=== PATIENT | female | born 1945 | race Caucasian/White ===

== ENCOUNTER 2017-05-21 08:07 | Inpatient (IN) | payer MEDICARE, SELFPAY ==
[2017-05-21] VITALS (14 sets, daily range): BP systolic 100–133; BP diastolic 48–85; PULSE 61–92; RESP 16–20; TEMP 36.4–36.8; O2SAT 92–98; BMI 36.1; BMI 32.5; BMI 36.2
--- NOTE | 2017-05-21 08:16 | EKG12_ITS ---
Test Reason : SOB,BACK PAIN Blood Pressure : / mmHG Vent. Rate : 098 BPM Atrial Rate : 098 BPM P-R Int : 164 ms QRS Dur : 166 ms QT Int : 432 ms P-R-T Axes : 103 073 -48 degrees QTc Int : 551 ms Electronic ventricular pacemaker Abnormal ECG Confirmed by KRISTY HENNING, DARNELL ([id number]), writer editor FIORELLA ABREU ([id number] on 05/22/2017 9:47:39 AM Referred By: JAMES Confirmed By:DARNELL WAGNER MD
--- NOTE | 2017-05-21 08:16 | RAD_ITS ---
STUDY: X-RAY CHEST REASON FOR EXAM: Female, 71 years old. Chest pain and shortness of breath. Back pain. TECHNIQUE: AP and lateral views of the chest. COMPARISON: Comparison is made with prior study dated June 06, 2016. FINDINGS: EKG electrodes are seen. There is evidence of vascular congestion and mild degree of CHF. Mild increased markings at the lung bases suggestive of bibasilar atelectasis. There is no demonstrated pleural abnormality. Sternal cerclage wires and vascular clips are present from a prior sternotomy and coronary artery bypass graft procedure (CABG). Calcification of the mitral valve annulus. A left-sided dual-chamber pacemaker is seen. Normal mediastinum and jessica. Normal visualized pulmonary arteries. Normal visualized aortic arch and descending thoracic aorta. There is demineralization of the osseous structures. Dextroscoliosis. Healed right rib fractures. There is no demonstrated abnormality of the visualized soft tissue structures of the upper abdomen. RAD/Chest PA and Lateral IMPRESSION: Mild degree of CHF. Electronically Signed: Yannick Magana MD at 9:05 EST Tel [phone], Service support ,
--- NOTE | 2017-05-21 08:21 | ED.VISSUMM ---
- ER Visit Summary Date of Service: 05/21/17 Chief Complaint: Per EMS shortness of breath, back pain and increased leg swelling History of Present Illness: The patient is a 71 F is a poor informant with multiple medical problems who has little insight while he she is taking the meds she is and why she has a pacemaker. She no longer has back pain. Apparently it started sometime last evening. She also complained of shortness of breath. She is not certain when that started. She stated she slept in a chair last night because she could not lie down. She is uncertain whether she is gained weight. She states she is compliant with her medication. She states her pacemaker is due for assessment. She complains of feeling cold. She denies fever or chills. She denies rhinorrhea, earache or sore throat. She denied any chest discomfort. She denies any abdominal pain or low back pain. She has no history of PE or DVT. She is on Xarelto for chronic atrial fibrillation. She denies black or maroon colored stool. She denies blood in her urine. She denies cough or pleuritic chest pain. Physical Examination: Obese woman who is tachypnic and breathing 23 times a minute on my count with a pulse ox of 90% on room air. Head is atraumatic normocephalic. Pupils are equal round reactive. Extraocular muscles are intact. TMs are pearly white with landmarks noted. Nares patent with no drainage. Posterior pharynx without erythema or exudate. Uvula is midline. There is no dysphonia or dysphasia. Trachea is midline. There is no stridor with auscultation of the neck. Heart is irregular. Monitor reveals paced rhythm at times atrial ventricular paced and at times only ventricular. Breath sounds are diminished on the right and minimal rales noted at the bases. Abdomen is soft nontender. Lower extremity exam is remarkable for discoloration can consistent with venous stasis and significant pitting edema. She is alert oriented with a nonfocal neurologic exam. Test Results: EG that was transmitted by paramedics reveals AV dual paced rhythm. Rate was 130. EKG performed in the emergency department reveals an atrial sensed ventricular paced rhythm rate of 98 and is irregular. White count is normal with an H&H of 16.7 and 52.5 and an MCV of 100. BMP is remarkable for CO2 of 34 with a creatinine of 1.07 and GFR 54. Troponin is less than 0.02. B EXHAUST EMISSIONS INSPECTOR pending. Chest x-ray reveals borderline cardiomegaly and CHF. Emergency Department Course and Treatment: EKG reveals a atrial sensed ventricular paced rhythm. Rate is 98. To evaluate patient's symptoms will obtain EKG, chest x-ray because of diminished breath sounds and rales with reported orthopnea and pedal edema. Blood work will consist of a CBC, BMP, troponin and BNP. Back pain may represent ischemia of the circumflex vessel versus possible aortic disease. And reason for chest x-ray. Concern patient is volume overloaded and may have had an ischemic event as well. Patient was treated with 40 mg of Lasix for diuresis. 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 Exacerbation of CHF 2. Chronic A. fib with intermittent RVR 3. History of hypertension 4. History hypercholesterolemia 5. History of COPD 6. Polycythemia vera 7. High risk medication, Xarelto This note was generated with [employer] dictation software. It may contain incorrect words, spelling, and punctuation that were not noted in review of the chart prior to signing ED Disposition - Plan for ED Patient: Chief Complaint: Chest Pain Referrals: Zelda Graham MD [STAFF PHYSICIAN] -
[2017-05-21 08:27] LABS: Absolute Lymphocyte Count 1.52 X10^3/ul (0.83-4.51); Basophil# 0.03 X10^3/uL; Basophil% 0.4 % (0-1); Eosinophil# 0.11 X10^3/uL; Eosinophils% 1.3 % (0-5); Hematocrit 52.5 % (37-47); Hemoglobin 16.7 g/dl (12.0-15.0); Lymphocyte # 1.52 X10^3/ul (4.0); Mean Corp Hgb Conc 31.8 g/gl (32-36); Mean Corpuscular Hgb 31.8 pg (27.0-32.0); Monocyte# 0.82 X10^3/uL; Monocyte% 9.7 % (0-10); Neutrophil # 5.97 X10^3/uL (2.7-7.7); Neutrophil % 70.5 % (47-70); Platelet Count 119 K/mm3 (150-450); RBC Distribution Width CV 14.6 % (11.6-14.6); RBC Distribution Width SD 53.5 fl (35.1-43.9); Red Blood Count 5.25 M/mm3 (4.2-5.4); White Blood Count 8.5 K/mm3 (4.4-11.0)
--- NOTE | 2017-05-21 08:27 | ED.DCSUM_ITS ---
- ER Visit Summary Date of Service: 05/21/17 Chief Complaint: Per EMS shortness of breath, back pain and increased leg swelling History of Present Illness: The patient is a 71 F is a poor informant with multiple medical problems who has little insight while he she is taking the meds she is and why she has a pacemaker. She no longer has back pain. Apparently it started sometime last evening. She also complained of shortness of breath. She is not certain when that started. She stated she slept in a chair last night because she could not lie down. She is uncertain whether she is gained weight. She states she is compliant with her medication. She states her pacemaker is due for assessment. She complains of feeling cold. She denies fever or chills. She denies rhinorrhea, earache or sore throat. She denied any chest discomfort. She denies any abdominal pain or low back pain. She has no history of PE or DVT. She is on Xarelto for chronic atrial fibrillation. She denies black or maroon colored stool. She denies blood in her urine. She denies cough or pleuritic chest pain. Physical Examination: Obese woman who is tachypnic and breathing 23 times a minute on my count with a pulse ox of 90% on room air. Head is atraumatic normocephalic. Pupils are equal round reactive. Extraocular muscles are intact. TMs are pearly white with landmarks noted. Nares patent with no drainage. Posterior pharynx without erythema or exudate. Uvula is midline. There is no dysphonia or dysphasia. Trachea is midline. There is no stridor with auscultation of the neck. Heart is irregular. Monitor reveals paced rhythm at times atrial ventricular paced and at times only ventricular. Breath sounds are diminished on the right and minimal rales noted at the bases. Abdomen is soft nontender. Lower extremity exam is remarkable for discoloration can consistent with venous stasis and significant pitting edema. She is alert oriented with a nonfocal neurologic exam. Test Results: EG that was transmitted by paramedics reveals AV dual paced rhythm. Rate was 130. EKG performed in the emergency department reveals an atrial sensed ventricular paced rhythm rate of 98 and is irregular. White count is normal with an H&H of 16.7 and 52.5 and an MCV of 100. BMP is remarkable for CO2 of 34 with a creatinine of 1.07 and GFR 54. Troponin is less than 0.02. B RIG BUILDER HELPER pending. Chest x-ray reveals borderline cardiomegaly and CHF. Emergency Department Course and Treatment: EKG reveals a atrial sensed ventricular paced rhythm. Rate is 98. To evaluate patient's symptoms will obtain EKG, chest x-ray because of diminished breath sounds and rales with reported orthopnea and pedal edema. Blood work will consist of a CBC, BMP, troponin and BNP. Back pain may represent ischemia of the circumflex vessel versus possible aortic disease. And reason for chest x-ray. Concern patient is volume overloaded and may have had an ischemic event as well. Patient was treated with 40 mg of Lasix for diuresis. 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 Exacerbation of CHF 2. Chronic A. fib with intermittent RVR 3. History of hypertension 4. History hypercholesterolemia 5. History of COPD 6. Polycythemia vera 7. High risk medication, Xarelto This note was generated with [employer] dictation software. It may contain incorrect words, spelling, and punctuation that were not noted in review of the chart prior to signing ED Disposition - Plan for ED Patient: Chief Complaint: Chest Pain Referrals: Zelda Graham MD [STAFF PHYSICIAN] -
[2017-05-21 08:29] LABS: POSITIVE COUNT NO; POSITIVE DIFFERENTIAL NO; POSITIVE MORPHOLOGY NO
[2017-05-21 08:38] LABS: Anion Gap 4 (5-15); BUN 16 mg/dL (7-18); BUN/Creat Ratio 15.1 RATIO (10-20); Calcium,Total 8.6 mg/dL (8.5-10.1); Chloride 101 mmol/L (98-107); Creatinine, Serum 1.06 mg/dL (0.55-1.02); EST Glomerular Filtration Rate 54 mL/min (>60); Est Glom Filt Rate - Afr Amer 66 mL/min (>60); Estimated Creatinine Clearance 48.02 ml/min; Glucose 93 mg/dL (74-106); Potassium 4.1 mmol/L (3.5-5.1); Sodium Level 139 mmol/L (136-145)
[2017-05-21] MEDS: Furosemide 40 MG/4 ML Vial IV ×3 (10:18→22:21)
[2017-05-21 10:19] LABS: BNP,B-Type NATRIURETIC PEPTIDE 154.9 pg/mL (0-100)
--- NOTE | 2017-05-21 11:25 | ECHOD_ITS ---
Reason For Study: CHF Procedure This was a 2D Doppler, Color Flow transthoracic echocardiogram. Technically difficult due to pt lack of cooperation at time of exam. Exam performed portable in patient room. Left Ventricle Normal LV size. Moderate concentric left ventricular hypertrophy. Left ventricular systolic function is normal. The estimated ejection fraction is 70 %. No regional wall motion abnormalities noted. Right Ventricle Normal RV size. ICD or pacer leads identified within the right ventricle. Normal systolic function. Atria The left atrium is mildly enlarged. The right atrium is mildly enlarged. ICD or pacer leads identified within the right atrium. No doppler evidence for ASD. Mitral Valve There is moderate to severe mitral annular calcification. Extension of the mitral annular calcification onto the posterior mitral valve leaflet. Mild-Moderate (1-2+) mitral valve insufficiency. Tricuspid Valve Normal tricuspid valve. Mild to moderate (1-2+) tricuspid valve insufficiency. Right ventricular systolic pressure estimated to be 31 mmHg. Aortic Valve Stable appearing bioprosthetic aortic valve apparatus. Pulmonic Valve The pulmonic valve is not well visualized. Trivial pulmonic valve insufficiency. Great Vessels Normal sized aortic root. Pericardium/Pleural No pericardial effusion. MMode/2D Measurements & Calculations LVIDd: 3.4 cm IVSd: 1.9 cm LVOT diam: 2.0 cm LVIDs: 2.4 cm LVPWd: 1.4 cm LVOT area: 3.3 cm2 RVDd: 4.4 cm FS: 28.9 % Ao root diam: 3.1 cm LAV(MOD-bp): 98.6 ml LA A4 area: 28.6 cm2 LA dimension: 5.2 cm LAV(MOD-bp) Indexed: 47.0 ml/m2 LAV(MOD-sp2): 91.6 ml LAV(MOD-sp4): 97.3 ml RA A4 area: 21.2 cm2 Doppler Measurements & Calculations MV E max angel: 105.3 cm/sec MV V2 max: 134.4 cm/sec Ao V2 max: 275.7 cm/sec MV A max angel: 112.8 cm/sec MV max P.2 mmHg Ao max P.4 mmHg MV E/A: 0.93 MV V2 mean: 82.2 cm/sec Ao V2 mean: 186.6 cm/sec MV mean P.1 mmHg Ao mean P.2 mmHg MV V2 VTI: 44.7 cm Ao V2 VTI: 55.8 cm MVA(VTI): 2.4 cm2 RONALDO(I,D): 1.9 cm2 RONALDO(V,D): 1.8 cm2 LV V1 max: 149.4 cm/sec SV(LVOT): 106.5 ml PA V2 max: 113.2 cm/sec LV V1 max P.9 mmHg LV V1 mean P.1 mmHg LV V1 mean: 104.7 cm/sec LV V1 VTI: 32.3 cm TR max angel: 264.0 cm/sec TR max P.0 mmHg Interpretation Summary Left ventricular systolic function is normal. The estimated ejection fraction is 70 %. Moderate concentric left ventricular hypertrophy. The left atrium is mildly enlarged. The right atrium is mildly enlarged. There is moderate to severe mitral annular calcification. Extension of the mitral annular calcification onto the posterior mitral valve leaflet. Mild-Moderate (1-2+) mitral valve insufficiency. Mild to moderate (1-2+) tricuspid valve insufficiency. Stable appearing bioprosthetic aortic valve apparatus. Trivial pulmonic valve insufficiency. Right ventricular systolic pressure estimated to be 31 mmHg. Late peaking spectral doppler pattern in the mid LV cavity approaching 1.5 m/sec (PG of 9 mmHg). Ordering Physician: Blu Hernandez Performed By: Marjorie Vasquez, RDCARLOS ALBERTO, RVT
--- NOTE | 2017-05-21 11:37 | PCM.HP.STD ---
Problem List (1) Low back pain Status: Chronic (2) Anxiety Status: Chronic (3) Depression Status: Chronic (4) Diastolic CHF Status: Chronic Qualifiers: (5) COPD (chronic obstructive pulmonary disease) Status: Chronic Qualifiers: (6) Chronic pain syndrome Status: Chronic (7) HTN (hypertension) Status: Chronic Qualifiers: (8) HLD (hyperlipidemia) Status: Chronic Qualifiers: (9) Iron deficiency anemia Status: Chronic Qualifiers: (10) Status post aortic valve replacement with bioprosthetic valve Status: Chronic (11) Status post placement of cardiac pacemaker Status: Chronic (12) Chronic atrial fibrillation Status: Chronic History of Present Illness Date of Admission: 05/21/17 Chief Complaint: Shortness of breath, leg swelling. The patient is a 71 year old F with multiple medical comorbidities as mentioned above presented to the emergency room because of shortness of breath and leg swelling. Her symptoms started in the last 2 days with exertional shortness of breath, it comes on on mild to moderate exertion, slightly relieved by rest, aggravated by activity and associated with increasing bilateral leg edema. She denied associated chest pain, palpitation, dizziness or lightheadedness. She denies cough or sputum production. She mentioned that her investment banking associate increased her dose of Lasix to 40 mg 3 times daily more than a month ago and she has been using her Lasix as prescribed. In the emergency room, she was afebrile, blood pressure and heart rate are stable, pulse ox is 92% on 2 L of oxygen. Her routine blood work was remarkable for hemoglobin 16.7 which could be a lab error, otherwise her routine blood work was unremarkable. Troponin was negative. BNP was 154. Her EKG revealed paced rhythm. Chest x-ray showed mild bilateral pulmonary vascular congestion. She is being admitted for acute on chronic probably diastolic CHF. Past Medical History Past Medical History (Chronic Problems): Chronic Problems Low back pain (Chronic) Anxiety (Chronic) Depression (Chronic) Diastolic CHF (Chronic) COPD (chronic obstructive pulmonary disease) (Chronic) Chronic pain syndrome (Chronic) HTN (hypertension) (Chronic) HLD (hyperlipidemia) (Chronic) Obesity (BMI 30-39.9) (Chronic) Anxiety and depression (Chronic) Iron deficiency anemia (Chronic) Status post aortic valve replacement with bioprosthetic valve (Chronic) Status post placement of cardiac pacemaker (Chronic) Chronic atrial fibrillation (Chronic) Allergies No Known Allergies Allergy (Verified 05/21/17 08:14) Home Medications: Ambulatory Orders Medication Instructions Recorded Amitriptyline HCl 50 mg PO QHS 04/27/16 Amlodipine Besylate [Norvasc] 10 mg PO DAILY 04/27/16 Atorvastatin Calcium [Lipitor] 10 mg PO QHS 04/27/16 Carvedilol [Coreg (Beta Luis A)] 6.25 mg PO BID 04/27/16 Paroxetine HCl [Paxil] 40 mg PO DAILY 04/27/16 Rivaroxaban [Xarelto] 20 mg PO DAILY 04/27/16 Sotalol Hydrochloride [Betapace 80 mg PO BID 04/27/16 (Beta Luis A)] Albuterol Inhaler [Ventolin Hfa] 1 puff INHALATION Q4H PRN PRN #1 05/02/16 inhaler Albuterol Aerosols [Ventolin 2.5 mg INHALATION Q2H PRN PRN #30 06/01/16 Aerosols] vial.neb. Ferrous Sulfate 325 mg PO DAILY@0800 #30 tablet 06/01/16 Gabapentin [Neurontin] 300 mg PO BIDCM #60 capsule 06/01/16 Acetaminophen [Tylenol Tablet] 650 mg PO Q4H PRN PRN #0 tablet 06/09/16 Ipratropium/Albuterol Sulfate 3 ml INHALATION Q4H.RT ampul.neb 06/09/16 [Duoneb] Ipratropium/Albuterol Sulfate 3 ml INHALATION Q6HWA.RT #60 06/29/16 [Duoneb] ampul.neb Potassium Chloride [K-Dur] 20 meq PO BIDCM #60 tablet 06/29/16 Calcium Carbonate [Tums] 600 mg PO TIDCM 05/21/17 Ergocalciferol (Vitamin D2) 1.25 mg PO DAILY 05/21/17 [Ergocal] Multivitamin/Iron/Folic Acid 1 each PO DAILY 05/21/17 [Daily Vit Formula + Iron Tab] Surgical History: gastric bypass, pacemaker implantation, total hip arthroplasty - Left., - - Bioprosthetic aortic valve replacement. 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 Denies: Anorexia, Chills, Fever Eyes: Denies: Blurred vision, Double vision, Drainage, Redness HEENT: Denies: Difficulty Hearing, Ear Pain, Eye Pain, Nasal Congestion, Sore Throat Cardiovascular: Reports: Edema. Denies: Chest Pain, Chest Pressure, Light Headedness, Orthopnea, Paroxysmal Noc. Dyspnea, Syncope Respiratory: Reports: Shortness of Breath, Shortness of breath upon exertion. Denies: Cough, Hemoptysis, Pleuritic Pain, Sputum production, Wheezing Gastrointestinal: Denies: Abdominal Pain, Constipation, Diarrhea, Nausea, Vomiting Genitourinary: Denies: Dysuria, Frequency, Hematuria Musculoskeletal: Denies: Arm Pain, Back Pain, Foot Pain Skin: Denies: Dryness, Rash Neurological: Denies: Balance problems, Double vision, Change in Speech, Slurred speech, Confusion, Focal weakness, Incoordination, Numbness Psychiatric: Reports: Anxiety, Depression Endocrine: Denies: Change in Body Habitus, Polydipsia VTE Information - Inpt Only VTE Present on Admission: No VTE Mechan Device Prophylaxis: None VTE Pharm Prophylaxis ordered?: No - Physical Exam General: Alert, Oriented x3, Cooperative, - - Mildly short of breath. HEENT: Atraumatic, PERRLA, EOMI Oral: Moist Mucosa, No Gingival or Mucosal Lesions/ Ulcerations Neck: Supple, No JVD, Negative Carotid Bruits, Trachea Midline, Thyroid Normal Size and Texture Lungs: No rhonchi, No wheeze, No rales, Diminished, Short of Breath, - - Markedly decreased breath sounds mainly at the bases, otherwise clear. Cardiovascular: Normal S1, Normal S2, PMI Normal, Irregular Rate Abdomen: Bowel Sounds Present, Soft, Non Tender, Non-Distended, No Hepato-splenomegaly, Obese Extremities: No clubbing, No cyanosis, Edema - ++ Edema, stasis dermatitis. Skin: No rashes, No breakdown Lymphatic: No Cervical, Supraclavicular, or Inguinal Adenopathy Neurological: Cranial nerves II-XII grossly intact, Motor Exam 5/5 strength throughout Psych/Mental Status: Normal Affect, Appropriate, Alert and oriented to time, place, person, mood and affect Vital Signs Temp Pulse Resp BP Pulse Ox 98.1 F 76 16 101/63 92 05/21/17 11:07 05/21/17 11:07 05/21/17 11:07 05/21/17 11:07 05/21/17 11:07 Oxygen Flow Rate 2 Oxygen Delivery Method Nasal Cannula Weight: 213 lb 13.574 oz Body Mass Index (BMI) 32.5 Laboratory Tests 05/21/17 05/21/17 05/21/17 Range/Units 08:12 08:12 08:12 WBC 8.5 (4.4-11.0) K/mm3 RBC 5.25 (4.2-5.4) M/mm3 Hgb 16.7 H (12.0-15.0) g/dl Hct 52.5 H (37-47) % MCV 100.0 H (81-99) fL MCH 31.8 (27.0-32.0) pg MCHC 31.8 L (32-36) g/gl RDW 14.6 (11.6-14.6) % RDW Differential 53.5 H (35.1-43.9) fl Plt Count 119 L (150-450) K/mm3 MPV 10.0 (6.2-12.0) fl Immature Gran % (Auto) 0.100 (0.0-0.9) % Neut % (Auto) 70.5 H (47-70) % Lymph % (Auto) 18.0 L (19-41) % [place] % (Auto) 9.7 (0-10) % Eos % (Auto) 1.3 (0-5) % Baso % (Auto) 0.4 (0-1) % Absolute Neuts (auto) 6.0 (2.0-7.7) X10^3/uL Absolute Lymphs (auto) 1.52 (0.83-4.51) X10^3/ul Total Counted Not Reportable Sodium 139 (136-145) mmol/L Potassium 4.1 (3.5-5.1) mmol/L Chloride 101 (98-107) mmol/L Carbon Dioxide 34.0 H (21.0-32.0) mmol/L Anion Gap 4 L (5-15) BUN 16 (7-18) mg/dL Creatinine 1.06 H (0.55-1.02) mg/dL Estim Creat Clear Calc 48.02 ml/min Est GFR (MDRD) Af Amer 66 (>60) mL/min Est GFR (MDRD) Non-Af 54 L (>60) mL/min BUN/Creatinine Ratio 15.1 (10-20) RATIO Glucose 93 (74-106) mg/dL Calcium 8.6 (8.5-10.1) mg/dL Troponin I < 0.02 (<0.06) ng/mL B-Natriuretic Peptide 154.9 H (0-100) pg/mL Clinical Impression(s) from Imaging Studies Chest X-Ray 05/21/17 08:16 IMPRESSION: Mild degree of CHF. Electronically Signed: Yannick Magana MD at 9:05 EST Tel [phone], Service support , Assessment/Plan This is a 71 years old female patient presented to the emergency room because of 2 days history of shortness of breath and increasing bilateral leg edema and she was found to have acute on chronic probably diastolic CHF. #1 acute on chronic probably diastolic CHF: This is based on symptoms, finding of bilateral leg edema and chest x-ray findings as well as slightly elevated BNP. Her EKG revealed paced rhythm. First troponin is negative. She had echocardiogram on May, that showed ejection fraction of 60%, pulmonary artery pressure of 32 and moderate left ventricular hypertrophy. Plan: Admit to PCU, cardiac monitoring, serial cardiac enzymes, fluid restriction to less than 1500 cc daily, 2D echocardiogram, start IV Lasix for diuresis, cardiology consult, oxygen by nasal cannula to keep O2 saturation more than 92%, PT OT evaluation and treatment, repeat CBC and BMP tomorrow morning. #2 hypoxia: Secondary to above. Normal, patient is not on home oxygen. She is a smoker and history of COPD but never been oxygen at home. Plan: DuoNeb every 6 hours, albuterol as needed, incentive spirometer, IV Lasix for diuresis as above. #3 chronic atrial fibrillation status post pacemaker: Heart rate stable, blood pressure stable. Continue Coreg and sotalol for rate control, continue Xarelto for anticoagulation. 2D echocardiogram as above. #4 status post aortic valve replacement with bioprosthetic valve: Plan for 2D echocardiogram as above. #5 COPD: DuoNeb every 6 hours, albuterol as needed, oxygen by nasal cannula, incentive spirometer. Chest x-ray reviewed. #6 hypertension: Blood pressure stable. Continue Coreg and sotalol, hold Norvasc. #7 anxiety/depression: Continue Paxil. #8 chronic anemia/chronic iron deficiency anemia: Baseline hemoglobin is around 8-10 g/dL. Admission hemoglobin is 16.7 which could be a lab error. No evidence of active bleeding, plan to continue iron supplements, repeat CBC tomorrow morning. #9 chronic pain syndrome: Continue Neurontin and Elavil. #10 DVT prophylaxis: Continue Xarelto. This note was generated with [employer] dictation software. It may contain incorrect words, spelling, and punctuation that were not noted in checking the note before signing. Code Visit Inpatient E&M: 42500 Init Hosp L3
--- NOTE | 2017-05-21 11:43 | HP.PCM_ITS ---
Problem List (1) Low back pain Status: Chronic (2) Anxiety Status: Chronic (3) Depression Status: Chronic (4) Diastolic CHF Status: Chronic Qualifiers: (5) COPD (chronic obstructive pulmonary disease) Status: Chronic Qualifiers: (6) Chronic pain syndrome Status: Chronic (7) HTN (hypertension) Status: Chronic Qualifiers: (8) HLD (hyperlipidemia) Status: Chronic Qualifiers: (9) Iron deficiency anemia Status: Chronic Qualifiers: (10) Status post aortic valve replacement with bioprosthetic valve Status: Chronic (11) Status post placement of cardiac pacemaker Status: Chronic (12) Chronic atrial fibrillation Status: Chronic History of Present Illness Date of Admission: 05/21/17 Chief Complaint: Shortness of breath, leg swelling. The patient is a 71 year old F with multiple medical comorbidities as mentioned above presented to the emergency room because of shortness of breath and leg swelling. Her symptoms started in the last 2 days with exertional shortness of breath, it comes on on mild to moderate exertion, slightly relieved by rest, aggravated by activity and associated with increasing bilateral leg edema. She denied associated chest pain, palpitation, dizziness or lightheadedness. She denies cough or sputum production. She mentioned that her crm developer increased her dose of Lasix to 40 mg 3 times daily more than a month ago and she has been using her Lasix as prescribed. In the emergency room, she was afebrile, blood pressure and heart rate are stable, pulse ox is 92% on 2 L of oxygen. Her routine blood work was remarkable for hemoglobin 16.7 which could be a lab error, otherwise her routine blood work was unremarkable. Troponin was negative. BNP was 154. Her EKG revealed paced rhythm. Chest x-ray showed mild bilateral pulmonary vascular congestion. She is being admitted for acute on chronic probably diastolic CHF. Past Medical History Past Medical History (Chronic Problems): Chronic Problems Low back pain (Chronic) Anxiety (Chronic) Depression (Chronic) Diastolic CHF (Chronic) COPD (chronic obstructive pulmonary disease) (Chronic) Chronic pain syndrome (Chronic) HTN (hypertension) (Chronic) HLD (hyperlipidemia) (Chronic) Obesity (BMI 30-39.9) (Chronic) Anxiety and depression (Chronic) Iron deficiency anemia (Chronic) Status post aortic valve replacement with bioprosthetic valve (Chronic) Status post placement of cardiac pacemaker (Chronic) Chronic atrial fibrillation (Chronic) Allergies No Known Allergies Allergy (Verified 05/21/17 08:14) Home Medications: Ambulatory Orders Medication Instructions Recorded Amitriptyline HCl 50 mg PO QHS 04/27/16 Amlodipine Besylate [Norvasc] 10 mg PO DAILY 04/27/16 Atorvastatin Calcium [Lipitor] 10 mg PO QHS 04/27/16 Carvedilol [Coreg (Beta Luis A)] 6.25 mg PO BID 04/27/16 Paroxetine HCl [Paxil] 40 mg PO DAILY 04/27/16 Rivaroxaban [Xarelto] 20 mg PO DAILY 04/27/16 Sotalol Hydrochloride [Betapace 80 mg PO BID 04/27/16 (Beta Luis A)] Albuterol Inhaler [Ventolin Hfa] 1 puff INHALATION Q4H PRN PRN #1 05/02/16 inhaler Albuterol Aerosols [Ventolin 2.5 mg INHALATION Q2H PRN PRN #30 06/01/16 Aerosols] vial.neb. Ferrous Sulfate 325 mg PO DAILY@0800 #30 tablet 06/01/16 Gabapentin [Neurontin] 300 mg PO BIDCM #60 capsule 06/01/16 Acetaminophen [Tylenol Tablet] 650 mg PO Q4H PRN PRN #0 tablet 06/09/16 Ipratropium/Albuterol Sulfate 3 ml INHALATION Q4H.RT ampul.neb 06/09/16 [Duoneb] Ipratropium/Albuterol Sulfate 3 ml INHALATION Q6HWA.RT #60 06/29/16 [Duoneb] ampul.neb Potassium Chloride [K-Dur] 20 meq PO BIDCM #60 tablet 06/29/16 Calcium Carbonate [Tums] 600 mg PO TIDCM 05/21/17 Ergocalciferol (Vitamin D2) 1.25 mg PO DAILY 05/21/17 [Ergocal] Multivitamin/Iron/Folic Acid 1 each PO DAILY 05/21/17 [Daily Vit Formula + Iron Tab] Surgical History: gastric bypass, pacemaker implantation, total hip arthroplasty - Left., - - Bioprosthetic aortic valve replacement. 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 Denies: Anorexia, Chills, Fever Eyes: Denies: Blurred vision, Double vision, Drainage, Redness HEENT: Denies: Difficulty Hearing, Ear Pain, Eye Pain, Nasal Congestion, Sore Throat Cardiovascular: Reports: Edema. Denies: Chest Pain, Chest Pressure, Light Headedness, Orthopnea, Paroxysmal Noc. Dyspnea, Syncope Respiratory: Reports: Shortness of Breath, Shortness of breath upon exertion. Denies: Cough, Hemoptysis, Pleuritic Pain, Sputum production, Wheezing Gastrointestinal: Denies: Abdominal Pain, Constipation, Diarrhea, Nausea, Vomiting Genitourinary: Denies: Dysuria, Frequency, Hematuria Musculoskeletal: Denies: Arm Pain, Back Pain, Foot Pain Skin: Denies: Dryness, Rash Neurological: Denies: Balance problems, Double vision, Change in Speech, Slurred speech, Confusion, Focal weakness, Incoordination, Numbness Psychiatric: Reports: Anxiety, Depression Endocrine: Denies: Change in Body Habitus, Polydipsia VTE Information - Inpt Only VTE Present on Admission: No VTE Mechan Device Prophylaxis: None VTE Pharm Prophylaxis ordered?: No - Physical Exam General: Alert, Oriented x3, Cooperative, - - Mildly short of breath. HEENT: Atraumatic, PERRLA, EOMI Oral: Moist Mucosa, No Gingival or Mucosal Lesions/ Ulcerations Neck: Supple, No JVD, Negative Carotid Bruits, Trachea Midline, Thyroid Normal Size and Texture Lungs: No rhonchi, No wheeze, No rales, Diminished, Short of Breath, - - Markedly decreased breath sounds mainly at the bases, otherwise clear. Cardiovascular: Normal S1, Normal S2, PMI Normal, Irregular Rate Abdomen: Bowel Sounds Present, Soft, Non Tender, Non-Distended, No Hepato- splenomegaly, Obese Extremities: No clubbing, No cyanosis, Edema - ++ Edema, stasis dermatitis. Skin: No rashes, No breakdown Lymphatic: No Cervical, Supraclavicular, or Inguinal Adenopathy Neurological: Cranial nerves II-XII grossly intact, Motor Exam 5/5 strength throughout Psych/Mental Status: Normal Affect, Appropriate, Alert and oriented to time, place, person, mood and affect Vital Signs Temp Pulse Resp BP Pulse Ox 98.1 F 76 16 101/63 92 05/21/17 11:07 05/21/17 11:07 05/21/17 11:07 05/21/17 11:07 05/21/17 11:07 Oxygen Flow Rate 2 Oxygen Delivery Method Nasal Cannula Weight: 213 lb 13.574 oz Body Mass Index (BMI) 32.5 Laboratory Tests 3 05/21/17 05/21/17 05/21/17 Range/Units 08:12 08:12 08:12 WBC 8.5 (4.4-11.0) K/mm3 RBC 5.25 (4.2-5.4) M/mm3 Hgb 16.7 H (12.0-15.0) g/dl Hct 52.5 H (37-47) % MCV 100.0 H (81-99) fL MCH 31.8 (27.0-32.0) pg MCHC 31.8 L (32-36) g/gl RDW 14.6 (11.6-14.6) % RDW Differential 53.5 H (35.1-43.9) fl Plt Count 119 L (150-450) K/mm3 MPV 10.0 (6.2-12.0) fl Immature Gran % (Auto) 0.100 (0.0-0.9) % Neut % (Auto) 70.5 H (47-70) % Lymph % (Auto) 18.0 L (19-41) % [place] % (Auto) 9.7 (0-10) % Eos % (Auto) 1.3 (0-5) % Baso % (Auto) 0.4 (0-1) % Absolute Neuts (auto) 6.0 (2.0-7.7) X10^3/uL Absolute Lymphs (auto) 1.52 (0.83-4.51) X10^3/ul Total Counted Not Reportable Sodium 139 (136-145) mmol/L Potassium 4.1 (3.5-5.1) mmol/L Chloride 101 (98-107) mmol/L Carbon Dioxide 34.0 H (21.0-32.0) mmol/L Anion Gap 4 L (5-15) BUN 16 (7-18) mg/dL Creatinine 1.06 H (0.55-1.02) mg/dL Estim Creat Clear Calc 48.02 ml/min Est GFR (MDRD) Af Amer 66 (>60) mL/min Est GFR (MDRD) Non-Af 54 L (>60) mL/min BUN/Creatinine Ratio 15.1 (10-20) RATIO Glucose 93 (74-106) mg/dL Calcium 8.6 (8.5-10.1) mg/dL Troponin I < 0.02 (<0.06) ng/mL B-Natriuretic Peptide 154.9 H (0-100) pg/mL Clinical Impression(s) from Imaging Studies Chest X-Ray 05/21/17 08:16 IMPRESSION: Mild degree of CHF. Electronically Signed: Yannick Magana MD at 9:05 EST Tel [phone], Service support , Assessment/Plan This is a 71 years old female patient presented to the emergency room because of 2 days history of shortness of breath and increasing bilateral leg edema and she was found to have acute on chronic probably diastolic CHF. #1 acute on chronic probably diastolic CHF: This is based on symptoms, finding of bilateral leg edema and chest x-ray findings as well as slightly elevated BNP. Her EKG revealed paced rhythm. First troponin is negative. She had echocardiogram on May, that showed ejection fraction of 60%, pulmonary artery pressure of 32 and moderate left ventricular hypertrophy. Plan : Admit to PCU, cardiac monitoring, serial cardiac enzymes, fluid restriction to less than 1500 cc daily, 2D echocardiogram, start IV Lasix for diuresis, cardiology consult, oxygen by nasal cannula to keep O2 saturation more than 92% , PT OT evaluation and treatment, repeat CBC and BMP tomorrow morning. #2 hypoxia: Secondary to above. Normal, patient is not on home oxygen. She is a smoker and history of COPD but never been oxygen at home. Plan: DuoNeb every 6 hours, albuterol as needed, incentive spirometer, IV Lasix for diuresis as above. #3 chronic atrial fibrillation status post pacemaker: Heart rate stable, blood pressure stable. Continue Coreg and sotalol for rate control, continue Xarelto for anticoagulation. 2D echocardiogram as above. #4 status post aortic valve replacement with bioprosthetic valve: Plan for 2D echocardiogram as above. #5 COPD: DuoNeb every 6 hours, albuterol as needed, oxygen by nasal cannula, incentive spirometer. Chest x-ray reviewed. #6 hypertension: Blood pressure stable. Continue Coreg and sotalol, hold Norvasc. #7 anxiety/depression: Continue Paxil. #8 chronic anemia/chronic iron deficiency anemia: Baseline hemoglobin is around 8-10 g/dL. Admission hemoglobin is 16.7 which could be a lab error. No evidence of active bleeding, plan to continue iron supplements, repeat CBC tomorrow morning. #9 chronic pain syndrome: Continue Neurontin and Elavil. #10 DVT prophylaxis: Continue Xarelto. This note was generated with [employer] dictation software. It may contain incorrect words, spelling, and punctuation that were not noted in checking the note before signing. Code Visit Inpatient E&M: 84525 Init Hosp L3
[2017-05-21 11:53] LABS: International Normalized Ratio 1.5; Prothrombin Time (Protime)PT. 17.1 SECONDS (11.7-14.9)
[2017-05-21] MEDS: Ipratropium/Albuterol Sulfate 3 ML AMPUL.NEB INHALATION ×2 (14:42→19:11)
[2017-05-21] MEDS: Gabapentin 300 MG Capsule PO (16:39)
[2017-05-21] MEDS: Calcium Carbonate 500 MG Tablet PO (16:39)
[2017-05-21] MEDS: Rivaroxaban 20 MG Tablet PO (16:39)
--- NOTE | 2017-05-21 18:25 | PCM.CONS.C ---
Reason for Consult Date of Consultation: 05/21/17 Reason for Consultation: Shortness of breath. History of Present Illness: The patient is a 71 year old F with multiple medical comorbidities including diastolic heart failure, bioprosthetic aortic valve replacement as well as permanent pacemaker implantation.. She also has a history of atrial fibrillation which appears to be persistent. She presented to the emergency room because of shortness of breath and leg swelling. Her symptoms started in the last 2 days with exertional shortness of breath, it comes on on mild to moderate exertion, slightly relieved by rest, aggravated by activity and associated with increasing bilateral leg edema. She denied associated chest pain, palpitation, dizziness or lightheadedness. She denies cough or sputum production. She mentioned that she was visited by her primary physician at home who pays house calls to her and made some adjustments to her medications. She mentioned that her counselor marriage and family increased her dose of Lasix to 40 mg 3 times daily more than a month ago and she has been using her Lasix as prescribed. In the emergency room, she was afebrile, blood pressure and heart rate are stable, pulse ox is 92% on 2 L of oxygen. Her routine blood work was remarkable for hemoglobin 16.7 which could be a lab error, otherwise her routine blood work was unremarkable. Troponin was negative. BNP was 154. Her EKG revealed paced rhythm. Chest x-ray showed mild bilateral pulmonary vascular congestion. Cardiology was asked to see her on the basis of her shortness of breath. Past Medical History Allergies/Adverse Reactions: Allergies No Known Allergies Allergy (Verified 05/21/17 08:14) Home Medications: Ambulatory Orders Medication Instructions Recorded Amitriptyline HCl 50 mg PO QHS 04/27/16 Amlodipine Besylate [Norvasc] 10 mg PO DAILY 04/27/16 Atorvastatin Calcium [Lipitor] 10 mg PO QHS 04/27/16 Carvedilol [Coreg (Beta Luis A)] 6.25 mg PO BID 04/27/16 Paroxetine HCl [Paxil] 20 mg PO DAILY 04/27/16 Rivaroxaban [Xarelto] 20 mg PO DAILY 04/27/16 Sotalol Hydrochloride [Betapace 80 mg PO BID 04/27/16 (Beta Luis A)] Albuterol Inhaler [Ventolin Hfa] 1 puff INHALATION Q4H PRN PRN #1 01/17/17 inhaler Albuterol Aerosols [Ventolin 2.5 mg INHALATION Q2H PRN PRN #30 06/01/16 Aerosols] vial.neb. Ferrous Sulfate 325 mg PO DAILY@0800 #30 tablet 06/01/16 Gabapentin [Neurontin] 300 mg PO BIDCM #60 capsule 06/01/16 Acetaminophen [Tylenol Tablet] 650 mg PO Q4H PRN PRN #0 tablet 06/09/16 Ipratropium/Albuterol Sulfate 3 ml INHALATION Q4H.RT ampul.neb 06/09/16 [Duoneb] Ipratropium/Albuterol Sulfate 3 ml INHALATION Q6HWA.RT #60 06/29/16 [Duoneb] ampul.neb Potassium Chloride [K-Dur] 20 meq PO BIDCM #60 tablet 06/29/16 Calcium Carbonate [Tums] 600 mg PO TIDCM 05/21/17 Ergocalciferol (Vitamin D2) 1.25 mg PO DAILY 05/21/17 [Ergocal] Furosemide [Lasix] 60 mg PO BID 05/21/17 Multivitamin/Iron/Folic Acid 1 each PO DAILY 05/21/17 [Daily Vit Formula + Iron Tab] Past Medical History (Chronic Problems): Chronic Problems Low back pain (Chronic) Anxiety (Chronic) Depression (Chronic) Diastolic CHF (Chronic) COPD (chronic obstructive pulmonary disease) (Chronic) Chronic pain syndrome (Chronic) HTN (hypertension) (Chronic) HLD (hyperlipidemia) (Chronic) Obesity (BMI 30-39.9) (Chronic) Anxiety and depression (Chronic) Iron deficiency anemia (Chronic) Status post aortic valve replacement with bioprosthetic valve (Chronic) Status post placement of cardiac pacemaker (Chronic) Chronic atrial fibrillation (Chronic) Surgical History: gastric bypass, pacemaker implantation, total hip arthroplasty - Left., - - Bioprosthetic aortic valve replacement. 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 Denies: Chest Discomfort, Orthopnea, PND, Palpitations, Lightheadedness, Dizziness, Near Syncope, Syncope Respiratory: Denies: Cough, Sputum Production, Hemoptysis Gastrointestinal: Denies: Hematemesis, Hematochezia, Melena Genitourinary: Denies: Dysuria, Hematuria Skin: Denies: Rash Neurological: Denies: Dizziness Subjectve: Elderly lady in no apparent distress Objective: Vital Signs Temp Pulse Resp BP Pulse Ox 98.1 F 62 16 101/63 95 05/21/17 11:07 05/21/17 15:27 05/21/17 14:43 05/21/17 11:07 05/21/17 14:43 Oxygen Flow Rate 2.5 Oxygen Delivery Method Nasal Cannula Weight: 213 lb 13.574 oz Body Mass Index (BMI) 32.5 Intake and Output for Last 24 Hours 05/19/17 05/20/17 05/21/17 23:59 23:59 23:59 Intake Total 600 / 600 Balance 600 / 600 General: Awake, Alert, Oriented x 3 HEENT: PERRL, EOMI, Sclera Non Icteric Neck: Supple, Good ROM, No Lymph Node Enlargement Lungs: Diminished [place] Cardiovascular: Irregular Rhythm, Normal S1, Normal S2, No Rubs, No Gallops Murmur Murmur: Grade 2/6, Early Systolic, LLSB Vascular: No Carotid Bruits, Normal Femoral Pulses, Normal Radial Pulses, Normal Dorsalis Pedal Pulse, Normal Posterior Tibial Pulses Abdomen: Bowel Sounds Present, Soft, Non Tender, No HSM, No Organomegaly Extremities: No Cyanosis, No Clubbing, Bilateral Edema +1 Neurological: No Focal Motor or Sensory Deficit Psych/Mental Status: Appropriate 05/21/17 12:03: Troponin I 0.02 05/21/17 16:40: Troponin I < 0.02 Rhythm: EKG: Atrial fibrillation with ventricular pacing ECHO: Preserved ejection fraction from May 2016 Assessment/Plan 1. Diastolic heart failure-chronic Patient presents with chronic pedal edema as well as shortness of breath the etiology of which is likely multifactorial including the atrial fibrillation with a uncontrolled ventricular response rate, as well as her valvular heart disease. She is also on medication which could be causing some of her pedal edema. Her last natriuretic peptide level was not impressively elevated. I would recommend continuing her diuretic with Lasix 40 mg twice a day Discontinue amlodipine 2. Atrial fibrillation-ventricular response rate appears to be fair however at this time I do not see a reason why she needs to be on Coreg as well as sotalol as she is remaining in atrial fibrillation. It appears from her previous admission she was also in atrial fibrillation and therefore I would recommend discontinuing the sotalol and increasing her Coreg. She will continue to be anticoagulated with rivaroxaban. 3. Hypertension Her blood pressure appears to be under good control however with the changes be made to her current medications we may need to monitor her blood pressure closely and carefully. 4. Status post pacemaker implantation He does have a dual-chamber pacemaker implanted but with her persistent atrial fibrillation she appears to be ventricular pacing most of the time. We will obtain the records of her last pacemaker interrogation and then further recommendations made. 5. Valvular heart disease She does have a stable bioprosthetic aortic valve with adequate gradients. Her last echocardiogram. Antibiotic prophylaxis. [place]ian heart recommendations will be continued. It does not appear that valvular malfunction is contributing to her current problems. By clinical exam she appears to be stable. However a repeat echocardiogram may be performed to reassess the above. Thank you for allowing me to participate in the care of your patient. Please don't hesitate to call if any issues arise
[2017-05-21] MEDS: Carvedilol 12.5 MG Tablet PO (22:20)
[2017-05-21] MEDS: Amitriptyline 25 MG Tablet 50 MG PO (22:20)
[2017-05-21] MEDS: Atorvastatin Calcium 10 MG Tablet PO (22:20)
[2017-05-22] VITALS (20 sets, daily range): BP systolic 96–127; BP diastolic 42–69; PULSE 60–111; RESP 14–20; TEMP 36.1–37.1; O2SAT 86–95
[2017-05-22] MEDS: Ipratropium/Albuterol Sulfate 3 ML AMPUL.NEB INHALATION ×4 (01:04→19:30)
[2017-05-22 05:52] LABS: Absolute Lymphocyte Count 1.44 X10^3/ul (0.83-4.51); Absolute Neutrophil Count 4.7 X10^3/uL (2.0-7.7); Basophil# 0.03 X10^3/uL; Basophil% 0.4 % (0-1); Eosinophil# 0.08 X10^3/uL; Eosinophils% 1.2 % (0-5); Hematocrit 50.5 % (37-47); Hemoglobin 15.6 g/dl (12.0-15.0); Lymphocyte # 1.44 X10^3/ul (4.0); Lymphocyte % 20.9 % (19-41); Mean Corp Hgb Conc 30.9 g/gl (32-36); Mean Corpuscular Hgb 31.1 pg (27.0-32.0); Mean Corpuscular Volume 100.8 fL (81-99); Mean Platelet Vol. 10.1 fl (6.2-12.0); Monocyte# 0.61 X10^3/uL; Monocyte% 8.9 % (0-10); Neutrophil # 4.71 X10^3/uL (2.7-7.7); Neutrophil % 68.5 % (47-70); Platelet Count 116 K/mm3 (150-450); RBC Distribution Width CV 14.6 % (11.6-14.6); RBC Distribution Width SD 53.5 fl (35.1-43.9); Red Blood Count 5.01 M/mm3 (4.2-5.4); White Blood Count 6.9 K/mm3 (4.4-11.0)
[2017-05-22 05:54] LABS: POSITIVE COUNT NO; POSITIVE DIFFERENTIAL NO; POSITIVE MORPHOLOGY NO
--- NOTE | 2017-05-22 05:55 | EKG12_ITS ---
Test Reason : AM EKG Blood Pressure : / mmHG Vent. Rate : 106 BPM Atrial Rate : 120 BPM P-R Int : 000 ms QRS Dur : 170 ms QT Int : 378 ms P-R-T Axes : 000 086 -88 degrees QTc Int : 502 ms Ventricular-paced rhythm Abnormal ECG Confirmed by KRISTY HENNING, DARNELL ([id number]), film editor supervisor FIORELLA ABREU ([id number] on 05/23/2017 2:57:38 PM Referred By: DEJUAN Confirmed By:DARNELL WAGNER MD
[2017-05-22 06:01] LABS: Anion Gap 5 (5-15); BUN 13 mg/dL (7-18); Calcium,Total 8.4 mg/dL (8.5-10.1); Chloride 103 mmol/L (98-107); Creatinine, Serum 0.76 mg/dL (0.55-1.02); EST Glomerular Filtration Rate 80 mL/min (>60); Est Glom Filt Rate - Afr Amer 96 mL/min (>60); Estimated Creatinine Clearance 52.81 ml/min; Glucose 82 mg/dL (74-106); Potassium 3.4 mmol/L (3.5-5.1); Sodium Level 146 mmol/L (136-145)
[2017-05-22] MEDS: 0.9% NaCl Peripheral Flush Adult/Peds IV (06:29)
[2017-05-22] MEDS: Furosemide 40 MG/4 ML Vial IV (06:29)
--- NOTE | 2017-05-22 07:43 | PCM.PN.CARD ---
Subjectve: Seen and evaluated and appears to be doing quite well this morning had significant diuresis Objective: Vital Signs Temp Pulse Resp BP Pulse Ox 97.0 F L 66 16 99/42 L 93 05/22/17 06:15 05/22/17 06:15 05/22/17 06:15 05/22/17 06:15 05/22/17 06:15 Oxygen Flow Rate 2 Oxygen Delivery Method Nasal Cannula Weight: 206 lb 2.115 oz Body Mass Index (BMI) 32.5 Intake and Output for Last 24 Hours 05/20/17 05/21/17 05/22/17 23:59 23:59 23:59 Intake Total 840 / 840 120 / 120 Output Total 2300 / 2300 Balance 840 / 840 -2180 / -2180 General: Awake, Alert, Oriented x 3 HEENT: PERRL, EOMI, Sclera Non Icteric Neck: Supple, Good ROM, No Lymph Node Enlargement Lungs: Clear to auscultation Cardiovascular: Irregular Rhythm, Normal S1, Normal S2, No Murmurs, No Rubs, No Gallops Vascular: No Carotid Bruits, Normal Femoral Pulses, Normal Radial Pulses, Normal Dorsalis Pedal Pulse, Normal Posterior Tibial Pulses Abdomen: Bowel Sounds Present, Soft, Non Tender, No HSM, No Organomegaly Extremities: No Cyanosis, No Clubbing, Bilateral Edema +1 Neurological: No Focal Motor or Sensory Deficit 05/21/17 12:03: Troponin I 0.02 05/21/17 16:40: Troponin I < 0.02 05/21/17 21:56: Troponin I < 0.02 05/22/17 05:20: WBC 6.9, RBC 5.01, Hgb 15.6 H, Hct 50.5 H, MCV 100.8 H, MCH 31.1, MCHC 30.9 L, RDW 14.6, RDW Differential 53.5 H, Plt Count 116 L, MPV 10.1, Immature Gran % (Auto) 0.100, Neut % (Auto) 68.5, Lymph % (Auto) 20.9, [place] % (Auto) 8.9, Eos % (Auto) 1.2, Baso % (Auto) 0.4, Absolute Neuts (auto) 4.7, Total Counted Not Reportable 05/22/17 05:20: Sodium 146 H, Potassium 3.4 L, Chloride 103, Carbon Dioxide 38.0 H, Anion Gap 5, BUN 13, Creatinine 0.76, Est GFR (MDRD) Af Amer 96, Est GFR (MDRD) Non-Af 80, BUN/Creatinine Ratio 17.0, Glucose 82, Calcium 8.4 L Rhythm: EKG: Fibrillation with paced rhythm Assessment/Plan 1. Diastolic heart failure-chronic Patient presents with chronic pedal edema as well as shortness of breath the etiology of which is likely multifactorial including the atrial fibrillation with a uncontrolled ventricular response rate, as well as her valvular heart disease. She is also on medication which could be causing some of her pedal edema. Her last natriuretic peptide level was not impressively elevated. I would recommend continuing her diuretic with Lasix 40 mg twice a day Discontinue amlodipine Await echocardiographic evaluation today 2. Atrial fibrillation-ventricular response rate appears to be fair however at this time I do not see a reason why she needs to be on Coreg as well as sotalol as she is remaining in atrial fibrillation. It appears from her previous admission she was also in atrial fibrillation and therefore I would recommend discontinuing the sotalol and increasing her Coreg. Appears to have tolerated this overnight. She will continue to be anticoagulated with rivaroxaban. 3. Hypertension Her blood pressure appears to be under good control however with the changes be made to her current medications we may need to monitor her blood pressure closely and carefully. 4. Status post pacemaker implantation He does have a dual-chamber pacemaker implanted but with her persistent atrial fibrillation she appears to be ventricular pacing most of the time. We will obtain the records of her last pacemaker interrogation and then further recommendations made. Does have a [employer]otron[employer] pacemaker and this will be interrogated when she follows with us in our office. 5. Valvular heart disease She does have a stable bioprosthetic aortic valve with adequate gradients. Her last echocardiogram. Antibiotic prophylaxis. [place]ian heart recommendations will be continued. It does not appear that valvular malfunction is contributing to her current problems. By clinical exam she appears to be stable. However a repeat echocardiogram may be performed to reassess the above. 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 Office will arrange appointment. Thank you for allowing me to participate in the care of your patient. Please don't hesitate to call if any issues arise
--- NOTE | 2017-05-22 07:46 | PN.CARD_ITS ---
Subjectve: Seen and evaluated and appears to be doing quite well this morning had significant diuresis Objective: Vital Signs Temp Pulse Resp BP Pulse Ox 97.0 F L 66 16 99/42 L 93 05/22/17 06:15 05/22/17 06:15 05/22/17 06:15 05/22/17 06:15 05/22/17 06:15 Oxygen Flow Rate 2 Oxygen Delivery Method Nasal Cannula Weight: 206 lb 2.115 oz Body Mass Index (BMI) 32.5 Intake and Output for Last 24 Hours 05/20/17 05/21/17 05/22/17 23:59 23:59 23:59 Intake Total 840 / 840 120 / 120 Output Total 2300 / 2300 Balance 840 / 840 -2180 / -2180 General: Awake, Alert, Oriented x 3 HEENT: PERRL, EOMI, Sclera Non Icteric Neck: Supple, Good ROM, No Lymph Node Enlargement Lungs: Clear to auscultation Cardiovascular: Irregular Rhythm, Normal S1, Normal S2, No Murmurs, No Rubs, No Gallops Vascular: No Carotid Bruits, Normal Femoral Pulses, Normal Radial Pulses, Normal Dorsalis Pedal Pulse, Normal Posterior Tibial Pulses Abdomen: Bowel Sounds Present, Soft, Non Tender, No HSM, No Organomegaly Extremities: No Cyanosis, No Clubbing, Bilateral Edema +1 Neurological: No Focal Motor or Sensory Deficit 05/21/17 12:03: Troponin I 0.02 05/21/17 16:40: Troponin I < 0.02 05/21/17 21:56: Troponin I < 0.02 05/22/17 05:20: WBC 6.9, RBC 5.01, Hgb 15.6 H, Hct 50.5 H, MCV 100.8 H, MCH 31.1 , MCHC 30.9 L, RDW 14.6, RDW Differential 53.5 H, Plt Count 116 L, MPV 10.1, Immature Gran % (Auto) 0.100, Neut % (Auto) 68.5, Lymph % (Auto) 20.9, Norman % ( Auto) 8.9, Eos % (Auto) 1.2, Baso % (Auto) 0.4, Absolute Neuts (auto) 4.7, Total Counted Not Reportable 05/22/17 05:20: Sodium 146 H, Potassium 3.4 L, Chloride 103, Carbon Dioxide 38.0 H, Anion Gap 5, BUN 13, Creatinine 0.76, Est GFR (MDRD) Af Amer 96, Est GFR (MDRD) Non-Af 80, BUN/Creatinine Ratio 17.0, Glucose 82, Calcium 8.4 L Rhythm: EKG: Fibrillation with paced rhythm Assessment/Plan 1. Diastolic heart failure-chronic Patient presents with chronic pedal edema as well as shortness of breath the etiology of which is likely multifactorial including the atrial fibrillation with a uncontrolled ventricular response rate, as well as her valvular heart disease. She is also on medication which could be causing some of her pedal edema. Her last natriuretic peptide level was not impressively elevated. I would recommend continuing her diuretic with Lasix 40 mg twice a day Discontinue amlodipine Await echocardiographic evaluation today 2. Atrial fibrillation-ventricular response rate appears to be fair however at this time I do not see a reason why she needs to be on Coreg as well as sotalol as she is remaining in atrial fibrillation. It appears from her previous admission she was also in atrial fibrillation and therefore I would recommend discontinuing the sotalol and increasing her Coreg. Appears to have tolerated this overnight. She will continue to be anticoagulated with rivaroxaban. 3. Hypertension Her blood pressure appears to be under good control however with the changes be made to her current medications we may need to monitor her blood pressure closely and carefully. 4. Status post pacemaker implantation He does have a dual-chamber pacemaker implanted but with her persistent atrial fibrillation she appears to be ventricular pacing most of the time. We will obtain the records of her last pacemaker interrogation and then further recommendations made. Does have a Biotronik pacemaker and this will be interrogated when she follows with us in our office. 5. Valvular heart disease She does have a stable bioprosthetic aortic valve with adequate gradients. Her last echocardiogram. Antibiotic prophylaxis. [place] heart recommendations will be continued. It does not appear that valvular malfunction is contributing to her current problems. By clinical exam she appears to be stable. However a repeat echocardiogram may be performed to reassess the above. 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 Office will arrange appointment. Thank you for allowing me to participate in the care of your patient. Please don't hesitate to call if any issues arise
--- NOTE | 2017-05-22 08:05 | PN_ITS ---
Subjective: Chief complaint: Follow-up after admission for acute on chronic diastolic CHF with hypoxia. Patient seen and examined. No acute events overnight. She reported improvement of his shortness of breath but still requiring oxygen. Leg swelling also improved. She does have history of COPD as well but never been on oxygen at home. Her other vital signs are stable. - Physical Exam General: Alert, Oriented x3, Cooperative, No apparent distress HEENT: Atraumatic, PERRLA, EOMI Oral: Moist Mucosa Neck: Supple, No JVD, Negative Carotid Bruits, Thyroid Normal Size and Texture Lungs: Clear to auscultation, No rhonchi, No wheeze, No rales, Diminished Cardiovascular: Regular rate, Regular Rhythm, Normal S1, Normal S2, No murmurs Abdomen: Bowel Sounds Present, Soft, Non Tender, Non-Distended, No Hepato- splenomegaly, Obese Extremities: No clubbing, No cyanosis, Edema - Trace edema. Skin: No rashes, No breakdown Lymphatic: No Cervical, Supraclavicular, or Inguinal Adenopathy Neurological: Cranial nerves II-XII grossly intact, Neuro grossly intact Psych/Mental Status: Normal Affect, Appropriate Vital Signs Temp Pulse Resp BP Pulse Ox 97.0 F L 66 16 99/42 L 93 05/22/17 06:15 05/22/17 07:08 05/22/17 06:15 05/22/17 06:15 05/22/17 06:15 Oxygen Flow Rate 2 Oxygen Delivery Method Nasal Cannula Weight: 206 lb 2.115 oz Body Mass Index (BMI) 32.5 Intake and Output for Last 24 Hours 05/20/17 05/21/17 05/22/17 23:59 23:59 23:59 Intake Total 840 / 840 120 / 120 Output Total 2300 / 2300 Balance 840 / 840 -2180 / -2180 Laboratory Tests Past 24 Hrs 05/21/17 05/21/17 05/21/17 12:03 16:40 21:56 WBC RBC Hgb Hct MCV MCH MCHC RDW RDW Differential Plt Count MPV Immature Gran % (Auto) Neut % (Auto) Lymph % (Auto) Rolette % (Auto) Eos % (Auto) Baso % (Auto) Absolute Neuts (auto) Absolute Lymphs (auto) Total Counted Sodium Potassium Chloride Carbon Dioxide Anion Gap BUN Creatinine Estim Creat Clear Calc Est GFR (MDRD) Af Amer Est GFR (MDRD) Non-Af BUN/Creatinine Ratio Glucose Calcium Troponin I 0.02 < 0.02 < 0.02 05/22/17 05/22/17 05:20 05:20 WBC 6.9 RBC 5.01 Hgb 15.6 H Hct 50.5 H MCV 100.8 H MCH 31.1 MCHC 30.9 L RDW 14.6 RDW Differential 53.5 H Plt Count 116 L MPV 10.1 Immature Gran % (Auto) 0.100 Neut % (Auto) 68.5 Lymph % (Auto) 20.9 Rolette % (Auto) 8.9 Eos % (Auto) 1.2 Baso % (Auto) 0.4 Absolute Neuts (auto) 4.7 Absolute Lymphs (auto) 1.44 Total Counted Not Reportable Sodium 146 H Potassium 3.4 L Chloride 103 Carbon Dioxide 38.0 H Anion Gap 5 BUN 13 Creatinine 0.76 Estim Creat Clear Calc 52.81 Est GFR (MDRD) Af Amer 96 Est GFR (MDRD) Non-Af 80 BUN/Creatinine Ratio 17.0 Glucose 82 Calcium 8.4 L Troponin I Assessment/Plan This is a 71 years old female patient presented to the emergency room because of 2 days history of shortness of breath and increasing bilateral leg edema and she was found to have acute on chronic probably diastolic CHF. #1 acute on chronic probably diastolic CHF: She is on IV Lasix for diuresis, continued on Coreg. She reported improvement of her symptoms. Her vital signs are stable, still requiring oxygen at 2 L. Also showed a history of COPD but never been oxygen before. So the lower and Norvasc discontinued by cardiology. Awaiting 2D echocardiogram. Plan: DC IV Lasix, start oral Lasix 40 mg p.o. twice daily according to cardiology, wean off oxygen, ambulate. #2 hypoxia: Secondary to above in addition to history of COPD and obesity. She is a smoker and history of COPD but never been oxygen at home. Pulse ox this morning is 94% on 2 L of oxygen. Plan to wean down oxygen as tolerated. #3 chronic atrial fibrillation status post pacemaker: Heart rate stable, blood pressure stable. Continue Coreg for rate control, continue Xarelto for anticoagulation. 2D echocardiogram as above. #4 status post aortic valve replacement with bioprosthetic valve: Awaiting 2D echocardiogram as above. #5 COPD: Continue DuoNeb every 6 hours, albuterol as needed, oxygen by nasal cannula, incentive spirometer. Chest x-ray reviewed. #6 hypertension: Blood pressure stable. Continue Coreg. #7 anxiety/depression: Continue Paxil. #8 chronic anemia/chronic iron deficiency anemia: Baseline hemoglobin is around 8-10 g/dL. Admission hemoglobin is 16.7, today's hemoglobin is 15.6. #9 chronic pain syndrome: Continue Neurontin and Elavil. #10 DVT prophylaxis: Continue Xarelto. This note was generated with [employer] dictation software. It may contain incorrect words, spelling, and punctuation that were not noted in checking the note before signing.
[2017-05-22] MEDS: Ferrous Sulfate 325 MG Tablet PO (08:24)
[2017-05-22] MEDS: Gabapentin 300 MG Capsule PO ×2 (08:24→18:14)
--- NOTE | 2017-05-22 08:42 | CASEMGMT ---
RITA noted patient has Passport. RITA called [facility] and spoke with Cleo on the coverage line. Patient's outpatient case manager is Ann-Marie Mckenna and her extension is [phone]. Patient has a medical alert button, she gets 5 Meals on Wheels meals a week, she has aide services from [facility]. She has aides 6 days a week (-) 3 hours each time. RITA will let [facility] know when patient is ready for d/c. Barbara MORA MSW
--- NOTE | 2017-05-22 09:45 | CASEMGMT ---
This RN CM to room to complete CM assessment and pt is sleeping but answers to verbal stimuli and agrees to answer questions at this time. Pt never opens eyes and falls back to sleep after 1st question answered and will not stay awake to answer anymore questions at this time. Will attempt again later. SStaten RN CM
[2017-05-22] MEDS: Carvedilol 12.5 MG Tablet PO ×2 (10:46→22:43)
--- NOTE | 2017-05-22 11:04 | CASEMGMT ---
SW received a voice mail from Ann-Marie Mckenna at [facility] asking about d/c date and plan. After rounds SW called her back and left her a voice mail letting her know that possible d/c tomorrow and unsure if she will have home therapy or nursing at this point. Barbara MORA MSW
--- NOTE | 2017-05-22 14:45 | CASEMGMT ---
RN CM met with patient to complete RN CM assessment. Patient lethargic and drowsy, does not wake for assessment. Patient lives alone and has passport services. SW following for Passport. RN CM will need to continue to follow for transition needs. Disposition: Home with resumption of services vs SNF
[2017-05-22] MEDS: Furosemide 40 MG Tablet PO (18:14)
[2017-05-22] MEDS: Rivaroxaban 20 MG Tablet PO (18:15)
[2017-05-22] MEDS: Atorvastatin Calcium 10 MG Tablet PO (21:26)
[2017-05-22] MEDS: Amitriptyline 25 MG Tablet 50 MG PO (21:26)
[2017-05-22] MEDS: Nystatin Powder 15gm Bottle 1 APPLIC TOPICAL (21:27)
[2017-05-23] VITALS (12 sets, daily range): BP systolic 99–110; BP diastolic 58–98; PULSE 62–103; RESP 16–20; TEMP 36.8–37.2; O2SAT 87–95
[2017-05-23 05:56] LABS: Anion Gap 4 (5-15); BUN 17 mg/dL (7-18); BUN/Creat Ratio 20.9 RATIO (10-20); Calcium,Total 8.5 mg/dL (8.5-10.1); Chloride 102 mmol/L (98-107); Creatinine, Serum 0.81 mg/dL (0.55-1.02); EST Glomerular Filtration Rate 74 mL/min (>60); Est Glom Filt Rate - Afr Amer 90 mL/min (>60); Estimated Creatinine Clearance 65.19 ml/min; Glucose 86 mg/dL (74-106); Sodium Level 143 mmol/L (136-145)
[2017-05-23] MEDS: Nystatin Powder 15gm Bottle 1 APPLIC TOPICAL ×2 (06:47→12:55)
[2017-05-23] MEDS: Ipratropium/Albuterol Sulfate 3 ML AMPUL.NEB INHALATION ×2 (06:52→13:30)
[2017-05-23] MEDS: Ferrous Sulfate 325 MG Tablet PO (08:12)
[2017-05-23] MEDS: Calcium Carbonate 500 MG Tablet PO ×2 (08:12→12:53)
[2017-05-23] MEDS: Gabapentin 300 MG Capsule PO (08:12)
--- NOTE | 2017-05-23 09:02 | PCM.DC ---
You will use the following diet at home:: Cardiac, Fluid restricted (specify 2000 mls, 1500 mls) - Less than 1500 cc daily Your food should be the consistency of: Regular Discharge Activity: Return to Normal Activity Weight Bearing Status: Weight bearing as tolerated Call your doctor if you observe: Fever of 101 or Higher, Shortness of breath, Dizziness, Fainting spells, Chest pain, Increased palpitations (irregular heartbeat), Uncontrolled pain Instructions: Discharge Instructions for Heart Failure, Discharge Instructions: Using Oxygen at Home Allergies/Adverse Reactions: Allergies No Known Allergies Allergy (Verified 05/21/17 08:14) Medications to take at Discharge Amitriptyline HCl 50 mg PO QHS 04/27/16 Atorvastatin Calcium [Lipitor] 10 mg PO QHS 04/27/16 Paroxetine HCl [Paxil] 20 mg PO DAILY 04/27/16 Rivaroxaban [Xarelto] 20 mg PO DAILY 04/27/16 Albuterol Inhaler [Ventolin Hfa] 1 puff INHALATION Q4H PRN PRN #1 inhaler 05/02/16 Albuterol Aerosols [Ventolin Aerosols] 2.5 mg INHALATION Q2H PRN PRN #30 vial.neb. 06/01/16 Ferrous Sulfate 325 mg PO DAILY@0800 #30 tablet 06/01/16 Gabapentin [Neurontin] 300 mg PO BIDCM #60 capsule 06/01/16 Acetaminophen [Tylenol Tablet] 650 mg PO Q4H PRN PRN #0 tablet 06/09/16 Ipratropium/Albuterol Sulfate [Duoneb] 3 ml INHALATION Q4H.RT ampul.neb 06/09/16 Ipratropium/Albuterol Sulfate [Duoneb] 3 ml INHALATION Q6HWA.RT #60 ampul.neb 06/29/16 Potassium Chloride [K-Dur] 20 meq PO BIDCM #60 tablet 06/29/16 Calcium Carbonate [Tums] 600 mg PO TIDCM 05/21/17 Ergocalciferol (Vitamin D2) [Ergocal] 1.25 mg PO DAILY 05/21/17 Multivitamin/Iron/Folic Acid [Daily Vitamin Formula-Iron Tab] 1 each PO DAILY 05/21/17 Carvedilol [Coreg (Beta Luis A)] 12.5 mg PO BID #90 tab 05/23/17 Furosemide [Lasix] 40 mg PO BID@1000,1800 #90 tab 05/23/17 Oxygen, Home [Home Oxygen] 2 lpm NASAL CONT #1 unit 05/23/17 The following prescriptions were given: Furosemide [Lasix] 40 mg PO BID@1000,1800 #90 tab Oxygen, Home [Home Oxygen] 2 lpm NASAL CONT #1 unit Carvedilol [Coreg (Beta Luis A)] 12.5 mg PO BID #90 tab Primary Care Physician: Zelda Graham MD [STAFF PHYSICIAN] - Please follow up with your Primary Care Physician in: 1 week.
--- NOTE | 2017-05-23 09:03 | PN.CARD_ITS ---
Subjectve: Patient seen and evaluated Objective: Vital Signs Temp Pulse Resp BP Pulse Ox 98.4 F 67 20 H 110/62 87 05/23/17 04:23 05/23/17 07:14 05/23/17 07:14 05/23/17 04:23 05/23/17 08:07 Oxygen Flow Rate 2 Oxygen Delivery Method Nasal Cannula Weight: 202 lb 13.204 oz Body Mass Index (BMI) 32.5 Intake and Output for Last 24 Hours 05/21/17 05/22/17 05/23/17 23:59 23:59 23:59 Intake Total 840 / 840 1460 / 1460 100 / 100 Output Total 7000 / 7000 Balance 840 / 840 -5540 / -5540 100 / 100 General: Awake, Alert, Oriented x 3 HEENT: PERRL, EOMI, Sclera Non Icteric Neck: Supple, Good ROM, No Lymph Node Enlargement Lungs: Clear to auscultation Cardiovascular: Regular Rhythm, Normal S1, Normal S2, No Murmurs, No Rubs, No Gallops Vascular: No Carotid Bruits, Normal Femoral Pulses, Normal Radial Pulses, Normal Dorsalis Pedal Pulse, Normal Posterior Tibial Pulses Abdomen: Bowel Sounds Present, Soft, Non Tender, No HSM, No Organomegaly Extremities: No Cyanosis, No Clubbing, No edema Neurological: No Focal Motor or Sensory Deficit 05/23/17 05:15: Sodium 143, Potassium 4.0, Chloride 102, Carbon Dioxide 37.0 H, Anion Gap 4 L, BUN 17, Creatinine 0.81, Est GFR (MDRD) Af Amer 90, Est GFR (MDRD ) Non-Af 74, BUN/Creatinine Ratio 20.9 H, Glucose 86, Calcium 8.5 Rhythm: EKG:Av sequential pacing ECHO: normal EF Assessment/Plan 1. Diastolic heart failure-chronic Patient presents with chronic pedal edema as well as shortness of breath the etiology of which is likely multifactorial including the atrial fibrillation with a uncontrolled ventricular response rate, as well as her valvular heart disease. She is also on medication which could be causing some of her pedal edema. I would recommend continuing her diuretic with Lasix 40 mg twice a day Preserved EF 2. Atrial fibrillation-he is to be in sinus rhythm at this time. With AV sequential pacing. She will continue to be anticoagulated with rivaroxaban. 3. Hypertension Her blood pressure appears to be under good control however with the changes be made to her current medications we may need to monitor her blood pressure closely and carefully. 4. Status post pacemaker implantation He does have a dual-chamber pacemaker implanted but with her persistent atrial fibrillation she appears to be ventricular pacing most of the time. We will obtain the records of her last pacemaker interrogation and then further recommendations made. Does have a Biotronik pacemaker and this will be interrogated when she follows with us in our office. 5. Valvular heart disease She does have a stable bioprosthetic aortic valve with adequate gradients. Her last echocardiogram. Antibiotic prophylaxis. [place] heart recommendations will be continued. It does not appear that valvular malfunction is contributing to her current problems. By clinical exam she appears to be stable. However a repeat echocardiogram may be performed to reassess the above. from The cardiology standpoint patient can be discharged later today Thank you for allowing me to participate in the care of your patient. Please don't hesitate to call if any issues arise
[2017-05-23] MEDS: Carvedilol 12.5 MG Tablet PO (09:22)
[2017-05-23] MEDS: Furosemide 40 MG Tablet PO (09:22)
--- NOTE | 2017-05-23 10:00 | CASEMGMT ---
Addendum entered by Hermelinda Calderon 05/23/17 11:03: This RN CM back to room and per grandson they would like to set up further HHC for pt at this time. Order placed for RN, PT/OT at this time. Referral with order, d/c instructions and SU F2F faxed to [facility] at this time. Call placed to [facility] to make them aware that pt will now have skilled services, voice understanding. Awaiting F2F to be charted for oxygen so that order can be faxed to [facility]. Tan MURRIETA CM Original Note: Per Coretta MURRIETA, pt does qualify for home oxygen at this time. PT/OT are recommending further skilled therapy for pt at this time. Pt does already have aides set up through [facility]. This RN CM to room to speak with pt regarding HHC and oxygen. Pt is sleeping at this time and grandson at bedside. Grandson states he will speak to her about HHC and then notify this RN CM. When oxygen is mentioned, pt does state would like [facility] at this time. Tan MURRIETA CM
--- NOTE | 2017-05-23 10:48 | CASEMGMT ---
RITA called patient's Passport CM, Ann-Marie Mckenna, and left her a message letting her know that patient is being d/c today with Amanda CRAMER RN, PT and OT, as well as home O2. RITA also called the coverage line at [facility] and let Viaml Dupont know above information. RITA faxed d/c instructions to [facility] per Vimal Dupont's request. Barbara MORA JBOSS DEVELOPER
--- NOTE | 2017-05-23 12:57 | PCM.DC.SUM ---
Discharge Date and Diagnosis Date of Admission: 05/21/17 Date of Discharge: 05/23/17 - Primary Discharge Diagnosis #1 acute on chronic diastolic CHF. #2 hypoxia. - Secondary Discharge Diagnosis Chronic Problems Low back pain (Chronic) Anxiety (Chronic) Depression (Chronic) Diastolic CHF (Chronic) COPD (chronic obstructive pulmonary disease) (Chronic) Chronic pain syndrome (Chronic) HTN (hypertension) (Chronic) HLD (hyperlipidemia) (Chronic) Obesity (BMI 30-39.9) (Chronic) Anxiety and depression (Chronic) Iron deficiency anemia (Chronic) Status post aortic valve replacement with bioprosthetic valve (Chronic) Status post placement of cardiac pacemaker (Chronic) Chronic atrial fibrillation (Chronic) Hospital Course and Treatment Imaging Results: Clinical Impression(s) from Imaging Studies Chest X-Ray 05/21/17 08:16 IMPRESSION: Mild degree of CHF. Electronically Signed: Yannick Magana MD at 9:05 EST Tel [phone], Service support , Dr. Rivas, cardiology. Operations: None Procedures: 2-D Echocardiogram, EKG Summary of Care Provided: Patient seen and examined on the day of discharge and appeared to be stable to be discharged home. Shortness of breath significantly improved as well as leg edema. She remained on 2 L of oxygen. According to nursing staff, her pulse oximeter went down to 86% on room air at rest and she qualified for home oxygen without ambulation. Her other vital signs are stable. - Physical Exam General: Alert, Oriented x3, Cooperative, No apparent distress. HEENT: Atraumatic, PERRLA, EOMI. Neck: Supple, No JVD, Negative Carotid Bruits, Trachea Midline, Thyroid Normal. Lungs: Decreased breath sounds bilateral, otherwise clear, No rhonchi, No wheeze, No rales. Cardiovascular: Regular rate, Regular Rhythm, Normal S1, Normal S2, PMI Normal. Abdomen: Bowel Sounds Present, Soft, Non Tender, Non-Distended, No Hepato-splenomegaly. Extremities: No clubbing, No cyanosis, No edema Skin: No rashes, No breakdown Neurological: Neuro grossly intact Vital Signs are stable. Hospital course: The patient is a 71 year old F admitted because of shortness of breath and increasing bilateral leg edema, found to have acute on chronic diastolic CHF as well as hypoxia. She was treated with IV Lasix for diuresis as well as oxygen to maintain her A2 saturation more than 92%. Before admission, patient was on both Coreg and sotalol as well as Norvasc. Cardiology consulted and recommended to continue diuresis, dose of Coreg increased and sotalol discontinued as well as Norvasc. Her 2D echocardiogram revealed ejection fraction of 70%, stable appearing bioprosthetic aortic valve, RVSP of 31, mildly enlarged left and right atrium with moderate LV hypertrophy. Her troponin was negative ?3. Her routine blood work revealed mild hypokalemia because of IV Lasix which was replaced and corrected. With IV diuresis, patient symptoms improved, came less short of breath and leg edema significantly improved. Patient does have a history of COPD but never been on home oxygen. Although her symptoms improved but she remained on 2 L of oxygen. Her pulse oximeter went down to 86% on room air at rest without ambulation she did qualify for home oxygen to be able to ambulate at home freely. She discharged home in a stable medical condition, discharged on Lasix 40 mg p.o. twice daily, continued on potassium supplement, discharged on Coreg 12.5 mg p.o. twice daily, sotalol and Norvasc discontinued, continued on other chronic home medications without any changes, plan to follow-up with PCP in 1 week. Discharge Activity: Return to Normal Activity Weight Bearing Status: Weight bearing as tolerated Call your doctor if you observe: Fever of 101 or Higher, Shortness of breath, Dizziness, Fainting spells, Chest pain, Increased palpitations (irregular heartbeat), Uncontrolled pain Home Medications: Medications to take at Discharge Amitriptyline HCl 50 mg PO QHS 04/27/16 Atorvastatin Calcium [Lipitor] 10 mg PO QHS 04/27/16 Paroxetine HCl [Paxil] 20 mg PO DAILY 04/27/16 Rivaroxaban [Xarelto] 20 mg PO DAILY 04/27/16 Albuterol Inhaler [Ventolin Hfa] 1 puff INHALATION Q4H PRN PRN #1 inhaler 05/02/16 Albuterol Aerosols [Ventolin Aerosols] 2.5 mg INHALATION Q2H PRN PRN #30 vial.neb. 06/01/16 Ferrous Sulfate 325 mg PO DAILY@0800 #30 tablet 06/01/16 Gabapentin [Neurontin] 300 mg PO BIDCM #60 capsule 06/01/16 Acetaminophen [Tylenol Tablet] 650 mg PO Q4H PRN PRN #0 tablet 06/09/16 Ipratropium/Albuterol Sulfate [Duoneb] 3 ml INHALATION Q4H.RT ampul.neb 06/09/16 Ipratropium/Albuterol Sulfate [Duoneb] 3 ml INHALATION Q6HWA.RT #60 ampul.neb 06/29/16 Potassium Chloride [K-Dur] 20 meq PO BIDCM #60 tablet 06/29/16 Calcium Carbonate [Tums] 600 mg PO TIDCM 05/21/17 Ergocalciferol (Vitamin D2) [Ergocal] 1.25 mg PO DAILY 05/21/17 Multivitamin/Iron/Folic Acid [Daily Vitamin Formula-Iron Tab] 1 each PO DAILY 05/21/17 Carvedilol [Coreg (Beta Luis A)] 12.5 mg PO BID #90 tab 05/23/17 Furosemide [Lasix] 40 mg PO BID@1000,1800 #90 tab 05/23/17 Oxygen, Home [Home Oxygen] 2 lpm NASAL CONT #1 unit 05/23/17 Following Prescrptions Were Given to Patient: Furosemide [Lasix] 40 mg PO BID@1000,1800 #90 tab Oxygen, Home [Home Oxygen] 2 lpm NASAL CONT #1 unit Carvedilol [Coreg (Beta Luis A)] 12.5 mg PO BID #90 tab Primary Care Physician: Zelda Graham MD [STAFF PHYSICIAN] - Please follow up with your Primary Care Physician in: 1 week. Patient Instructions: Discharge Instructions for Heart Failure, Discharge Instructions: Using Oxygen at Home Disposition: Home Minutes spent on discharge:: 32 Patient Condition:: Stable Meaningful Use Info Meaningful Use Diagnoses (Choose all that apply): CHF - CHF ARIADNE/ARB ordered at discharge?: No Reason ARIADNE/ARB not ordered?: Allergy - No indication, it is diastolic CHF. Documented LVEF (%): 70 Code Visit Inpatient E&M: 32968 Disch Hosp
--- NOTE | 2017-05-23 13:04 | DS.PCM_ITS ---
Discharge Date and Diagnosis Date of Admission: 05/21/17 Date of Discharge: 05/23/17 - Primary Discharge Diagnosis #1 acute on chronic diastolic CHF. #2 hypoxia. - Secondary Discharge Diagnosis Chronic Problems Low back pain (Chronic) Anxiety (Chronic) Depression (Chronic) Diastolic CHF (Chronic) COPD (chronic obstructive pulmonary disease) (Chronic) Chronic pain syndrome (Chronic) HTN (hypertension) (Chronic) HLD (hyperlipidemia) (Chronic) Obesity (BMI 30-39.9) (Chronic) Anxiety and depression (Chronic) Iron deficiency anemia (Chronic) Status post aortic valve replacement with bioprosthetic valve (Chronic) Status post placement of cardiac pacemaker (Chronic) Chronic atrial fibrillation (Chronic) Hospital Course and Treatment Imaging Results: Clinical Impression(s) from Imaging Studies Chest X-Ray 05/21/17 08:16 IMPRESSION: Mild degree of CHF. Electronically Signed: Yannick Magana MD at 9:05 EST Tel [phone], Service support , Dr. Rivas, cardiology. Operations: None Procedures: 2-D Echocardiogram, EKG Summary of Care Provided: Patient seen and examined on the day of discharge and appeared to be stable to be discharged home. Shortness of breath significantly improved as well as leg edema. She remained on 2 L of oxygen. According to nursing staff, her pulse oximeter went down to 86% on room air at rest and she qualified for home oxygen without ambulation. Her other vital signs are stable. - Physical Exam General: Alert, Oriented x3, Cooperative, No apparent distress. HEENT: Atraumatic, PERRLA, EOMI. Neck: Supple, No JVD, Negative Carotid Bruits, Trachea Midline, Thyroid Normal. Lungs: Decreased breath sounds bilateral, otherwise clear, No rhonchi, No wheeze , No rales. Cardiovascular: Regular rate, Regular Rhythm, Normal S1, Normal S2, PMI Normal. Abdomen: Bowel Sounds Present, Soft, Non Tender, Non-Distended, No Hepato- splenomegaly. Extremities: No clubbing, No cyanosis, No edema Skin: No rashes, No breakdown Neurological: Neuro grossly intact Vital Signs are stable. Hospital course: The patient is a 71 year old F admitted because of shortness of breath and increasing bilateral leg edema, found to have acute on chronic diastolic CHF as well as hypoxia. She was treated with IV Lasix for diuresis as well as oxygen to maintain her A2 saturation more than 92%. Before admission, patient was on both Coreg and sotalol as well as Norvasc. Cardiology consulted and recommended to continue diuresis, dose of Coreg increased and sotalol discontinued as well as Norvasc. Her 2D echocardiogram revealed ejection fraction of 70%, stable appearing bioprosthetic aortic valve, RVSP of 31, mildly enlarged left and right atrium with moderate LV hypertrophy. Her troponin was negative ?3. Her routine blood work revealed mild hypokalemia because of IV Lasix which was replaced and corrected. With IV diuresis, patient symptoms improved, came less short of breath and leg edema significantly improved. Patient does have a history of COPD but never been on home oxygen. Although her symptoms improved but she remained on 2 L of oxygen. Her pulse oximeter went down to 86% on room air at rest without ambulation she did qualify for home oxygen to be able to ambulate at home freely. She discharged home in a stable medical condition, discharged on Lasix 40 mg p.o. twice daily, continued on potassium supplement, discharged on Coreg 12.5 mg p.o. twice daily, sotalol and Norvasc discontinued, continued on other chronic home medications without any changes, plan to follow-up with PCP in 1 week. Discharge Activity: Return to Normal Activity Weight Bearing Status: Weight bearing as tolerated Call your doctor if you observe: Fever of 101 or Higher, Shortness of breath, Dizziness, Fainting spells, Chest pain, Increased palpitations (irregular heartbeat), Uncontrolled pain Home Medications: Medications to take at Discharge Amitriptyline HCl 50 mg PO QHS 04/27/16 Atorvastatin Calcium [Lipitor] 10 mg PO QHS 04/27/16 Paroxetine HCl [Paxil] 20 mg PO DAILY 04/27/16 Rivaroxaban [Xarelto] 20 mg PO DAILY 04/27/16 Albuterol Inhaler [Ventolin Hfa] 1 puff INHALATION Q4H PRN PRN #1 inhaler Albuterol Aerosols [Ventolin Aerosols] 2.5 mg INHALATION Q2H PRN PRN #30 vial.neb. 06/01/16 Ferrous Sulfate 325 mg PO DAILY@0800 #30 tablet 06/01/16 Gabapentin [Neurontin] 300 mg PO BIDCM #60 capsule 06/01/16 Acetaminophen [Tylenol Tablet] 650 mg PO Q4H PRN PRN #0 tablet 06/09/16 Ipratropium/Albuterol Sulfate [Duoneb] 3 ml INHALATION Q4H.RT ampul.neb Ipratropium/Albuterol Sulfate [Duoneb] 3 ml INHALATION Q6HWA.RT #60 ampul.neb Potassium Chloride [K-Dur] 20 meq PO BIDCM #60 tablet 06/29/16 Calcium Carbonate [Tums] 600 mg PO TIDCM 05/21/17 Ergocalciferol (Vitamin D2) [Ergocal] 1.25 mg PO DAILY 05/21/17 Multivitamin/Iron/Folic Acid [Daily Vitamin Formula-Iron Tab] 1 each PO DAILY Carvedilol [Coreg (Beta Luis A)] 12.5 mg PO BID #90 tab 05/23/17 Furosemide [Lasix] 40 mg PO BID@1000,1800 #90 tab 05/23/17 Oxygen, Home [Home Oxygen] 2 lpm NASAL CONT #1 unit 05/23/17 Following Prescrptions Were Given to Patient: Furosemide [Lasix] 40 mg PO BID@1000,1800 #90 tab Oxygen, Home [Home Oxygen] 2 lpm NASAL CONT #1 unit Carvedilol [Coreg (Beta Luis A)] 12.5 mg PO BID #90 tab Primary Care Physician: Zelda Graham MD [STAFF PHYSICIAN] - Please follow up with your Primary Care Physician in: 1 week. Patient Instructions: Discharge Instructions for Heart Failure, Discharge Instructions: Using Oxygen at Home Disposition: Home Minutes spent on discharge:: 32 Patient Condition:: Stable Meaningful Use Info Meaningful Use Diagnoses (Choose all that apply): CHF - CHF ARIADNE/ARB ordered at discharge?: No Reason ARIADNE/ARB not ordered?: Allergy - No indication, it is diastolic CHF. Documented LVEF (%): 70 Code Visit Inpatient E&M: 10043 Disch Hosp
--- NOTE | 2017-05-23 13:51 | CASEMGMT ---
Addendum entered by Hermelinda Calderon 05/23/17 15:24: Call to [facility] to check on ETA of tank for pt and per Gal, 'he is working on it' and it should be soon. Coretta MURRIETA updated at this time, voices understanding. Tan MURRIETA CM Original Note: Referral faxed to [facility] at this time and call placed to Tommie at [facility] to verify fax received and he states that fax received and he is forwarding it to [facility] at this time. Coretta MURRIETA updated that pt can be discharged when [facility] arrives with drerek, voices understanding. Tan MURRIETA CM
== END 2017-05-23 16:53 | disposition home health service (06) | DRG 293 ==
LOC: ED 09:07 → PCU 10:14
PROVIDERS: Admitting Provider Hospitalist; Emergency Provider Emergency Medicine; Visit Provider Hospitalist
DX: I11.0 Hypertensive heart disease with heart failure (principal); J44.9 Chronic obstructive pulmonary disease, unspecified; I48.2 Chronic atrial fibrillation; Z95.3 Presence of xenogenic heart valve; R09.02 Hypoxemia; E66.9 Obesity, unspecified; E78.5 Hyperlipidemia, unspecified; G89.4 Chronic pain syndrome; I50.33 Acute on chronic diastolic (congestive) heart failure; F41.9 Anxiety disorder, unspecified; F32.9 Major depressive disorder, single episode, unspecified; M54.5 Low back pain; Z95.0 Presence of cardiac pacemaker; Z68.30 Body mass index [BMI] 30.0-30.9, adult; F17.200 Nicotine dependence, unspecified, uncomplicated; Z79.899 Other long term (current) drug therapy; Z79.02 Long term (current) use of antithrombotics/antiplatelets
CPT/HCPCS: 36415; 71046; 80048; 83880; 84484; 85025; 85610; 93005; 93306; 94640; 97116; 97161; 97165; 97530; 97535; 99285; A4216; J1940

== ENCOUNTER 2017-06-14 12:18 | Emergency (ER) | payer MEDICARE, SELFPAY ==
[2017-06-14 12:19] VITALS: BP 112/87; PULSE 102; RESP 22; TEMP 36.4; O2SAT 86; BMI 35.9
[2017-06-14 12:24] VITALS: O2SAT 88
--- NOTE | 2017-06-14 13:13 | CT_ITS ---
STUDY: CT BRAIN WITHOUT CONTRAST REASON FOR EXAM: Female, 71 years old. History of fall. RADIATION DOSAGE (If Supplied By Facility): CTDIvol = ( 44.99 ) mGy, DLP = ( 846.73 ) mGycm TECHNIQUE: Transaxial CT imaging of the brain was performed without administration of intravenous contrast material. Individualized dose optimization techniques were used for this CT. COMPARISON: None. FINDINGS: Normal soft tissue structures. Normal calvarium. There is mild cerebral atrophy with widening of the extra-axial spaces and ventricular dilatation. There are areas of decreased attenuation within the white matter tracts of the supratentorial brain, consistent with microvascular disease changes. Normal basal ganglia and thalami. Normal brainstem. Normal cerebellum. There is no intracranial hemorrhage. There are no findings of an acute ischemic infarction. Atherosclerotic calcification of the cavernous portions of the internal carotid arteries bilaterally. Normal visualized paranasal sinuses. CT/Brain/Head without Contrast IMPRESSION: Chronic involutional changes of the brain. Electronically Signed: Yannick Magana MD at 14:26 EST Tel [phone], Service support ,
--- NOTE | 2017-06-14 13:14 | RAD_ITS ---
STUDY: X-RAY - RIGHT TIBIA AND FIBULA REASON FOR EXAM: Female, 71 years old. Pain following a fall. TECHNIQUE: AP and lateral view(s) of the tibia and fibula were obtained. COMPARISON: None. FINDINGS: Nondisplaced condylar fracture of the distal tibial shaft. Nondisplaced fracture of the proximal fibula as well as the distal fibula. Diffuse soft tissue swelling. RAD/Tibia & Fibula 2 Views IMPRESSION: Nondisplaced proximal and distal fibular fractures as well as distal tibial fracture. Soft tissue swelling. Electronically Signed: Yannick Magana MD at 14:40 EST Tel [phone], Service support ,
--- NOTE | 2017-06-14 13:14 | RAD_ITS ---
STUDY: X-RAY - RIGHT FOOT CLINICAL: Female, 71 years old. Pain following a fall. TECHNIQUE: 2 view(s) of the foot. COMPARISON: None. FINDINGS: There is a plantar calcaneal spur. Talar beak. Normal metatarsi. Normal metatarsophalangeal joint of the great toe. Normal tibial and fibular sesamoid bones. Normal interphalangeal joint of the great toe. Normal phalanges of the great toe. Normal second through fifth metatarsophalangeal joints. Normal interphalangeal joints and phalanges of the lesser toes. Diffuse soft tissue swelling. RAD/Foot 2 Views IMPRESSION: Diffuse soft tissue swelling. Plantar spur. Electronically Signed: Yannick Magana MD at 14:35 EST Tel [phone], Service support ,
--- NOTE | 2017-06-14 13:14 | RAD_ITS ---
STUDY: X-RAY - RIGHT ANKLE REASON FOR EXAM: Female, 71 years old. Pain following a fall. TECHNIQUE: AP and lateral view(s) of the ankle. COMPARISON: None. FINDINGS: Nondisplaced, fracture of the distal tibial shaft as well as the distal fibular shaft. Normal tibiotalar articulation and ankle mortise. Plantar spur. The visualized subtalar, talonavicular, calcaneocuboid and tarsal articulations are normal. Soft tissue swelling. RAD/Ankle 2 Views IMPRESSION: Nondisplaced, fracture of the distal tibia and fibular shafts. Soft tissue swelling. Electronically Signed: Yannick Magana MD at 14:37 EST Tel [phone], Service support ,
--- NOTE | 2017-06-14 13:15 | RAD_ITS ---
STUDY: X-RAY - RIGHT KNEE REASON FOR EXAM: Female, 71 years old. History of fall. TECHNIQUE: AP and lateral view(s) of the knee. COMPARISON: None. FINDINGS: Normal visualized distal femur. Nondisplaced comminuted fracture of the proximal fibula. Normal proximal tibiofibular articulation. There is moderate degenerative arthrosis of the medial femorotibial compartment with moderate joint space narrowing. There is moderate degenerative arthrosis of the lateral femorotibial compartment with moderate joint space narrowing. There is moderate degenerative arthrosis of the patellofemoral articulation. Diffuse soft tissue swelling. Vascular calcification. RAD/Knee 1 or 2 Views IMPRESSION: Nondisplaced fracture of the proximal fibula. Soft tissue swelling. Degenerative changes of the knee joint. Electronically Signed: Yannick Magana MD at 14:39 EST Tel [phone], Service support ,
--- NOTE | 2017-06-14 13:16 | ED.VISSUMM ---
- ER Visit Summary Date of Service: 06/14/17 Chief Complaint: [] Right leg pain History of Present Illness: The patient is a 71 F [] complaining of right lower extremity pain in the knee down to the ankle. Patient reports a large laceration to the right ankle. She is immobilized upon arrival. She is a poor historian. She reports she ambulates with a walker on wheels and had a mechanical fall. She denies hitting her head. She reports severe pain in the right lower extremity. Denies hip pain. She is on Xarelto for a history of mechanical valve replacement. Physical Examination: [] Elderly female in no acute distress. Cardiovascular exam is regular rate and rhythm. Lungs are clear to auscultation. Abdomen is soft and nontender. Pelvis is stable. There is an obvious 15 cm jagged laceration to the medial aspect of the right lower ankle. Test Results: [] CT head: Negative Right knee x-ray: Proximal fibular fracture Right tibia x-ray: Proximal and distal comminuted fibular and tibia fracture. Ankle x-ray: Distal comminuted fibular and tibia fracture Right foot x-ray: Negative Labs: CBC normal with exception of a platelet count low at 88. BMP normal. INR 1.4. Emergency Department Course and Treatment: [] Patient underwent evaluation for her traumatic injury. CT of the head was negative. She has significant fractures of her right lower extremity. She was provided 50 mcg of fentanyl for analgesia. This patient was discussed with the on-call orthopedic surgeon, Dr. Darci Love. He felt the patient required evaluation and treatment at our trauma center. We contacted [facility] after request by the patient. I spoke with the emergency department attending physician who has excepted the patient in transfer. The wound is an open fracture. It was dressed with an appropriate wet to dry. Tetanus and Ancef were provided prior to transfer. I placed a posterior fiberglass splint to the right lower extremity prior to transfer. Treatment Plan: [] Transfer to [facility]. Disposition: [] Transfer to [facility] Impression: [] Comminuted right tibia and fibular fractures Posterior splint by ED physician Critical CARE time: 40 minutes This note was generated with SpotMe dictation software. It may contain incorrect words, spelling, and punctuation that were not noted in review of the chart prior to signing ED Disposition - Plan for ED Patient: Chief Complaint: Fall Referrals: Care Physician,No Primary [Primary Care Provider] -
[2017-06-14 13:19] VITALS: BP 96/51; PULSE 68; RESP 17; O2SAT 88
[2017-06-14] MEDS: fentaNYL 100 MCG/2 ML Ampul 50 MCG IV (13:22)
[2017-06-14 13:47] LABS: Absolute Lymphocyte Count 1.36 X10^3/ul (0.83-4.51); Absolute Neutrophil Count 4.6 X10^3/uL (2.0-7.7); Basophil# 0.02 X10^3/uL; Basophil% 0.3 % (0-1); Eosinophil# 0.08 X10^3/uL; Eosinophils% 1.2 % (0-5); Hemoglobin 14.8 g/dl (12.0-15.0); Lymphocyte # 1.36 X10^3/ul (4.0); Lymphocyte % 20.6 % (19-41); Mean Corp Hgb Conc 30.8 g/gl (32-36); Mean Corpuscular Hgb 31.4 pg (27.0-32.0); Mean Corpuscular Volume 101.9 fL (81-99); Mean Platelet Vol. 10.3 fl (6.2-12.0); Monocyte# 0.56 X10^3/uL; Monocyte% 8.5 % (0-10); Neutrophil # 4.56 X10^3/uL (2.7-7.7); Neutrophil % 69.2 % (47-70); Platelet Count 88 K/mm3 (150-450); RBC Distribution Width CV 13.9 % (11.6-14.6); RBC Distribution Width SD 51.9 fl (35.1-43.9); Red Blood Count 4.71 M/mm3 (4.2-5.4); White Blood Count 6.6 K/mm3 (4.4-11.0)
[2017-06-14 13:51] LABS: Anion Gap 6 (5-15); BUN 13 mg/dL (7-18); BUN/Creat Ratio 14.2 RATIO (10-20); Calcium,Total 7.7 mg/dL (8.5-10.1); Chloride 100 mmol/L (98-107); Creatinine, Serum 0.91 mg/dL (0.55-1.02); EST Glomerular Filtration Rate 65 mL/min (>60); Est Glom Filt Rate - Afr Amer 78 mL/min (>60); Estimated Creatinine Clearance 58.03 ml/min; Glucose 106 mg/dL (74-106); International Normalized Ratio 1.4; Potassium 3.7 mmol/L (3.5-5.1); Prothrombin Time (Protime)PT. 17.6 SECONDS (11.7-14.9); Sodium Level 143 mmol/L (136-145)
[2017-06-14 13:53] LABS: POSITIVE COUNT NO; POSITIVE DIFFERENTIAL NO; POSITIVE MORPHOLOGY NO
--- NOTE | 2017-06-14 15:12 | NURSING ---
CALLING [facility] FOR TRANSFER.
[2017-06-14] MEDS: Diphth,Pertuss(Acell),Tet Vac 0.5 ML Vial IM (16:18)
[2017-06-14 16:23] VITALS: BP 103/47; PULSE 80; RESP 18; O2SAT 93
[2017-06-14 16:36] VITALS: BP 98/52; PULSE 69; RESP 20; O2SAT 93
== END 2017-06-14 17:28 | disposition home or self-care (01) ==
PROVIDERS: Emergency Provider Emergency Medicine
DX: S82.391B Other fracture of lower end of right tibia, initial encounter for open fracture type I or II (principal); S82.831B Other fracture of upper and lower end of right fibula, initial encounter for open fracture type I or II; I25.10 Atherosclerotic heart disease of native coronary artery without angina pectoris; I10 Essential (primary) hypertension; Z95.2 Presence of prosthetic heart valve; Z99.81 Dependence on supplemental oxygen; Z79.02 Long term (current) use of antithrombotics/antiplatelets; Z79.51 Long term (current) use of inhaled steroids; Z79.899 Other long term (current) drug therapy; W19.XXXA Unspecified fall, initial encounter; Y93.01 Activity, walking, marching and hiking; Y92.89 Other specified places as the place of occurrence of the external cause; Y99.8 Other external cause status
CPT/HCPCS: 29515; 51702; 70450; 73560; 73590; 73600; 73620; 80048; 85025; 85610; 90715; 96361; 96365; 96375; 99285; J7030; J7040; A4216; J2405

== ENCOUNTER 2017-11-02 14:33 | Observation (INO) | payer MEDICARE, SELFPAY ==
[2017-11-02 14:40] VITALS: BP 126/65; PULSE 80; RESP 18; TEMP 36.6; O2SAT 96; BMI 27.3
--- NOTE | 2017-11-02 15:10 | RAD_ITS ---
STUDY: X-RAY - RIGHT ANKLE REASON FOR EXAM: Increased pain for 2 weeks, reinjury last night per EMS. TECHNIQUE: 3 view(s) of the ankle. COMPARISON: Radiographs 06/14/2017. FINDINGS: There is osteopenia. There is an orthopedic plate and screws bridging a fracture of the distal tibial diaphysis with a subtle break of the orthopedic plate, best demonstrated on the AP and lateral views, and lateral angulation at the fracture and orthopedic plate. There is radiolucency surrounding the third most proximal orthopedic screw. Although there is callus formation at the fracture site without solid osseous bridging. There is also a fracture of the distal fibular diaphysis with anterior and lateral displacement as well as lateral angulation at the fracture site without osseous bridging. Normal medial and lateral malleoli. Normal tibiotalar articulation and ankle mortise. There is an anterior spur of the dorsal neck of the talus. The visualized subtalar, talonavicular, calcaneocuboid and tarsal articulations are normal. There is soft tissue swelling. RAD/Ankle min 3 Views IMPRESSION: Lateral angulation of the distal tibial diaphyseal fracture without osseous union with a subtle break of the orthopedic plate. Lateral angulation with anterior and lateral displacement of the distal fibular diaphyseal fracture without osseous bridging. Electronically Signed: Kaz Newman MD at 15:45 EDT Tel , Service support ,
--- NOTE | 2017-11-02 15:30 | ED.VISSUMM ---
- ER Visit Summary Date of Service: 11/02/17 Chief Complaint: Right ankle pain History of Present Illness: The patient is a 72 F who told the nurse that there was no history of trauma. She told me that she fell. She was unaware that there is a bend in her leg. She complains of pain distal tib-fib. She was seen in June and transferred to [facility] for open distal tibia and fibular fracture. She informed me that she has fallen several times. She denies any new paresthesias or anesthesia. She is unable to ambulate because of the fracture. Physical Examination: There is venous stasis changes noted distal left leg and foot. There is a band with valgus deformity. DPT pupils are not palpable. There was documented flow. There is a wound central portion of the incision which is healing without evidence of infection. She is able to move all of her toes. Stressing the ankle does not result in any movement or laxity. Test Results: 3 view x-ray of the ankle reveals a band in the plate and there is a crack with incomplete fracture of the plate. Emergency Department Course and Treatment: X-ray was obtained because of the deformity and history of trauma. Treatment Plan: Because of the radiologic findings she was referred to see Dr. Suggs. Will discharge with disc with films for Dr. Suggs to compare to. Disposition: Discharged to home with orthopedic follow-up Impression: Right ankle pain status post fall with incomplete fracture of plate and bend endplate This note was generated with Protect[employer]ise dictation software. It may contain incorrect words, spelling, and punctuation that were not noted in review of the chart prior to signing ED Disposition - Plan for ED Patient: Disposition: Home or Assisted Living Chief Complaint: Lower Extremity Injury Referrals: [facility] Doctor,Out of [Primary Care Provider] - Vimal Suggs MD [NON-STAFF] - 3-5 Days Additional Instructions: You need to call Dr. Suggs's office 2 be seen and reevaluated since there is a bend in the plate and a incomplete fracture of the plate. You will need to bring your x-ray disc so he is able to compare to prior films.
--- NOTE | 2017-11-02 15:37 | ED.DCSUM_ITS ---
- ER Visit Summary Date of Service: 11/02/17 Chief Complaint: Right ankle pain History of Present Illness: The patient is a 72 F who told the nurse that there was no history of trauma. She told me that she fell. She was unaware that there is a bend in her leg. She complains of pain distal tib-fib. She was seen in June and transferred to [facility] for open distal tibia and fibular fracture. She informed me that she has fallen several times. She denies any new paresthesias or anesthesia. She is unable to ambulate because of the fracture. Physical Examination: There is venous stasis changes noted distal left leg and foot. There is a band with valgus deformity. DPT pupils are not palpable. There was documented flow. There is a wound central portion of the incision which is healing without evidence of infection. She is able to move all of her toes. Stressing the ankle does not result in any movement or laxity. Test Results: 3 view x-ray of the ankle reveals a band in the plate and there is a crack with incomplete fracture of the plate. Emergency Department Course and Treatment: X-ray was obtained because of the deformity and history of trauma. Treatment Plan: Because of the radiologic findings she was referred to see Dr. Suggs. Will discharge with disc with films for Dr. Suggs to compare to. Disposition: Discharged to home with orthopedic follow-up Impression: Right ankle pain status post fall with incomplete fracture of plate and bend endplate This note was generated with Runrun.it dictation software. It may contain incorrect words, spelling, and punctuation that were not noted in review of the chart prior to signing ED Disposition - Plan for ED Patient: Disposition: Home or Assisted Living Chief Complaint: Lower Extremity Injury Referrals: [facility] Doctor,Out of [Primary Care Provider] - Vimal Suggs MD [NON-STAFF] - 3-5 Days Additional Instructions: You need to call Dr. Suggs's office 2 be seen and reevaluated since there is a bend in the plate and a incomplete fracture of the plate. You will need to bring your x-ray disc so he is able to compare to prior films.
--- NOTE | 2017-11-02 16:52 | CM.ED ---
"Addendum entered by Gertrude Peña 11/02/17 16:58: Patient states her preference for SNF is [facility]. Original Note: CM INITIAL ASSESSMENT: Patient assessed in the ED with grandson at bedside. Home: Patient lives alone. HHS/Aides: Patient has [employer] services. She tells me she thinks her case making machine operator name is Alicia, but doesn't recall. She has aides 5 days a week (2 hrs 3 days / 3 hrs 2 days). They assist with cooking, cleaning, and shopping. Patient bathes herself and occasionally cooks for herself. Patient no longer drives. She uses [employer] for transportation to appointments. Patient states she was a resident, for three months, at [facility] in [place]. She then had home health, with [facility], until one week ago. Since home health , in the past week, she has had two falls. DME: Patient uses a rollator, shower bench, and elevated toilet seat. She also has a wheelchair. Home Oxygen: Patient states she is prescribed to wear 4L oxygen at home, but does not wear it. Patient is uncertain of DME company and states she never had it refilled. She states, I need to smoke and drink diet coke. I called [employer] and was informed there is an attachment to keep knee elevated with walker. They do not carry this device and it would be private pay only. Patient would also need to privately pay for walker, as her rollator was covered by insurance within the past five years. Patient declined this option. Patient is not safe to ambulate at home, alone. Recommend short term residential placement. Case management and social work will continue to follow for safe and effective discharge planning."
--- NOTE | 2017-11-02 17:02 | NURSING ---
Pt's family to bring in updated med list.
[2017-11-02 17:03] VITALS: BMI 27.4
[2017-11-02 17:10] VITALS: O2SAT 80
[2017-11-02 17:15] VITALS: O2SAT 94
[2017-11-02 17:25] VITALS: BP 113/69; PULSE 67; RESP 16; O2SAT 96
--- NOTE | 2017-11-02 17:31 | ED.RN ---
PER PATIENT'S GRANDSON: PATIENT IS TAKING PAIN MEDICATIONS THAT ARE NOT PRESCRIBED TO HER AT HOME AND THIS IS HOME SHE ORIGINALLY FELL AND IS VERY DOPED UP AT THIS TIME. MD NOTIFIED AND PAIN MEDICATION HELD PER MD ORDER.
[2017-11-02 17:38] VITALS: O2SAT 92
--- NOTE | 2017-11-02 17:38 | ED.RN ---
PATIENT HAS O2 AT HOME AND IS SUPPOSED TO WEAR 2L BUT IS NONCOMPLIANT.
[2017-11-02 18:43] VITALS: BP 120/65; PULSE 63; RESP 16; TEMP 36.4; O2SAT 94; BMI 30.7
[2017-11-02 19:11] LABS: Absolute Lymphocyte Count 1.47 X10^3/ul (0.83-4.51); Absolute Neutrophil Count 2.9 X10^3/uL (2.0-7.7); Basophil# 0.03 X10^3/uL; Basophil% 0.6 % (0-1); Eosinophil# 0.04 X10^3/uL; Eosinophils% 0.8 % (0-5); Hematocrit 45.5 % (37-47); Lymphocyte # 1.47 X10^3/ul (4.0); Lymphocyte % 29.6 % (19-41); Mean Corp Hgb Conc 30.8 g/gl (32-36); Mean Corpuscular Hgb 30.2 pg (27.0-32.0); Mean Corpuscular Volume 98.3 fL (81-99); Mean Platelet Vol. 10.4 fl (6.2-12.0); Monocyte# 0.54 X10^3/uL; Monocyte% 10.9 % (0-10); Neutrophil # 2.88 X10^3/uL (2.7-7.7); Neutrophil % 58.1 % (47-70); Platelet Count 102 K/mm3 (150-450); RBC Distribution Width CV 15.4 % (11.6-14.6); RBC Distribution Width SD 55.1 fl (35.1-43.9); Red Blood Count 4.63 M/mm3 (4.2-5.4)
[2017-11-02 19:16] LABS: POSITIVE COUNT NO; POSITIVE DIFFERENTIAL NO; POSITIVE MORPHOLOGY NO
--- NOTE | 2017-11-02 19:17 | PCM.HP.STD ---
Problem List (1) Debility Status: Acute History of Present Illness Date of Admission: 11/02/17 Chief Complaint: Debility The patient is a 72 year old F seen in the emergency room at [facility] after falling yesterday at home and being brought here by her family members for evaluation, patient had surgery done on her right lower leg due to a fracture on 06/14/17, she was seen in the hospital in the emergency room here and shipped to [place] for repair of the fracture, she then went to a [facility] for an unknown length of time, patient states that she was released from the [facility] June 28 of this year-I am not sure this is reliable information as the patient is a poor informant. Unfortunately, patient is a very unreliable informant, family members who were here today during my examination talk to me in the matthew and stated that they were suspicious the patient had dementia. I feel the patient's review of systems is totally unreliable, she was able to provide some information about her past surgical history but she omitted the fact that she has a bioprosthetic aortic valve.. Patient lives alone, she was not able to give me an appropriate narrative as to why she was even in the emergency room today. She told me that she has not been able to walk on her right leg for the last 2 weeks, this was not able be verified by the patient's family members. Labs were not obtained on the patient, x-rays of the right lower leg showed lateral angulation of the distal tibial fracture without osseous union with a subtle break in the orthopedic plate, also, there is noted to be lateral angulation with inferior and lateral displacement of the distal fibular fracture without osseous bridging. On examination of the patient, there is an obvious deformity of the patient's right lower leg, surgical incision site appears to be healing adequately, there is a small eschar on the anterior surface of the distal tibia area but there is no discharge noted from this area. business services vice president was contacted and saw the patient, patient's orthopedic surgeon is on vacation this week and Deejay, the plan is for the patient to be placed into observation status on [facility] and make arrangements for her to be placed into a detention facility after which she can follow-up with her primary orthopedic surgeon. Past Medical History Past Medical History (Chronic Problems): Chronic Problems (Last Updated 07/03/17 @ 10:20 by Aniya Willis) Nicotine abuse (Chronic) Low back pain (Chronic) Anxiety (Chronic) Depression (Chronic) Diastolic CHF (Chronic) COPD (chronic obstructive pulmonary disease) (Chronic) Chronic pain syndrome (Chronic) HTN (hypertension) (Chronic) HLD (hyperlipidemia) (Chronic) Obesity (BMI 30-39.9) (Chronic) Anxiety and depression (Chronic) Iron deficiency anemia (Chronic) Status post aortic valve replacement with bioprosthetic valve (Chronic) Status post placement of cardiac pacemaker (Chronic) Chronic atrial fibrillation (Chronic) Medical History: Medical History (Last Updated 07/03/17 @ 10:20 by Aniya Willis) Pneumonia J18.9 Wheezing R06.2 Allergies No Known Allergies Allergy (Verified 11/02/17 14:34) Home Medications: Ambulatory Orders Medication Instructions Recorded Amitriptyline HCl 50 mg PO QHS 04/27/16 Atorvastatin Calcium [Lipitor] 10 mg PO QHS 04/27/16 Paroxetine HCl [Paxil] 20 mg PO DAILY 04/27/16 Rivaroxaban [Xarelto] 20 mg PO DAILY 04/27/16 Ferrous Sulfate 325 mg PO DAILY@0800 #30 tablet 06/01/16 Gabapentin [Neurontin] 300 mg PO BIDCM #60 cap 06/01/16 Ergocalciferol (Vitamin D2) 1.25 mg PO DAILY 05/21/17 [Ergocal] Multivitamin/Iron/Folic Acid 1 each PO DAILY 05/21/17 [Daily Vitamin Formula-Iron Tab] Carvedilol [Coreg (Beta Luis A)] 12.5 mg PO BID #90 tab 05/23/17 Furosemide [Lasix] 40 mg PO BID@1000,1800 #90 tab 05/23/17 amlodipine 10 mg tablet 10 mg PO QDAY 07/03/17 Calcium Carbonate [Calcium] 600 mg PO DAILY 11/02/17 Carvedilol [Coreg (Beta Luis A)] 6.25 mg PO BID 11/02/17 Cyclobenzaprine HCl 5 mg PO BID PRN 11/02/17 Ergocalciferol [Vitamin D] 50,000 unit PO MO 11/02/17 Hydrocodone/Acetaminophen [Vicodin 1 tablet PO Q6H PRN PRN 11/02/17 Es 7.5-300 mg Tablet] Potassium Chloride [K-Dur] 20 meq PO DAILY 11/02/17 Trazodone HCl 150 mg PO QHS 11/02/17 Surgical History: gastric bypass, pacemaker implantation, total hip arthroplasty - Left., tonsillectomy, - - Bioprosthetic aortic valve replacement. 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 Lives: Alone Smoking Status: Current every day smoker Tobacco Use: Cigarettes Alcohol: None Drugs: None - *Family History Maternal History Items: - - mother with lung cancer Paternal History Items: - - father with esophageal cancer Review of Systems Comment: View of systems was unobtainable from the patient due to cognitive impairment (questionable dementia), additional medical information was provided by family members who are present at the time of my examination VTE Information - Inpt Only VTE Present on Admission: No VTE Mechan Device Prophylaxis: None VTE Pharm Prophylaxis ordered?: No Reason prophylaxis not ordered:: Medical Contraindication - Patient on Xarelto Patient Problems: Active and Suspected Problems (Last Updated 07/03/17 @ 10:20 by Aniya Willis) Debility (Acute) - Physical Exam General: Alert, Cooperative, No apparent distress, Well developed, - - Patient is a poor informant, she cannot give a consistent narrative to this examiner HEENT: Atraumatic, PERRLA, EOMI Oral: Moist Mucosa Neck: Supple, No JVD, Negative Carotid Bruits, No Nuchal Rigidity, Trachea Midline, Thyroid Normal Size and Texture Lungs: Normal air movement, No rhonchi, No rales, Wheezes - Expiratory wheezes were scattered over both lungs Cardiovascular: Regular rate, Regular Rhythm, Normal S1, Normal S2, No murmurs, No Ectopic Activity, No rub noted, No Gallop Abdomen: Bowel Sounds Present, Soft, Non Tender, Non-Distended, No hernias noted Extremities: - - There is an obvious deformity and angulation of the patient's right lower leg, there is a well-healing surgical scar over the inner aspect of the patient's right lower leg Neurological: Cranial nerves II-XII grossly intact, Motor Exam 5/5 strength throughout, Sensory exam intact to light touch and pain, Coordination normal Psych/Mental Status: Flat Affect, - - Patient is alert, she cannot provide adequate information concerning her medical care, she is able to provide some information on her past medical history which on review of her electronic medical records appears to be true Vital Signs Temp Pulse Resp BP Pulse Ox 97.5 F L 63 16 120/65 94 11/02/17 18:43 11/02/17 18:43 11/02/17 18:43 11/02/17 18:43 11/02/17 18:43 Oxygen Flow Rate (L/min) 2 Oxygen Delivery Method Nasal Cannula Weight: 91.626 kg Body Mass Index (BMI) 30.7 Laboratory Tests Past 24 Hrs 11/02/17 11/02/17 19:00 19:00 WBC 5.0 RBC 4.63 Hgb 14.0 Hct 45.5 MCV 98.3 MCH 30.2 MCHC 30.8 L RDW 15.4 H RDW Differential 55.1 H Plt Count 102 L MPV 10.4 Immature Gran % (Auto) 0.000 Neut % (Auto) 58.1 Lymph % (Auto) 29.6 [place] % (Auto) 10.9 H Eos % (Auto) 0.8 Baso % (Auto) 0.6 Absolute Neuts (auto) 2.9 Absolute Lymphs (auto) 1.47 Total Counted Not Reportable Sodium Pending Potassium Pending Chloride Pending Carbon Dioxide Pending Anion Gap Pending BUN Pending Creatinine Pending Est GFR (MDRD) Af Amer Pending Est GFR (MDRD) Non-Af Pending BUN/Creatinine Ratio Pending Glucose Pending Calcium Pending Total Bilirubin Pending AST Pending ALT Pending Alkaline Phosphatase Pending Total Protein Pending Albumin Pending Assessment/Plan All Active Problems (Last Updated 07/03/17 @ 10:20 by Aniya Willis) Debility (Acute) #1 generalized debility-patient will be placed and observation status on [facility] 2, PT and OT will see the patient, she will be nonweightbearing on her right leg, arrangements will have to be made for the patient to be admitted to detention facility for further care #2 COPD- patient will be placed on albuterol aerosols as needed #3 hypertension #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 with metal plate fracture-patient will need to follow-up with her orthopedic surgeon concerning this #5 atrial fibrillation with AV sequential pacing #6 valvular heart disease with stable bioprosthetic aortic valve #7 cognitive impairment-either from undiagnosed dementia or polypharmacy, patient's granddaughter states that it has been suspected that the patient takes multiple medications at home that are not prescribed to her such as extra narcotics, I instructed the granddaughter to go through the patient's medications while she is in the hospital and discard old ones that are not being used. Code Visit OBSV E&M: 98019 Initial observation care L3
--- NOTE | 2017-11-02 19:28 | HP.PCM_ITS ---
Problem List (1) Debility Status: Acute History of Present Illness Date of Admission: 11/02/17 Chief Complaint: Debility The patient is a 72 year old F seen in the emergency room at [facility] after falling yesterday at home and being brought here by her family members for evaluation, patient had surgery done on her right lower leg due to a fracture on 06/14/17, she was seen in the hospital in the emergency room here and shipped to [place] for repair of the fracture, she then went to a snf for an unknown length of time, patient states that she was released from the snf June 28 of this year-I am not sure this is reliable information as the patient is a poor informant. Unfortunately, patient is a very unreliable informant, family members who were here today during my examination talk to me in the matthew and stated that they were suspicious the patient had dementia. I feel the patient's review of systems is totally unreliable, she was able to provide some information about her past surgical history but she omitted the fact that she has a bioprosthetic aortic valve.. Patient lives alone, she was not able to give me an appropriate narrative as to why she was even in the emergency room today. She told me that she has not been able to walk on her right leg for the last 2 weeks, this was not able be verified by the patient's family members. Labs were not obtained on the patient, x-rays of the right lower leg showed lateral angulation of the distal tibial fracture without osseous union with a subtle break in the orthopedic plate, also, there is noted to be lateral angulation with inferior and lateral displacement of the distal fibular fracture without osseous bridging. On examination of the patient, there is an obvious deformity of the patient's right lower leg, surgical incision site appears to be healing adequately, there is a small eschar on the anterior surface of the distal tibia area but there is no discharge noted from this area. surgical services assistant was contacted and saw the patient, patient's orthopedic surgeon is on vacation this week and Deejay, the plan is for the patient to be placed into observation status on [facility] and make arrangements for her to be placed into a usp facility after which she can follow-up with her primary orthopedic surgeon. Past Medical History Past Medical History (Chronic Problems): Chronic Problems (Last Updated 07/03/17 @ 10:20 by Aniya Willis) Nicotine abuse (Chronic) Low back pain (Chronic) Anxiety (Chronic) Depression (Chronic) Diastolic CHF (Chronic) COPD (chronic obstructive pulmonary disease) (Chronic) Chronic pain syndrome (Chronic) HTN (hypertension) (Chronic) HLD (hyperlipidemia) (Chronic) Obesity (BMI 30-39.9) (Chronic) Anxiety and depression (Chronic) Iron deficiency anemia (Chronic) Status post aortic valve replacement with bioprosthetic valve (Chronic) Status post placement of cardiac pacemaker (Chronic) Chronic atrial fibrillation (Chronic) Medical History: Medical History (Last Updated 07/03/17 @ 10:20 by Aniya Willis) Pneumonia J18.9 Wheezing R06.2 Allergies No Known Allergies Allergy (Verified 11/02/17 14:34) Home Medications: Ambulatory Orders Medication Instructions Recorded Amitriptyline HCl 50 mg PO QHS 04/27/16 Atorvastatin Calcium [Lipitor] 10 mg PO QHS 04/27/16 Paroxetine HCl [Paxil] 20 mg PO DAILY 04/27/16 Rivaroxaban [Xarelto] 20 mg PO DAILY 04/27/16 Ferrous Sulfate 325 mg PO DAILY@0800 #30 tablet 06/01/16 Gabapentin [Neurontin] 300 mg PO BIDCM #60 cap 06/01/16 Ergocalciferol (Vitamin D2) 1.25 mg PO DAILY 05/21/17 [Ergocal] Multivitamin/Iron/Folic Acid 1 each PO DAILY 05/21/17 [Daily Vitamin Formula-Iron Tab] Carvedilol [Coreg (Beta Luis A)] 12.5 mg PO BID #90 tab 05/23/17 Furosemide [Lasix] 40 mg PO BID@1000,1800 #90 tab 05/23/17 amlodipine 10 mg tablet 10 mg PO QDAY 07/03/17 Calcium Carbonate [Calcium] 600 mg PO DAILY 11/02/17 Carvedilol [Coreg (Beta Luis A)] 6.25 mg PO BID 11/02/17 Cyclobenzaprine HCl 5 mg PO BID PRN 11/02/17 Ergocalciferol [Vitamin D] 50,000 unit PO MO 11/02/17 Hydrocodone/Acetaminophen [Vicodin 1 tablet PO Q6H PRN PRN 11/02/17 Es 7.5-300 mg Tablet] Potassium Chloride [K-Dur] 20 meq PO DAILY 11/02/17 Trazodone HCl 150 mg PO QHS 11/02/17 Surgical History: gastric bypass, pacemaker implantation, total hip arthroplasty - Left., tonsillectomy, - - Bioprosthetic aortic valve replacement. 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 Lives: Alone Smoking Status: Current every day smoker Tobacco Use: Cigarettes Alcohol: None Drugs: None - *Family History Maternal History Items: - - mother with lung cancer Paternal History Items: - - father with esophageal cancer Review of Systems Comment: View of systems was unobtainable from the patient due to cognitive impairment (questionable dementia), additional medical information was provided by family members who are present at the time of my examination VTE Information - Inpt Only VTE Present on Admission: No VTE Mechan Device Prophylaxis: None VTE Pharm Prophylaxis ordered?: No Reason prophylaxis not ordered:: Medical Contraindication - Patient on Xarelto Patient Problems: Active and Suspected Problems (Last Updated 07/03/17 @ 10:20 by Aniya Willis) Debility (Acute) - Physical Exam General: Alert, Cooperative, No apparent distress, Well developed, - - Patient is a poor informant, she cannot give a consistent narrative to this examiner HEENT: Atraumatic, PERRLA, EOMI Oral: Moist Mucosa Neck: Supple, No JVD, Negative Carotid Bruits, No Nuchal Rigidity, Trachea Midline, Thyroid Normal Size and Texture Lungs: Normal air movement, No rhonchi, No rales, Wheezes - Expiratory wheezes were scattered over both lungs Cardiovascular: Regular rate, Regular Rhythm, Normal S1, Normal S2, No murmurs, No Ectopic Activity, No rub noted, No Gallop Abdomen: Bowel Sounds Present, Soft, Non Tender, Non-Distended, No hernias noted Extremities: - - There is an obvious deformity and angulation of the patient's right lower leg, there is a well-healing surgical scar over the inner aspect of the patient's right lower leg Neurological: Cranial nerves II-XII grossly intact, Motor Exam 5/5 strength throughout, Sensory exam intact to light touch and pain, Coordination normal Psych/Mental Status: Flat Affect, - - Patient is alert, she cannot provide adequate information concerning her medical care, she is able to provide some information on her past medical history which on review of her electronic medical records appears to be true Vital Signs Temp Pulse Resp BP Pulse Ox 97.5 F L 63 16 120/65 94 11/02/17 18:43 11/02/17 18:43 11/02/17 18:43 11/02/17 18:43 11/02/17 18:43 Oxygen Flow Rate (L/min) 2 Oxygen Delivery Method Nasal Cannula Weight: 91.626 kg Body Mass Index (BMI) 30.7 Laboratory Tests Past 24 Hrs 11/02/17 11/02/17 19:00 19:00 WBC 5.0 RBC 4.63 Hgb 14.0 Hct 45.5 MCV 98.3 MCH 30.2 MCHC 30.8 L RDW 15.4 H RDW Differential 55.1 H Plt Count 102 L MPV 10.4 Immature Gran % (Auto) 0.000 Neut % (Auto) 58.1 Lymph % (Auto) 29.6 [place] % (Auto) 10.9 H Eos % (Auto) 0.8 Baso % (Auto) 0.6 Absolute Neuts (auto) 2.9 Absolute Lymphs (auto) 1.47 Total Counted Not Reportable Sodium Pending Potassium Pending Chloride Pending Carbon Dioxide Pending Anion Gap Pending BUN Pending Creatinine Pending Est GFR (MDRD) Af Amer Pending Est GFR (MDRD) Non-Af Pending BUN/Creatinine Ratio Pending Glucose Pending Calcium Pending Total Bilirubin Pending AST Pending ALT Pending Alkaline Phosphatase Pending Total Protein Pending Albumin Pending Assessment/Plan All Active Problems (Last Updated 07/03/17 @ 10:20 by Aniya Willis) Debility (Acute) #1 generalized debility-patient will be placed and observation status on [facility] 2, PT and OT will see the patient, she will be nonweightbearing on her right leg, arrangements will have to be made for the patient to be admitted to usp facility for further care #2 COPD- patient will be placed on albuterol aerosols as needed #3 hypertension #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 with metal plate fracture-patient will need to follow-up with her orthopedic surgeon concerning this #5 atrial fibrillation with AV sequential pacing #6 valvular heart disease with stable bioprosthetic aortic valve #7 cognitive impairment-either from undiagnosed dementia or polypharmacy, patient's granddaughter states that it has been suspected that the patient takes multiple medications at home that are not prescribed to her such as extra narcotics, I instructed the granddaughter to go through the patient's medications while she is in the hospital and discard old ones that are not being used. Code Visit OBSV E&M: 96470 Initial observation care L3
[2017-11-02 19:34] LABS: ALB/GLOB Ratio 0.8 RATIO (0.9-2.4); AST(SGOT) 16 U/L (15-37); Alanine Aminotransfer ALT/SGPT 13 U/L (13-56); Albumin, Serum 2.8 g/dL (3.2-5.0); Alkaline Phosphatase 158 U/L (45-117); Anion Gap 2 (5-15); BUN 7 mg/dL (7-18); BUN/Creat Ratio 10.5 RATIO (10-20); Calcium,Total 8.7 mg/dL (8.5-10.1); Chloride 106 mmol/L (98-107); Creatinine, Serum 0.67 mg/dL (0.55-1.02); EST Glomerular Filtration Rate 93 mL/min (>60); Est Glom Filt Rate - Afr Amer 112 mL/min (>60); Estimated Creatinine Clearance 52.05 ml/min; Globulin 3.3 g/dL (2.2-4.2); Glucose 99 mg/dL (74-106); Potassium 4.2 mmol/L (3.5-5.1); Protein, Total 6.1 g/dL (6.4-8.2); Sodium Level 140 mmol/L (136-145)
[2017-11-02] MEDS: Amitriptyline 25 MG Tablet 50 MG PO (21:45)
[2017-11-02] MEDS: Atorvastatin Calcium 10 MG Tablet PO (21:45)
[2017-11-02] MEDS: amLODIPine 10 MG Tablet PO (21:45)
[2017-11-02] MEDS: Furosemide 40 MG Tablet PO (21:45)
[2017-11-02] MEDS: Carvedilol 6.25 MG Tablet PO (21:45)
[2017-11-02] MEDS: Nystatin Powder 15gm Bottle 1 APPLIC TOPICAL (22:57)
[2017-11-03 03:11] VITALS: BP 110/60; PULSE 62; RESP 16; TEMP 37.1; O2SAT 96
--- NOTE | 2017-11-03 07:39 | PCM.PN.HOSP ---
Patient Problems: Active and Suspected Problems (Last Updated 07/03/17 @ 10:20 by Aniya Willis) Debility (Acute) Subjective: Patient was seen and examined. Pain is fairly controlled. She was admitted last night with acute distal tib-fib fracture as well as angulation of the previous plating. She admits to repeatedly falling at home. Denies fever or chills or chest pain or dizziness today. No acute events overnight. Vitals are stable. Vitals/I&O's: Vital Signs Temp Pulse Resp BP Pulse Ox 98.8 F 62 16 110/60 96 11/03/17 03:11 11/03/17 03:11 11/03/17 03:11 11/03/17 03:11 11/03/17 03:11 Oxygen Flow Rate (L/min) 2 Oxygen Delivery Method Nasal Cannula Weight: 91.626 kg Body Mass Index (BMI) 30.7 Intake and Output for Last 24 Hours 11/01/17 11/02/17 11/03/17 23:59 23:59 23:59 Intake Total 120 / 120 Output Total 1300 / 1300 Balance -1180 / -1180 General: Alert, Oriented x3, Cooperative, No apparent distress, - - On 2 L of oxygen HEENT: Atraumatic, PERRLA, EOMI, Normocephalic Oral: Moist Mucosa Neck: Supple Lungs: Clear to auscultation, Normal air movement Cardiovascular: Regular rate, Regular Rhythm, Normal S1, Normal S2, No murmurs Abdomen: Bowel Sounds Present, Soft, Non Tender, Non-Distended, No Hepato-splenomegaly, Obese Extremities: - - Right distal leg deformity with angulation, chronic venous changes on the skin overlying the fracture site, well-healing surgical scar over the inner aspect of the patient's right lower leg, scab over the anterior distal third of the leg Skin: - - Chronic hyperpigmentation likely from venous stasis Musculoskeletal: No Tenderness to Palpation of Joints or Extremities Lymphatic: No Cervical, Supraclavicular, or Inguinal Adenopathy Neurological: Cranial nerves II-XII grossly intact, Neuro grossly intact Psych/Mental Status: Normal Affect, Appropriate Laboratory Results 11/02/17 19:00: WBC 5.0, RBC 4.63, Hgb 14.0, Hct 45.5, MCV 98.3, MCH 30.2, MCHC 30.8 L, RDW 15.4 H, RDW Differential 55.1 H, Plt Count 102 L, MPV 10.4, Immature Gran % (Auto) 0.000, Neut % (Auto) 58.1, Lymph % (Auto) 29.6, [place] % (Auto) 10.9 H, Eos % (Auto) 0.8, Baso % (Auto) 0.6, Absolute Neuts (auto) 2.9, Absolute Lymphs (auto) 1.47, Total Counted Not Reportable 11/02/17 19:00: Sodium 140, Potassium 4.2, Chloride 106, Carbon Dioxide 32.0, Anion Gap 2 L, BUN 7, Creatinine 0.67, Estim Creat Clear Calc 52.05, Est GFR (MDRD) Af Amer 112, Est GFR (MDRD) Non-Af 93, BUN/Creatinine Ratio 10.5, Glucose 99, Calcium 8.7, Total Bilirubin 0.30, AST 16, ALT 13, Alkaline Phosphatase 158 H, Total Protein 6.1 L, Albumin 2.8 L, Globulin 3.3, Albumin/Globulin Ratio 0.8 L Current Medications Hydrocodone Bitart/Acetaminophen ([place] 5mg-325mg) 1 tablet PO Q4H PRN PRN PRN Reason: SEVERE PAIN (6-10/10) Albuterol Sulfate (Ventolin Aerosols) 2.5 mg INHALATION Q2H PRN PRN PRN Reason: DYSPNEA Amitriptyline HCl (Elavil) 50 mg PO QHS [facility] Last Admin: 11/02/17 21:45 Dose: 50 mg Amlodipine Besylate (Norvasc) 10 mg PO DAILY [facility] Last Admin: 11/02/17 21:45 Dose: 10 mg Atorvastatin Calcium (Lipitor) 10 mg PO QHS [facility] Last Admin: 11/02/17 21:45 Dose: 10 mg Carvedilol (Coreg) 6.25 mg PO BID [facility] Last Admin: 11/02/17 21:45 Dose: 6.25 mg Furosemide (Lasix) 40 mg PO BID@1000,1800 [facility] Last Admin: 11/02/17 21:45 Dose: 40 mg [facility]) [facility] Nicotine (Nicoderm Cq (Pbkc)) 14 mg TRANSDERM. DAILY [facility] Nystatin (Mycostatin Powder) 1 applic TOPICAL BID [facility] PRN Reason: Protocol Last Admin: 11/02/17 22:57 Dose: 1 applicatio Paroxetine HCl (Paxil) 20 mg PO DAILY HIRAM Potassium Chloride (K-Dur) 20 meq PO DAILY HIRAM Rivaroxaban (Xarelto) 20 mg PO DAILY [facility] Sodium Chloride () 5 - 30 ml IV UD PRN PRN Reason: SALINE FLUSH Trazodone HCl (Desyrel) 150 mg PO QHS [facility] Last Admin: 11/02/17 21:46 Dose: Not Given Medical Necessity - Tobacco Use Smoking Status: Current every day smoker Tobacco Use: Cigarettes Assessment/Plan All Active Problems (Last Updated 07/03/17 @ 10:20 by Aniya Willis) Debility (Acute) 72-year-old female with past medical history of COPD, hypertension, recent fracture of the right tib-fib with plating done in [place] in June 2017, comes in with repeated falls and sustains acute fracture of the right tib-fib with angulation of the plate. 1. Acute on chronic fracture of the right distal tib-fib, recent plating with now with lateral angulation, patient had surgery in June 2017 and her primary orthopedic surgeon is reportedly out of town, pain is fairly controlled, Plan: We will get orthopedics team here to give a recommendation for management, will continue with Vicodin 2. Hypertension, controlled, continue on amlodipine, Coreg 3. COPD, not in acute exacerbation, as needed breathing treatments 4. Chronic diastolic CHF, not in acute exacerbation, will continue with strict I's and O's, daily weights, follow cardiac diet, continue Lasix 40 mg twice daily 5. Chronic atrial fibrillation, rate controlled, continue on Coreg, Xarelto 6. s/p bioprosthetic valve, on Xarelto 7. Depression, continue on amitriptyline, Paxil, trazodone 8. Nicotine dependence, on replacement 9. DVT PPx - On xarelto Code Visit Inpatient E&M: 72842 Subs Hosp L2
[2017-11-03 08:24] VITALS: BP 111/59; PULSE 64; RESP 16; TEMP 36.8; O2SAT 94
[2017-11-03] MEDS: Rivaroxaban 20 MG Tablet PO (08:31)
[2017-11-03] MEDS: Gabapentin 300 MG Capsule PO ×2 (08:31→17:10)
[2017-11-03] MEDS: Furosemide 40 MG Tablet PO ×2 (08:31→17:10)
[2017-11-03] MEDS: Carvedilol 6.25 MG Tablet PO ×2 (08:31→21:04)
--- NOTE | 2017-11-03 10:17 | PCM.CONS.GEN ---
Reason for Consult Date of Consultation: 11/03/17 Reason for Consultation: Right ankle deformity History of Present Illness: The patient is a 72 year old F who suffers from some dementia. Upon chart review is identified the patient suffered a distal tibial shaft fracture back in June. She was transferred to the [facility] and subsequently had an ORIF with a plate completed by Dr. Suggs sometime in June. Patient is a very poor historian and I do have some difficulty finding and determining exactly the sequence of events since that time. It does appear that the patient was then retirement for a period of time. She presents today as she is suffering from a deformity and ankle pain that is continued. It is my understanding that her primary surgeon is currently out of town. Her pain is reasonably controlled per the patient's report. Patient does admit to several falls Past Medical History Past Medical History (Chronic Problems): Chronic Problems (Last Updated 07/03/17 @ 10:20 by Aniya Willis) Nicotine abuse (Chronic) Low back pain (Chronic) Anxiety (Chronic) Depression (Chronic) Diastolic CHF (Chronic) COPD (chronic obstructive pulmonary disease) (Chronic) Chronic pain syndrome (Chronic) HTN (hypertension) (Chronic) HLD (hyperlipidemia) (Chronic) Obesity (BMI 30-39.9) (Chronic) Anxiety and depression (Chronic) Iron deficiency anemia (Chronic) Status post aortic valve replacement with bioprosthetic valve (Chronic) Status post placement of cardiac pacemaker (Chronic) Chronic atrial fibrillation (Chronic) Medical History: Medical History (Last Updated 07/03/17 @ 10:20 by Aniya Willis) Pneumonia J18.9 Wheezing R06.2 Allergies No Known Allergies Allergy (Verified 11/02/17 14:34) Home Medications: Ambulatory Orders Medication Instructions Recorded Amitriptyline HCl 50 mg PO QHS 04/27/16 Atorvastatin Calcium [Lipitor] 40 mg PO QHS 04/27/16 Paroxetine HCl [Paxil] 20 mg PO DAILY 04/27/16 Rivaroxaban [Xarelto] 20 mg PO DAILY 04/27/16 Ferrous Sulfate 325 mg PO DAILY@0800 #30 tablet 06/01/16 Multivitamin/Iron/Folic Acid 1 each PO DAILY 05/21/17 [Daily Vitamin Formula-Iron Tab] Carvedilol [Coreg (Beta Luis A)] 12.5 mg PO BID #90 tab 05/23/17 Furosemide [Lasix] 40 mg PO BID@1000,1800 #90 tab 05/23/17 amlodipine 10 mg tablet 10 mg PO QDAY 07/03/17 Calcium Carbonate [Calcium] 600 mg PO DAILY 11/02/17 Ergocalciferol [Vitamin D] 50,000 unit PO MO 11/02/17 Gabapentin 300 mg PO DINNER 11/02/17 Hydrocodone/Acetaminophen [Vicodin 1 tablet PO Q6H PRN PRN 11/02/17 Es 7.5-300 mg Tablet] Melatonin 3 mg PO QHS 11/02/17 Potassium Chloride [K-Dur] 20 meq PO BID 11/02/17 Sotalol HCl [Sotalol] 80 mg PO DAILY 11/02/17 Trazodone HCl 150 mg PO QHS 11/02/17 Surgical History: gastric bypass, pacemaker implantation, total hip arthroplasty - Left., tonsillectomy, - - Bioprosthetic aortic valve replacement. 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 Lives: Alone Smoking Status: Current every day smoker Tobacco Use: Cigarettes Alcohol: None Drugs: None - *Family History Maternal History Items: - - mother with lung cancer Paternal History Items: - - father with esophageal cancer Review of Systems Constitutional: Denies: Chills, Fever, Weight Change HEENT: Denies: Head Aches, Sinus Congestion, Sinus Drainage Cardiovascular: Denies: Chest Pain, Palpitations Respiratory: Denies: Cough, Shortness of breath at rest, Sputum production Gastrointestinal: Denies: Abdominal Pain, Nausea, Vomiting Genitourinary: Denies: Dysuria Musculoskeletal: Reports: - - Right ankle pain and deformity Skin: Reports: - Neurological: Reports: - - Frequent falling Patient Problems: Active and Suspected Problems (Last Updated 07/03/17 @ 10:20 by Aniya Willis) Debility (Acute) - Physical Exam General: Alert, Cooperative HEENT: Atraumatic Neck: Supple Lungs: Normal air movement Cardiovascular: Regular rate Abdomen: Soft Extremities: - - Faintly palpable dorsalis pedis pulse equal to the contralateral extremity. A small healed wound is noted at the middle aspect of the healed incision. There is no drainage Musculoskeletal: - - Obvious valgus deformity of the right distal tibia is noted. This is approximately 30?. Sensation is preserved. She is able to wiggle all of her toes and she is able to ankle plantarflex and dorsiflex. Secondary survey is negative Vital Signs Temp Pulse Resp BP Pulse Ox 98.2 F 64 16 111/59 L 94 11/03/17 08:24 11/03/17 08:24 11/03/17 08:24 11/03/17 08:24 11/03/17 08:24 Oxygen Flow Rate (L/min) 2 Oxygen Delivery Method Nasal Cannula Weight: 202 lb Body Mass Index (BMI) 30.7 Intake and Output for Last 24 Hours 11/01/17 11/02/17 11/03/17 23:59 23:59 23:59 Intake Total 120 / 120 Output Total 1300 / 1300 Balance -1180 / -1180 Laboratory Tests Past 24 Hrs 11/02/17 11/02/17 19:00 19:00 WBC 5.0 RBC 4.63 Hgb 14.0 Hct 45.5 MCV 98.3 MCH 30.2 MCHC 30.8 L RDW 15.4 H RDW Differential 55.1 H Plt Count 102 L MPV 10.4 Immature Gran % (Auto) 0.000 Neut % (Auto) 58.1 Lymph % (Auto) 29.6 [place] % (Auto) 10.9 H Eos % (Auto) 0.8 Baso % (Auto) 0.6 Absolute Neuts (auto) 2.9 Absolute Lymphs (auto) 1.47 Total Counted Not Reportable Sodium 140 Potassium 4.2 Chloride 106 Carbon Dioxide 32.0 Anion Gap 2 L BUN 7 Creatinine 0.67 Estim Creat Clear Calc 52.05 Est GFR (MDRD) Af Amer 112 Est GFR (MDRD) Non-Af 93 BUN/Creatinine Ratio 10.5 Glucose 99 Calcium 8.7 Total Bilirubin 0.30 AST 16 ALT 13 Alkaline Phosphatase 158 H Total Protein 6.1 L Albumin 2.8 L Globulin 3.3 Albumin/Globulin Ratio 0.8 L Assessment/Plan All Active Problems (Last Updated 07/03/17 @ 10:20 by Aniya Willis) Debility (Acute) Malunion of right distal tibial shaft Mechanical complication of deep orthopedic implant right ankle Patient suffered from a malunion and likely nonunion of her right distal tibial shaft. There is approximately 30? of valgus angulation on the x-ray as well as 10? of flexion at the fracture site. The plate does appear to have failed. There is also a malunion of the fibula. I am currently attempting to contact the physician social media content specialist for Dr. Suggs in order that the patient does not get lost to follow-up. Will request the patient to be strict nonweightbearing. I am also going to place the patient in a splint in this position and have her follow-up with her primary surgeon next week.
--- NOTE | 2017-11-03 10:23 | CON.PCM_ITS ---
Reason for Consult Date of Consultation: 11/03/17 Reason for Consultation: Right ankle deformity History of Present Illness: The patient is a 72 year old F who suffers from some dementia. Upon chart review is identified the patient suffered a distal tibial shaft fracture back in June. She was transferred to the [facility] and subsequently had an ORIF with a plate completed by Dr. Suggs sometime in June. Patient is a very poor historian and I do have some difficulty finding and determining exactly the sequence of events since that time. It does appear that the patient was then intermediate for a period of time. She presents today as she is suffering from a deformity and ankle pain that is continued. It is my understanding that her primary surgeon is currently out of town. Her pain is reasonably controlled per the patient's report. Patient does admit to several falls Past Medical History Past Medical History (Chronic Problems): Chronic Problems (Last Updated 07/03/17 @ 10:20 by Aniya Willis) Nicotine abuse (Chronic) Low back pain (Chronic) Anxiety (Chronic) Depression (Chronic) Diastolic CHF (Chronic) COPD (chronic obstructive pulmonary disease) (Chronic) Chronic pain syndrome (Chronic) HTN (hypertension) (Chronic) HLD (hyperlipidemia) (Chronic) Obesity (BMI 30-39.9) (Chronic) Anxiety and depression (Chronic) Iron deficiency anemia (Chronic) Status post aortic valve replacement with bioprosthetic valve (Chronic) Status post placement of cardiac pacemaker (Chronic) Chronic atrial fibrillation (Chronic) Medical History: Medical History (Last Updated 07/03/17 @ 10:20 by Aniya Willis) Pneumonia J18.9 Wheezing R06.2 Allergies No Known Allergies Allergy (Verified 11/02/17 14:34) Home Medications: Ambulatory Orders Medication Instructions Recorded Amitriptyline HCl 50 mg PO QHS 04/27/16 Atorvastatin Calcium [Lipitor] 40 mg PO QHS 04/27/16 Paroxetine HCl [Paxil] 20 mg PO DAILY 04/27/16 Rivaroxaban [Xarelto] 20 mg PO DAILY 04/27/16 Ferrous Sulfate 325 mg PO DAILY@0800 #30 tablet 06/01/16 Multivitamin/Iron/Folic Acid 1 each PO DAILY 05/21/17 [Daily Vitamin Formula-Iron Tab] Carvedilol [Coreg (Beta Luis A)] 12.5 mg PO BID #90 tab 05/23/17 Furosemide [Lasix] 40 mg PO BID@1000,1800 #90 tab 05/23/17 amlodipine 10 mg tablet 10 mg PO QDAY 07/03/17 Calcium Carbonate [Calcium] 600 mg PO DAILY 11/02/17 Ergocalciferol [Vitamin D] 50,000 unit PO MO 11/02/17 Gabapentin 300 mg PO DINNER 11/02/17 Hydrocodone/Acetaminophen [Vicodin 1 tablet PO Q6H PRN PRN 11/02/17 Es 7.5-300 mg Tablet] Melatonin 3 mg PO QHS 11/02/17 Potassium Chloride [K-Dur] 20 meq PO BID 11/02/17 Sotalol HCl [Sotalol] 80 mg PO DAILY 11/02/17 Trazodone HCl 150 mg PO QHS 11/02/17 Surgical History: gastric bypass, pacemaker implantation, total hip arthroplasty - Left., tonsillectomy, - - Bioprosthetic aortic valve replacement. 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 Lives: Alone Smoking Status: Current every day smoker Tobacco Use: Cigarettes Alcohol: None Drugs: None - *Family History Maternal History Items: - - mother with lung cancer Paternal History Items: - - father with esophageal cancer Review of Systems Constitutional: Denies: Chills, Fever, Weight Change HEENT: Denies: Head Aches, Sinus Congestion, Sinus Drainage Cardiovascular: Denies: Chest Pain, Palpitations Respiratory: Denies: Cough, Shortness of breath at rest, Sputum production Gastrointestinal: Denies: Abdominal Pain, Nausea, Vomiting Genitourinary: Denies: Dysuria Musculoskeletal: Reports: - - Right ankle pain and deformity Skin: Reports: - Neurological: Reports: - - Frequent falling Patient Problems: Active and Suspected Problems (Last Updated 07/03/17 @ 10:20 by Aniya Willis) Debility (Acute) - Physical Exam General: Alert, Cooperative HEENT: Atraumatic Neck: Supple Lungs: Normal air movement Cardiovascular: Regular rate Abdomen: Soft Extremities: - - Faintly palpable dorsalis pedis pulse equal to the contralateral extremity. A small healed wound is noted at the middle aspect of the healed incision. There is no drainage Musculoskeletal: - - Obvious valgus deformity of the right distal tibia is noted. This is approximately 30?. Sensation is preserved. She is able to wiggle all of her toes and she is able to ankle plantarflex and dorsiflex. Secondary survey is negative Vital Signs Temp Pulse Resp BP Pulse Ox 98.2 F 64 16 111/59 L 94 11/03/17 08:24 11/03/17 08:24 11/03/17 08:24 11/03/17 08:24 11/03/17 08:24 Oxygen Flow Rate (L/min) 2 Oxygen Delivery Method Nasal Cannula Weight: 202 lb Body Mass Index (BMI) 30.7 Intake and Output for Last 24 Hours 11/01/17 11/02/17 11/03/17 23:59 23:59 23:59 Intake Total 120 / 120 Output Total 1300 / 1300 Balance -1180 / -1180 Laboratory Tests Past 24 Hrs 11/02/17 11/02/17 19:00 19:00 WBC 5.0 RBC 4.63 Hgb 14.0 Hct 45.5 MCV 98.3 MCH 30.2 MCHC 30.8 L RDW 15.4 H RDW Differential 55.1 H Plt Count 102 L MPV 10.4 Immature Gran % (Auto) 0.000 Neut % (Auto) 58.1 Lymph % (Auto) 29.6 [place] % (Auto) 10.9 H Eos % (Auto) 0.8 Baso % (Auto) 0.6 Absolute Neuts (auto) 2.9 Absolute Lymphs (auto) 1.47 Total Counted Not Reportable Sodium 140 Potassium 4.2 Chloride 106 Carbon Dioxide 32.0 Anion Gap 2 L BUN 7 Creatinine 0.67 Estim Creat Clear Calc 52.05 Est GFR (MDRD) Af Amer 112 Est GFR (MDRD) Non-Af 93 BUN/Creatinine Ratio 10.5 Glucose 99 Calcium 8.7 Total Bilirubin 0.30 AST 16 ALT 13 Alkaline Phosphatase 158 H Total Protein 6.1 L Albumin 2.8 L Globulin 3.3 Albumin/Globulin Ratio 0.8 L Assessment/Plan All Active Problems (Last Updated 07/03/17 @ 10:20 by Aniya Willis) Debility (Acute) Malunion of right distal tibial shaft Mechanical complication of deep orthopedic implant right ankle Patient suffered from a malunion and likely nonunion of her right distal tibial shaft. There is approximately 30? of valgus angulation on the x-ray as well as 10? of flexion at the fracture site. The plate does appear to have failed. There is also a malunion of the fibula. I am currently attempting to contact the physician demonstrator electric gas appliances for Dr. Suggs in order that the patient does not get lost to follow-up. Will request the patient to be strict nonweightbearing. I am also going to place the patient in a splint in this position and have her follow -up with her primary surgeon next week.
[2017-11-03] MEDS: Nystatin Powder 15gm Bottle 1 APPLIC TOPICAL ×2 (11:01→21:04)
[2017-11-03] MEDS: amLODIPine 10 MG Tablet PO (11:02)
--- NOTE | 2017-11-03 12:05 | CASEMGMT ---
RITA noted patient would like to go to [facility] at d/c. She will require insurance authorization. RITA faxed referral to [facility]. SW started PASRR on . SW to follow up on Sunday. Plan: SNF. Possibly [facility] depending on bed availability and their accepting patient. Patient also requires insurance authorization. Barbara MORA MSW
[2017-11-03 14:00] VITALS: BP 117/70; PULSE 69; RESP 16; TEMP 37.1; O2SAT 93
--- NOTE | 2017-11-03 17:49 | NURSING ---
Pt's son, Guevara Gama, called in regarding his mom. He states that we received misinformation regarding the orthopedic surgeon. It was not Dr Suggs. Mellisa's surgeon was Dr Mamadou Carrizales from [facility]. He states that the pt does have a scheduled appointment with Dr Carrizales on November 08. Called and updated Dr Caldwell regarding the above.
[2017-11-03 20:28] VITALS: BP 117/51; PULSE 71; RESP 18; TEMP 36.7; O2SAT 94
[2017-11-03] MEDS: Amitriptyline 25 MG Tablet 50 MG PO (21:04)
[2017-11-03] MEDS: traZODone 50 MG Tablet 150 MG PO (21:04)
[2017-11-03] MEDS: Atorvastatin Calcium 10 MG Tablet PO (21:04)
[2017-11-03] MEDS: HYDROcodone Bitartrate/Apap 5/325 Tablet PO (21:05)
[2017-11-04] VITALS (7 sets, daily range): BP systolic 100–120; BP diastolic 57–72; PULSE 70–80; RESP 18; TEMP 36.6–36.9; O2SAT 92–96
--- NOTE | 2017-11-04 07:54 | PN_ITS ---
Patient Problems: Active and Suspected Problems (Last Updated 07/03/17 @ 10:20 by Aniya Willis) Debility (Acute) Subjective: Patient was seen and examined. She denies any new complaints. Appreciate orthopedics consult. Right lower extremity splint placed. She denies any chest pain no dizziness or shortness of breath or fever or chills. No acute events according to the nursing staff. Objective: Physical exam: General: Alert, Oriented x3, Cooperative, No apparent distress, - - On 2 L of oxygen HEENT: Atraumatic, PERRLA, EOMI, Normocephalic Oral: Moist Mucosa Neck: Supple Lungs: Clear to auscultation, Normal air movement Cardiovascular: Regular rate, Regular Rhythm, Normal S1, Normal S2, No murmurs Abdomen: Bowel Sounds Present, Soft, Non Tender, Non-Distended, No Hepato- splenomegaly, Obese Extremities: - - Right distal leg deformity with angulation, chronic venous changes on the skin overlying the fracture site, well-healing surgical scar over the inner aspect of the patient's right lower leg, scab over the anterior distal third of the leg Skin: - - Chronic hyperpigmentation likely from venous stasis Musculoskeletal: No Tenderness to Palpation of Joints or Extremities Lymphatic: No Cervical, Supraclavicular, or Inguinal Adenopathy Neurological: Cranial nerves II-XII grossly intact, Neuro grossly intact Psych/Mental Status: Normal Affect, Appropriate Vitals/I&O's: Vital Signs Temp Pulse Resp BP Pulse Ox 97.9 F 74 18 114/57 L 92 11/04/17 02:20 11/04/17 02:20 11/04/17 02:20 11/04/17 02:20 11/04/17 02:20 Oxygen Flow Rate (L/min) 2 Oxygen Delivery Method Nasal Cannula Weight: 91.626 kg Body Mass Index (BMI) 30.7 Intake and Output for Last 24 Hours 11/02/17 11/03/17 11/04/17 23:59 23:59 23:59 Intake Total 120 / 120 420 / 420 360 / 360 Output Total 1300 / 1300 500 / 500 500 / 500 Balance -1180 / -1180 -80 / -80 -140 / -140 Current Medications Hydrocodone Bitart/Acetaminophen ([place] 5mg-325mg) 1 tablet PO Q4H PRN PRN PRN Reason: SEVERE PAIN (6-10/10) Last Admin: 11/03/17 21:05 Dose: 1 tablet Albuterol/Ipratropium (Duoneb) 3 ml INHALATION Q4HWA.RT PRN PRN Reason: WHEEZING Amitriptyline HCl (Elavil) 50 mg PO QHS [facility] Last Admin: 11/03/17 21:04 Dose: 50 mg Amlodipine Besylate (Norvasc) 10 mg PO DAILY [facility] Last Admin: 11/03/17 11:02 Dose: 10 mg Atorvastatin Calcium (Lipitor) 10 mg PO QHS [facility] Last Admin: 11/03/17 21:04 Dose: 10 mg Carvedilol (Coreg) 6.25 mg PO BID [facility] Last Admin: 11/03/17 21:04 Dose: 6.25 mg Furosemide (Lasix) 40 mg PO BID@1000,1800 [facility] Last Admin: 11/03/17 17:10 Dose: 40 mg Gabapentin (Neurontin) 300 mg PO BIDCM [facility] Last Admin: 11/03/17 17:10 Dose: 300 mg Nicotine (Nicoderm Cq (Pbkc)) 14 mg TRANSDERM. DAILY [facility] Last Admin: 11/03/17 08:30 Dose: Not Given Nystatin (Mycostatin Powder) 1 applic TOPICAL BID HIRAM PRN Reason: Protocol Last Admin: 11/03/17 21:04 Dose: 1 applicatio Paroxetine HCl (Paxil) 20 mg PO DAILY [facility] Last Admin: 11/03/17 08:30 Dose: 20 mg Potassium Chloride (K-Dur) 20 meq PO DAILY [facility] Last Admin: 11/03/17 08:30 Dose: 20 meq Rivaroxaban (Xarelto) 20 mg PO DAILY [facility] Last Admin: 11/03/17 08:31 Dose: 20 mg Sodium Chloride () 5 - 30 ml IV UD PRN PRN Reason: SALINE FLUSH Trazodone HCl (Desyrel) 150 mg PO QHS [facility] Last Admin: 11/03/17 21:04 Dose: 150 mg Medical Necessity - Tobacco Use Smoking Status: Current every day smoker Tobacco Use: Cigarettes Assessment/Plan All Active Problems (Last Updated 07/03/17 @ 10:20 by Aniya Willis) Debility (Acute) 72-year-old female with past medical history of COPD, hypertension, recent fracture of the right tib-fib with plating done in [place] in June 2017, comes in with repeated falls and sustains acute fracture of the right tib-fib with angulation of the plate. 1. Acute on chronic fracture of the right distal tib-fib, recent plating with now with lateral angulation, patient had surgery in June 2017 and her primary orthopedic surgeon is Dr. Noonan, appreciate orthopedics consult. We will discharged to longterm facility and arrange for outpatient follow-up with Dr. Noonan, continue with Vicodin for pain control 2. Hypertension, controlled, continue on amlodipine, Coreg 3. COPD, not in acute exacerbation, as needed breathing treatments 4. Chronic diastolic CHF, not in acute exacerbation, will continue with strict I 's and O's, daily weights, follow cardiac diet, continue Lasix 40 mg twice daily 5. Chronic atrial fibrillation, rate controlled, continue on Coreg, Xarelto 6. s/p bioprosthetic valve, on Xarelto 7. Depression, continue on amitriptyline, Paxil, trazodone 8. Nicotine dependence, on replacement 9. DVT PPx - On xarelto
--- NOTE | 2017-11-04 08:32 | PCM.PN.BLA ---
Progress Note I have been informed by the nursing staff that I was given misinformation regarding the patient's primary surgeon. Her surgeon is in fact Dr. Mamadou Noonan from the [facility]. I have reached out to Dr. Noonan this morning. He is aware that the patient has a nonunion however the last visit he had with her the hardware had not failed. Patient does have an appointment to see him on . He is certainly willing to have the patient transferred up there if there is a medical need. Based on patient's current situation I do not feel that this is an emergency and follow-up as scheduled in his office is adequate.
--- NOTE | 2017-11-04 08:38 | PN_ITS ---
Progress Note I have been informed by the nursing staff that I was given misinformation regarding the patient's primary surgeon. Her surgeon is in fact Dr. Mamadou Noonan from the [facility] at [facility]. I have reached out to Dr. Noonan this morning. He is aware that the patient has a nonunion however the last visit he had with her the hardware had not failed. Patient does have an appointment to see him on . He is certainly willing to have the patient transferred up there if there is a medical need. Based on patient's current situation I do not feel that this is an emergency and follow-up as scheduled in his office is adequate.
[2017-11-04] MEDS: Gabapentin 300 MG Capsule PO ×2 (09:18→17:54)
[2017-11-04] MEDS: Rivaroxaban 20 MG Tablet PO (09:21)
[2017-11-04] MEDS: Furosemide 40 MG Tablet PO ×2 (09:21→17:54)
[2017-11-04] MEDS: Carvedilol 6.25 MG Tablet PO ×2 (11:46→22:02)
[2017-11-04] MEDS: Triamcinolone Ointment 1 APPLIC TUBE TOPICAL ×2 (11:46→22:02)
[2017-11-04] MEDS: Nystatin Powder 15gm Bottle 1 APPLIC TOPICAL ×2 (11:46→22:03)
[2017-11-04] MEDS: amLODIPine 10 MG Tablet PO (11:47)
[2017-11-04] MEDS: Acetaminophen 500 MG Tablet 1000 MG PO ×2 (14:04→22:03)
[2017-11-04] MEDS: Amitriptyline 25 MG Tablet 50 MG PO (22:02)
[2017-11-04] MEDS: traZODone 50 MG Tablet 150 MG PO (22:02)
[2017-11-04] MEDS: Atorvastatin Calcium 10 MG Tablet PO (22:03)
[2017-11-05 03:06] VITALS: BP 111/59; PULSE 69; RESP 18; TEMP 36.4; O2SAT 93
[2017-11-05] MEDS: Acetaminophen 500 MG Tablet 1000 MG PO ×3 (05:53→21:10)
[2017-11-05 06:30] LABS: Anion Gap 5 (5-15); BUN 12 mg/dL (7-18); BUN/Creat Ratio 17.5 RATIO (10-20); Calcium,Total 8.6 mg/dL (8.5-10.1); Chloride 98 mmol/L (98-107); Creatinine, Serum 0.69 mg/dL (0.55-1.02); EST Glomerular Filtration Rate 90 mL/min (>60); Est Glom Filt Rate - Afr Amer 109 mL/min (>60); Estimated Creatinine Clearance 52.05 ml/min; Glucose 79 mg/dL (74-106); Potassium 3.4 mmol/L (3.5-5.1); Sodium Level 146 mmol/L (136-145)
[2017-11-05 06:55] VITALS: O2SAT 93
--- NOTE | 2017-11-05 07:20 | PN_ITS ---
Patient Problems: Active and Suspected Problems (Last Updated 07/03/17 @ 10:20 by Aniya Willis) Debility (Acute) Subjective: Patient was seen and examined. No new complaints. Pain is controlled. No acute events overnight according to the nurses. Objective: Physical exam: General: Alert, Oriented x3, Cooperative, No apparent distress, - - On 2 L of oxygen HEENT: Atraumatic, PERRLA, EOMI, Normocephalic Oral: Moist Mucosa Neck: Supple Lungs: Clear to auscultation, Normal air movement Cardiovascular: Regular rate, Regular Rhythm, Normal S1, Normal S2, No murmurs Abdomen: Bowel Sounds Present, Soft, Non Tender, Non-Distended, No Hepato- splenomegaly, Obese Extremities: - - Right distal leg deformity with angulation, chronic venous changes on the skin overlying the fracture site, well-healing surgical scar over the inner aspect of the patient's right lower leg, scab over the anterior distal third of the leg Skin: - - Chronic hyperpigmentation likely from venous stasis Musculoskeletal: No Tenderness to Palpation of Joints or Extremities Lymphatic: No Cervical, Supraclavicular, or Inguinal Adenopathy Neurological: Cranial nerves II-XII grossly intact, Neuro grossly intact Psych/Mental Status: Normal Affect, Appropriate Vitals/I&O's: Vital Signs Temp Pulse Resp BP Pulse Ox 97.5 F L 69 18 111/59 L 93 11/05/17 03:06 11/05/17 03:06 11/05/17 03:06 11/05/17 03:06 11/05/17 06:55 Oxygen Flow Rate (L/min) 2 Oxygen Delivery Method Nasal Cannula Weight: 81.8 kg Body Mass Index (BMI) 30.7 Intake and Output for Last 24 Hours 11/03/17 11/04/17 11/05/17 23:59 23:59 23:59 Intake Total 420 / 420 1010 / 1010 650 / 650 Output Total 500 / 500 1350 / 1350 800 / 800 Balance -80 / -80 -340 / -340 -150 / -150 Laboratory Results 11/05/17 05:50: Sodium 146 H, Potassium 3.4 L, Chloride 98, Carbon Dioxide 43.0 H, Anion Gap 5, BUN 12, Creatinine 0.69, Estim Creat Clear Calc 52.05, Est GFR ( MDRD) Af Amer 109, Est GFR (MDRD) Non-Af 90, BUN/Creatinine Ratio 17.5, Glucose 79, Calcium 8.6 Current Medications Acetaminophen (Tylenol) 1,000 mg PO Q8 [facility] Last Admin: 11/05/17 05:53 Dose: 1,000 mg Albuterol/Ipratropium (Duoneb) 3 ml INHALATION Q4HWA.RT PRN PRN Reason: WHEEZING Amitriptyline HCl (Elavil) 50 mg PO QHS [facility] Last Admin: 11/04/17 22:02 Dose: 50 mg Amlodipine Besylate (Norvasc) 10 mg PO DAILY [facility] Last Admin: 11/04/17 11:47 Dose: 10 mg Atorvastatin Calcium (Lipitor) 10 mg PO QHS [facility] Last Admin: 11/04/17 22:03 Dose: 10 mg Carvedilol (Coreg) 6.25 mg PO BID [facility] Last Admin: 11/04/17 22:02 Dose: 6.25 mg Furosemide (Lasix) 40 mg PO BID@1000,1800 [facility] Last Admin: 11/04/17 17:54 Dose: 40 mg [facility]: 11/04/17 17:54 Dose: 300 mg Nicotine (Nicoderm Cq (Pbkc)) 14 mg TRANSDERM. DAILY [facility] Last Admin: 11/04/17 09:20 Dose: Not Given Nystatin (Mycostatin Powder) 1 applic TOPICAL BID [facility] PRN Reason: Protocol Last Admin: 11/04/17 22:03 Dose: 1 applicatio Oxycodone HCl (Oxyir) 5 mg PO Q6H PRN PRN PRN Reason: SEVERE PAIN (6-10/10) Paroxetine HCl (Paxil) 20 mg PO DAILY [facility] Last Admin: 11/04/17 09:21 Dose: 20 mg Potassium Chloride (K-Dur) 20 meq PO DAILY [facility] Last Admin: 11/04/17 09:19 Dose: 20 meq Rivaroxaban (Xarelto) 20 mg PO DAILY [facility] Last Admin: 11/04/17 09:21 Dose: 20 mg Sodium Chloride () 5 - 30 ml IV UD PRN PRN Reason: SALINE FLUSH Trazodone HCl (Desyrel) 150 mg PO QHS [facility] Last Admin: 11/04/17 22:02 Dose: 150 mg Triamcinolone Acetonide (Kenalog Ointment) 1 applic TOPICAL BID [facility] PRN Reason: Protocol Last Admin: 11/04/17 22:02 Dose: 1 applicatio Medical Necessity - Tobacco Use Smoking Status: Current every day smoker Tobacco Use: Cigarettes Assessment/Plan All Active Problems (Last Updated 07/03/17 @ 10:20 by Aniya Willis) Debility (Acute) 72-year-old female with past medical history of COPD, hypertension, recent fracture of the right tib-fib with plating done in [place] in June 2017, comes in with repeated falls and sustains acute fracture of the right tib-fib with angulation of the plate. 1. Acute on chronic fracture of the right distal tib-fib, recent plating admitted with lateral angulation. Patient had surgery in June 2017 and her primary orthopedic surgeon is Dr. Noonan. Waiting on insurance precertification for discharge to [facility] facility Patient has a scheduled appointment in the outpatient on with Dr. Noonan. 2. Hypertension, controlled, continue on amlodipine, Coreg 3. COPD, in mild exacerbation, will start on a short burst of prednisone 40mg for 5 days. 4. Chronic diastolic CHF, not in acute exacerbation, will continue with strict I 's and O's, daily weights, follow cardiac diet, continue Lasix 40 mg twice daily 5. Chronic atrial fibrillation, rate controlled, continue on Coreg, Xarelto 6. s/p bioprosthetic valve, on Xarelto 7. Depression, continue on amitriptyline, Paxil, trazodone 8. Nicotine dependence, on replacement 9. DVT PPx - On xarelto Code Visit Inpatient E&M: 21597 Subs Hosp L2
[2017-11-05] MEDS: Gabapentin 300 MG Capsule PO ×2 (08:29→17:32)
[2017-11-05] MEDS: Furosemide 40 MG Tablet PO ×2 (08:30→17:32)
--- NOTE | 2017-11-05 08:45 | CASEMGMT ---
Addendum entered by Teresita Horan 11/05/17 10:26: SW spoke w/Consuelo at [facility], they do not have bed availability today. SW spoke w/pt regarding other choices, pt is not certain, is agreeable to have SW call son Guevara Gama and speak w/him regarding choices. SW called son, explained that pt's first choice for rehab, [facility], does not have beds. We discussed other options. Pt initially had wanted to stay in the [place] area, son mentioned [facility] as an option, but states pt going back to [place] would be more convenient for him and it would be easier to get her back to her orthopedic doctor in [place]. Son states it is up to the pt however and what she would like to do. Son asked the plan from here. SW explained it would be to go [facility] the prison, and go from there to see the surgeon. If she needs surgery again she would likely go from the SNF to the hospital for surgery, then back to the SNF until she is able to manage at home. Son states understanding. Son also asked what is going on w/pt medically, SW explained will ask the physician to call him. Son did also confirm pt has appt w/her orthopedic surgeon on , at 10:30 or 11am. SW spoke w/pt about SNF options, she would rather go back to [place] than go to [facility]. SW explained will make referral. SW texted physician and asked her to call son. SW called [place], spoke w/Kamilla in admissions. They have beds and will review referral, referral faxed. SW spoke w/son again, let him know pt is agreeable to referral to [place], it's been faxed and SW awaiting an answer, though they do have beds. SW also explained that a precert is needed so this could take until tomorrow. SW also let son know SW asked physician via text to call him. SW explained will let son know as the day goes if the facility can take, he states cell phone is best number to call and okay to leave detailed messages. SW will continue to follow. LANCE Cruz, MOTOR COACH CHAUFFEUR Original Note: Addendum entered by Teresita Horan 11/05/17 08:48: SW spoke w/pt in room, explained to pt that we did make a referral to [facility] for rehab. Pt did not recall speaking to CM about SNF choice, but agreeable to [facility]. Pt has been to rehab once prior, at [place] in [place]. Pt prefers to stay in this area at this time. SW asked pt about POA, pt states she has not filled out this paperwork, her son helps her with decisions. SW asked permission to call son Guevara once we know the plan, pt agreeable to this. SW also let pt know if [facility] cannot take her, we will need to pick a second choice. Pt states understanding. SW will continue to follow. LANCE Cruz, MOT[employer] COACH CHAUFFEUR Original Note: SW called [facility], message left and updates faxed. SW will await return call. LANCE Cruz, [employer]
[2017-11-05 09:30] VITALS: BP 114/71; PULSE 76; RESP 18; TEMP 36.7; O2SAT 93
[2017-11-05] MEDS: amLODIPine 10 MG Tablet PO (09:32)
[2017-11-05] MEDS: Nystatin Powder 15gm Bottle 1 APPLIC TOPICAL ×2 (09:32→21:10)
[2017-11-05] MEDS: Carvedilol 6.25 MG Tablet PO ×2 (09:32→21:10)
[2017-11-05] MEDS: Rivaroxaban 20 MG Tablet PO (09:33)
[2017-11-05] MEDS: Triamcinolone Ointment 1 APPLIC TUBE TOPICAL ×2 (09:33→21:09)
--- NOTE | 2017-11-05 11:03 | CASEMGMT ---
Addendum entered by Teresita Horan 11/05/17 13:15: Pt's son called back, he states is glad [facility] can take pt back again. Son states he called the pt and pt had told him she did not have an xray while here, son states he thinks she probably did. SW did let son know pt had an xray here. SW asked son about pt's memory, he states that pt has an opiate problem. He states he thinks this is why she has fallen, and why she has a poor memory. SW explained will let the physician know his concern. SW did text physician to let her know son's concern regarding pt's opiate use. SW will continue to follow for SNF placement. LANCE Cruz, FRETTED INSTRUMENT REPAIRER Original Note: Addendum entered by Teresita Horan 11/05/17 11:50: SW did let pt know that [facility] can take pt when ready and will start precert. SW also left a message for pt's son letting him know the same. SW will continue to follow. LANCE Cruz, FRETTED INSTRUMENT REPAIRER Original Note: SW spoke w/Yelena from [facility]. They can take pt and will start precert. SW will let pt and son know shortly. LANCE Cruz, FRETTED INSTRUMENT REPAIRER 00.
[2017-11-05 15:10] VITALS: BP 104/53; PULSE 74; RESP 18; TEMP 37.2; O2SAT 94
[2017-11-05 19:40] VITALS: BP 120/64; PULSE 73; RESP 18; TEMP 36.9; O2SAT 93
[2017-11-05] MEDS: traZODone 50 MG Tablet 150 MG PO (21:08)
[2017-11-05] MEDS: Amitriptyline 25 MG Tablet 50 MG PO (21:10)
[2017-11-05] MEDS: Atorvastatin Calcium 10 MG Tablet PO (21:10)
[2017-11-06 02:00] VITALS: BP 113/71; PULSE 66; RESP 16; TEMP 36.6; O2SAT 97
[2017-11-06] MEDS: Acetaminophen 500 MG Tablet 1000 MG PO ×3 (05:36→21:27)
[2017-11-06 07:25] VITALS: O2SAT 92
[2017-11-06 08:00] VITALS: BP 108/69; PULSE 67; RESP 16; TEMP 36.6; O2SAT 96
--- NOTE | 2017-11-06 08:43 | PN_ITS ---
Patient Problems: Active and Suspected Problems (Last Updated 07/03/17 @ 10:20 by Aniya Willis) Debility (Acute) Subjective: Patient was seen and examined. No new complaints. Feels well. Wheezes are much better with short burst of steroids. Denies fever or chills. I was made aware by the marriage and family social worker of possible transfer to [facility] to the patient's primary surgeon for surgery in the morning. Subsequently, I had multiple called by the [facility] transfer line asking patient to be transferred in the morning so that she could come to the surgical outpatient center for evaluation for surgery early in the morning. Per the transfer line, there were no beds in [facility]. Discussed with the patient's primary surgeon, who recommended that patient be discharged to the fdc, and possibly will follow up for surgery may be Sunday. Social work team aware of the changes. Objective: Physical exam: General: Alert, Oriented x3, Cooperative, No apparent distress, - - On 2 L of oxygen HEENT: Atraumatic, PERRLA, EOMI, Normocephalic Oral: Moist Mucosa Neck: Supple Lungs: Clear to auscultation, Normal air movement Cardiovascular: Regular rate, Regular Rhythm, Normal S1, Normal S2, No murmurs Abdomen: Bowel Sounds Present, Soft, Non Tender, Non-Distended, No Hepato- splenomegaly, Obese Extremities: - - Right distal leg deformity with angulation, chronic venous changes on the skin overlying the fracture site, well-healing surgical scar over the inner aspect of the patient's right lower leg, scab over the anterior distal third of the leg Skin: - - Chronic hyperpigmentation likely from venous stasis Musculoskeletal: No Tenderness to Palpation of Joints or Extremities Lymphatic: No Cervical, Supraclavicular, or Inguinal Adenopathy Neurological: Cranial nerves II-XII grossly intact, Neuro grossly intact Psych/Mental Status: Normal Affect, Appropriate Vitals/I&O's: Vital Signs Temp Pulse Resp BP Pulse Ox 97.8 F 67 16 108/69 96 11/06/17 08:00 11/06/17 08:00 11/06/17 08:00 11/06/17 08:00 11/06/17 08:00 Oxygen Flow Rate (L/min) 2 Oxygen Delivery Method Nasal Cannula Weight: 82.1 kg Body Mass Index (BMI) 30.7 Intake and Output for Last 24 Hours 11/04/17 11/05/17 11/06/17 23:59 23:59 23:59 Intake Total 1010 / 1010 650 / 650 250 / 250 Output Total 1350 / 1350 800 / 800 950 / 950 Balance -340 / -340 -150 / -150 -700 / -700 Current Medications Acetaminophen (Tylenol) 1,000 mg PO Q8 [facility] Last Admin: 11/06/17 05:36 Dose: 1,000 mg Albuterol/Ipratropium (Duoneb) 3 ml INHALATION Q4HWA.RT PRN PRN Reason: WHEEZING Amitriptyline HCl (Elavil) 50 mg PO QHS [facility] Last Admin: 11/05/17 21:10 Dose: 50 mg Amlodipine Besylate (Norvasc) 10 mg PO DAILY [facility] Last Admin: 11/05/17 09:32 Dose: 10 mg Atorvastatin Calcium (Lipitor) 10 mg PO QHS [facility] Last Admin: 11/05/17 21:10 Dose: 10 mg Carvedilol (Coreg) 6.25 mg PO BID [facility] Last Admin: 11/05/17 21:10 Dose: 6.25 mg Furosemide (Lasix) 40 mg PO BID@1000,1800 [facility] Last Admin: 11/05/17 17:32 Dose: 40 mg Gabapentin (Neurontin) 300 mg PO BIDCM [facility] Last Admin: 11/05/17 17:32 Dose: 300 mg Nicotine (Nicoderm Cq (Pbkc)) 14 mg TRANSDERM. DAILY [facility] Last Admin: 11/05/17 08:28 Dose: Not Given Nystatin (Mycostatin Powder) 1 applic TOPICAL BID [facility] PRN Reason: Protocol Last Admin: 11/05/17 21:10 Dose: 1 applicatio Oxycodone HCl (Oxyir) 5 mg PO Q6H PRN PRN PRN Reason: SEVERE PAIN (6-10/10) Paroxetine HCl (Paxil) 20 mg PO DAILY [facility] Last Admin: 11/05/17 08:30 Dose: 20 mg Potassium Chloride (K-Dur) 20 meq PO DAILY [facility] Last Admin: 11/05/17 08:29 Dose: 20 meq Rivaroxaban (Xarelto) 20 mg PO DAILY [facility] Last Admin: 11/05/17 09:33 Dose: 20 mg Sodium Chloride () 5 - 30 ml IV UD PRN PRN Reason: SALINE FLUSH Trazodone HCl (Desyrel) 150 mg PO QHS [facility] Last Admin: 11/05/17 21:08 Dose: 150 mg Triamcinolone Acetonide (Kenalog Ointment) 1 applic TOPICAL BID [facility] PRN Reason: Protocol Last Admin: 11/05/17 21:09 Dose: 1 applicatio Medical Necessity - Tobacco Use Smoking Status: Current every day smoker Tobacco Use: Cigarettes Assessment/Plan All Active Problems (Last Updated 07/03/17 @ 10:20 by Aniya Willis) Debility (Acute) 72-year-old female with past medical history of COPD, hypertension, recent fracture of the right tib-fib with plating done in [place] in June 2017, comes in with repeated falls and sustains acute fracture of the right tib-fib with angulation of the plate. 1. Acute on chronic fracture of the right distal tib-fib, recent plating admitted with lateral angulation. Patient had surgery in June 2017 and her primary orthopedic surgeon is Dr. Noonan. Waiting on insurance precertification for [facility] facility. Patient has a scheduled appointment in the outpatient on with Dr. Noonan. Possible surgeru on Sunday. 2. Hypertension, controlled, continue on amlodipine, Coreg 3. COPD, in mild exacerbation, on a short burst of prednisone 40mg for 5 days. 4. Chronic diastolic CHF, not in acute exacerbation, strict I's and O's, daily weights, follow cardiac diet, continue Lasix 40 mg twice daily 5. Chronic atrial fibrillation, rate controlled, continue on Coreg, Xarelto 6. s/p bioprosthetic valve, on Xarelto 7. Depression, continue on amitriptyline, Paxil, trazodone 8. Nicotine dependence, on replacement 9. DVT PPx - On xarelto Code Visit Inpatient E&M: 51492 Subs Hosp L2
--- NOTE | 2017-11-06 10:21 | CASEMGMT ---
Addendum entered by Aliyah Quiles 11/06/17 12:33: Return call from Karyn at Dr. Carrizales's office. [facility] does not have a bed available until late tonight and are requesting pt stay at [facility] until transfer to [facility] tomorrow with an Arrival at 0630 to [facility], [address] [place], [place]. Pt to go to surgery center. RITA informed Dr. Gregg. RITA placed follow up call to Karyn with Dr. Carrizales's office requesting Dr. Carrizales phone Dr. Gregg directly to make a plan for pt transfer to [facility]. CARLOS Maddox Original Note: Social Work Phone call received from Karyn at Dr. Carrizales's office at [facility]. Pt care plan has changed and pt is now scheduled for surgery on Sunday at 0830 with arrival time at 0630 at [facility]. Dr. Carrizales questioning if pt would benefit from being transferred to [facility] today instead of SNF stay for only a few hours before need to be admitted to [facility]. RITA informed pt physician of the and she is agreeable to transfer requesting Dr. Carrizales secure a bed and inform transfer line. Phone call placed to Karyn at Dr. Carrizales's office informing of [facility] request to facilitate transfer. Karyn to call RITA back when arrangements made. Phone call to pt son Guevara and informed of change of plan. He is agreeable with the plan to transfer to [facility]. RITA will continue to follow. CARLOS Maddox
--- NOTE | 2017-11-06 10:28 | PCM.DC ---
- Discharge Diagnoses Current Active Problems: Current Active and Chronic Problems (Last Updated 07/03/17 @ 10:20 by Aniya Willis) Debility (Acute) Reason(s) for Visit for Discharge Instructions: Right leg pain, inability to walk Allergies/Adverse Reactions: Allergies No Known Allergies Allergy (Verified 11/02/17 14:34) Medications to take at Discharge Amitriptyline HCl 50 mg PO QHS 04/27/16 Atorvastatin Calcium [Lipitor] 40 mg PO QHS 04/27/16 Paroxetine HCl [Paxil] 20 mg PO DAILY 04/27/16 Rivaroxaban [Xarelto] 20 mg PO DAILY 04/27/16 Ferrous Sulfate 325 mg PO DAILY@0800 #30 tablet 06/01/16 Multivitamin/Iron/Folic Acid [Daily Vitamin Formula-Iron Tab] 1 each PO DAILY 05/21/17 Carvedilol [Coreg (Beta Luis A)] 12.5 mg PO BID #90 tab 05/23/17 Furosemide [Lasix] 40 mg PO BID@1000,1800 #90 tab 05/23/17 amlodipine 10 mg tablet 10 mg PO QDAY 07/03/17 Calcium Carbonate [Calcium] 600 mg PO DAILY 11/02/17 Ergocalciferol [Vitamin D] 50,000 unit PO MO 11/02/17 Gabapentin 300 mg PO DINNER 11/02/17 Hydrocodone/Acetaminophen [Vicodin Es 7.5-300 mg Tablet] 1 tablet PO Q6H PRN PRN 11/02/17 Melatonin 3 mg PO QHS 11/02/17 Potassium Chloride [K-Dur] 20 meq PO BID 11/02/17 Sotalol HCl [Sotalol] 80 mg PO DAILY 11/02/17 Trazodone HCl 150 mg PO QHS 11/02/17 Primary Care Physician: Vimal Suggs MD [NON-STAFF] - 3-5 Days [facility] Doctor,Out of [Primary Care Provider] - Test Results: Test results from this visit will be discussed in further detail at your follow-up appointment, if applicable.
--- NOTE | 2017-11-06 10:28 | PCM.DC.SUM ---
Discharge Date and Diagnosis - Problem List Patient Problems: Active and Suspected Problems (Last Updated 07/03/17 @ 10:20 by Aniya Willis) Debility (Acute) Date of Admission: 11/02/17 Date of Discharge: 11/06/17 - Primary Discharge Diagnosis Active and Suspected Problems (Last Updated 07/03/17 @ 10:20 by Aniya Willis) Debility (Acute) - Secondary Discharge Diagnosis Chronic Problems (Last Updated 07/03/17 @ 10:20 by Aniya Willis) Nicotine abuse (Chronic) Low back pain (Chronic) Anxiety (Chronic) Depression (Chronic) Diastolic CHF (Chronic) COPD (chronic obstructive pulmonary disease) (Chronic) Chronic pain syndrome (Chronic) HTN (hypertension) (Chronic) HLD (hyperlipidemia) (Chronic) Obesity (BMI 30-39.9) (Chronic) Anxiety and depression (Chronic) Iron deficiency anemia (Chronic) Status post aortic valve replacement with bioprosthetic valve (Chronic) Status post placement of cardiac pacemaker (Chronic) Chronic atrial fibrillation (Chronic) Hospital Course and Treatment Imaging Results: Clinical Impression(s) from Imaging Studies Ankle X-Ray 11/02/17 15:10 IMPRESSION: Lateral angulation of the distal tibial diaphyseal fracture without osseous union with a subtle break of the orthopedic plate. Lateral angulation with anterior and lateral displacement of the distal fibular diaphyseal fracture without osseous bridging. Electronically Signed: Kaz Newman MD at 15:45 EDT Tel , Service support , Orthopedics Operations: None Summary of Care Provided: 72-year-old female with past medical history of COPD, hypertension, recent fracture of the right tib-fib with plating done in [place] in June 2017, admitted in with repeated falls and sustains acute fracture of the right tibia/fibula with angulation of the plate. 1. Acute on chronic fracture of the right distal tib-fib, recent plating admitted with lateral angulation. Patient had surgery in June 2017 and her primary orthopedic surgeon is Dr. Noonan. Patient was seen by orthopedic surgery here and management deferred to the primary orthopedic surgeon. Patient has an appointment tomorrow with her primary orthopedic surgeon and surgeries possibly on Sunday. 2. Hypertension, controlled, on amlodipine, Coreg 3. Chronic diastolic CHF, not in acute exacerbation, on Lasix 40 mg twice daily 4. Chronic atrial fibrillation, rate controlled, on Coreg, Xarelto 5. s/p bioprosthetic valve, on Xarelto 6. Depression, on amitriptyline, Paxil, trazodone 7. Nicotine dependence, on replacement Discharge Diet: Low fat/ Low Cholesterol, 2000 mg Sodium Diet Discharge Activity: Return to Normal Activity Home Medications: Medications to take at Discharge Amitriptyline HCl 50 mg PO QHS 04/27/16 Atorvastatin Calcium [Lipitor] 40 mg PO QHS 04/27/16 Paroxetine HCl [Paxil] 20 mg PO DAILY 04/27/16 Rivaroxaban [Xarelto] 20 mg PO DAILY 04/27/16 Ferrous Sulfate 325 mg PO DAILY@0800 #30 tablet 06/01/16 Multivitamin/Iron/Folic Acid [Daily Vitamin Formula-Iron Tab] 1 each PO DAILY 05/21/17 Furosemide [Lasix] 40 mg PO BID@1000,1800 #90 tab 05/23/17 amlodipine 10 mg tablet 10 mg PO QDAY 07/03/17 Calcium Carbonate [Calcium] 600 mg PO DAILY 11/02/17 Ergocalciferol [Vitamin D] 50,000 unit PO MO 11/02/17 Gabapentin 300 mg PO DINNER 11/02/17 Hydrocodone/Acetaminophen [Vicodin Es 7.5-300 mg Tablet] 1 tablet PO Q6H PRN PRN 11/02/17 Melatonin 3 mg PO QHS 11/02/17 Potassium Chloride [K-Dur] 20 meq PO BID 11/02/17 Trazodone HCl 150 mg PO QHS 11/02/17 Acetaminophen [Tylenol] 1,000 mg PO Q8 tablet 11/07/17 Carvedilol [Coreg (Beta Luis A)] 3.25 mg PO BID tablet 11/07/17 Ipratropium/Albuterol Sulfate [Duoneb] 3 ml INHALATION Q4HWA.RT PRN ampul.neb 11/07/17 Nicotine [Nicoderm] 14 mg TRANSDERM. DAILY patch 11/07/17 Nystatin Powder [Mycostatin Powder] 1 applic TOPICAL BID bottle 11/07/17 Oxycodone [Oxyir] 5 mg PO Q6H PRN PRN 5 Days #20 tab 11/07/17 Sotalol HCl [Sotalol] 40 mg PO DAILY #0 11/07/17 Following Prescrptions Were Given to Patient: Oxycodone [Oxyir] 5 mg PO Q6H PRN PRN 5 Days #20 tab PRN Reason: Severe Pain (-01/23) Primary Care Physician: Vimal Suggs MD [NON-STAFF] - 3-5 Days [facility] Doctor,Out of [Primary Care Provider] - Disposition: [facility] facility Minutes spent on discharge:: 35 Patient Condition:: Stable Medical Necessity - Tobacco Use Smoking Status: Current every day smoker Tobacco Use: Cigarettes Meaningful Use Info Meaningful Use Diagnoses (Choose all that apply): None applicable Code Visit Inpatient E&M: 34953 Disch Hosp
[2017-11-06] MEDS: Gabapentin 300 MG Capsule PO ×2 (10:51→17:28)
[2017-11-06] MEDS: Furosemide 40 MG Tablet PO ×2 (10:51→17:28)
[2017-11-06] MEDS: amLODIPine 10 MG Tablet PO (10:51)
[2017-11-06] MEDS: Carvedilol 6.25 MG Tablet PO ×2 (10:51→21:27)
[2017-11-06] MEDS: Rivaroxaban 20 MG Tablet PO (10:51)
[2017-11-06] MEDS: Nystatin Powder 15gm Bottle 1 APPLIC TOPICAL ×2 (10:53→21:27)
[2017-11-06] MEDS: Triamcinolone Ointment 1 APPLIC TUBE TOPICAL ×2 (10:54→21:26)
[2017-11-06 11:26] LABS: Absolute Lymphocyte Count 1.28 X10^3/ul (0.83-4.51); Absolute Neutrophil Count 3.4 X10^3/uL (2.0-7.7); Basophil# 0.03 X10^3/uL; Basophil% 0.6 % (0-1); Eosinophils% 1.9 % (0-5); Hematocrit 51.5 % (37-47); Hemoglobin 15.7 g/dl (12.0-15.0); Lymphocyte # 1.28 X10^3/ul (4.0); Lymphocyte % 24.4 % (19-41); Mean Corp Hgb Conc 30.5 g/gl (32-36); Mean Corpuscular Hgb 29.8 pg (27.0-32.0); Mean Corpuscular Volume 97.7 fL (81-99); Mean Platelet Vol. 9.9 fl (6.2-12.0); Monocyte# 0.43 X10^3/uL; Monocyte% 8.2 % (0-10); Neutrophil % 64.7 % (47-70); POSITIVE COUNT NO; POSITIVE DIFFERENTIAL NO; POSITIVE MORPHOLOGY NO; Platelet Count 118 K/mm3 (150-450); RBC Distribution Width CV 15.4 % (11.6-14.6); RBC Distribution Width SD 55.2 fl (35.1-43.9); Red Blood Count 5.27 M/mm3 (4.2-5.4); White Blood Count 5.3 K/mm3 (4.4-11.0)
[2017-11-06 12:01] LABS: Anion Gap 0 (5-15); BUN 15 mg/dL (7-18); BUN/Creat Ratio 17.3 RATIO (10-20); Chloride 96 mmol/L (98-107); Creatinine, Serum 0.87 mg/dL (0.55-1.02); EST Glomerular Filtration Rate 69 mL/min (>60); Est Glom Filt Rate - Afr Amer 83 mL/min (>60); Estimated Creatinine Clearance 59.83 ml/min; Glucose 87 mg/dL (74-106); Potassium 3.6 mmol/L (3.5-5.1); Sodium Level 138 mmol/L (136-145)
[2017-11-06 12:13] VITALS: O2SAT 85
[2017-11-06 13:27] VITALS: BP 105/46; PULSE 76; RESP 18; TEMP 37; O2SAT 95
--- NOTE | 2017-11-06 14:09 | CASEMGMT ---
Social Work Note RITA received call from Dr. Gregg saying that the plan is for pt to go to [facility] [facility] now at discharge and then have surgery on Sunday at [facility]. RITA placed a call to Kamilla in admissions at [facility] and informed her that pt will now be coming to [facility] [facility] at discharge and then have surgery on Sunday. Kamilla states that she is still in the process of getting pre-cert and will call this worker when pre-cert is obtained. RITA provided Kamilla with direct number. RITA placed a call to pt's son Guevara [phone] and left him a message informing him that the plan is now for pt to go to [facility] from [facility] and then have surgery on Sunday. RITA provided Guevara with direct number. Plan: Discharge to [facility] pending pre-cert Hermelinda Barton IT TRAINING SPECIALIST, PHARMACY AFFAIRS ASSISTANT
[2017-11-06 19:27] VITALS: BP 120/72; PULSE 73; RESP 18; TEMP 36.9; O2SAT 94
[2017-11-06] MEDS: traZODone 50 MG Tablet 150 MG PO (21:27)
[2017-11-06] MEDS: Amitriptyline 25 MG Tablet 50 MG PO (21:27)
[2017-11-06] MEDS: Atorvastatin Calcium 10 MG Tablet PO (21:27)
[2017-11-07 01:30] VITALS: BP 115/70; PULSE 69; RESP 18; TEMP 36.6; O2SAT 93
[2017-11-07] MEDS: Acetaminophen 500 MG Tablet 1000 MG PO ×2 (06:08→13:46)
[2017-11-07 07:30] VITALS: BP 93/65; PULSE 66; RESP 16; TEMP 36.6; O2SAT 98
--- NOTE | 2017-11-07 07:59 | PCM.PN.HOSP ---
Patient Problems: Active and Suspected Problems (Last Updated 07/03/17 @ 10:20 by Aniya Willis) Debility (Acute) Subjective: Patient seen and examined. Denied pain in right lower leg, chest pain, fever, dizziness, nausea or vomiting. She will be discharged. Objective: Physical exam: General: Alert, Oriented x3, Cooperative, No apparent distress, - - On 2 L of oxygen HEENT: Atraumatic, PERRLA, EOMI, Normocephalic Oral: Moist Mucosa Neck: Supple Lungs: Clear to auscultation, Normal air movement Cardiovascular: Regular rate, Regular Rhythm, Normal S1, Normal S2, No murmurs Abdomen: Bowel Sounds Present, Soft, Non Tender, Non-Distended, No Hepato-splenomegaly, Obese Extremities: - - Right distal leg deformity with angulation, chronic venous changes on the skin overlying the fracture site, well-healing surgical scar over the inner aspect of the patient's right lower leg, scab over the anterior distal third of the leg Skin: - - Chronic hyperpigmentation likely from venous stasis Musculoskeletal: No Tenderness to Palpation of Joints or Extremities Lymphatic: No Cervical, Supraclavicular, or Inguinal Adenopathy Neurological: Cranial nerves II-XII grossly intact, Neuro grossly intact Psych/Mental Status: Normal Affect, Appropriate Vitals/I&O's: Vital Signs Temp Pulse Resp BP Pulse Ox 98 F 66 16 93/65 98 11/07/17 07:30 11/07/17 07:30 11/07/17 07:30 11/07/17 07:30 11/07/17 07:30 Oxygen Flow Rate (L/min) 2 Oxygen Delivery Method Nasal Cannula Weight: 81 kg Body Mass Index (BMI) 30.7 Intake and Output for Last 24 Hours 11/05/17 11/06/17 11/07/17 23:59 23:59 23:59 Intake Total 650 / 650 1650 / 1650 360 / 360 Output Total 800 / 800 950 / 950 350 / 350 Balance -150 / -150 700 / 700 Laboratory Results 11/06/17 11:05: WBC 5.3, RBC 5.27, Hgb 15.7 H, Hct 51.5 H, MCV 97.7, MCH 29.8, MCHC 30.5 L, RDW 15.4 H, RDW Differential 55.2 H, Plt Count 118 L, MPV 9.9, Immature Gran % (Auto) 0.200, Neut % (Auto) 64.7, Lymph % (Auto) 24.4, [place] % (Auto) 8.2, Eos % (Auto) 1.9, Baso % (Auto) 0.6, Absolute Neuts (auto) 3.4, Absolute Lymphs (auto) 1.28, Total Counted Not Reportable 11/06/17 11:05: Sodium 138, Potassium 3.6, Chloride 96 L, Carbon Dioxide 42.0 H, Anion Gap 0 L, BUN 15, Creatinine 0.87, Estim Creat Clear Calc 59.83, Est GFR (MDRD) Af Amer 83, Est GFR (MDRD) Non-Af 69, BUN/Creatinine Ratio 17.3, Glucose 87, Calcium 9.0 Current Medications Acetaminophen (Tylenol) 1,000 mg PO Q8 [facility] Last Admin: 11/07/17 06:08 Dose: 1,000 mg Albuterol/Ipratropium (Duoneb) 3 ml INHALATION Q4HWA.RT PRN PRN Reason: WHEEZING Amitriptyline HCl (Elavil) 50 mg PO QHS [facility] Last Admin: 11/06/17 21:27 Dose: 50 mg Amlodipine Besylate (Norvasc) 10 mg PO DAILY [facility] Last Admin: 11/06/17 10:51 Dose: 10 mg Atorvastatin Calcium (Lipitor) 10 mg PO QHS [facility] Last Admin: 11/06/17 21:27 Dose: 10 mg Carvedilol (Coreg) 6.25 mg PO BID [facility] Last Admin: 11/06/17 21:27 Dose: 6.25 mg Furosemide (Lasix) 40 mg PO BID@1000,1800 [facility] Last Admin: 11/06/17 17:28 Dose: 40 mg Gabapentin (Neurontin) 300 mg PO BIDCM [facility] Last Admin: 11/06/17 17:28 Dose: 300 mg Nicotine (Nicoderm Cq (Pbkc)) 14 mg TRANSDERM. DAILY [facility] Last Admin: 11/06/17 10:52 Dose: Not Given Nystatin (Mycostatin Powder) 1 applic TOPICAL BID HIRAM PRN Reason: Protocol Last Admin: 11/06/17 21:27 Dose: 1 applicatio Oxycodone HCl (Oxyir) 5 mg PO Q6H PRN PRN PRN Reason: SEVERE PAIN (6-10/10) Paroxetine HCl (Paxil) 20 mg PO DAILY [facility] Last Admin: 11/06/17 10:51 Dose: 20 mg Potassium Chloride (K-Dur) 20 meq PO DAILY [facility] Last Admin: 11/06/17 10:51 Dose: 20 meq Rivaroxaban (Xarelto) 20 mg PO DAILY [facility] Last Admin: 11/06/17 10:51 Dose: 20 mg Sodium Chloride () 5 - 30 ml IV UD PRN PRN Reason: SALINE FLUSH Trazodone HCl (Desyrel) 150 mg PO QHS [facility] Last Admin: 11/06/17 21:27 Dose: 150 mg Triamcinolone Acetonide (Kenalog Ointment) 1 applic TOPICAL BID [facility] PRN Reason: Protocol Last Admin: 11/06/17 21:26 Dose: 1 applicatio Medical Necessity - Tobacco Use Smoking Status: Current every day smoker Tobacco Use: Cigarettes Assessment/Plan All Active Problems (Last Updated 07/03/17 @ 10:20 by Aniya Willis) Debility (Acute) 72-year-old female with past medical history of COPD, hypertension, recent fracture of the right tib-fib with plating done in [place] in June 2017, comes in with repeated falls and sustains acute fracture of the right tib-fib with angulation of the plate. 1. Acute on chronic fracture of the right distal tib-fib, recent plating admitted with lateral angulation. Patient had surgery in June 2017 and her primary orthopedic surgeon is Dr. Noonan. Waiting on insurance precertification for discharge to long term facility. Patient has a scheduled appointment in the outpatient on with Dr. Noonan. Possible surgery on Sunday. 2. Hypertension, controlled, continue on amlodipine, Coreg 3. COPD, in mild exacerbation, on a short burst of prednisone 40mg for 5 days. 4. Chronic diastolic CHF, not in acute exacerbation, strict I's and O's, daily weights, follow cardiac diet, continue Lasix 40 mg twice daily 5. Chronic atrial fibrillation, rate controlled, continue on Coreg, Xarelto 6. s/p bioprosthetic valve, on Xarelto 7. Depression, continue on amitriptyline, Paxil, trazodone 8. Nicotine dependence, on replacement 9. DVT PPx - On xarelto Code Visit Inpatient E&M: 60563 Subs Hosp L2
[2017-11-07 08:01] VITALS: O2SAT 98
--- NOTE | 2017-11-07 08:43 | CASEMGMT ---
Addendum entered by Hermelinda Barton 11/07/17 10:23: RITA set up transportation through [facility] via cot for 2:00pm. Transportation form on SNF folder and copy on pt's chart. Original Note: Addendum entered by Hermelinda Barton 11/07/17 10:17: Pt is being discharged today. RITA faxed completed discharge paperwork including transfer to extended care facility, signed medication list and scripts. Originals in SNF folder and copy on pt's chart. PAS/RR completed in [facility]. Original in SNF folder and copy on pt's chart. RITA updated pt, LIT Whitaker, and Kamilla in admissions at [facility] of transportation time. Pt states understanding and denied additional needs or concerns. RITA placed a call to pt's son Guevara and updated him that pt will be discharged today at 2:00pm to [facility]. Guevara states understanding and denied additional needs or concerns. Original Note: Social Work Note SW received message from Kamilla in admissions at [facility] stating that pre-cert has been obtained and pt is able to discharge today. RITA updated Dr. Gregg of this. PAS/RR has been completed in [email or web address]. Plan: Pt to discharge to [facility] today under skilled for rehabilitation Hermelinda Barton CHIEF INSPECTOR, HOT TAMALE WORKER
[2017-11-07 09:21] VITALS: BP 113/58; PULSE 68; RESP 16; TEMP 36.9; O2SAT 94
--- NOTE | 2017-11-07 09:22 | TREXTCAR_ITS ---
- Diet 11/03/17 08:33 Diet: Cardiac/Low Cholesterol Is pt able to select menu?: Yes - Routine Orders/Code Status O2 Liters per Minute: 2 O2 Frequency: at night Keep PO Greater than or Equal to (%): 94 Routine Lab Work: CBC - within 1 week, BMP - within 1 week - Wound(s) RIGHT LOWER EXTREMITY Wound Type: healing surgical site under left breast Wound Type: excoriation - Therapies Weight Bearing: Non weight bearing Physical Therapy: Eval and Treat Occupational Therapy: Eval and Treat - Allergies/Procedures Done in Hospital Allergies/Adverse Reactions: Allergies No Known Allergies Allergy (Verified 11/02/17 14:34) Procedures: None - Type of Care/Length of Stay Estimated LOS: Convalescent Care Less Than 30 days Type of Care Needed: Skilled Rehab Potential: Good Prognosis: Good - Additional Orders/Day of Discharge Additional Orders: Patient has an outpatient appointment with orthopedics, Dr. Noonan. Day of Discharge: 11/07/17 - Follow Up Care Primary Care Physician: Vimal Suggs MD [NON-STAFF] - 3-5 Days [facility] Doctor,Out of [Primary Care Provider] - When: Dr Noonan on 11/08/17
[2017-11-07] MEDS: Rivaroxaban 20 MG Tablet PO (10:05)
[2017-11-07] MEDS: Furosemide 40 MG Tablet PO (10:06)
[2017-11-07] MEDS: Gabapentin 300 MG Capsule PO (10:06)
[2017-11-07] MEDS: Carvedilol 6.25 MG Tablet PO (10:06)
[2017-11-07] MEDS: Nystatin Powder 15gm Bottle 1 APPLIC TOPICAL (10:07)
[2017-11-07] MEDS: Triamcinolone Ointment 1 APPLIC TUBE TOPICAL (10:07)
--- NOTE | 2017-11-07 12:07 | NURSING ---
Addendum entered by Julianne Rendon 11/07/17 15:49: again called and left message that patient left [facility] and headed to [facility] [place]. Understanding verbalized by staff member and reminded again of patient's appointment tomorrow at 11am with Dr. Carrizales. Original Note: Addendum entered by Julianne Rendon 11/07/17 13:51: Dr. Gregg called this RN and requested that ECF be notified of appointment tomorrow with Dr. Carrizales but was uncertain of time. Patient stated that time was 11am tomorrow for presurgery testing. This RN called office and verified same. ECF notified of appointment- this RN called [facility]- nurse on unit that patient will be going to. Original Note: Report called to Fatimah at [place]- also notified that patient is to have surgery at [facility] on Sunday with Dr. Geovanni Carrizales. This RN gave work cell number in case further questions arise. Notified that patient is scheduled for pick-up at [address] [facility]. Understanding verbalized.
[2017-11-07] MEDS: oxyCODONE 5 MG Tablet PO (14:43)
--- NOTE | 2017-11-07 15:52 | NURSING ---
At 1250 Justyn Harrison, called in and stated he was patient's grandson and wanted to know when she would be d/c'ed. This RN asked where patient would be going- he stated [facility]. This RN notified Justyn he would be put on hold so this RN could check with patient. patient stated that it was ok to give justyn- grandson information regarding d/c. Notified that patient would leave [facility] at 1400 for transport to [place].
== END 2017-11-07 14:45 | disposition skilled nursing facility (03) ==
LOC: ED 17:07 → MS2 17:49
PROVIDERS: Admitting Provider Internal Medicine; Emergency Provider Emergency Medicine; Visit Provider Internal Medicine
DX: S89.391A Other physeal fracture of lower end of right fibula, initial encounter for closed fracture (principal); S89.191A Other physeal fracture of lower end of right tibia, initial encounter for closed fracture; W19.XXXA Unspecified fall, initial encounter; Y93.9 Activity, unspecified; Y92.9 Unspecified place or not applicable; J44.9 Chronic obstructive pulmonary disease, unspecified; I48.2 Chronic atrial fibrillation; Z95.2 Presence of prosthetic heart valve; D50.9 Iron deficiency anemia, unspecified; E66.9 Obesity, unspecified; Z68.30 Body mass index [BMI] 30.0-30.9, adult; Z71.3 Dietary counseling and surveillance; E78.5 Hyperlipidemia, unspecified; G89.4 Chronic pain syndrome; I11.0 Hypertensive heart disease with heart failure; I50.32 Chronic diastolic (congestive) heart failure; Z79.899 Other long term (current) drug therapy; Z79.01 Long term (current) use of anticoagulants; F41.9 Anxiety disorder, unspecified; F32.9 Major depressive disorder, single episode, unspecified; R29.6 Repeated falls; F17.210 Nicotine dependence, cigarettes, uncomplicated; F03.90 Unspecified dementia, unspecified severity, without behavioral disturbance, psychotic disturbance, mood disturbance, and anxiety; Z98.84 Bariatric surgery status
CPT/HCPCS: 29515; 36415; 73610; 80048; 80053; 85025; 97110; 97162; 97166; 97530; 97535; 99283

== ENCOUNTER 2021-03-22 10:49 | Inpatient (IN) | payer MEDICARE, MEDICAID, SELFPAY ==
[2021-03-22] VITALS (24 sets, daily range): BP systolic 75–112; BP diastolic 50–75; PULSE 69–129; RESP 12–24; TEMP 36.4–36.9; O2SAT 86–100; BMI 22.8; BMI 27.4
--- NOTE | 2021-03-22 12:19 | RAD_ITS ---
STUDY: X-RAY CHEST REASON FOR EXAM: Female, 75 years old. Shortness of Breath TECHNIQUE: Single AP portable view of the chest. COMPARISON: Comparison is made with prior study dated 05/21/2017. FINDINGS: EKG electrodes are seen. Persistent stable increased markings at the left lung base. There is no demonstrated pleural abnormality. Sternal cerclage wires and vascular clips are present from a prior sternotomy and coronary artery bypass graft procedure (CABG). Moderate cardiomegaly. A left-sided dual-chamber pacemaker is seen. Normal mediastinum and jessica. Normal visualized pulmonary arteries. Normal visualized aortic arch and descending thoracic aorta. There is a dextroscoliosis of the thoracic spine. Normal visualized ribs, clavicles, and shoulders. There is no demonstrated abnormality of the visualized soft tissue structures of the upper abdomen. RAD/Chest 1 View (Portable) IMPRESSION: Stable examination. Electronically Signed: Yannick Magana MD at 15:44 EST , Service support ,
--- NOTE | 2021-03-22 12:19 | EKG12_ITS ---
Test Reason : SOB Blood Pressure : / mmHG Vent. Rate : 081 BPM Atrial Rate : 068 BPM P-R Int : 000 ms QRS Dur : 174 ms QT Int : 456 ms P-R-T Axes : 000 013 -53 degrees QTc Int : 529 ms Ventricular-paced rhythm Abnormal ECG Confirmed by KRISTY HENNING, DARNELL ([id number]), newspaper copy editor KYA DILLARD ([id number]) on 03/24/2021 11:44:42 AM Referred By: AARON Confirmed By:DARNELL WAGNER MD
--- NOTE | 2021-03-22 12:21 | EDS_ITS ---
HPI History of Present Illness Chief Complaint: Fall Narrative Narrative: Patient presents with multiple somatic complaints. She states the main reason that she came with that she slid out of her chair gracefully. She states that she slides out of her chair often. She called her health aide who helped her get her up. She has past medical history of atrial fibrillation with pacemaker, and takes Coumadin. She has anxiety and depression, low back pain, and is a smoker. She has history of COPD. However, she states that she does not wear oxygen at home. She denies any fevers or chills, no difficulty breathing. She states she has had problems with lower leg swelling for years. She denies chest pain, shortness of breath, or other symptoms. She presents because she feels generally weak and she slid out of the chair. She denies any injury from it. No hitting of her head or loss of consciousness. [facility] Medical History Pneumonia Wheezing Home Medications amitriptyline 50 mg PO QHS 04/27/16 [History Last Taken 05/29/16 21:00 100 mg] atorvastatin 40 mg PO QHS 04/27/16 [History Last Taken 11/01/17 10 mg] paroxetine HCl 20 mg PO DAILY 04/27/16 [History Last Taken 05/20/17 40 mg] rivaroxaban 20 mg PO DAILY 04/27/16 [History Last Taken 05/20/17 20 mg] ferrous sulfate 325 mg PO DAILY@0800 #30 tablet 06/01/16 [Rx Last Taken Unknown] lrwsrirbhrbw-qwyb-uwpbd acid [Daily Vitamin Formula-Iron] 1 ea PO DAILY 05/21/17 [History Last Taken 05/20/17] amlodipine 10 mg tablet 10 mg PO QDAY 07/03/17 [History Last Taken 11/02/17] Gabapentin 300 mg PO DINNER 11/02/17 [History Last Taken Unknown] calcium carbonate 600 mg PO DAILY 11/02/17 [History Last Taken Unknown] ergocalciferol (vitamin D2) [Vitamin D2] 50,000 unit PO MO 11/02/17 [History Last Taken Unknown] hydrocodone-acetaminophen [Vicodin ES] 1 tab PO Q6H PRN PRN 11/02/17 [History Last Taken Unknown] melatonin 3 mg PO QHS 11/02/17 [History Last Taken Unknown] potassium chloride [Klor-Con M20] 20 meq PO BID 11/02/17 [History Last Taken Unknown] trazodone 150 mg PO QHS 11/02/17 [History Last Taken Unknown] acetaminophen 1,000 mg PO Q8 tablet 11/07/17 [Rx Last Taken Unknown] carvedilol 3.25 mg PO BID tablet 11/07/17 [Rx Last Taken Unknown] ipratropium-albuterol 3 ml INHALATION Q4HWA.RT PRN ampul.neb 11/07/17 [Rx Last Taken Unknown] nicotine 14 mg TRANSDERM. DAILY patch 11/07/17 [Rx Last Taken Unknown] nystatin [Nyamyc] 1 applic TOPICAL BID bottle 11/07/17 [Rx Last Taken Unknown] oxycodone 5 mg PO Q6H PRN PRN 5 Days #20 tab 11/07/17 [Rx Last Taken Unknown] furosemide 20 mg PO DAILY 03/22/21 [History Last Taken Unknown] sotalol 60 mg PO BID 03/22/21 [History Last Taken Unknown] Allergy/AdvReac Type Severity Reaction Status Date / Time No Known Allergies Allergy Verified 11/02/17 14:34 Social History Smoking Status: Current every day smoker tobacco type: cigarettes ROS ROS ED ROS Narrative Constitutional: No fever, no chills. Generalized weakness. Frequent sliding out of chair. HEENT: No sore throat. No neck pain. No loss of vision. No rhinorrhea. Cardiovascular: No chest pain. No palpitations. Chronic pedal edema, right greater than left. Respiratory: No cough, no shortness of breath. Abdominal: No abdominal pain. No nausea. No vomiting. Genitourinary: No dysuria. No hematuria. Musculoskeletal: No myalgias. No arthralgias. Neurologic: No headaches. No dizziness. No lightheadedness. Skin: No rash. No change in color. Psychiatric: No depression. No anxiety. EXAM Physical Exam Narrative Exam Narrative: Afebrile. Vital signs noted. HEENT: Normocephalic. Atraumatic. PERRL, EOMI. Neck soft and supple. No point tenderness or step off. Cardiovascular: Regular rate and rhythm. No murmurs, rubs, or gallops appreciated. Respiratory: No tachypnea. Lungs clear to auscultation bilaterally. Decreased breath sounds bilateral bases. Gastrointestinal: Abdomen soft, nontender, with normoactive bowel sounds. No rebound or guarding. Neurological: Awake. Alert. Nonfocal, nonlateralizing. Skin: No rash. Normal color. No pallor. Musculoskeletal: Bilateral chronic pedal edema/lymphedema with skin changes. Right greater than left. Full range of motion extremities. Bilateral weakness of bilateral lower extremities. Const Vital Signs: 03/22/21 10:51 03/22/21 10:52 03/22/21 12:09 Temperature 97.8 F Temperature Source Temporal Pulse Rate 96 101 H 129 H Respiratory Rate 17 18 18 Respiratory Effort Respiratory Pattern Blood Pressure 99/68 99/68 Blood Pressure Mean 78 78 Pulse Ox 94 92 88 Oxygen Delivery Method Room Air Room Air Nasal Cannula Oxygen Flow Rate (L/min) 3 03/22/21 12:10 03/22/21 12:37 03/22/21 12:38 Temperature Temperature Source Pulse Rate 74 Respiratory Rate 18 Respiratory Effort Respiratory Pattern Blood Pressure 88/66 L Blood Pressure Mean 73 Pulse Ox 91 88 100 Oxygen Delivery Method Nasal Cannula Nasal Cannula Non-Rebreather Oxygen Flow Rate (L/min) 4 6 15 03/22/21 12:49 03/22/21 12:53 03/22/21 12:54 Temperature Temperature Source Pulse Rate 78 Respiratory Rate 18 Respiratory Effort Short of Breath Labored Respiratory Pattern Normal Blood Pressure Blood Pressure Mean Pulse Ox 91 Oxygen Delivery Method Nasal Cannula Oxygen Flow Rate (L/min) 6 03/22/21 13:54 03/22/21 14:38 Temperature Temperature Source Pulse Rate 69 69 Respiratory Rate 16 19 H Respiratory Effort Respiratory Pattern Blood Pressure 110/68 107/75 Blood Pressure Mean 82 85 Pulse Ox 96 92 Oxygen Delivery Method Nasal Cannula Nasal Cannula Oxygen Flow Rate (L/min) 6 6 MDM MDM MDM Narrative Medical decision making narrative: Initially upon arrival to the emergency department, she had a soft blood pressure with it being in the 90s systolically. Upon arrival to the room, it was 88. Her pulse ox slowly lowered into the 80s. She was placed on 4 L nasal cannula. I do think that she probably has more of a COPD exacerbation. Comprehensive work-up was pursued. EKG shows a paced rhythm at [address] changes. White count is normal at 7.2 with hemoglobin stable at 14.6. INR subtherapeutic at 1.7. Lactic acid normal. BNP slightly elevated at 333, but with her soft blood pressure I do feel that she could use a small amount of fluid and it would not be contradictory. Her current blood pressure is now 107 systolic. Her high-sensitivity troponin is negative in the 30s. Patient is satting 91 to 92% with a good waveform on her nasal cannula oxygen. She is intermittently drowsy. I will obtain an ABG to see if she is retaining CO2. She has already received an aerosol treatment and steroids intravenously. I do feel that she requires admission. The question is whether or not she would have to be on BiPAP. Initial blood gas shows pH of 7.22 with a PO2 that is low, and CO2 retention at 74. She was placed on BiPAP at 12. I discussed patient with Dr. Rob for admission to the PCU. She is in stable but guarded condition. Lab Data Attestation: I reviewed the patient's lab results. Labs: Laboratory Results - last 24 hr 03/22/21 03/22/21 03/22/21 12:42 12:42 12:42 WBC 7.2 RBC 4.74 Hgb 14.6 Hct 46.5 MCV 98.1 MCH 30.8 MCHC 31.4 L RDW Std Deviation 51.0 H RDW Coeff of Bert 14.2 Plt Count 229 MPV 12.7 H Immature Gran % (Auto) 0.300 Neut % (Auto) 76.2 H Lymph % (Auto) 12.7 L [place] % (Auto) 9.4 Eos % (Auto) 0.7 Baso % (Auto) 0.7 Absolute Neuts (auto) 5.5 Absolute Lymphs (auto) 0.92 Nucleated RBC % 0 PT Cancelled INR Cancelled Sodium Cancelled Potassium Cancelled Chloride Cancelled Carbon Dioxide Cancelled Anion Gap Cancelled BUN Cancelled Creatinine Cancelled Estim Creat Clear Calc Cancelled Est GFR (MDRD) Af Amer Cancelled Est GFR (MDRD) Non-Af Cancelled BUN/Creatinine Ratio Cancelled Glucose Cancelled Lactic Acid Calcium Cancelled Troponin I High Sens Cancelled B-Natriuretic Peptide 03/22/21 03/22/21 03/22/21 12:42 12:42 13:23 WBC RBC Hgb Hct MCV MCH MCHC RDW Std Deviation RDW Coeff of Bert Plt Count MPV Immature Gran % (Auto) Neut % (Auto) Lymph % (Auto) [place] % (Auto) Eos % (Auto) Baso % (Auto) Absolute Neuts (auto) Absolute Lymphs (auto) Nucleated RBC % PT 18.8 H INR 1.7 Sodium Potassium Chloride Carbon Dioxide Anion Gap BUN Creatinine Estim Creat Clear Calc Est GFR (MDRD) Af Amer Est GFR (MDRD) Non-Af BUN/Creatinine Ratio Glucose Lactic Acid Cancelled Calcium Troponin I High Sens B-Natriuretic Peptide Cancelled 03/22/21 03/22/21 03/22/21 13:23 13:23 13:23 WBC RBC Hgb Hct MCV MCH MCHC RDW Std Deviation RDW Coeff of Bert Plt Count MPV Immature Gran % (Auto) Neut % (Auto) Lymph % (Auto) [place] % (Auto) Eos % (Auto) Baso % (Auto) Absolute Neuts (auto) Absolute Lymphs (auto) Nucleated RBC % PT INR Sodium 139 Potassium 4.1 Chloride 102 Carbon Dioxide 31.0 Anion Gap 6 BUN 19 H Creatinine 0.86 Estim Creat Clear Calc 57.89 Est GFR (MDRD) Af Amer 83 Est GFR (MDRD) Non-Af 69 BUN/Creatinine Ratio 22.1 H Glucose 96 Lactic Acid 0.9 Calcium 8.5 Troponin I High Sens 32 B-Natriuretic Peptide 333.2 H ABG Data ABG results: ABG 03/22/21 15:15 Specimen Type ART Sample Site L Radial pH 7.23 L Bicarbonate Actual 31.4 H Total CO2 34 Base Excess 4 H O2 Saturation 73 L ABG pCO2 74.5 H* ABG pO2 48 L Jesus Test Positive O2 Delivery Device Cannula Liter Flow 7.0 Crit Call To/Read Back Yes Critical Care Time Critical Care Time: Yes Critical care time (excluding procedures): 30-74 minutes (31), Including time spent:, Discussing w/Patient &/or Family/Um Nurse, Discussing w/Consultants and Arranging Admission or Transfer Discharge Plan Dx/Rx/DC Orders Clinical Impression: COPD exacerbation, Respiratory failure, CO2 retention Disposition Disposition: [facility]
--- NOTE | 2021-03-22 12:26 | CM.ED ---
RITA Note Referral Source: Patient's son Referral Reason: Per Vinicius patient's son asked to speak to psychiatric social worker. RITA met with Guevara and Gio, patient's son. Due to issues with the ED being full the son's were interviewed in the waiting area. Patient's son said that they feel mom shouldn't be home alone. The son's stated that patient has a home health aide through [facility], and patient lives next to her FISCAL OFFICER [place] in a trailer. The son's said that in the past patient was was in the assisted living program at [facility] but then moved to the trailer next to her FISCAL OFFICER. The son's state that patient doesn't drink water, eats like a 8 year old, smokes, and only gets up to go the bathroom. They report patient has a stress test scheduled for 04/07 and was in afib on the way here. They report that they feel she needs SNF as patient is not very mobile and has heart surgery in the past. Son's report that it took 3 people to put her in a cot. Patient is her own decision makes. Son Gio said that patient has a pacemaker and metal rods in her leg. Gio resides in [facility] and Guevara, who is the POA, resides in [facility]. Guevara said that patient has a acquisitions editor, Tory from [facility]. Tory tried to get patient into a facility, [facility] in [place] a couple of years ago but that did not work out. Guevara reports that they feel patient has dementia and alzheimers as sometimes we tell the story and at the end of the story she starts all over again. Guevara reports that they feel patient is not taking her medication correctly and gets her days and nights mixed up. Guevara said that patient sleeps alot. RITA explained that patient will be evaluated by the MD and from there a decision will be made regarding her level of care. RITA explained restrictions on SNF due to COVID at this time. Guevara asked that he be contacted as his number is [phone]. Gio is the POA MD will be updated Nenita PULIDO
[2021-03-22] MEDS: MethylPREDNISolone 125 MG/2 ML Vial IV (12:38)
[2021-03-22] MEDS: Ipratropium/Albuterol Sulfate 3 ML AMPUL.NEB INHALATION ×2 (12:46→20:42)
[2021-03-22 12:57] LABS: Absolute Lymphocyte Count 0.92 X10^3/uL (0.83-4.51); Absolute Neutrophil Count 5.5 X10^3/uL (2.0-7.7); Basophil# 0.05 X10^3/uL; Basophil% 0.7 % (0-1); Eosinophil# 0.05 X10^3/uL; Eosinophils% 0.7 % (0-5); Hematocrit 46.5 % (37-47); Hemoglobin 14.6 g/dL (12.0-15.0); Lymphocyte # 0.92 X10^3/ul (0.83-4.51); Lymphocyte % 12.7 % (19-41); Mean Corp Hgb Conc 31.4 g/dL (32-36); Mean Corpuscular Hgb 30.8 pg (27.0-32.0); Mean Corpuscular Volume 98.1 fL (81-99); Mean Platelet Vol. 12.7 fl (6.2-12.0); Monocyte# 0.68 X10^3/uL; Monocyte% 9.4 % (0-10); NRBC Flagged by Analyzer 0 % (0-5); Neutrophil # 5.51 X10^3/uL (2.7-7.7); Neutrophil % 76.2 % (47-70); Platelet Count 229 K/mm3 (150-450); RBC Distribution Width CV 14.2 % (11.6-14.6); Red Blood Count 4.74 M/mm3 (4.2-5.4); White Blood Count 7.2 K/mm3 (4.4-11.0)
--- NOTE | 2021-03-22 13:02 | NURSING ---
COAGS, CHEMISTRIES, LACTIC ACID HEMOLIZED
[2021-03-22 13:51] LABS: International Normalized Ratio 1.7; Prothrombin Time (Protime)PT. 18.8 SECONDS (11.7-14.9)
[2021-03-22 13:52] LABS: Anion Gap 6 (5-15); BUN 19 mg/dL (7-18); BUN/Creat Ratio 22.1 RATIO (10-20); Calcium,Total 8.5 mg/dL (8.5-10.1); Chloride 102 mmol/L (98-107); Creatinine, Serum 0.86 mg/dL (0.55-1.02); EST Glomerular Filtration Rate 69 mL/min (>60); Est Glom Filt Rate - Afr Amer 83 mL/min (>60); Estimated Creatinine Clearance 57.89 ml/min; Glucose 96 mg/dL (74-106); Potassium 4.1 mmol/L (3.5-5.1); Sodium Level 139 mmol/L (136-145); Troponin-I HS 32 pg/mL (3.0-54.0)
[2021-03-22 13:56] LABS: Lactic Acid 0.9 mmol/L (0.4-1.9)
[2021-03-22 14:09] LABS: BNP,B-Type NATRIURETIC PEPTIDE 333.2 pg/mL (0-100)
[2021-03-22 15:20] LABS: Allen Test Positive; Base Excess 4 mmol/L (-2 to +2); Bicarbonate 31.4 mmol/L (22-26); Blood Gas Specimen Type ART; O2 Delivery Device Cannula; PO2 48 mmHG (75-100); SITE L Radial; SO2 73 % (95-99); Total Carbon Dioxide 34 mmol/L; pCO2 74.5 mmHg (35-45); pH 7.23 (7.35-7.45)
--- NOTE | 2021-03-22 15:27 | ED.RN ---
Son reports he is concerned patient had stroke and is aware the sx she is having can be from her low O2 level. He states she is slurring words and the movement and strength is only an issue for the R side. Dr Broderick is aware of concerns and will monitor as no other clinical presentation for stroke and concern is related to hypoxia per doctor. Info relayed to son.
--- NOTE | 2021-03-22 15:28 | NURSING ---
DR OLIVEIRA FOR DR VÁZQUEZ
--- NOTE | 2021-03-22 15:48 | NURSING ---
116 TEE RESP FAILURE
--- NOTE | 2021-03-22 16:03 | PCM.HP.STD ---
Documented by User: Renetta Ruiz NP-C 03/22/21 16:55 HPI - General General Date of Admission: 03/22/21 Date of Service: 03/22/21 Chief Complaint: Shortness of breath HPI Narrative PRISCA BRANHAM, is a 75 F who presents with complaints of increased shortness of breath. Patient states that she also slid out of her chair at home. Patient also states that she has been feeling increasingly weak for some time and this is not the first time she slid out of her chair. [facility] Medical History (Updated 03/22/21 @ 16:13 by Renetta Ruiz NP-C) Anxiety Anxiety and depression Chronic atrial fibrillation Chronic pain syndrome COPD (chronic obstructive pulmonary disease) COPD exacerbation Depression Diastolic CHF History of pacemaker HLD (hyperlipidemia) HTN (hypertension) Nicotine abuse Pneumonia Wheezing Home Medications amitriptyline 50 mg PO QHS 04/27/16 [History Last Taken 05/29/16 21:00 100 mg] atorvastatin 10 mg PO QHS 04/27/16 [History Last Taken 11/01/17 10 mg] rivaroxaban 20 mg PO DAILY 04/27/16 [History Last Taken 05/20/17 20 mg] Daily Vitamin Formula-Iron 1 ea PO DAILY 05/21/17 [History Last Taken 05/20/17] amlodipine 10 mg tablet 10 mg PO DAILY 07/03/17 [History Last Taken 11/02/17] calcium carbonate 600 mg PO DAILY 11/02/17 [History Last Taken Unknown] ergocalciferol (vitamin D2) [Vitamin D2] 50,000 unit PO MO 11/02/17 [History Last Taken Unknown] hydrocodone-acetaminophen [Vicodin ES] 1 tab PO Q6H PRN PRN 11/02/17 [History Last Taken Unknown] melatonin 3 mg PO QHS 11/02/17 [History Last Taken Unknown] potassium chloride [Klor-Con M20] 20 meq PO BID 11/02/17 [History Last Taken Unknown] trazodone 150 mg PO QHS 11/02/17 [History Last Taken Unknown] ipratropium-albuterol 3 ml INHALATION Q4HWA.RT PRN ampul.neb 11/07/17 [Rx Last Taken Unknown] oxycodone 5 mg PO Q6H PRN PRN 5 Days #20 tab 11/07/17 [Rx Last Taken Unknown] acetaminophen 1,000 mg PO Q8 03/22/21 [History Last Taken Unknown] allopurinol 100 mg PO QODAY 03/22/21 [History Last Taken Unknown] buspirone 5 mg PO BID 03/22/21 [History Last Taken Unknown] carvedilol 3.25 mg PO BID 03/22/21 [History Last Taken Unknown] ferrous sulfate 325 mg PO DAILY@0800 03/22/21 [History Last Taken Unknown] furosemide 40 mg PO DAILY 03/22/21 [History Last Taken Unknown] gabapentin 300 mg PO QHS 03/22/21 [History Last Taken Unknown] mirtazapine 15 mg PO QHS 03/22/21 [History Last Taken Unknown] nicotine 14 mg TRANSDERM. DAILY 03/22/21 [History Last Taken Unknown] nystatin [Nyamyc] 1 applic TOPICAL BID 03/22/21 [History Last Taken Unknown] paroxetine HCl 20 mg PO DAILY 03/22/21 [History Last Taken Unknown] sotalol 40 mg PO BID 03/22/21 [History Last Taken Unknown] Allergy/AdvReac Type Severity Reaction Status Date / Time No Known Allergies Allergy Verified 11/02/17 14:34 Surgical History (Updated 03/22/21 @ 16:06 by JAKOB Jensen) History of aortic valve replacement Social History (Updated 03/22/21 @ 16:06 by JAKOB Jensen) Smoking Status: Current every day smoker tobacco type: cigarettes Smoking packs per day: 2 Smoking cigarettes per day: 40.0 ROS Review of Systems ROS Unobtainable: due to mental status Vital Signs Vital Signs Vital Signs: 03/22/21 10:51 03/22/21 10:52 03/22/21 12:09 Temperature 97.8 F Temperature Source Temporal Pulse Rate 96 101 H 129 H Respiratory Rate 17 18 18 Respiratory Effort Respiratory Pattern Blood Pressure 99/68 99/68 Blood Pressure Mean 78 78 Pulse Ox 94 92 88 Oxygen Delivery Method Room Air Room Air Nasal Cannula Oxygen Flow Rate (L/min) 3 Fraction of Inspired Oxygen (FIO2) 03/22/21 12:10 03/22/21 12:37 03/22/21 12:38 Temperature Temperature Source Pulse Rate 74 Respiratory Rate 18 Respiratory Effort Respiratory Pattern Blood Pressure 88/66 L Blood Pressure Mean 73 Pulse Ox 91 88 100 Oxygen Delivery Method Nasal Cannula Nasal Cannula Non-Rebreather Oxygen Flow Rate (L/min) 4 6 15 Fraction of Inspired Oxygen (FIO2) 03/22/21 12:49 03/22/21 12:53 03/22/21 12:54 Temperature Temperature Source Pulse Rate 78 Respiratory Rate 18 Respiratory Effort Short of Breath Labored Respiratory Pattern Normal Blood Pressure Blood Pressure Mean Pulse Ox 91 Oxygen Delivery Method Nasal Cannula Oxygen Flow Rate (L/min) 6 Fraction of Inspired Oxygen (FIO2) 03/22/21 13:54 03/22/21 14:38 03/22/21 15:16 Temperature Temperature Source Pulse Rate 69 69 71 Respiratory Rate 16 19 H 24 H Respiratory Effort Respiratory Pattern Blood Pressure 110/68 107/75 Blood Pressure Mean 82 85 Pulse Ox 96 92 94 Oxygen Delivery Method Nasal Cannula Nasal Cannula Oxygen Flow Rate (L/min) 6 6 Fraction of Inspired Oxygen (FIO2) 60 03/22/21 15:30 Temperature 98.4 F Temperature Source Temporal Pulse Rate 69 Respiratory Rate 15 Respiratory Effort Respiratory Pattern Blood Pressure 89/59 L Blood Pressure Mean 69 Pulse Ox 93 Oxygen Delivery Method Bi-pap Oxygen Flow Rate (L/min) Fraction of Inspired Oxygen (FIO2) 60 Weight Weight: 150 lb Body Mass Index (BMI) 22.8 Physical Exam Const General Appearance: lethargic HEENT normocephalic and head/scalp atraumatic Eyes conjunctivae normal and no scleral icterus Neck supple General: trachea midline Resp Effort and Inspection: tachypneic Auscultation: wheezes scattered wheezes and diminished lung sounds bilateral and diffuse Cardio regular rate, regular rhythm, S1 normal heart sound, S2 normal heart sound and peripheral pulses 2+ throughout GI normal to inspection, nondistended, normoactive bowel sounds, soft to palpation and non-tender Extremity normal capillary refill General Extremity: edema bilateral lower extremity Details: moderate and no tenderness to palpation of joints or extremities Skin General Skin Exam: no breakdown and turgor normal Lesions: no lesions Rashes: no rashes Neuro no focal motor deficits and no sensory deficits noted Motor Exam: general weakness Results Lab / Micro Data Result Diagrams: 03/22/21 12:42 03/22/21 13:23 Labs: Laboratory Results - last 24 hr 03/22/21 12:42: WBC 7.2, RBC 4.74, Hgb 14.6, Hct 46.5, MCV 98.1, MCH 30.8, MCHC 31.4 L, RDW Std Deviation 51.0 H, RDW Coeff of Bert 14.2, Plt Count 229, MPV 12.7 H, Immature Gran % (Auto) 0.300, Neut % (Auto) 76.2 H, Lymph % (Auto) 12.7 L, [place] % (Auto) 9.4, Eos % (Auto) 0.7, Baso % (Auto) 0.7, Absolute Neuts (auto) 5.5, Absolute Lymphs (auto) 0.92, Nucleated RBC % 0 03/22/21 12:42: PT Cancelled, INR Cancelled 03/22/21 12:42: Sodium Cancelled, Potassium Cancelled, Chloride Cancelled, Carbon Dioxide Cancelled, Anion Gap Cancelled, BUN Cancelled, Creatinine Cancelled, Estim Creat Clear Calc Cancelled, Est GFR (MDRD) Af Amer Cancelled, Est GFR (MDRD) Non-Af Cancelled, BUN/Creatinine Ratio Cancelled, Glucose Cancelled, Calcium Cancelled, Troponin I High Sens Cancelled 03/22/21 12:42: Lactic Acid Cancelled 03/22/21 12:42: B-Natriuretic Peptide Cancelled 03/22/21 13:23: PT 18.8 H, INR 1.7 03/22/21 13:23: Lactic Acid 0.9 03/22/21 13:23: B-Natriuretic Peptide 333.2 H 03/22/21 13:23: Sodium 139, Potassium 4.1, Chloride 102, Carbon Dioxide 31.0, Anion Gap 6, BUN 19 H, Creatinine 0.86, Estim Creat Clear Calc 57.89, Est GFR (MDRD) Af Amer 83, Est GFR (MDRD) Non-Af 69, BUN/Creatinine Ratio 22.1 H, Glucose 96, Calcium 8.5, Troponin I High Sens 32 Micro: Microbiology 03/22/21 12:42 Nasal Secretion SARS-CoV-2 Antigen (Rapid) - Final ABG Data ABG results: ABG 03/22/21 15:15 Specimen Type ART Sample Site L Radial pH 7.23 L Bicarbonate Actual 31.4 H Total CO2 34 Base Excess 4 H O2 Saturation 73 L ABG pCO2 74.5 H* ABG pO2 48 L Jesus Test Positive O2 Delivery Device Cannula Liter Flow 7.0 Crit Call To/Read Back Yes Radiology Impression Chest X-Ray 03/22/21 12:19 IMPRESSION: Stable examination. Electronically Signed: Yannick Magana MD at 15:44 EST , Service support , Assessment & Plan Assessment/Plan (1) Debility: (2) Respiratory failure: QUALIFIERS: Chronicity: acute Respiratory failure complication: hypoxia and hypercapnia Qualified Code(s): J96.01 - Acute respiratory failure with hypoxia; J96.02 - Acute respiratory failure with hypercapnia PLAN: 1. Acute respiratory failure with hypoxia and hypercapnia secondary to COPD exacerbation -Admit to PCU for continuous cardiac and pulse ox monitoring -CBC and BMP ordered for a.m. -Continue BiPAP -DuoNeb nebulizer treatments ordered -IV Solu-Medrol ordered -Repeat ABG ordered 2. Chronic CHF -BNP mildly elevated -Daily IV Lasix ordered -Strict intake and output ordered -Cardiac diet ordered 3. History of aortic valve replacement 4. History of cardiac pacemaker placement Once patient's medications are verified patient will be continued on home regimen for chronic diseases including gout, anxiety and depression, hyperlipidemia, hypertension, iron deficiency anemia, atrial fibrillation. DVT prophylaxis-not indicated due to chronic anticoagulation with Xarelto This patient was seen by JAKOB Jensen under the supervision of Dr. Rob. Documented by User: Dr. Mamadou Rob MD 03/22/21 16:57 HPI - General General Date of Admission: 03/22/21 [facility] Medical History (Updated 03/22/21 @ 16:13 by JAKOB Jensen) Anxiety Anxiety and depression Chronic atrial fibrillation Chronic pain syndrome COPD (chronic obstructive pulmonary disease) COPD exacerbation Depression Diastolic CHF History of pacemaker HLD (hyperlipidemia) HTN (hypertension) Nicotine abuse Pneumonia Wheezing Home Medications amitriptyline 50 mg PO QHS 04/27/16 [History Last Taken 05/29/16 21:00 100 mg] atorvastatin 10 mg PO QHS 04/27/16 [History Last Taken 11/01/17 10 mg] rivaroxaban 20 mg PO DAILY 04/27/16 [History Last Taken 05/20/17 20 mg] Daily Vitamin Formula-Iron 1 ea PO DAILY 05/21/17 [History Last Taken 05/20/17] amlodipine 10 mg tablet 10 mg PO DAILY 07/03/17 [History Last Taken 11/02/17] calcium carbonate 600 mg PO DAILY 11/02/17 [History Last Taken Unknown] ergocalciferol (vitamin D2) [Vitamin D2] 50,000 unit PO MO 11/02/17 [History Last Taken Unknown] hydrocodone-acetaminophen [Vicodin ES] 1 tab PO Q6H PRN PRN 11/02/17 [History Last Taken Unknown] melatonin 3 mg PO QHS 11/02/17 [History Last Taken Unknown] potassium chloride [Klor-Con M20] 20 meq PO BID 11/02/17 [History Last Taken Unknown] trazodone 150 mg PO QHS 11/02/17 [History Last Taken Unknown] ipratropium-albuterol 3 ml INHALATION Q4HWA.RT PRN ampul.neb 11/07/17 [Rx Last Taken Unknown] oxycodone 5 mg PO Q6H PRN PRN 5 Days #20 tab 11/07/17 [Rx Last Taken Unknown] acetaminophen 1,000 mg PO Q8 03/22/21 [History Last Taken Unknown] allopurinol 100 mg PO QODAY 03/22/21 [History Last Taken Unknown] buspirone 5 mg PO BID 03/22/21 [History Last Taken Unknown] carvedilol 3.25 mg PO BID 03/22/21 [History Last Taken Unknown] ferrous sulfate 325 mg PO DAILY@0800 03/22/21 [History Last Taken Unknown] furosemide 40 mg PO DAILY 03/22/21 [History Last Taken Unknown] gabapentin 300 mg PO QHS 03/22/21 [History Last Taken Unknown] mirtazapine 15 mg PO QHS 03/22/21 [History Last Taken Unknown] nicotine 14 mg TRANSDERM. DAILY 03/22/21 [History Last Taken Unknown] nystatin [Nyamyc] 1 applic TOPICAL BID 03/22/21 [History Last Taken Unknown] paroxetine HCl 20 mg PO DAILY 03/22/21 [History Last Taken Unknown] sotalol 40 mg PO BID 03/22/21 [History Last Taken Unknown] Allergy/AdvReac Type Severity Reaction Status Date / Time No Known Allergies Allergy Verified 11/02/17 14:34 unable to obtain Surgical History (Updated 03/22/21 @ 16:06 by JAKOB Jensen) History of aortic valve replacement Social History (Updated 03/22/21 @ 16:06 by JAKOB Jensen) Smoking Status: Current every day smoker tobacco type: cigarettes Smoking packs per day: 2 Smoking cigarettes per day: 40.0 Results Lab / Micro Data Result Diagrams: 03/22/21 12:42 03/22/21 13:23 Charges/Coding Addendum Addendum: Dr. Rob: I personally reviewed the chart and examined the patient, and agree with the above findings. 75-year-old female presents to the hospital after sliding out of her chair. This was the first time she slid out of her chair. She does have a health aide who helped her get back up but noticed that she was significantly short of breath. She does not normally wear oxygen at home but here was requiring 6 L for her acute hypoxic respiratory failure. Given her history of COPD with decreased breath sounds and scattered wheezes, an ABG was obtained which showed that her CO2 was elevated to 74 with a pH of 7.22. She was started on BiPAP however during my examination she would acknowledge my presence but would not open her eyes and unfortunately there is no family here anymore. We are attempting to get in touch with the son who is POA, to discuss CODE STATUS and whether or not she would like to be intubated if necessary. Will ask respiratory therapy to make adjustments to her BiPAP once a repeat ABG is obtained if there has not been any significant improvement. We will continue with duo nebs as well as Solu-Medrol. We will also put her on IV Lasix as she does have chronic diastolic CHF with a pulmonary artery pressure of 31 mmHg on her last echo from 2018. She does have some bilateral lower extremity 1+ pitting edema, unsure if this is chronic and not. I am unsure whether or not she took her morning Lasix today she is not answering any of my questions. As to her history of A. fib, hypertension, high lipid anemia, anxiety, depression, will restart her home medications when she can take p.o. and they have been verified in the computer. Visit Charges Inpatient E&M: 42663 Init Hosp L3
[2021-03-22 16:26] LABS: Allen Test Positive; Base Excess 4 mmol/L (-2 to +2); Bicarbonate 31.1 mmol/L (22-26); Blood Gas Specimen Type ART; FI02 55; Mode BiLevel; O2 Delivery Device BiPAP; PEEP 6; PO2 63 mmHG (75-100); PS 12; SITE L Radial; SO2 86 % (95-99); Total Carbon Dioxide 33 mmol/L; pH 7.23 (7.35-7.45)
--- NOTE | 2021-03-22 16:39 | ED.RN ---
skin breakdown noted at buttock and carlee area. Her underpants were dry but there is some powder present with a foul odor. Cleaned up and applied depend and purewick. Patient moved up in bed.
--- NOTE | 2021-03-22 17:42 | PCS.PANDOC ---
PANDEMIC DOCUMENTATION INITIATED: Date: 11/29/2020 Time: 190
--- NOTE | 2021-03-22 17:56 | NURSING ---
Pt received the J&J Covid vaccine, son unsure of date.
[2021-03-22 19:36] LABS: Allen Test Positive; Base Excess 0 mmol/L (-2 to +2); Bicarbonate 27.6 mmol/L (22-26); Blood Gas Specimen Type ART; FI02 45; O2 Delivery Device BiPAP; PO2 79 mmHG (75-100); RR 14; SITE L Radial; SO2 93 % (95-99); Total Carbon Dioxide 30 mmol/L; pCO2 62.9 mmHg (35-45); pH 7.25 (7.35-7.45)
[2021-03-22] MEDS: busPIRone 5 MG Tablet PO (21:30)
[2021-03-22] MEDS: 0.9% Saline Lock 10 ML Syringe IV (21:30)
[2021-03-22] MEDS: Gabapentin 300 MG Capsule PO (21:30)
[2021-03-22] MEDS: Mirtazapine 15 MG Tablet PO (21:30)
[2021-03-22] MEDS: Atorvastatin Calcium 40 MG Tablet PO (21:30)
[2021-03-23] VITALS (17 sets, daily range): BP systolic 94–117; BP diastolic 50–72; PULSE 66–110; RESP 16–24; TEMP 36.4–36.8; O2SAT 6–96
[2021-03-23] MEDS: 0.9% Saline Lock 10 ML Syringe IV ×2 (05:03→22:06)
[2021-03-23 06:01] LABS: Hematocrit 46.8 % (37-47); Hemoglobin 14.3 g/dL (12.0-15.0); Lymphocyte % 8.9 % (19-41); Mean Corp Hgb Conc 30.6 g/dL (32-36); Mean Corpuscular Hgb 30.6 pg (27.0-32.0); Monocyte% 1.8 % (0-10); NRBC Flagged by Analyzer 0 % (0-5); Neutrophil # 4.98 X10^3/uL (2.7-7.7); Neutrophil % 88.9 % (47-70); POSITIVE DIFFERENTIAL YES; Platelet Count 108 K/mm3 (150-450); RBC Distribution Width CV 13.6 % (11.6-14.6); RBC Distribution Width SD 50.3 fl (35.1-43.9); Red Blood Count 4.68 M/mm3 (4.2-5.4); White Blood Count 5.6 K/mm3 (4.4-11.0)
[2021-03-23 06:05] LABS: Differential Indicated SCAN CRITERIA MET
[2021-03-23 06:36] LABS: Anion Gap 5 (5-15); BUN 25 mg/dL (7-18); BUN/Creat Ratio 29.3 RATIO (10-20); Calcium,Total 8.7 mg/dL (8.5-10.1); Chloride 106 mmol/L (98-107); Creatinine, Serum 0.85 mg/dL (0.55-1.02); EST Glomerular Filtration Rate 69 mL/min (>60); Est Glom Filt Rate - Afr Amer 84 mL/min (>60); Estimated Creatinine Clearance 58.57 ml/min; Glucose 128 mg/dL (74-106); Potassium 4.2 mmol/L (3.5-5.1); Sodium Level 139 mmol/L (136-145)
[2021-03-23 07:12] LABS: Differential Comment SCANNED
[2021-03-23] MEDS: Ipratropium/Albuterol Sulfate 3 ML AMPUL.NEB INHALATION ×5 (07:14→23:33)
--- NOTE | 2021-03-23 10:09 | CASEMGMT ---
SW called [facility] and spoke with Vimal Dupont on the coverage line. Patient's nurse outreach case manager is Tory Ascencio ([phone]). Patient has an aide from [employer] 3 hours a day M-F, 7 meals a week delivered by [employer], and a medical alert button through [employer]. SW is aware family wants placement for patient. SW will see how patient does with therapy. SW will also talk with patient if she is alert and oriented. Barbara Newsome PREPARATION ROOM MANAGER [place]
[2021-03-23] MEDS: Gabapentin 300 MG Capsule PO ×2 (10:50→22:06)
[2021-03-23] MEDS: busPIRone 5 MG Tablet PO ×2 (10:50→22:06)
[2021-03-23] MEDS: Furosemide 40 MG/4 ML Vial IV (10:50)
--- NOTE | 2021-03-23 12:22 | PCM.PN.HOSP ---
Subjective Subjective Follow-up on acute respiratory failure/acute COPD exacerbation: Patient was seen and examined. She is alert oriented x2. Was initially on BiPAP, now on 6 L of oxygen. She feels improved Objective Data Objective Data Vital Signs: Vital Signs Temp Pulse Resp BP Pulse Ox 97.8 F 110 H 17 99/56 L 96 03/23/21 09:45 03/23/21 11:00 03/23/21 09:45 03/23/21 09:45 03/23/21 09:45 Oxygen Flow Rate (L/min) 6 Oxygen Delivery Method Bi-pap Weight: 82 kg Body Mass Index (BMI) 27.4 Intake & Output: Intake and Output for Last 24 Hours 03/21/21 03/22/21 03/23/21 23:59 23:59 23:59 Intake Total 500 / 560 120 / 120 Output Total 0 / 0 720 / 720 Balance 500 / 560 -600 / -600 Lab / Micro Data Result Diagrams: 03/23/21 05:38 03/23/21 05:38 Labs: Laboratory Results - last 24 hr 03/22/21 12:42: WBC 7.2, RBC 4.74, Hgb 14.6, Hct 46.5, MCV 98.1, MCH 30.8, MCHC 31.4 L, RDW Std Deviation 51.0 H, RDW Coeff of Bert 14.2, Plt Count 229, MPV 12.7 H, Immature Gran % (Auto) 0.300, Neut % (Auto) 76.2 H, Lymph % (Auto) 12.7 L, [place] % (Auto) 9.4, Eos % (Auto) 0.7, Baso % (Auto) 0.7, Absolute Neuts (auto) 5.5, Absolute Lymphs (auto) 0.92, Nucleated RBC % 0 03/22/21 12:42: PT Cancelled, INR Cancelled 03/22/21 12:42: Sodium Cancelled, Potassium Cancelled, Chloride Cancelled, Carbon Dioxide Cancelled, Anion Gap Cancelled, BUN Cancelled, Creatinine Cancelled, Estim Creat Clear Calc Cancelled, Est GFR (MDRD) Af Amer Cancelled, Est GFR (MDRD) Non-Af Cancelled, BUN/Creatinine Ratio Cancelled, Glucose Cancelled, Calcium Cancelled, Troponin I High Sens Cancelled 03/22/21 12:42: Lactic Acid Cancelled 03/22/21 12:42: B-Natriuretic Peptide Cancelled 03/22/21 13:23: PT 18.8 H, INR 1.7 03/22/21 13:23: Lactic Acid 0.9 03/22/21 13:23: B-Natriuretic Peptide 333.2 H 03/22/21 13:23: Sodium 139, Potassium 4.1, Chloride 102, Carbon Dioxide 31.0, Anion Gap 6, BUN 19 H, Creatinine 0.86, Estim Creat Clear Calc 57.89, Est GFR (MDRD) Af Amer 83, Est GFR (MDRD) Non-Af 69, BUN/Creatinine Ratio 22.1 H, Glucose 96, Calcium 8.5, Troponin I High Sens 32 03/23/21 05:38: WBC 5.6, RBC 4.68, Hgb 14.3, Hct 46.8, MCV 100.0 H, MCH 30.6, MCHC 30.6 L, RDW Std Deviation 50.3 H, RDW Coeff of Bert 13.6, Plt Count 108 L, MPV 10.0, Immature Gran % (Auto) 0.400, Neut % (Auto) 88.9 H, Lymph % (Auto) 8.9 L, [place] % (Auto) 1.8, Eos % (Auto) 0.0, Baso % (Auto) 0.0, Absolute Neuts (auto) 5.0, Absolute Lymphs (auto) 0.50 L, Nucleated RBC % 0, Differential Comment SCANNED 03/23/21 05:38: Sodium 139, Potassium 4.2, Chloride 106, Carbon Dioxide 28.0, Anion Gap 5, BUN 25 H, Creatinine 0.85, Estim Creat Clear Calc 58.57, Est GFR (MDRD) Af Amer 84, Est GFR (MDRD) Non-Af 69, BUN/Creatinine Ratio 29.3 H, Glucose 128 H, Calcium 8.7 Micro: Microbiology 03/22/21 12:42 Nasal Secretion SARS-CoV-2 Antigen (Rapid) - Final ABG Data ABG results: ABG 03/22/21 03/22/21 03/22/21 15:15 16:21 19:28 Specimen Type ART ART ART Sample Site L Radial L Radial L Radial pH 7.23 L 7.23 L 7.25 L Bicarbonate Actual 31.4 H 31.1 H 27.6 H Total CO2 34 33 30 Base Excess 4 H 4 H 0 O2 Saturation 73 L 86 L 93 L O2 % 55 45 ABG pCO2 74.5 H* 74.0 H* 62.9 H ABG pO2 48 L 63 L 79 Jesus Test Positive Positive Positive Respiration Rate 14 O2 Delivery Device Cannula BiPAP BiPAP Liter Flow 7.0 Vent Mode BiLevel POC PEEP 6 POC Pressure Suppt 12 Crit Call To/Read Back Yes Yes Blood Gas Notified Whom er Clinical Comments 18*10. 45 Radiography Diagnostic Testing: Radiology Impression Chest X-Ray 03/22/21 12:19 IMPRESSION: Stable examination. Electronically Signed: Yannick Magana MD at 15:44 EST , Service support , Physical Exam Narrative Physical exam: General: Alert, Oriented x3, Cooperative, No apparent distress, Well developed HEENT: Atraumatic Oral: Moist Mucosa Neck: Supple Lungs: Diminished to auscultation Cardiovascular: HS I+II, regular, no murmurs Abdomen: Bowel Sounds Present, Soft, Non Tender Extremities: No edema Assessment & Plan Assessment/Plan (1) Respiratory failure: QUALIFIERS: Chronicity: acute Respiratory failure complication: hypoxia and hypercapnia Qualified Code(s): J96.01 - Acute respiratory failure with hypoxia; J96.02 - Acute respiratory failure with hypercapnia (2) Acute exacerbation of COPD with asthma: PLAN: 1. Acute respiratory failure secondary to acute COPD exacerbation Patient admitted with respiratory acidosis with altered mental status Patient is much improved; currently on 6 L of oxygen We will continue on breathing treatments, IV Solu-Medrol 2. Acute metabolic encephalopathy secondary to #1, resolved Continue to monitor Hold Remeron and gabapentin for lethargy 3. Acute exacerbation of heart failure with preserved EF, EF 70%, pulmonary hypertension Continue on IV Lasix, recheck blood work in a.m. 4. Status post pacemaker placement, aortic valve replacement, hypertension, hyperlipidemia, chronic atrial fibrillation, anxiety disorder Continue rest of home meds Home meds need yet to be reconciled. Charges/Coding Visit Charges Inpatient E&M: 67207 Subs Hosp L2
--- NOTE | 2021-03-23 13:48 | CASEMGMT ---
SW reviewed therapy notes and patient is requiring assist of 1-2 people. SW met with patient, introduced self and role at [facility]. SW explained that therapy is recommending she go somewhere for short term rehab. Patient told SW she does not want to do that. She wants to go home. Patient asked if they could come to her home and work with her. SW told her that is possible, but therapy is recommending she go somewhere since she lives alone and is requiring assist of 1-2 people. Patient again said she wants to go home. She politely told SW, I am not going to be made to go to a skilled nursing. SW told her she is right we cannot force her to go anywhere. We are just looking out for her safety. She did allow SW to leave the list of local SNF's with Medicare ratings in her room. SW did highlight the ones that take her insurance. Barbara Newsome CERTIFIED TECHNICIAN [place]
[2021-03-23] MEDS: Acetaminophen 325 MG Tablet 650 MG PO ×2 (17:10→23:13)
[2021-03-23] MEDS: Sotalol Hydrochloride 80 MG Tablet 40 MG PO (22:06)
[2021-03-23] MEDS: Mirtazapine 15 MG Tablet PO (22:06)
[2021-03-23] MEDS: Atorvastatin Calcium 40 MG Tablet PO (22:06)
[2021-03-24] VITALS (15 sets, daily range): BP systolic 102–118; BP diastolic 66–77; PULSE 68–80; RESP 16–20; TEMP 36.4–37.6; O2SAT 90–96
[2021-03-24] MEDS: 0.9% Saline Lock 10 ML Syringe IV ×4 (05:09→21:18)
[2021-03-24] MEDS: Ipratropium/Albuterol Sulfate 3 ML AMPUL.NEB INHALATION ×4 (07:07→19:13)
[2021-03-24] MEDS: Calcium Carbonate 500 MG Tablet PO (09:25)
[2021-03-24] MEDS: Sotalol Hydrochloride 80 MG Tablet 40 MG PO ×2 (09:25→21:19)
[2021-03-24] MEDS: Ferrous Sulfate 325 MG Tablet PO (09:26)
[2021-03-24] MEDS: Furosemide 40 MG/4 ML Vial IV (09:26)
[2021-03-24] MEDS: busPIRone 5 MG Tablet PO ×2 (09:26→21:19)
--- NOTE | 2021-03-24 14:04 | CASEMGMT ---
This RN CM received message to call pt's son, Chris Ferguson, to discuss d/c plan. This RN CM to room to discuss d/c plan with pt and to get pt approval to call son back. Pt is A/Ox4. Pt states ok with this RN CM calling son and pt states plan is to go home, is agreeable to [facility]. Call to pt's son, Chris, and he states he just got off phone with pt and she agreed to go to SNF because they are worried about her safety at home. This RN CM transferred son into room and this RN CM spoke with pt/son in room and pt is agreeable to SNF at this time. Pt provided list of in-network SNF facilities and initially pt/son state they would like [facility] but then pt states preference for [facility] in [place], stating she has been there before. Pt states 2nd choice would be [facility]. [facility] and [facility] are both in-network. Call to [facility] and they state they do have beds available, but 'they are tight.' Advised to fax referral to intake at [phone] with attention to [facility] admission. Admissions does state they are in-network with pt's insurance. Aubrey fleming, voices understanding. Referral to be faxed. Tan MURRIETA CM
--- NOTE | 2021-03-24 15:44 | PN.HOSP_ITS ---
Subjective Subjective Follow-up on acute respiratory failure/acute COPD exacerbation: Patient was seen and examined. Patient denied any new complaints. She is currently on 6 L of oxygen. Objective Data Objective Data Vital Signs: Vital Signs Temp Pulse Resp BP Pulse Ox 98.2 F 78 20 H 102/66 95 03/24/21 09:15 03/24/21 10:48 03/24/21 10:48 03/24/21 09:15 03/24/21 09:15 Oxygen Flow Rate (L/min) 6 Oxygen Delivery Method Nasal Cannula Weight: 82 kg Body Mass Index (BMI) 27.4 Intake & Output: Intake and Output for Last 24 Hours 03/22/21 03/23/21 03/24/21 23:59 23:59 23:59 Intake Total 500 / 560 480 / 480 420 / 420 Output Total 0 / 0 720 / 720 1125 / 1125 Balance 500 / 560 -240 / -240 -705 / -705 Lab / Micro Data Result Diagrams: 03/23/21 05:38 03/23/21 05:38 Micro: Microbiology 03/23/21 09:15 Mucosa - Nasopharyngeal Respiratory Panel (PCR) - Final 03/22/21 12:42 Nasal Secretion SARS-CoV-2 Antigen (Rapid) - Final Physical Exam Narrative Physical exam: General: Alert, Oriented x2, Cooperative, No apparent distress, Well developed HEENT: Atraumatic Oral: Moist Mucosa Neck: Supple Lungs: Diminished to auscultation Cardiovascular: HS I+II, regular, no murmurs Abdomen: Bowel Sounds Present, Soft, Non Tender Extremities: Bilateral pedal edema +1 Assessment & Plan Assessment/Plan (1) Respiratory failure: QUALIFIERS: Chronicity: acute Respiratory failure complication: hypoxia and hypercapnia Qualified Code(s): J96.01 - Acute respiratory failure w ith hypoxia; J96.02 - Acute respiratory failure with hypercapnia (2) Acute exacerbation of COPD with asthma: PLAN: 1. Acute respiratory failure secondary to acute COPD exacerbation, improved Currently on 6 L of oxygen Continue on breathing treatment, IV Solu-Medrol 2. Acute metabolic encephalopathy secondary to #1, resolved Continue to hold Remeron and gabapentin for lethargy 3. Acute exacerbation of heart failure with preserved EF, EF 70%, pulmonary hypertension Continue on IV Lasix, recheck blood work in a.m. 4. Status post pacemaker placement, aortic valve replacement, hypertension, hyperlipidemia, chronic atrial fibrillation, anxiety disorder Continue rest of home meds Home meds need yet to be reconciled. Charges/Coding Visit Charges Inpatient E&M: 86531 Subs Hosp L2
--- NOTE | 2021-03-24 16:04 | CASEMGMT ---
RITA called [facility] and verified they did get the referral. Someone will follow up with RITA. Barbara Newsome VOLLEYBALL COMMENTATORRob MORA
[2021-03-24 19:49] LABS: ALB/GLOB Ratio 0.8 RATIO (0.9-2.4); AST(SGOT) 19 U/L (15-37); Alanine Aminotransfer ALT/SGPT 42 U/L (13-56); Albumin, Serum 2.8 g/dL (3.2-5.0); Alkaline Phosphatase 117 U/L (45-117); Anion Gap 5 (5-15); BUN 35 mg/dL (7-18); BUN/Creat Ratio 35.2 RATIO (10-20); Calcium,Total 8.7 mg/dL (8.5-10.1); Chloride 108 mmol/L (98-107); Creatinine, Serum 0.99 mg/dL (0.55-1.02); EST Glomerular Filtration Rate 58 mL/min (>60); Est Glom Filt Rate - Afr Amer 70 mL/min (>60); Estimated Creatinine Clearance 50.29 ml/min; Globulin 3.5 g/dL (2.2-4.2); Glucose 160 mg/dL (74-106); Potassium 4.3 mmol/L (3.5-5.1); Protein, Total 6.3 g/dL (6.4-8.2); Sodium Level 143 mmol/L (136-145)
[2021-03-24] MEDS: Atorvastatin Calcium 40 MG Tablet PO (21:19)
[2021-03-24] MEDS: Gabapentin 300 MG Capsule PO (21:20)
[2021-03-24] MEDS: Mirtazapine 15 MG Tablet PO (21:20)
[2021-03-24] MEDS: MELATONIN 3 MG TABLET PO (22:57)
[2021-03-25] VITALS (11 sets, daily range): BP systolic 114–129; BP diastolic 75–91; PULSE 65–76; RESP 14–18; TEMP 36.4–36.5; O2SAT 89–96
[2021-03-25] MEDS: 0.9% Saline Lock 10 ML Syringe IV ×3 (05:36→15:03)
[2021-03-25 06:21] LABS: Absolute Lymphocyte Count 0.61 X10^3/uL (0.83-4.51); Absolute Neutrophil Count 8.7 X10^3/uL (2.0-7.7); Basophil# 0.01 X10^3/uL; Basophil% 0.1 % (0-1); Hemoglobin 13.5 g/dL (12.0-15.0); Lymphocyte # 0.61 X10^3/ul (0.83-4.51); Lymphocyte % 6.3 % (19-41); Mean Corpuscular Hgb 30.1 pg (27.0-32.0); Mean Corpuscular Volume 100.2 fL (81-99); Mean Platelet Vol. 10.1 fl (6.2-12.0); Monocyte# 0.33 X10^3/uL; Monocyte% 3.4 % (0-10); NRBC Flagged by Analyzer 0 % (0-5); Neutrophil # 8.69 X10^3/uL (2.7-7.7); Neutrophil % 89.6 % (47-70); Platelet Count 121 K/mm3 (150-450); RBC Distribution Width CV 14.1 % (11.6-14.6); RBC Distribution Width SD 51.4 fl (35.1-43.9); Red Blood Count 4.49 M/mm3 (4.2-5.4); White Blood Count 9.7 K/mm3 (4.4-11.0)
[2021-03-25 06:52] LABS: ALB/GLOB Ratio 0.8 RATIO (0.9-2.4); AST(SGOT) 17 U/L (15-37); Alanine Aminotransfer ALT/SGPT 38 U/L (13-56); Albumin, Serum 2.6 g/dL (3.2-5.0); Alkaline Phosphatase 102 U/L (45-117); Anion Gap 6 (5-15); BUN 33 mg/dL (7-18); BUN/Creat Ratio 41.5 RATIO (10-20); Calcium,Total 8.1 mg/dL (8.5-10.1); Chloride 109 mmol/L (98-107); EST Glomerular Filtration Rate 75 mL/min (>60); Est Glom Filt Rate - Afr Amer 91 mL/min (>60); Estimated Creatinine Clearance 62.24 ml/min; Globulin 3.2 g/dL (2.2-4.2); Glucose 113 mg/dL (74-106); Potassium 4.1 mmol/L (3.5-5.1); Protein, Total 5.8 g/dL (6.4-8.2); Sodium Level 144 mmol/L (136-145)
--- NOTE | 2021-03-25 06:58 | CASEMGMT ---
RITA received a voice mail from [facility] and they will not have any beds until next week sometime. They have a sister facility, [facility] that would be able to take patient. RITA will talk with patient and her son to decide on next choice. Barbara MORA
[2021-03-25] MEDS: Ipratropium/Albuterol Sulfate 3 ML AMPUL.NEB INHALATION ×3 (07:16→14:54)
[2021-03-25] MEDS: Furosemide 40 MG/4 ML Vial IV (08:53)
[2021-03-25] MEDS: Ferrous Sulfate 325 MG Tablet PO (08:53)
[2021-03-25] MEDS: Allopurinol 100 MG Tablet PO (08:53)
[2021-03-25] MEDS: Calcium Carbonate 500 MG Tablet PO (08:53)
[2021-03-25] MEDS: busPIRone 5 MG Tablet PO (08:53)
[2021-03-25] MEDS: Sotalol Hydrochloride 80 MG Tablet 40 MG PO (08:53)
--- NOTE | 2021-03-25 09:39 | CASEMGMT ---
When SW arrived to the community health consultant said patient's son Gio called. She shared RITA's note with him regarding [facility] not having beds and that they have a sister facility [facility] does have beds. Gio was aware of this facility and is okay with patient going there. SW met with patient and went over this with her as well. She is in agreement with [facility] as it is close to her family. SW called [facility] and admissions said they will notify intake to start the pre-cert. RITA then called [facility] offices in [place]. This is the [employer] that owns both facilities and the offices in [place] handles getting authorization from insurance. RITA spoke with Susana and asked her to please start the pre-cert for [facility]. They do have weekend coverage so SW gave her the phone number for PCU if they do get pre-cert over the weekend. Green sheet will be left on her chart. Barbara MORA
--- NOTE | 2021-03-25 11:38 | CASEMGMT ---
RITA received a call from Susana with [facility]. She said patient can go to [facility] today. She asked that RITA call her with a time and fax orders to . Susana's direct number is: [phone]. RITA notified physician, patient, and RN. Barbara Newsome EYELET RIVETER MORGAN
--- NOTE | 2021-03-25 11:51 | CASEMGMT ---
RITA also left a voice mail for patient's son Gio letting him know patient may be discharged today, but RITA will keep him updated. Barbara MORA
--- NOTE | 2021-03-25 13:30 | TREXTCAR_ITS ---
Diet 03/22/21 17:40 Diet: Cardiac - Heart Healthy Food consistency:: Regular Liquid Consistency:: Regular/Thin Dietary Modifications:: Sodium Restricted Fluid restriction:: 1500 mL Routine Orders/Code Status O2 Liters per Minute: 4 O2 Frequency: Continuous Keep PO Greater than or Equal to (%): 94 Routine Lab Work: CBC (within 3 days) and BMP (within 3 days) Wound(s) coccyx: Wound Type: Pressure Injury Therapies Weight Bearing: Weight bearing as tolerated Physical Therapy: Eval and Treat Occupational Therapy: Eval and Treat Problem/Diagnosis (1) Respiratory failure: Status: Acute (2) Acute exacerbation of COPD with asthma: Status: Chronic Allergies/Procedures Done in Hospital Allergies No Known Allergies Allergy (Verified 11/02/17 14:34) Procedures: None Type of Care/Length of Stay Estimated LOS: Convalescent Care Less Than 30 days Type of Care Needed: Skilled Rehab Potential: Good Prognosis: Good Additional Orders/Day of Discharge Day of Discharge: 03/25/21 Dietary and Speech Recommendations Dietitian Recommendations/Changes: Will adjust diet order to cardiac; sodium- restricted; 1500ml FR. ONS as needed if intake fails at meals. Discharge Plan Admission Admit Date/Time: 03/22/21 15:34 Primary Reason for Your Visit: Acute combined respiratory failure/acute COPD exacerbation Attending Provider: Sheree Tyler Primary Care Provider: Care Physician,No Primary Instructions Additional Instructions / Restrictions: Patient needs to follow-up with pulmonology within 2 weeks for evaluation of COPD Discharge Orders/Prescriptions Prescriptions: New gabapentin 300 mg Capsule 300 mg PO QHS Qty: 0 RF: 0 mirtazapine 15 mg Tablet 15 mg PO QHS Qty: 0 RF: 0 Continued atorvastatin 10 MG tablet 10 mg PO QHS RF: 0 rivaroxaban 20 MG tablet 20 mg PO DAILY RF: 0 calcium carbonate 600 MG tablet 600 mg PO DAILY RF: 0 ipratropium-albuterol 3 ML solution for nebulization 3 ml inhalation Q4HWA.RT PRN (Reason: WHEEZING) RF: 0 buspirone 5 mg Tablet 5 mg PO BID RF: 0 sotalol 80 mg Tablet 40 mg PO BID RF: 0 allopurinol 100 mg Tablet 100 mg PO QODAY RF: 0 paroxetine HCl 20 mg Tablet 20 mg PO DAILY RF: 0 acetaminophen 500 MG tablet 1,000 mg PO Q8 RF: 0 ferrous sulfate 325 MG tablet 325 mg PO DAILY@0800 RF: 0 Changed furosemide 40 MG tablet 40 mg PO BID 30 Days Qty: 60 RF: 0 Discontinued amlodipine 10 mg tablet 10 mg PO DAILY RF: 0 Daily Vitamin Formula-Iron 1 EACH tablet 1 ea PO DAILY RF: 0 trazodone 150 tablet 150 mg PO QHS RF: 0 hydrocodone-acetaminophen [Vicodin ES] 1 EACH tablet 1 tab PO Q6H PRN PRN (Reason: Pain) RF: 0 ergocalciferol (vitamin D2) [Vitamin D2] 50,000 capsule 50,000 unit PO MO RF: 0 potassium chloride [Klor-Con M20] 20 MEQ tablet 20 meq PO BID RF: 0 melatonin 3 MG tablet 3 mg PO QHS RF: 0 oxycodone 5 MG tablet 5 mg PO Q6H PRN PRN (Reason: Severe Pain (6-01/23)) 5 Days Qty: 20 RF: 0 gabapentin 300 mg Capsule 300 mg PO QHS RF: 0 mirtazapine 15 mg Tablet 15 mg PO QHS RF: 0 carvedilol 6.25 MG tablet 3.25 mg PO BID RF: 0 nicotine 14 MG patch 24 hour 14 mg TRANSDERM. DAILY RF: 0 nystatin [Nyamyc] 1 APPLIC powder 1 applic topical BID RF: 0 No Action amitriptyline 50 MG tablet 50 mg PO QHS RF: 0 Referrals / Follow Up: Care Physician,No Primary [Primary Care Provider] - Within 2 Weeks Disposition Disposition (needs filled in before D/C Order can be placed): Home, Self Care
--- NOTE | 2021-03-25 13:46 | PCM.DC.SUM ---
Providers Date of Admission: 03/22/21 Date of Discharge: 03/25/21 Primary Care Physician: No Primary Care Phys Reason For Visit: COPD EXACERBATION Diagnosis Discharge Diagnosis (1) Respiratory failure: Status: Acute Code(s): J96.90 - Respiratory failure, unspecified, unspecified whether with hypoxia or hypercapnia Qualifiers: Chronicity: acute Respiratory failure complication: hypoxia and hypercapnia Qualified Code(s): J96.01 - Acute respiratory failure with hypoxia; J96.02 - Acute respiratory failure with hypercapnia (2) Acute exacerbation of COPD with asthma: Status: Chronic Code(s): J44.1 - Chronic obstructive pulmonary disease with (acute) exacerbation; J45.901 - Unspecified asthma with (acute) exacerbation (3) Acute on chronic diastolic CHF (congestive heart failure): Status: Chronic Code(s): I50.33 - Acute on chronic diastolic (congestive) heart failure (4) Acute metabolic encephalopathy: Status: Acute Code(s): G93.41 - Metabolic encephalopathy (5) Debility: Status: Acute Code(s): R53.81 - Other malaise Medications at Discharge Home Medications amitriptyline 50 mg PO QHS 04/27/16 atorvastatin 10 mg PO QHS 04/27/16 rivaroxaban 20 mg PO DAILY 04/27/16 calcium carbonate 600 mg PO DAILY 11/02/17 ipratropium-albuterol 3 ml INHALATION Q4HWA.RT PRN ampul.neb 11/07/17 acetaminophen 1,000 mg PO Q8 03/22/21 allopurinol 100 mg PO QODAY 03/22/21 buspirone 5 mg PO BID 03/22/21 ferrous sulfate 325 mg PO DAILY@0800 03/22/21 paroxetine HCl 20 mg PO DAILY 03/22/21 sotalol 40 mg PO BID 03/22/21 furosemide 40 mg PO BID 30 Days #60 tab 03/25/21 gabapentin 300 mg PO QHS #0 cap 03/25/21 mirtazapine 15 mg PO QHS #0 tab 03/25/21 Hospital Course Operations None Procedures None Summary of Care Provided Minutes Spent on Discharge: 45 Hospital Course: 75-year-old female with multiple comorbidities including COPD not on oxygen at home, chronic diastolic CHF, EF of 70%, severe pulmonary hypertension who was brought into the hospital with altered mental status, shortness of breath and a fall. Patient had reportedly slid out of her chair. She has been progressively weak over some time. She was brought to the ED and required 6 L of oxygen. She had wheezes on exam. ABG showed elevated CO2 to 274 and pH of 7.22. Her rapid COVID-19 test was negative. Respiratory panel was also negative. She was started on BiPAP. She was also managed as acute exacerbation of heart failure with preserved EF . She was started on IV Lasix. Patient was admitted to PCU, she was managed on BiPAP and eventually weaned off to nasal cannula oxygen. She was continued on IV Lasix with improvement. Patient's altered mental status improved. Patient was kept off on some of her pain medications during the hospital stay. Her vitals remained stable She was discharged on 4 L of oxygen, Lasix 40 mg twice daily. She would also be on a prednisone taper. She needs to follow-up with entry level installation technician within 2 weeks for evaluation for possible sleep apnea. She was skilled for [facility] facility. She needs a repeat blood work within 3 days of discharge. Physical Exam Narrative Physical exam: General: Alert, Oriented x2, Cooperative, No apparent distress, Well developed HEENT: Atraumatic Oral: Moist Mucosa Neck: Supple Lungs: Diminished to auscultation Cardiovascular: HS I+II, regular, no murmurs Abdomen: Bowel Sounds Present, Soft, Non Tender Extremities: Bilateral pedal edema +1 Weight / BMI Weight Weight: 82 kg Body Mass Index (BMI) 27.4 ABG / Lab / Microbiology Data Result Diagrams: 03/25/21 05:30 03/25/21 05:30 Laboratory: Laboratory Results - last 24 hr 03/24/21 18:55: Sodium 143, Potassium 4.3, Chloride 108 H, Carbon Dioxide 30.0, Anion Gap 5, BUN 35 H, Creatinine 0.99, Estim Creat Clear Calc 50.29, Est GFR (MDRD) Af Amer 70, Est GFR (MDRD) Non-Af 58 L, BUN/Creatinine Ratio 35.2 H, Glucose 160 H, Calcium 8.7, Total Bilirubin 0.50, AST 19, ALT 42, Alkaline Phosphatase 117, Total Protein 6.3 L, Albumin 2.8 L, Globulin 3.5, Albumin/Globulin Ratio 0.8 L 03/25/21 05:30: WBC 9.7, RBC 4.49, Hgb 13.5, Hct 45.0, MCV 100.2 H, MCH 30.1, MCHC 30.0 L, RDW Std Deviation 51.4 H, RDW Coeff of Bert 14.1, Plt Count 121 L, MPV 10.1, Immature Gran % (Auto) 0.600, Neut % (Auto) 89.6 H, Lymph % (Auto) 6.3 L, Emanuel % (Auto) 3.4, Eos % (Auto) 0.0, Baso % (Auto) 0.1, Absolute Neuts (auto) 8.7 H, Absolute Lymphs (auto) 0.61 L, Nucleated RBC % 0 03/25/21 05:30: Sodium 144, Potassium 4.1, Chloride 109 H, Carbon Dioxide 29.0, Anion Gap 6, BUN 33 H, Creatinine 0.80, Estim Creat Clear Calc 62.24, Est GFR (MDRD) Af Amer 91, Est GFR (MDRD) Non-Af 75, BUN/Creatinine Ratio 41.5 H, Glucose 113 H, Calcium 8.1 L, Total Bilirubin 0.40, AST 17, ALT 38, Alkaline Phosphatase 102, Total Protein 5.8 L, Albumin 2.6 L, Globulin 3.2, Albumin/Globulin Ratio 0.8 L Microbiology: Microbiology 03/25/21 11:50 Nasal Secretion SARS-CoV-2 Antigen (Rapid) - Final 03/23/21 09:15 Mucosa - Nasopharyngeal Respiratory Panel (PCR) - Final 03/22/21 12:42 Nasal Secretion SARS-CoV-2 Antigen (Rapid) - Final Meaningful Use Info Meaningful Use Diagnoses (Choose all that apply): None applicable Discharge Plan Admission Admit Date/Time: 03/22/21 15:34 Primary Reason for Your Visit: Acute combined respiratory failure/acute COPD exacerbation Attending Provider: Sheree Tyler Primary Care Provider: Care Physician,No Primary Instructions Additional Instructions / Restrictions: Patient needs to follow-up with pulmonology within 2 weeks for evaluation of COPD Discharge Orders/Prescriptions Prescriptions: New gabapentin 300 mg Capsule 300 mg PO QHS Qty: 0 RF: 0 mirtazapine 15 mg Tablet 15 mg PO QHS Qty: 0 RF: 0 Continued atorvastatin 10 MG tablet 10 mg PO QHS RF: 0 rivaroxaban 20 MG tablet 20 mg PO DAILY RF: 0 calcium carbonate 600 MG tablet 600 mg PO DAILY RF: 0 ipratropium-albuterol 3 ML solution for nebulization 3 ml inhalation Q4HWA.RT PRN (Reason: WHEEZING) RF: 0 buspirone 5 mg Tablet 5 mg PO BID RF: 0 sotalol 80 mg Tablet 40 mg PO BID RF: 0 allopurinol 100 mg Tablet 100 mg PO QODAY RF: 0 paroxetine HCl 20 mg Tablet 20 mg PO DAILY RF: 0 acetaminophen 500 MG tablet 1,000 mg PO Q8 RF: 0 ferrous sulfate 325 MG tablet 325 mg PO DAILY@0800 RF: 0 Changed furosemide 40 MG tablet 40 mg PO BID 30 Days Qty: 60 RF: 0 Discontinued amlodipine 10 mg tablet 10 mg PO DAILY RF: 0 Daily Vitamin Formula-Iron 1 EACH tablet 1 ea PO DAILY RF: 0 trazodone 150 tablet 150 mg PO QHS RF: 0 hydrocodone-acetaminophen [Vicodin ES] 1 EACH tablet 1 tab PO Q6H PRN PRN (Reason: Pain) RF: 0 ergocalciferol (vitamin D2) [Vitamin D2] 50,000 capsule 50,000 unit PO MO RF: 0 potassium chloride [Klor-Con M20] 20 MEQ tablet 20 meq PO BID RF: 0 melatonin 3 MG tablet 3 mg PO QHS RF: 0 oxycodone 5 MG tablet 5 mg PO Q6H PRN PRN (Reason: Severe Pain (6-10/10)) 5 Days Qty: 20 RF: 0 gabapentin 300 mg Capsule 300 mg PO QHS RF: 0 mirtazapine 15 mg Tablet 15 mg PO QHS RF: 0 carvedilol 6.25 MG tablet 3.25 mg PO BID RF: 0 nicotine 14 MG patch 24 hour 14 mg TRANSDERM. DAILY RF: 0 nystatin [Nyamyc] 1 APPLIC powder 1 applic topical BID RF: 0 No Action amitriptyline 50 MG tablet 50 mg PO QHS RF: 0 Referrals / Follow Up: Care Physician,No Primary [Primary Care Provider] - Within 2 Weeks Disposition Disposition (needs filled in before D/C Order can be placed): Home, Self Care Charges/Coding Visit Charges Inpatient E&M: 14621 Disch Hosp
--- NOTE | 2021-03-25 14:31 | CASEMGMT ---
RITA received discharge orders for patient. RITA arranged for patient to get picked up at 15:30 via [employer] van. RITA faxed orders, negative COVID test, and pick pulling machine tender time to Susana at [facility]. RITA notified RN, patient, paralegal legal secretary, Susana at [facility], and left a message for patient's son, Gio. RITA did talk with patient's other son Guevara and let him know about discharge to [facility] today. RITA completed 7000 on HENS. All in agreement with d/c plan. RITA also called patient's [facility] [employer] [facility] [employer] and notified her of discharge plan and also faxed d/c instructions to her. Plan: d/c to [facility] usp under skilled level of care on a convalescent stay. [facility] via [employer]. Barbara MORA
--- NOTE | 2021-03-25 14:59 | PHA.DC.MR ---
Pharmacy Service has performed discharge medication reconciliation for this patient. The patient's discharge medication list was reviewed for discrepancies and discrepancies were resolved. Home Medications amitriptyline 50 mg PO QHS 04/27/16 atorvastatin 10 mg PO QHS 04/27/16 rivaroxaban 20 mg PO DAILY 04/27/16 calcium carbonate 600 mg PO DAILY 11/02/17 ipratropium-albuterol 3 ml INHALATION Q4HWA.RT PRN ampul.neb 11/07/17 acetaminophen 1,000 mg PO Q8 03/22/21 allopurinol 100 mg PO QODAY 03/22/21 buspirone 5 mg PO BID 03/22/21 ferrous sulfate 325 mg PO DAILY@0800 03/22/21 paroxetine HCl 20 mg PO DAILY 03/22/21 sotalol 40 mg PO BID 03/22/21 furosemide 40 mg PO BID 30 Days #60 tab 03/25/21 gabapentin 300 mg PO QHS #0 cap 03/25/21 mirtazapine 15 mg PO QHS #0 tab 03/25/21
--- NOTE | 2021-03-25 15:29 | NURSING ---
Report called to [facility] to nurse Jacklyn.
== END 2021-03-25 15:42 | disposition skilled nursing facility (03) | DRG 291 ==
LOC: ED 15:34 → PCU 15:55
PROVIDERS: Admitting Provider Family Medicine; Emergency Provider Emergency Medicine; Visit Provider Internal Medicine
DX: I11.0 Hypertensive heart disease with heart failure (principal); I50.33 Acute on chronic diastolic (congestive) heart failure; J96.01 Acute respiratory failure with hypoxia; J96.02 Acute respiratory failure with hypercapnia; G93.41 Metabolic encephalopathy; J44.1 Chronic obstructive pulmonary disease with (acute) exacerbation; I48.20 Chronic atrial fibrillation, unspecified; F17.210 Nicotine dependence, cigarettes, uncomplicated; F41.9 Anxiety disorder, unspecified; F32.A Depression, unspecified; E78.5 Hyperlipidemia, unspecified; D50.9 Iron deficiency anemia, unspecified; Z95.2 Presence of prosthetic heart valve; Z95.0 Presence of cardiac pacemaker; Z79.01 Long term (current) use of anticoagulants; Z79.899 Other long term (current) drug therapy
CPT/HCPCS: 36415; 36600; 71045; 80048; 80053; 82803; 83605; 83880; 84484; 85025; 85610; 87426; 87633; 93005; 94002; 94003; 94640; 94668; 97110; 97162; 97166; 97530; 97535; 97802; 99285; 99406; A4216; J1940

== ENCOUNTER 2021-04-07 15:53 | Inpatient (IN) | payer MEDICARE, MEDICAID, SELFPAY ==
[2021-04-07] VITALS (19 sets, daily range): BP systolic 65–102; BP diastolic 48–63; PULSE 69–81; RESP 17–22; TEMP 36–37.1; O2SAT 90–96; BMI 24.1
--- NOTE | 2021-04-07 16:06 | EKG12_ITS ---
Test Reason : CONFUSION Blood Pressure : / mmHG Vent. Rate : 069 BPM Atrial Rate : 038 BPM P-R Int : 000 ms QRS Dur : 156 ms QT Int : 516 ms P-R-T Axes : 000 -11 -11 degrees QTc Int : 552 ms Ventricular-paced rhythm Abnormal ECG Confirmed by ROSANA HENNING, JOY ([id number]), digital editor KYA DILLARD ([id number]) on 04/12/2021 9:35:43 AM Referred By: DAYNE Confirmed By:JOY WAYNE MD
--- NOTE | 2021-04-07 16:11 | EX.ED.DYSGE1 ---
HPI History of Present Illness Chief Complaint: Confusion Narrative Narrative: 75-year-old female presenting for evaluation and states she just feels generally weak. She does not report any pain anywhere. She states that she has not fallen. She states that she does not feel short of breath. She has lower extremity edema which she states is about the same. She states he has been eating and drinking normally at home. She is making normal urine and stool. She denies any nausea, vomiting, diarrhea. [facility] Medical History Anxiety Anxiety and depression Chronic atrial fibrillation Chronic pain syndrome COPD (chronic obstructive pulmonary disease) COPD exacerbation Depression Diastolic CHF History of pacemaker HLD (hyperlipidemia) HTN (hypertension) Nicotine abuse Pneumonia Wheezing Home Medications atorvastatin 10 mg PO QHS 04/27/16 [History Last Taken 03/22/21 22:00] rivaroxaban 20 mg PO QHS 04/27/16 [History Last Taken 03/22/21 22:00] calcium carbonate 600 mg PO DAILY 11/02/17 [History Last Taken 03/22/21 09:00] ipratropium-albuterol 3 ml INHALATION Q4HWA.RT PRN ampul.neb 11/07/17 [Rx Last Taken Unknown] allopurinol 100 mg PO QODAY 03/22/21 [History Last Taken 03/21/21 09:00] buspirone 5 mg PO BID 03/22/21 [History Last Taken 03/22/21 22:00] ferrous sulfate 325 mg PO DAILY@0800 03/22/21 [History Last Taken 03/22/21 09:00] paroxetine HCl 20 mg PO DAILY 03/22/21 [History Last Taken 03/22/21 09:00] sotalol 120 mg PO BID 03/22/21 [History Last Taken 03/22/21 09:00] amlodipine 10 mg PO DAILY 04/07/21 [History Last Taken Unknown] ergocalciferol (vitamin D2) [Vitamin D2] 50,000 unit PO QWEEK 04/07/21 [History Last Taken Unknown] furosemide 40 mg PO DAILY 04/07/21 [History Last Taken Unknown] gabapentin 300 mg PO QHS 04/07/21 [History Last Taken Unknown] mirtazapine 15 mg PO QHS 04/07/21 [History Last Taken Unknown] multivitamin [Daily Multi-Vitamin] 1 tab PO DAILY 04/07/21 [History Last Taken Unknown] tizanidine 4 mg PO Q8H PRN 04/07/21 [History Last Taken Unknown] trazodone 150 mg PO QHS 04/07/21 [History Last Taken Unknown] Allergy/AdvReac Type Severity Reaction Status Date / Time No Known Allergies Allergy Verified 11/02/17 14:34 Family History Other CVA (cerebral vascular accident) Surgical History History of aortic valve replacement Social History Smoking Status: Current every day smoker tobacco type: cigarettes ROS ROS ED Constitutional Constitutional ED: Denies chills or fever(s) Eyes Eyes: Denies blurry vision or diplopia ENT ENT ED: Denies rhinorrhea or sore throat Cardiovascular Cardiovascular: Denies chest pain or palpitations Respiratory/Chest Respiratory/Chest: Denies cough or dyspnea Gastrointestinal Gastrointestinal: Denies abdominal pain, nausea or vomiting Genitourinary Genitourinary ED: Denies dysuria or hematuria Musculoskeletal Musculoskeletal: Denies arthralgias or myalgias Integumentary Denies rash Neurologic Neurologic: Denies headache(s) or paresthesias EXAM Physical Exam Const Vital Signs: 04/07/21 15:54 04/07/21 15:57 04/07/21 16:18 Temperature 98.1 F 98.1 F Temperature Source Oral Oral Pulse Rate 78 71 Respiratory Rate 18 20 H Blood Pressure 66/50 L 66/50 L Blood Pressure Mean 55 55 Pulse Ox 90 93 Oxygen Delivery Method Room Air Nasal Cannula Nasal Cannula Oxygen Flow Rate (L/min) 2 2 04/07/21 16:53 04/07/21 17:05 04/07/21 17:31 Temperature 98.8 F 98.8 F Temperature Source Oral Oral Pulse Rate 69 69 Respiratory Rate 17 20 H Blood Pressure 71/55 L Blood Pressure Mean 60 Pulse Ox 96 Oxygen Delivery Method Nasal Cannula Oxygen Flow Rate (L/min) 2 04/07/21 17:52 04/07/21 18:02 04/07/21 19:00 Temperature 97.7 F L 96.8 F L Temperature Source Axillary Axillary Pulse Rate 71 69 Respiratory Rate 22 H 19 H Blood Pressure 70/48 L 68/50 L 69/55 L Blood Pressure Mean 55 56 59 Pulse Ox 92 96 Oxygen Delivery Method Room Air Nasal Cannula Oxygen Flow Rate (L/min) 2 Positive obese and unkempt General Appearance ED: unkempt and NAD; Negative for cyanotic or diaphoretic Nutritional Appearance: obese HEENT Reports dry mucous membranes Negative for trauma Mouth ED: Yes dry mucous membranes Mouth: dry mucous membranes Eyes PERRL and EOMs intact bilaterally General Eye ED: Negative for pale conjunctiva Resp normal respiratory effort Auscultation: diminished lung sounds bilateral Cardio regular rate and regular rhythm GI normal to inspection, nondistended, normoactive bowel sounds Extremity General Extremety ED: Yes edema; Negative for tenderness General Extremity: edema Neuro CN's II-XII intact bilaterally Sensorium / Orientation: alert Psych Appearance: unkempt Skin no rashes or lesions noted and no wounds MDM MDM MDM Narrative Medical decision making narrative: 75-year-old female presenting with hypoxia but was found she was discharged home on oxygen which is 4 L. She was placed on 2 L and is maintaining O2 saturations to 96%. Her presenting respiratory rate was 18. Patient was hypotensive as well, but is not tachycardic. She is given initial bolus of IV fluids and then a subsequent liter bolus after she started to show some improvement. Looking through the medical record on her last visit her blood pressures were also low initially when she arrived. I did not find any record of treatment of the hypotension and this appears to have improved. There is mention of diuresing her and giving her Lasix. Her blood work today shows that she has no leukocytosis and her white blood cell count is 10.4. Hemoglobin is 12.3. Platelets are low at 98. Creatinine is slightly increased at 1.35 from 0.8. EKG is a paced rhythm at 69 bpm without sign of ischemic change. High-sensitivity troponin initially came back 315. Patient reports that she is not having chest pain and she is not short of breath. She states she just feels generally weak. I obtained a 2-hour troponin which is actually improved a little bit to 304. During this time the patient was found to have a UTI and started on Rocephin. Patient was pancultured and patient was started on Rocephin. Lactic acid is 1.2. Although clinically she is alert and awake she does have low blood pressure and presented with bradycardia. The hospitalist asked me to start peripheral Levophed and if she remains stable she could be admitted to the ICU for monitoring. After her blood pressure and map improved he was concerned she may need a central line. I was able to speak with her son who stated that after her recent stay in custodial and [facility] her medications had been changed and is unsure of the exact milligrams of the sotalol that she has been taking but states it could be 120 to 140 mg twice daily which is above the documented 40 twice daily in the computer system which would explain some of her symptoms. He also stated that they had sent her home with Percocet and tramadol and she had received both of these this week but reports telling the aide not to give him to the her because she becomes confused. He states she does not do well with these. I spoke with Jose Ramon Samson regarding the patient is I am not sure whether she is septic and hypotensive or she is hypertensive from sotalol. He did feel that could be a mixture of both but was comfortable keeping her on peripheral Levophed to see if her sotalol would wear off and her pressures and heart rate would respond. He did ask me to speak with cardiology about this. And I did update the hospitalist. After speaking with his son regarding he also wishes to hold off on a central line for now expressing concern about the central line. Impression: 1. UTI 2. Hypotension 3. Possible medication side effect Lab Data Attestation: I reviewed the patient's lab results. Labs: Laboratory Results - last 24 hr 04/07/21 04/07/21 04/07/21 16:04 16:04 16:10 WBC 10.4 RBC 4.07 L Hgb 12.3 Hct 39.4 MCV 96.8 MCH 30.2 MCHC 31.2 L RDW Std Deviation 47.5 H RDW Coeff of Bert 13.2 Plt Count 98 L MPV 10.6 Immature Gran % (Auto) 0.800 Neut % (Auto) 83.5 H Lymph % (Auto) 8.6 L [place] % (Auto) 6.6 Eos % (Auto) 0.1 Baso % (Auto) 0.4 Absolute Neuts (auto) 8.7 H Absolute Lymphs (auto) 0.90 Nucleated RBC % 0 Differential Comment SCANNED PT 24.6 H INR 2.3 APTT 47.3 H Sodium 138 Potassium 4.5 Chloride 97 L Carbon Dioxide 35.0 H Anion Gap 6 BUN 35 H Creatinine 1.35 H Estim Creat Clear Calc 36.88 Est GFR (MDRD) Af Amer 49 L Est GFR (MDRD) Non-Af 41 L BUN/Creatinine Ratio 25.9 H Glucose 103 Lactic Acid Calcium 8.3 L Total Bilirubin 0.80 AST 20 ALT 16 Alkaline Phosphatase 116 Troponin I High Sens 315 H* Total Protein 5.7 L Albumin 1.9 L Globulin 3.8 Albumin/Globulin Ratio 0.5 L Urine Color Urine Clarity Urine pH Ur Specific [place] Urine Protein Urine Glucose (UA) Urine Ketones Urine Occult Blood Urine Nitrite Urine Bilirubin Urine Urobilinogen Ur Leukocyte Esterase Urine RBC Urine WBC Ur Squamous Epith Cells Urine Bacteria Urine Mucus 04/07/21 04/07/21 04/07/21 16:10 16:50 18:24 WBC RBC Hgb Hct MCV MCH MCHC RDW Std Deviation RDW Coeff of Bert Plt Count MPV Immature Gran % (Auto) Neut % (Auto) Lymph % (Auto) [place] % (Auto) Eos % (Auto) Baso % (Auto) Absolute Neuts (auto) Absolute Lymphs (auto) Nucleated RBC % Differential Comment PT INR APTT Sodium Potassium Chloride Carbon Dioxide Anion Gap BUN Creatinine Estim Creat Clear Calc Est GFR (MDRD) Af Amer Est GFR (MDRD) Non-Af BUN/Creatinine Ratio Glucose Lactic Acid 1.2 Calcium Total Bilirubin AST ALT Alkaline Phosphatase Troponin I High Sens 304 H* Total Protein Albumin Globulin Albumin/Globulin Ratio Urine Color Yellow Urine Clarity Cloudy Urine pH 6.0 Ur Specific [place] 1.015 Urine Protein 30 H Urine Glucose (UA) Normal Urine Ketones Negative Urine Occult Blood 25 H Urine Nitrite Negative Urine Bilirubin Negative Urine Urobilinogen 4 H Ur Leukocyte Esterase 500 H Urine RBC 0 SEEN Urine WBC >100 SEEN Ur Squamous Epith Cells 0 SEEN Urine Bacteria 3+ Urine Mucus 0 SEEN ABG Data ABG results: ABG 04/07/21 17:47 Specimen Type ART Sample Site L Brach pH 7.43 Bicarbonate Actual 33.2 H Total CO2 35 Base Excess 9 H O2 Saturation 93 L ABG pCO2 49.8 H ABG pO2 65 L Jesus Test Positive O2 Delivery Device Cannula Liter Flow 2.0 Radiography Diagnostic Testing: Clinical Impression(s) from Imaging Studies Chest X-Ray 04/07/21 16:20 IMPRESSION: Mildly hyperexpanded lungs without a superimposed acute pulmonary process. Electronically Signed: German Lewis MD at 16:47 EST , Service support , Discharge Plan Triage Chief Complaint: Confusion ED Provider: Samm Pleitez Dx/Rx/DC Orders Primary Care Provider: Care Physician,No Primary Disposition Disposition: Home, Self Care
--- NOTE | 2021-04-07 16:20 | RAD_ITS ---
STUDY: X-RAY CHEST REASON FOR EXAM: Female, 75 years old. Fever, weakness TECHNIQUE: Single AP portable view of the chest. COMPARISON: 03/22/2021 FINDINGS: EKG leads overlie the chest. Stable appearance of a left subclavian pacemaker Lungs are mildly hyperexpanded with chronic interstitial changes, no superimposed acute pulmonary process. Sternal cerclage wires and vascular clips are present from a prior sternotomy and coronary artery bypass graft procedure (CABG). Normal mediastinum and jessica. Normal visualized pulmonary arteries. Normal visualized aortic arch and descending thoracic aorta. There are diffuse degenerative changes of the visualized thoracic spine with a stable dextroscoliosis. There is degenerative osteoarthritis of the bilateral shoulders. There is no demonstrated abnormality of the visualized soft tissue structures of the upper abdomen. RAD/Chest 1 View (Portable) IMPRESSION: Mildly hyperexpanded lungs without a superimposed acute pulmonary process. Electronically Signed: German Lewis MD at 16:47 EST , Service support ,
--- NOTE | 2021-04-07 16:23 | ED.RN ---
Patients oldest son has called for an update. This RN stated that patient is confused and continuously asking for water. We are running bloodwork and her urine at this time. Rn also stated he may call back in 1-1.5 hours when test results come back. Son states he has no further questions at this time and will call back later.
[2021-04-07 16:25] LABS: Absolute Neutrophil Count 8.7 X10^3/uL (2.0-7.7); Basophil# 0.04 X10^3/uL; Basophil% 0.4 % (0-1); Eosinophil# 0.01 X10^3/uL; Eosinophils% 0.1 % (0-5); Hematocrit 39.4 % (37-47); Hemoglobin 12.3 g/dL (12.0-15.0); Lymphocyte % 8.6 % (19-41); Mean Corp Hgb Conc 31.2 g/dL (32-36); Mean Corpuscular Hgb 30.2 pg (27.0-32.0); Mean Corpuscular Volume 96.8 fL (81-99); Mean Platelet Vol. 10.6 fl (6.2-12.0); Monocyte# 0.69 X10^3/uL; Monocyte% 6.6 % (0-10); NRBC Flagged by Analyzer 0 % (0-5); Neutrophil % 83.5 % (47-70); POSITIVE COUNT YES; Platelet Count 98 K/mm3 (150-450); RBC Distribution Width CV 13.2 % (11.6-14.6); RBC Distribution Width SD 47.5 fl (35.1-43.9); Red Blood Count 4.07 M/mm3 (4.2-5.4); White Blood Count 10.4 K/mm3 (4.4-11.0)
[2021-04-07 16:43] LABS: ALB/GLOB Ratio 0.5 RATIO (0.9-2.4); AST(SGOT) 20 U/L (15-37); Alanine Aminotransfer ALT/SGPT 16 U/L (13-56); Albumin, Serum 1.9 g/dL (3.2-5.0); Alkaline Phosphatase 116 U/L (45-117); Anion Gap 6 (5-15); BUN 35 mg/dL (7-18); BUN/Creat Ratio 25.9 RATIO (10-20); Calcium,Total 8.3 mg/dL (8.5-10.1); Chloride 97 mmol/L (98-107); Creatinine, Serum 1.35 mg/dL (0.55-1.02); EST Glomerular Filtration Rate 41 mL/min (>60); Est Glom Filt Rate - Afr Amer 49 mL/min (>60); Estimated Creatinine Clearance 36.88 ml/min; Globulin 3.8 g/dL (2.2-4.2); Glucose 103 mg/dL (74-106); Potassium 4.5 mmol/L (3.5-5.1); Protein, Total 5.7 g/dL (6.4-8.2); Sodium Level 138 mmol/L (136-145)
[2021-04-07 16:45] LABS: Troponin-I HS 315 pg/mL (3.0-54.0)
--- NOTE | 2021-04-07 16:45 | ED.RN ---
1 L Normal saline given by squad.
[2021-04-07 16:47] LABS: International Normalized Ratio 2.3; Prothrombin Time (Protime)PT. 24.6 SECONDS (11.7-14.9)
[2021-04-07 16:48] LABS: Partial Thromboplast Time 47.3 Seconds (24.1-36.2)
[2021-04-07 16:57] LABS: Mucous, Urine 0 SEEN /hpf (<or=2+); Red Blood Cells-Urine 0 SEEN /hpf (0-5); Squamous Epithelial Cells - UA 0 SEEN /hpf (5-10)
[2021-04-07 17:04] LABS: Color, Urine Yellow (Yellow); Glucose, Dipstick Normal (Normal); Ketone-Dipstick Negative (Negative); Leukocyte Esterase-Dipstick 500 /ul (Negative); Nitrite-Dipstick Negative (Negative); Occult Blood-Urine 25 /ul (Negative); Protein-Dipstick 30 mg/dl (Negative); Specific Gravity, Urine 1.015 (1.002-1.030); Urine Bilirubin Dipstick Negative (Negative); Urine Clarity Cloudy (Clear); Urine Urobilinogen 4 mg/dl (Normal)
[2021-04-07 17:05] LABS: Lactic Acid 1.2 mmol/L (0.4-1.9)
[2021-04-07 17:21] LABS: Bacteria 3+ /hpf (None Seen); White Blood Cells >100 SEEN /hpf (0-5)
[2021-04-07 17:22] LABS: Differential Indicated SCAN CRITERIA MET
[2021-04-07] MEDS: Ipratropium/Albuterol Sulfate 3 ML AMPUL.NEB INHALATION (17:30)
[2021-04-07] MEDS: Albuterol 2.5 MG/3 ML VIAL.NEB. INHALATION (17:30)
[2021-04-07] MEDS: MethylPREDNISolone 125 MG/2 ML Vial IV (17:32)
[2021-04-07] MEDS: 0.9% Normal Saline 1,000 ML 999 ML IV ×2 (17:32→20:21)
[2021-04-07 17:50] LABS: Allen Test Positive; Base Excess 9 mmol/L (-2 to +2); Bicarbonate 33.2 mmol/L (22-26); Blood Gas Specimen Type ART; O2 Delivery Device Cannula; PO2 65 mmHG (75-100); SITE L Brach; SO2 93 % (95-99); Total Carbon Dioxide 35 mmol/L; pCO2 49.8 mmHg (35-45); pH 7.43 (7.35-7.45)
[2021-04-07] MEDS: Ceftriaxone 1 GM/50 ML BAG IV (18:00)
[2021-04-07 18:02] LABS: Differential Comment SCANNED
[2021-04-07 18:54] LABS: Troponin-I HS 304 pg/mL (3.0-54.0)
--- NOTE | 2021-04-07 20:08 | HP.PCM.HOS_ITS ---
HPI - General HPI Narrative History was taken from patient's son Guevara over the phone because patient is unable to provide history. Emergency department doctor reports that patient stated that she has weakness. At the time of hospitalist admission patient stated that she does not remember why she is at the ED. she reports of feeling c old in the ED room. PRISCA BRANHAM, is a 75 F with a significant history of diastolic heart failure; chronic atrial fibrillation with a pacemaker; and nicotine abuse who presents to the emergency department with confusion. Per patient's son patient has been confused and when home health nurse visited patient, patient's blood pressure was low and she was having slurry speech. It is unclear how long patient symptoms has persisted. [facility] Medical History Anxiety Anxiety and depression Chronic atrial fibrillation Chronic pain syndrome COPD (chronic obstructive pulmonary disease) COPD exacerbation Depression Diastolic CHF History of pacemaker HLD (hyperlipidemia) HTN (hypertension) Nicotine abuse Pneumonia Wheezing Home Medications amitriptyline 50 mg PO QHS 04/27/16 [History Last Taken 05/29/16 21:00 100 mg] atorvastatin 10 mg PO QHS 04/27/16 [History Last Taken 03/22/21 22:00] rivaroxaban 20 mg PO DAILY 04/27/16 [History Last Taken 03/22/21 22:00] calcium carbonate 600 mg PO DAILY 11/02/17 [History Last Taken 03/22/21 09:00] ipratropium-albuterol 3 ml INHALATION Q4HWA.RT PRN ampul.neb 11/07/17 [Rx Last Taken Unknown] acetaminophen 1,000 mg PO Q8 03/22/21 [History Last Taken Unknown] allopurinol 100 mg PO QODAY 03/22/21 [History Last Taken 03/21/21 09:00] buspirone 5 mg PO BID 03/22/21 [History Last Taken 03/22/21 22:00] ferrous sulfate 325 mg PO DAILY@0800 03/22/21 [History Last Taken 03/22/21 09:00] paroxetine HCl 20 mg PO DAILY 03/22/21 [History Last Taken 03/22/21 09:00] sotalol 40 mg PO BID 03/22/21 [History Last Taken 03/22/21 09:00] furosemide 40 mg PO BID 30 Days #60 tab 12/10/21 [Rx Last Taken 03/22/21 09:00] gabapentin 300 mg PO QHS #0 cap 03/25/21 [Rx Last Taken Unknown] mirtazapine 15 mg PO QHS #0 tab 03/25/21 [Rx Last Taken Unknown] Allergy/AdvReac Type Severity Reaction Status Date / Time No Known Allergies Allergy Verified 11/02/17 14:34 Family History Other CVA (cerebral vascular accident) Surgical History History of aortic valve replacement Social History Smoking Status: Current every day smoker tobacco type: cigarettes ROS Review of Systems ROS Unobtainable: due to mental status Vital Signs Vital Signs Vital Signs: 04/07/21 15:54 04/07/21 15:57 04/07/21 16:18 Temperature 98.1 F 98.1 F Temperature Source Oral Oral Pulse Rate 78 71 Respiratory Rate 18 20 H Blood Pressure 66/50 L 66/50 L Blood Pressure Mean 55 55 Pulse Ox 90 93 Oxygen Delivery Method Room Air Nasal Cannula Nasal Cannula Oxygen Flow Rate (L/min) 2 2 04/07/21 16:53 04/07/21 17:05 04/07/21 17:31 Temperature 98.8 F 98.8 F Temperature Source Oral Oral Pulse Rate 69 69 Respiratory Rate 17 20 H Blood Pressure 71/55 L Blood Pressure Mean 60 Pulse Ox 96 Oxygen Delivery Method Nasal Cannula Oxygen Flow Rate (L/min) 2 04/07/21 17:52 04/07/21 18:02 04/07/21 19:00 Temperature 97.7 F L 96.8 F L Temperature Source Axillary Axillary Pulse Rate 71 69 Respiratory Rate 22 H 19 H Blood Pressure 70/48 L 68/50 L 69/55 L Blood Pressure Mean 55 56 59 Pulse Ox 92 96 Oxygen Delivery Method Room Air Nasal Cannula Oxygen Flow Rate (L/min) 2 Weight Weight: 72 kg Body Mass Index (BMI) 24.1 Physical Exam Narrative Physical exam: General: Well-nourished, well-developed. Head: Normocephalic, atraumatic, no tenderness Eyes: PERRLA, EOMI ENT, no trauma, dry mucous membranes, no rhinorrhea Neck: Nontender, full range of motion, no spinal tenderness, deformities, step- off CVS: Regular rate and rhythm. S1-S2 present. No murmur, gallop or rub. Respiratory : Mild focal wheezes. Chest wall nontender. Abdomen: Soft, nontender, nondistended, normal bowel sounds, no masses : Deferred Back: Nontender, no CVA tenderness, no midline spinal tenderness, deformities, step-offs Extremities: Nontender full range of motion, no trauma Skin: Normal color, no trauma, abrasions Neuro: Alert. Patient knows where she is. She knows the year but does not know the months or the day. Cranial nerves II through XII grossly intact. Psychiatry: Normal mood. Normal affect. Not depressed. Not anxious. Results Lab / Micro Data Result Diagrams: 04/07/21 16:04 04/07/21 16:04 Labs: Laboratory Results - last 24 hr 04/07/21 16:04: WBC 10.4, RBC 4.07 L, Hgb 12.3, Hct 39.4, MCV 96.8, MCH 30.2, MCHC 31.2 L, RDW Std Deviation 47.5 H, RDW Coeff of Bert 13.2, Plt Count 98 L, MPV 10.6, Immature Gran % (Auto) 0.800, Neut % (Auto) 83.5 H, Lymph % (Auto) 8.6 L, [place] % (Auto) 6.6, Eos % (Auto) 0.1, Baso % (Auto) 0.4, Absolute Neuts (auto) 8.7 H, Absolute Lymphs (auto) 0.90, Nucleated RBC % 0, Differential Comment SCANNED 04/07/21 16:04: Sodium 138, Potassium 4.5, Chloride 97 L, Carbon Dioxide 35.0 H, Anion Gap 6, BUN 35 H, Creatinine 1.35 H, Estim Creat Clear Calc 36.88, Est GFR (MDRD) Af Amer 49 L, Est GFR (MDRD) Non-Af 41 L, BUN/Creatinine Ratio 25.9 H, Glucose 103, Calcium 8.3 L, Total Bilirubin 0.80, AST 20, ALT 16, Alkaline Phosphatase 116, Troponin I High Sens 315 H*, Total Protein 5.7 L, Albumin 1.9 L , Globulin 3.8, Albumin/Globulin Ratio 0.5 L 04/07/21 16:10: PT 24.6 H, INR 2.3, APTT 47.3 H 04/07/21 16:10: Lactic Acid 1.2 04/07/21 16:50: Urine Color Yellow, Urine Clarity Cloudy, Urine pH 6.0, Ur Specific [place] 1.015, Urine Protein 30 H, Urine Glucose (UA) Normal, Urine Ketones Negative, Urine Occult Blood 25 H, Urine Nitrite Negative, Urine Bilirubin Negative, Urine Urobilinogen 4 H, Ur Leukocyte Esterase 500 H, Urine RBC 0 SEEN, Urine WBC >100 SEEN, Ur Squamous Epith Cells 0 SEEN, Urine Bacteria 3+, Urine Mucus 0 SEEN 04/07/21 18:24: Troponin I High Sens 304 H* Micro: Microbiology 04/07/21 16:10 Nasal Secretion SARS-CoV-2 Antigen (Rapid) - Final ABG Data ABG results: ABG 04/07/21 17:47 Specimen Type ART Sample Site L Brach pH 7.43 Bicarbonate Actual 33.2 H Total CO2 35 Base Excess 9 H O2 Saturation 93 L ABG pCO2 49.8 H ABG pO2 65 L Jesus Test Positive O2 Delivery Device Cannula Liter Flow 2.0 Radiology Impression Chest X-Ray 04/07/21 16:20 IMPRESSION: Mildly hyperexpanded lungs without a superimposed acute pulmonary process. Electronically Signed: German Lewis MD at 16:47 EST , Service support , Assessment & Plan Assessment/Plan (1) Sepsis: (2) Infectious encephalopathy: PLAN: Sepsis/infectious encephalopathy SOFA score: 6 points PaO2: 65 FiO2: 29% (2L nasal cannula) Platelet count is 98 [place] Coma Score is 15 Bilirubin is less than 1.2 Hypotension with MAP of less than 70 Creatinine is 1.35 Urinalysis reviewed showed urine protein of 30; urine occult blood 25; urine urobilinogen 4; urine leukocyte esterase. Urine culture ordered emergency department follow. Blood culture ordered emergency department follow-up. Receiving normal saline bolus per septic shock protocol. If systolic is still less than 90 or MAP is less than 65 will consider pressors. Started on ceftriaxone at the emergency department and continued. Lactic acid is 1.2. Review of labs showed white count of 10.4 Chest x-ray was independently interpreted and I agree with radiologist interpretation above. Admit to intensive care unit and consult power plant assistant. Hypotension Hold all home blood pressure medications. IV hydration as above. Trend blood pressures. ENEDINA/dehydration Creatinine of 1.35. Baseline creatinine is 0.85-0.99. BUN was 35. BUN over creatinine is 25.9. Received normal saline bolus per septic/septic shock protocol. We will continue on gentle IV hydration. If patient's blood pressure does not i mproved central line will be considered and pressors initiated. Elevated troponin Initial has any troponin was at 315. Next troponin was 304. Patient does not have any chest pain at this time. Likely demand ischemia/poor clearance secondary to sepsis/kidney injury. Trend BMP Debility PT and OT to work with patient when patient is stable from hemodynamic standpoint. Atrial fibrillation Patient is paced on monitor. Resume home DOAC. History of diastolic heart failure Patient does not appear to be in heart failure. IV fluids above with caution. COPD Appears stable with mild wheezes. Received breathing treatment and Solu-Medrol emergency department. As needed breathing treatment ordered DVT prophylaxis Resume home DOAC Charges/Coding Visit Charges Inpatient E&M: 23800 Init Hosp L3
--- NOTE | 2021-04-07 22:26 | SEPSISNOTE ---
Sepsis Note Physical Exam/Vitals Objective: Chest X-Ray 04/07/21 16:20 IMPRESSION: Mildly hyperexpanded lungs without a superimposed acute pulmonary process. Electronically Signed: German Lewis MD at 16:47 EST , Service support , Temp Pulse Resp BP Pulse Ox 98.2 F 69 20 H 98/62 94 04/07/21 22:10 04/07/21 22:08 04/07/21 22:08 04/07/21 22:25 04/07/21 22:08 04/07/21 04/07/21 04/07/21 18:24 17:47 16:50 WBC RBC Hgb Hct MCV MCH MCHC RDW Std Deviation RDW Coeff of Bert Plt Count MPV Immature Gran % (Auto) Neut % (Auto) Lymph % (Auto) [place] % (Auto) Eos % (Auto) Baso % (Auto) Absolute Neuts (auto) Absolute Lymphs (auto) Nucleated RBC % Differential Comment PT INR APTT Specimen Type ART Sample Site L Brach pH 7.43 Bicarbonate Actual 33.2 H Total CO2 35 Base Excess 9 H O2 Saturation 93 L ABG pCO2 49.8 H ABG pO2 65 L Jesus Test Positive O2 Delivery Device Cannula Liter Flow 2.0 Sodium Potassium Chloride Carbon Dioxide Anion Gap BUN Creatinine Estim Creat Clear Calc Est GFR (MDRD) Af Amer Est GFR (MDRD) Non-Af BUN/Creatinine Ratio Glucose Lactic Acid Calcium Total Bilirubin AST ALT Alkaline Phosphatase Troponin I High Sens 304 H* Total Protein Albumin Globulin Albumin/Globulin Ratio Urine Color Yellow Urine Clarity Cloudy Urine pH 6.0 Ur Specific [place] 1.015 Urine Protein 30 H Urine Glucose (UA) Normal Urine Ketones Negative Urine Occult Blood 25 H Urine Nitrite Negative Urine Bilirubin Negative Urine Urobilinogen 4 H Ur Leukocyte Esterase 500 H Urine RBC 0 SEEN Urine WBC >100 SEEN Ur Squamous Epith Cells 0 SEEN Urine Bacteria 3+ Urine Mucus 0 SEEN 04/07/21 04/07/21 04/07/21 16:10 16:10 16:04 WBC RBC Hgb Hct MCV MCH MCHC RDW Std Deviation RDW Coeff of Bert Plt Count MPV Immature Gran % (Auto) Neut % (Auto) Lymph % (Auto) [place] % (Auto) Eos % (Auto) Baso % (Auto) Absolute Neuts (auto) Absolute Lymphs (auto) Nucleated RBC % Differential Comment PT 24.6 H INR 2.3 APTT 47.3 H Specimen Type Sample Site pH Bicarbonate Actual Total CO2 Base Excess O2 Saturation ABG pCO2 ABG pO2 Jesus Test O2 Delivery Device Liter Flow Sodium 138 Potassium 4.5 Chloride 97 L Carbon Dioxide 35.0 H Anion Gap 6 BUN 35 H Creatinine 1.35 H Estim Creat Clear Calc 36.88 Est GFR (MDRD) Af Amer 49 L Est GFR (MDRD) Non-Af 41 L BUN/Creatinine Ratio 25.9 H Glucose 103 Lactic Acid 1.2 Calcium 8.3 L Total Bilirubin 0.80 AST 20 ALT 16 Alkaline Phosphatase 116 Troponin I High Sens 315 H* Total Protein 5.7 L Albumin 1.9 L Globulin 3.8 Albumin/Globulin Ratio 0.5 L Urine Color Urine Clarity Urine pH Ur Specific [place] Urine Protein Urine Glucose (UA) Urine Ketones Urine Occult Blood Urine Nitrite Urine Bilirubin Urine Urobilinogen Ur Leukocyte Esterase Urine RBC Urine WBC Ur Squamous Epith Cells Urine Bacteria Urine Mucus 04/07/21 16:04 WBC 10.4 RBC 4.07 L Hgb 12.3 Hct 39.4 MCV 96.8 MCH 30.2 MCHC 31.2 L RDW Std Deviation 47.5 H RDW Coeff of Bert 13.2 Plt Count 98 L MPV 10.6 Immature Gran % (Auto) 0.800 Neut % (Auto) 83.5 H Lymph % (Auto) 8.6 L [place] % (Auto) 6.6 Eos % (Auto) 0.1 Baso % (Auto) 0.4 Absolute Neuts (auto) 8.7 H Absolute Lymphs (auto) 0.90 Nucleated RBC % 0 Differential Comment SCANNED PT INR APTT Specimen Type Sample Site pH Bicarbonate Actual Total CO2 Base Excess O2 Saturation ABG pCO2 ABG pO2 Jesus Test O2 Delivery Device Liter Flow Sodium Potassium Chloride Carbon Dioxide Anion Gap BUN Creatinine Estim Creat Clear Calc Est GFR (MDRD) Af Amer Est GFR (MDRD) Non-Af BUN/Creatinine Ratio Glucose Lactic Acid Calcium Total Bilirubin AST ALT Alkaline Phosphatase Troponin I High Sens Total Protein Albumin Globulin Albumin/Globulin Ratio Urine Color Urine Clarity Urine pH Ur Specific [place] Urine Protein Urine Glucose (UA) Urine Ketones Urine Occult Blood Urine Nitrite Urine Bilirubin Urine Urobilinogen Ur Leukocyte Esterase Urine RBC Urine WBC Ur Squamous Epith Cells Urine Bacteria Urine Mucus Attestation Sepsis Attestation: Sepsis re-evaluation was performed
--- NOTE | 2021-04-07 23:46 | ED.RN ---
demetri took home patients medication and medic alert button and rings at this time
[2021-04-08] VITALS (33 sets, daily range): BP systolic 84–133; BP diastolic 48–83; PULSE 68–88; RESP 13–26; TEMP 35.9–36.8; O2SAT 87–99; BMI 23.1
[2021-04-08] MEDS: 0.9% Normal Saline 1,000 ML 75 ML IV ×3 (01:20→17:00)
[2021-04-08 03:06] LABS: Troponin-I HS 228 pg/mL (3.0-54.0)
[2021-04-08 04:32] LABS: Absolute Lymphocyte Count 0.65 X10^3/uL (0.83-4.51); Absolute Neutrophil Count 10.6 X10^3/uL (2.0-7.7); Basophil# 0.02 X10^3/uL; Basophil% 0.2 % (0-1); Hematocrit 41.3 % (37-47); Hemoglobin 12.7 g/dL (12.0-15.0); Lymphocyte # 0.65 X10^3/ul (0.83-4.51); Lymphocyte % 5.7 % (19-41); Mean Corp Hgb Conc 30.8 g/dL (32-36); Mean Corpuscular Hgb 29.5 pg (27.0-32.0); Mean Platelet Vol. 10.2 fl (6.2-12.0); Monocyte# 0.13 X10^3/uL; Monocyte% 1.1 % (0-10); NRBC Flagged by Analyzer 0 % (0-5); Neutrophil # 10.61 X10^3/uL (2.7-7.7); Neutrophil % 92.7 % (47-70); Platelet Count 116 K/mm3 (150-450); RBC Distribution Width CV 13.2 % (11.6-14.6); RBC Distribution Width SD 46.7 fl (35.1-43.9); White Blood Count 11.5 K/mm3 (4.4-11.0)
[2021-04-08 04:57] LABS: ALB/GLOB Ratio 0.5 RATIO (0.9-2.4); AST(SGOT) 16 U/L (15-37); Alanine Aminotransfer ALT/SGPT 16 U/L (13-56); Albumin, Serum 1.9 g/dL (3.2-5.0); Alkaline Phosphatase 119 U/L (45-117); Anion Gap 7 (5-15); BUN 31 mg/dL (7-18); BUN/Creat Ratio 35.3 RATIO (10-20); Calcium,Total 8.6 mg/dL (8.5-10.1); Chloride 104 mmol/L (98-107); Creatinine, Serum 0.88 mg/dL (0.55-1.02); EST Glomerular Filtration Rate 67 mL/min (>60); Est Glom Filt Rate - Afr Amer 81 mL/min (>60); Estimated Creatinine Clearance 56.58 ml/min; Globulin 4.1 g/dL (2.2-4.2); Glucose 143 mg/dL (74-106); Potassium 3.7 mmol/L (3.5-5.1); Sodium Level 142 mmol/L (136-145)
--- NOTE | 2021-04-08 06:35 | EX.PCM.CONCC ---
Assessment & Plan Assessment/Plan (1) Septic shock: (2) UTI (urinary tract infection): PLAN: RECOMMENDATIONS: 1. Wean pressors as tolerated. Maintain MAP greater than 65 2. Continue empiric antibiotics pending cultures 3. Hold sotalol for now 4. Continue with fluid resuscitation 5. Consult PT/OT IMPRESSIONS: 1. Septic shock secondary to UTI Patient with evidence of endorgan damage secondary to acute kidney injury. Patient does have positive blood cultures and a UA suggestive of urinary tract infection at this time. Await sensitivities. Patient is currently on Rocephin and appears to be stabilizing. Continue to wean pressors as tolerated. Chest x-ray does not appear to have acute infiltrate on my evaluation to suggest pneumonia 2. Acute kidney injury Baseline creatinine appears to be approximately 0.9. Patient presented with a creatinine of 1.35. Patient has received fluid resuscitation. Fluid status will be difficult given patient's history of diastolic CHF. There is no indication for renal replacement therapy at this time. We will continue to follow closely. High clinical suspicion for prerenal etiology. 3. COPD/A. fib/chronic diastolic CHF/advanced age/debility Complicates care, management, recovery and prognosis. Patient does have some lower extremity edema. Hold on diuretics given problem #1. Patient does not appear to be in acute exacerbation of COPD. Wean supplemental oxygen as tolerated. TIME: 35 minutes critical care time spent addressing patient septic shock, acute kidney injury, COPD, review of all data and collaboration with care team HPI Consult Data Date of Consult: 04/08/21 HPI Narrative HPI Narrative: PRISCA BRANHAM is a 75 F, with past medical history listed below, who presents [facility] on 2320 secondary to generalized weakness. Patient did not report any specific pain or recent trauma. Patient had not had any shortness of breath. Patient reports chronic lower extremity edema that she does not believe is changed significantly. Patient reportedly has been eating and drinking at her baseline and denies any nausea, vomiting or diarrhea. Patient is anticoagulated and on Lasix at baseline. Patient reportedly has recently had an increase in her sotalol dosing In the ER, patient was afebrile, but hypotensive at 66/50 and saturating 90% on room air. Patient was not tachycardic, but does take sotalol at baseline. Laboratory work-up showed a white blood cell count of 10.4, hemoglobin of 12.3 and a platelet count of 98. INR was elevated at 2.3 and creatinine was 1.35. High-sensitivity troponin was elevated at 315 and albumin was low at 1.9. Lactate was within normal limits, but UA was suggestive of a possible UTI. Arterial blood gas showed adequate ventilation with mild elevation of a gradient. Chest x-ray showed hyperexpanded lungs with no acute infiltrate. Patient was pancultured and initiated on Rocephin. Patient feels subjectively improved since being admitted to the intensive care unit. Patient has remained on Levophed to maintain saturations. Patient is not currently reporting any chest pain, palpitations, nausea or vomiting. While in the intensive care unit, patient's blood cultures have come back with gram-positive diplococci. Patient was recently admitted at [facility] for COPD exacerbation. Patient believes her breathing is at her baseline. Review of systems otherwise negative from a constitutional, HEENT, respiratory, cardiovascular, GI, genitourinary, musculoskeletal, skin, neurologic, psychiatric and hematologic system unless stated above. [facility] Medical History Anxiety Anxiety Anxiety and depression Atrial fibrillation Chronic atrial fibrillation Chronic pain syndrome Congestive heart failure (CHF) COPD (chronic obstructive pulmonary disease) COPD (chronic obstructive pulmonary disease) COPD exacerbation Depression Depression Diastolic CHF History of pacemaker HLD (hyperlipidemia) HTN (hypertension) Hypertension Nicotine abuse Pacemaker Pneumonia Smoker Wheezing Home Medications atorvastatin 10 mg PO QHS 04/27/16 [History Last Taken 03/22/21 22:00] rivaroxaban 20 mg PO QHS 04/27/16 [History Last Taken 03/22/21 22:00] calcium carbonate 600 mg PO DAILY 11/02/17 [History Last Taken 03/22/21 09:00] ipratropium-albuterol 3 ml INHALATION Q4HWA.RT PRN ampul.neb 11/07/17 [Rx Last Taken Unknown] allopurinol 100 mg PO QODAY 03/22/21 [History Last Taken 03/21/21 09:00] buspirone 5 mg PO BID 03/22/21 [History Last Taken 03/22/21 22:00] ferrous sulfate 325 mg PO DAILY@0800 03/22/21 [History Last Taken 03/22/21 09:00] paroxetine HCl 20 mg PO DAILY 03/22/21 [History Last Taken 03/22/21 09:00] sotalol 120 mg PO BID 03/22/21 [History Last Taken 03/22/21 09:00] amlodipine 10 mg PO DAILY 04/07/21 [History Last Taken Unknown] ergocalciferol (vitamin D2) [Vitamin D2] 50,000 unit PO QWEEK 04/07/21 [History Last Taken Unknown] furosemide 40 mg PO DAILY 04/07/21 [History Last Taken Unknown] gabapentin 300 mg PO QHS 04/07/21 [History Last Taken Unknown] mirtazapine 15 mg PO QHS 04/07/21 [History Last Taken Unknown] multivitamin [Daily Multi-Vitamin] 1 tab PO DAILY 04/07/21 [History Last Taken Unknown] tizanidine 4 mg PO Q8H PRN 04/07/21 [History Last Taken Unknown] trazodone 150 mg PO QHS 04/07/21 [History Last Taken Unknown] Allergy/AdvReac Type Severity Reaction Status Date / Time No Known Allergies Allergy Verified 11/02/17 14:34 Family History Other CVA (cerebral vascular accident) Surgical History History of aortic valve replacement Social History Smoking Status: Current every day smoker tobacco type: cigarettes ROS ROS Narrative See HPI Physical Exam Const General Appearance: lethargic HEENT normocephalic and head/scalp atraumatic Eyes conjunctivae normal and no scleral icterus Neck supple General: trachea midline Resp normal respiratory effort Effort and Inspection: able to speak in complete sentences Auscultation: diminished lung sounds; Negative for rales, rhonchi or wheezes Cardio regular rate, regular rhythm, S1 normal heart sound, S2 normal heart sound and peripheral pulses 2+ throughout GI normal to inspection, nondistended, normoactive bowel sounds, soft to palpation and non-tender Extremity normal capillary refill General Extremity: edema bilateral (2+) lower extremity and no tenderness to palpation of joints or extremities Skin General Skin Exam: no breakdown and turgor normal Lesions: no lesions Rashes: no rashes Neuro no focal motor deficits and no sensory deficits noted Motor Exam: general weakness Lab / Micro Data Result Diagrams: 04/08/21 04:24 04/08/21 04:24 Labs: Laboratory Results - last 24 hr 04/07/21 16:04: WBC 10.4, RBC 4.07 L, Hgb 12.3, Hct 39.4, MCV 96.8, MCH 30.2, MCHC 31.2 L, RDW Std Deviation 47.5 H, RDW Coeff of Bert 13.2, Plt Count 98 L, MPV 10.6, Immature Gran % (Auto) 0.800, Neut % (Auto) 83.5 H, Lymph % (Auto) 8.6 L, [place] % (Auto) 6.6, Eos % (Auto) 0.1, Baso % (Auto) 0.4, Absolute Neuts (auto) 8.7 H, Absolute Lymphs (auto) 0.90, Nucleated RBC % 0, Differential Comment SCANNED 04/07/21 16:04: Sodium 138, Potassium 4.5, Chloride 97 L, Carbon Dioxide 35.0 H, Anion Gap 6, BUN 35 H, Creatinine 1.35 H, Estim Creat Clear Calc 36.88, Est GFR (MDRD) Af Amer 49 L, Est GFR (MDRD) Non-Af 41 L, BUN/Creatinine Ratio 25.9 H, Glucose 103, Calcium 8.3 L, Total Bilirubin 0.80, AST 20, ALT 16, Alkaline Phosphatase 116, Troponin I High Sens 315 H*, Total Protein 5.7 L, Albumin 1.9 L, Globulin 3.8, Albumin/Globulin Ratio 0.5 L 04/07/21 16:10: PT 24.6 H, INR 2.3, APTT 47.3 H 04/07/21 16:10: Lactic Acid 1.2 04/07/21 16:50: Urine Color Yellow, Urine Clarity Cloudy, Urine pH 6.0, Ur Specific [place] 1.015, Urine Protein 30 H, Urine Glucose (UA) Normal, Urine Ketones Negative, Urine Occult Blood 25 H, Urine Nitrite Negative, Urine Bilirubin Negative, Urine Urobilinogen 4 H, Ur Leukocyte Esterase 500 H, Urine RBC 0 SEEN, Urine WBC >100 SEEN, Ur Squamous Epith Cells 0 SEEN, Urine Bacteria 3+, Urine Mucus 0 SEEN 04/07/21 18:24: Troponin I High Sens 304 H* 04/08/21 01:25: Troponin I High Sens 228 H* 04/08/21 04:24: WBC 11.5 H, RBC 4.30, Hgb 12.7, Hct 41.3, MCV 96.0, MCH 29.5, MCHC 30.8 L, RDW Std Deviation 46.7 H, RDW Coeff of Bert 13.2, Plt Count 116 L, MPV 10.2, Immature Gran % (Auto) 0.300, Neut % (Auto) 92.7 H, Lymph % (Auto) 5.7 L, [place] % (Auto) 1.1, Eos % (Auto) 0.0, Baso % (Auto) 0.2, Absolute Neuts (auto) 10.6 H, Absolute Lymphs (auto) 0.65 L, Nucleated RBC % 0 04/08/21 04:24: Sodium 142, Potassium 3.7, Chloride 104, Carbon Dioxide 31.0, Anion Gap 7, BUN 31 H, Creatinine 0.88, Estim Creat Clear Calc 56.58, Est GFR (MDRD) Af Amer 81, Est GFR (MDRD) Non-Af 67, BUN/Creatinine Ratio 35.3 H, Glucose 143 H, Calcium 8.6, Total Bilirubin 0.50, AST 16, ALT 16, Alkaline Phosphatase 119 H, Total Protein 6.0 L, Albumin 1.9 L, Globulin 4.1, Albumin/Globulin Ratio 0.5 L Micro: Microbiology 04/07/21 16:10 Blood Culture (Wb) - Anticubital Right Blood Culture - Preliminary 04/07/21 16:13 Blood Culture (Wb) - Left Wrist Blood Culture - Preliminary 04/07/21 16:10 Nasal Secretion SARS-CoV-2 Antigen (Rapid) - Final ABG Data ABG results: ABG 04/07/21 17:47 Specimen Type ART Sample Site L Brach pH 7.43 Bicarbonate Actual 33.2 H Total CO2 35 Base Excess 9 H O2 Saturation 93 L ABG pCO2 49.8 H ABG pO2 65 L Jesus Test Positive O2 Delivery Device Cannula Liter Flow 2.0 Radiology Impression Chest X-Ray 04/07/21 16:20 IMPRESSION: Mildly hyperexpanded lungs without a superimposed acute pulmonary process. Electronically Signed: German Lewis MD at 16:47 EST , Service support , Charges/Coding Procedures Hospitalists Procedures: [id number] [facility] 1st Hr
[2021-04-08] MEDS: busPIRone 5 MG Tablet PO ×2 (07:56→21:25)
[2021-04-08] MEDS: Multivitamins,Therapeutic Tablet 1 TABLET PO (07:56)
[2021-04-08] MEDS: Paroxetine 20 MG Tablet PO (07:56)
[2021-04-08] MEDS: Calcium Carbonate 500 MG Tablet PO (07:56)
[2021-04-08] MEDS: Menthol/Lanolin/Calamine/Znox 113 GM Tube 1 APPLIC TOPICAL ×2 (07:57→21:26)
[2021-04-08] MEDS: Ferrous Sulfate 325 MG Tablet PO (07:57)
[2021-04-08] MEDS: Ceftriaxone 1 GM/50 ML BAG IV ×2 (09:48→21:28)
[2021-04-08 10:21] LABS: Amphetamine Urine VISTA NEGATIVE (<1000 ng/mL); Barbiturate Urine VISTA NEGATIVE (< 200 ng/mL); Benzodiazepine Urine VISTA NEGATIVE (< 200 ng/mL); Cocaine Urine VISTA NEGATIVE (< 300 ng/mL); Ecstacy Urine VISTA NEGATIVE (< 500 ng/mL); Methadone Urine VISTA NEGATIVE (< 300 ng/mL); PCP Urine VISTA NEGATIVE (< 25 ng/mL); THC Urine VISTA NEGATIVE (< 50 ng/mL); Vista UDS pH Range 5
--- NOTE | 2021-04-08 10:36 | PN.HOSP_ITS ---
Subjective Subjective Patient seen and examined. She had no active complaints today and felt much better. REview of systems is otherwise negative. She remains on levophed. Objective Data Objective Data Vital Signs: Vital Signs Temp Pulse Resp BP Pulse Ox 97.7 F L 69 13 133/75 H 93 04/08/21 08:00 04/08/21 10:00 04/08/21 10:00 04/08/21 10:00 04/08/21 10:00 Oxygen Flow Rate (L/min) 2 Oxygen Delivery Method Nasal Cannula Weight: 154 lb 15.759 oz Body Mass Index (BMI) 23.1 Intake & Output: Intake and Output for Last 24 Hours 04/06/21 04/07/21 04/08/21 23:59 23:59 23:59 Intake Total 2049 976.85 / 976.85 Output Total Balance 2049 951.85 / 951.85 Lab / Micro Data Result Diagrams: 04/08/21 04:24 04/08/21 04:24 Labs: Laboratory Results - last 24 hr 04/07/21 10:01: Urine Opiates Screen POSITIVE H, Urine Methadone Screen NEGATIVE, Ur Barbiturates Screen NEGATIVE, Ur Phencyclidine Scrn NEGATIVE, Ur Amphetamines Screen NEGATIVE, U Methamphetamin-MDMA NEGATIVE, U Benzodiazepines Scrn NEGATIVE, Urine Cocaine Screen NEGATIVE, U Cannabinoids Screen NEGATIVE, Ur Drug Screen Comment 04/07/21 16:04: WBC 10.4, RBC 4.07 L, Hgb 12.3, Hct 39.4, MCV 96.8, MCH 30.2, MCHC 31.2 L, RDW Std Deviation 47.5 H, RDW Coeff of Bert 13.2, Plt Count 98 L, MPV 10.6, Immature Gran % (Auto) 0.800, Neut % (Auto) 83.5 H, Lymph % (Auto) 8.6 L, [place] % (Auto) 6.6, Eos % (Auto) 0.1, Baso % (Auto) 0.4, Absolute Neuts (auto) 8.7 H, Absolute Lymphs (auto) 0.90, Nucleated RBC % 0, Differential Comment SCANNED 04/07/21 16:04: Sodium 138, Potassium 4.5, Chloride 97 L, Carbon Dioxide 35.0 H, Anion Gap 6, BUN 35 H, Creatinine 1.35 H, Estim Creat Clear Calc 36.88, Est GFR (MDRD) Af Amer 49 L, Est GFR (MDRD) Non-Af 41 L, BUN/Creatinine Ratio 25.9 H, Glucose 103, Calcium 8.3 L, Total Bilirubin 0.80, AST 20, ALT 16, Alkaline Phosphatase 116, Troponin I High Sens 315 H*, Total Protein 5.7 L, Albumin 1.9 L , Globulin 3.8, Albumin/Globulin Ratio 0.5 L 04/07/21 16:10: PT 24.6 H, INR 2.3, APTT 47.3 H 04/07/21 16:10: Lactic Acid 1.2 04/07/21 16:50: Urine Color Yellow, Urine Clarity Cloudy, Urine pH 6.0, Ur Specific [place] 1.015, Urine Protein 30 H, Urine Glucose (UA) Normal, Urine Ketones Negative, Urine Occult Blood 25 H, Urine Nitrite Negative, Urine Bilirubin Negative, Urine Urobilinogen 4 H, Ur Leukocyte Esterase 500 H, Urine RBC 0 SEEN, Urine WBC >100 SEEN, Ur Squamous Epith Cells 0 SEEN, Urine Bacteria 3+, Urine Mucus 0 SEEN 04/07/21 18:24: Troponin I High Sens 304 H* 04/08/21 01:25: Troponin I High Sens 228 H* 04/08/21 04:24: WBC 11.5 H, RBC 4.30, Hgb 12.7, Hct 41.3, MCV 96.0, MCH 29.5, MCHC 30.8 L, RDW Std Deviation 46.7 H, RDW Coeff of Bert 13.2, Plt Count 116 L, MPV 10.2, Immature Gran % (Auto) 0.300, Neut % (Auto) 92.7 H, Lymph % (Auto) 5.7 L, [place] % (Auto) 1.1, Eos % (Auto) 0.0, Baso % (Auto) 0.2, Absolute Neuts (auto) 10.6 H, Absolute Lymphs (auto) 0.65 L, Nucleated RBC % 0 04/08/21 04:24: Sodium 142, Potassium 3.7, Chloride 104, Carbon Dioxide 31.0, Anion Gap 7, BUN 31 H, Creatinine 0.88, Estim Creat Clear Calc 56.58, Est GFR (MDRD) Af Amer 81, Est GFR (MDRD) Non-Af 67, BUN/Creatinine Ratio 35.3 H, Glucose 143 H, Calcium 8.6, Total Bilirubin 0.50, AST 16, ALT 16, Alkaline Phosphatase 119 H, Total Protein 6.0 L, Albumin 1.9 L, Globulin 4.1, Albumin/Globulin Ratio 0.5 L Micro: Microbiology 04/07/21 16:10 Blood Culture (Wb) - Anticubital Right Bacteria Detection (PCR) - Final Enterococcus faecalis 04/07/21 16:10 Blood Culture (Wb) - Anticubital Right Blood Culture - Preliminary 04/07/21 16:50 Urine, Catheterized Urine Culture - Preliminary Presumptive E. coli 04/07/21 16:13 Blood Culture (Wb) - Left Wrist Blood Culture - Preliminary 04/07/21 16:10 Nasal Secretion SARS-CoV-2 Antigen (Rapid) - Final ABG Data ABG results: ABG 04/07/21 17:47 Specimen Type ART Sample Site L Brach pH 7.43 Bicarbonate Actual 33.2 H Total CO2 35 Base Excess 9 H O2 Saturation 93 L ABG pCO2 49.8 H ABG pO2 65 L Jesus Test Positive O2 Delivery Device Cannula Liter Flow 2.0 Radiography Diagnostic Testing: Radiology Impression Chest X-Ray 04/07/21 16:20 IMPRESSION: Mildly hyperexpanded lungs without a superimposed acute pulmonary process. Electronically Signed: German Lewis MD at 16:47 EST , Service support , Physical Exam Const alert, oriented x3 and no apparent distress Exam Limitations: no limitations HEENT head/scalp atraumatic and moist oral mucous membranes Head and Scalp: normocephalic Eyes PERRL, EOMs intact bilaterally and conjunctivae normal Neck no lymphadenopathy Resp normal respiratory effort, no retractions and no use of accessory muscles Cardio regular rate, regular rhythm, S1 normal heart sound, S2 normal heart sound and no murmurs GI normal to inspection, nondistended, normoactive bowel sounds, soft to palpation, non-tender and non-distended Extremity normal to inspection, full ROM and no clubbing, cyanosis or edema Peripheral Pulses: Yes pulses 2+ throughout Skin no rashes or lesions noted Neuro oriented x3, CN's II-XII intact bilaterally and moves all extremities Sensorium / Orientation: awake, alert and oriented to time Psych affect normal Assessment & Plan Assessment/Plan (1) UTI (urinary tract infection): (2) Septic shock: PLAN: #Septic shock due to UTI * remains in ICU. * on IV ceftriaxone and vancomycin * on levophed. Titrate and wean levophed off as tolerated to keep MAP >65 * critical care on board. * blood and urine cultures pending * #ENEDINA: Cr was 1.35 on admission. Was hydrated with IVF #Elevated troponin * troponin trended downwards from 31 to 304 and 288. * has no chest pain; may be due to demand ischemia from septic shock and decreased clearance from ENEDINA * get 2D echo to evaluate * #Debility due to septic shock * PT/OT on board. Fall precautions. * #Hyperlipidemia: on statin #Atrial fibrillation: On Xarelto. Beta-shahla on hold on account of Septic shock #History of COPD: Not in exacerbation. On breathing treatments bronchodilators. #History of heart failure: Not in exacerbation. Lasix on hold due to septic shock #Depression and anxiety: * On mirtazapine and paroxetine as well as trazodone which were held on admission due to altered mental status at that time. DVT prophylaxis: lovenox renally dosed Charges/Coding Visit Charges Inpatient E&M: [id number] [facility] Hosp L3
--- NOTE | 2021-04-08 10:45 | ECHOD_ITS ---
Reason For Study: Elevated troponin, sepsis Procedure This was a 2D Doppler, Color Flow transthoracic echocardiogram. Exam performed portable in ICU/CCU. Left Ventricle Moderate concentric left ventricular hypertrophy. The estimated ejection fraction is 55-60 %. Right Ventricle Normal right ventricle. Normal systolic function. Atria The left atrium is mildly enlarged. The right atrium is mildly enlarged. Mitral Valve There is mild to moderate mitral annular calcification. Mild-Moderate (1-2+) mitral valve insufficiency. Tricuspid Valve Echogenic mass attached to pacer leads,possible vegetation Vs thrombus. Mild to moderate (1-2+) tricuspid valve insufficiency. Aortic Valve table Bioprothetic Aoric valve fapparratus. Pulmonic Valve The pulmonic valve is not well visualized. Great Vessels Normal aortic root. Pericardium/Pleural No pericardial effusion. MMode/2D Measurements & Calculations LVIDd: 3.8 cm IVSd: 1.6 cm LVOT diam: 2.0 cm LVIDs: 2.3 cm LVPWd: 1.4 cm LVOT area: 3.1 cm2 RVDd: 3.5 cm FS: 39.7 % Ao root diam: 3.2 cm LAV(MOD-bp): 108.9 ml LVAd ap4: 24.3 cm2 LAV(MOD-bp) Indexed: 59.4 ml/m2 LVLd ap4: 7.9 cm LAV(MOD-sp2): 95.9 ml EDV(MOD-sp4): 62.9 ml LAV(MOD-sp4): 97.2 ml EDV(sp4-el): 63.9 ml LVAs ap4: 10.5 cm2 LVLs ap4: 6.6 cm ESV(MOD-sp4): 14.8 ml ESV(sp4-el): 14.3 ml EF(MOD-sp4): 76.5 % EF(sp4-el): 77.7 % SV(MOD-sp4): 48.1 ml SV(sp4-el): 49.6 ml LA A4 area: 26.2 cm2 LA dimension(2D): 5.4 cm RA A4 area: 22.3 cm2 Doppler Measurements & Calculations MV E max angel: 158.3 cm/sec MV V2 max: 197.6 cm/sec MV P1/2t max angel: 189.8 cm/sec MV max P.6 mmHg MV P1/2t: 83.5 msec MV V2 mean: 87.9 cm/sec MV mean P.5 mmHg MV dec slope: 665.7 cm/sec2 MV V2 VTI: 47.0 cm MVA(P1/2t): 2.6 cm2 MVA(VTI): 2.0 cm2 Ao V2 max: 323.6 cm/sec LV V1 max: 142.0 cm/sec SV(LVOT): 92.7 ml Ao max P.9 mmHg LV V1 max P.1 mmHg Ao V2 mean: 225.6 cm/sec LV V1 mean P.3 mmHg Ao mean P.7 mmHg LV V1 mean: 98.7 cm/sec Ao V2 VTI: 62.8 cm LV V1 VTI: 29.6 cm RONALDO(I,D): 1.5 cm2 RONALDO(V,D): 1.4 cm2 PA V2 max: 102.9 cm/sec TR max angel: 298.7 cm/sec TR max P.8 mmHg ECHO/Echo Complete Interpretation Summary The estimated ejection fraction is 55-60 %. Echogenic mass attached to pacer leads,possible vegetation Vs thrombus Stable Bioprothetic Aoric valve apparratus Recommendation: consider to evaluate with MARIA LUISA to assess for infective Endocarditis Ordering Physician: Jamilah Liriano Performed By: Coni Eaton RDCS
--- NOTE | 2021-04-08 11:13 | PCS.PANDOC ---
PANDEMIC DOCUMENTATION INITIATED: Date: 04/08/2021 Time: 599
--- NOTE | 2021-04-08 13:04 | CASEMGMT ---
Addendum entered by Hermelinda Chavis 04/08/21 13:45: RN CASS called Tory ODELL at [facility] and left message. Addendum entered by Hermelinda Chavis 04/08/21 13:42: Recieved call back from damien Waterman. Patient was being setup with PT/OT and nursing but did not recall company. Patient's rn home health is [facility] [phone] through [place]. RN CM called [facility] to inquire about HHC but [facility] did not recall company. RN CM attempted to call damien Perez but no answer, voice message left. Original Note: RN CM Face to Face with patient for initial transition planning/care coordination assessment. RN CM introduced self and role at [facility]. Patient lying in bed, alert and oriented, having some trouble recalling equipment at home. Patient willing to participate in assessment. LIT ODELL attempted to call damien Waterman to clarify information, no answer and voice message left with return contact information. Care providers, pharmacy, and demographics verified. Patient wishes to discharge home, denies need for home health at this time. Patient states she has no further needs or concerns at this time. CM to follow for discharge planning needs that may arise. PCP: Visiting Physician Specialists: none Preferred Pharmacy: [facility] Insurance: [employer] Prescription Benefit: yes Living Will/HPOA: none LNOK: sons Living Arrangements: Patient lives alone in a mobile home with 3 steps and railing to enter the home. Patient states she is independent at home. Transportation: [facility] DME/HHC: Patient states she has shower chair, raised toilet, grab bars, walker, wheelchair, and oxygen with portability at home. Patient cannot recall oxygen company and states she doesn't really wear it. Patient states she has aide services 5x/week 3hrs/day. Disposition Plan: Patient wishes to return home with aides and follow-up plans in place. Will monitor for HHC pending progress with therapy. Hermelinda LU, RN, CM
--- NOTE | 2021-04-08 13:30 | PHA.PHARE_ITS ---
Consult Pharmacy has been consulted to manage selected antiobiotic: Vancomycin Type of Consult: New start Labs: Sodium 142 mmol/L (136-145) 04/08/21 04:24 Potassium 3.7 mmol/L (3.5-5.1) 04/08/21 04:24 Chloride 104 mmol/L (98-107) 04/08/21 04:24 Carbon Dioxide 31.0 mmol/L (21.0-32.0) 04/08/21 04:24 Anion Gap 7 (5-15) 04/08/21 04:24 BUN 31 mg/dL (7-18) H 04/08/21 04:24 Creatinine 0.88 mg/dL (0.55-1.02) 04/08/21 04:24 Est GFR (MDRD) Af Amer 81 mL/min (>60) 04/08/21 04:24 Est GFR (MDRD) Non-Af 67 mL/min (>60) 04/08/21 04:24 BUN/Creatinine Ratio 35.3 RATIO (10-20) H 04/08/21 04:24 Glucose 143 mg/dL (74-106) H 04/08/21 04:24 Microbiology: Microbiology 04/07/21 16:13 Blood Culture (Wb) - Left Wrist Blood Culture - Preliminary 04/07/21 16:10 Blood Culture (Wb) - Anticubital Right Bacteria Detection (PCR) - Final Enterococcus faecalis 04/07/21 16:10 Blood Culture (Wb) - Anticubital Right Blood Culture - Pre liminary Enterococcus faecalis 04/07/21 16:50 Urine, Catheterized Urine Culture - Preliminary Presumptive E. coli 04/07/21 16:10 Nasal Secretion SARS-CoV-2 Antigen (Rapid) - Final Weight used for dosin.3 kg Estimated Creatinine Clearance: 57ML/MIN Goal Trough: 15-20 mcg/mL Pharmacy Plan for Drug Dosing: Give initial dose of 1750mg IV x1, then continue with 750mg IV q12h per [facility] dosing protocol. Will check a vanc trough before the 4th total dose tomorrow night. Pharmacy Service will continue to monitor and adjust dosing as required. Follow-Up Labs: Trough Vancomycin Labs to be done on [date and time ordered]: 04/09/21 21:30
--- NOTE | 2021-04-08 16:23 | NURSING ---
report called to Arsalan BOWEN RN at [phone]
[2021-04-08] MEDS: Rivaroxaban 20 MG Tablet PO (16:56)
[2021-04-08] MEDS: MELATONIN 3 MG TABLET PO (21:27)
[2021-04-08] MEDS: Atorvastatin Calcium 10 MG Tablet PO (21:27)
[2021-04-08] MEDS: Acetaminophen 325 MG Tablet 650 MG PO (23:43)
[2021-04-09] VITALS (10 sets, daily range): BP systolic 108–136; BP diastolic 56–73; PULSE 66–73; RESP 18–20; TEMP 36.3–36.7; O2SAT 92–97
[2021-04-09] MEDS: 0.9% Normal Saline 1,000 ML 75 ML IV (06:23)
[2021-04-09 06:55] LABS: Absolute Lymphocyte Count 1.18 X10^3/uL (0.83-4.51); Absolute Neutrophil Count 14.4 X10^3/uL (2.0-7.7); Basophil# 0.03 X10^3/uL; Basophil% 0.2 % (0-1); Hematocrit 44.7 % (37-47); Hemoglobin 13.4 g/dL (12.0-15.0); Lymphocyte # 1.18 X10^3/ul (0.83-4.51); Mean Corpuscular Hgb 30.3 pg (27.0-32.0); Mean Corpuscular Volume 101.1 fL (81-99); Mean Platelet Vol. 10.6 fl (6.2-12.0); Monocyte# 1.03 X10^3/uL; Monocyte% 6.2 % (0-10); NRBC Flagged by Analyzer 0 % (0-5); Platelet Count 148 K/mm3 (150-450); RBC Distribution Width CV 13.3 % (11.6-14.6); Red Blood Count 4.42 M/mm3 (4.2-5.4); White Blood Count 16.7 K/mm3 (4.4-11.0)
[2021-04-09 07:24] LABS: Anion Gap 4 (5-15); BUN 31 mg/dL (7-18); BUN/Creat Ratio 39.6 RATIO (10-20); Calcium,Total 8.8 mg/dL (8.5-10.1); Chloride 110 mmol/L (98-107); Creatinine, Serum 0.78 mg/dL (0.55-1.02); EST Glomerular Filtration Rate 76 mL/min (>60); Est Glom Filt Rate - Afr Amer 93 mL/min (>60); Estimated Creatinine Clearance 51.58 ml/min; Glucose 94 mg/dL (74-106); Potassium 3.8 mmol/L (3.5-5.1); Sodium Level 143 mmol/L (136-145)
--- NOTE | 2021-04-09 08:05 | PCM.PN.INT ---
Assessment & Plan Assessment/Plan (1) Septic shock: (2) UTI (urinary tract infection): PLAN: RECOMMENDATIONS: 1. Continue antibiotics 2. Likely okay to reinitiate baseline sotalol 3. Hemodynamically stable on room air. Will sign off from a critical care perspective 4. No post hospital outpatient follow-up would be indicated IMPRESSIONS: 1. Septic shock secondary to UTI Patient with evidence of endorgan damage secondary to acute kidney injury. Patient does have positive blood cultures and a UA suggestive of urinary tract infection at this time. Await sensitivities. Patient currently hemodynamically stable on room air. Will sign off from a critical care perspective 2. Acute kidney injury Resolved. Baseline creatinine appears to be approximately 0.9. Patient presented with a creatinine of 1.35. Patient has received fluid resuscitation. Fluid status will be difficult given patient's history of diastolic CHF. There is no indication for renal replacement therapy at this time. We will continue to follow closely. High clinical suspicion for prerenal etiology. 3. COPD/A. fib/chronic diastolic CHF/advanced age/debility Complicates care, management, recovery and prognosis. Patient does have some lower extremity edema. Likely okay to reinitiate baseline diuretics from my perspective. Patient does not appear to be in acute exacerbation of COPD. No specific pulmonary follow-up for this hospitalization would be required. Okay to follow-up per routine Subjective Subjective Patient did well overnight. No acute issues were reported. Patient feels that she is back to her baseline. Patient is not reporting any dysuria. No fluid boluses had to be required overnight secondary to hypotension. Patient transferred out of the intensive care unit yesterday. Objective Data Objective Data Vital Signs: Vital Signs Temp Pulse Resp BP Pulse Ox 36.4 C L 69 20 H 108/56 L 92 04/09/21 03:40 04/09/21 07:00 04/09/21 03:40 04/09/21 03:40 04/09/21 07:54 Oxygen Flow Rate (L/min) 2 Oxygen Delivery Method Room Air Weight: 72.3 kg Body Mass Index (BMI) 23.1 Intake & Output: Intake and Output for Last 24 Hours 04/07/21 04/08/21 04/09/21 23:59 23:59 23:59 Intake Total 2049 2624.35 / 2624.35 1200 / 1200 Output Total Balance 2049 2599.35 / 2599.35 1200 / 1200 Lab / Micro Data Result Diagrams: 04/09/21 06:34 04/09/21 06:34 Labs: Laboratory Results - last 24 hr 04/07/21 10:01: Urine Opiates Screen POSITIVE H, Urine Methadone Screen NEGATIVE, Ur Barbiturates Screen NEGATIVE, Ur Phencyclidine Scrn NEGATIVE, Ur Amphetamines Screen NEGATIVE, U Methamphetamin-MDMA NEGATIVE, U Benzodiazepines Scrn NEGATIVE, Urine Cocaine Screen NEGATIVE, U Cannabinoids Screen NEGATIVE, Ur Drug Screen Comment 04/09/21 06:34: WBC 16.7 H, RBC 4.42, Hgb 13.4, Hct 44.7, MCV 101.1 H D, MCH 30.3, MCHC 30.0 L, RDW Std Deviation 50.0 H, RDW Coeff of Bert 13.3, Plt Count 148 L, MPV 10.6, Immature Gran % (Auto) 0.600, Neut % (Auto) 86.0 H, Lymph % (Auto) 7.0 L, [place] % (Auto) 6.2, Eos % (Auto) 0.0, Baso % (Auto) 0.2, Absolute Neuts (auto) 14.4 H, Absolute Lymphs (auto) 1.18, Nucleated RBC % 0 04/09/21 06:34: Sodium 143, Potassium 3.8, Chloride 110 H, Carbon Dioxide 29.0, Anion Gap 4 L, BUN 31 H, Creatinine 0.78, Estim Creat Clear Calc 51.58, Est GFR (MDRD) Af Amer 93, Est GFR (MDRD) Non-Af 76, BUN/Creatinine Ratio 39.6 H, Glucose 94, Calcium 8.8 Micro: Microbiology 04/07/21 16:50 Urine, Catheterized Urine Culture - Final Presumptive E. coli 04/07/21 16:13 Blood Culture (Wb) - Left Wrist Blood Culture - Preliminary 04/07/21 16:10 Blood Culture (Wb) - Anticubital Right Bacteria Detection (PCR) - Final Enterococcus faecalis 04/07/21 16:10 Blood Culture (Wb) - Anticubital Right Blood Culture - Preliminary Enterococcus faecalis 04/07/21 16:10 Nasal Secretion SARS-CoV-2 Antigen (Rapid) - Final Radiography Diagnostic Testing: Radiology Impression Echocardiogram 04/08/21 10:45 Interpretation Summary The estimated ejection fraction is 55-60 %. Echogenic mass attached to pacer leads,possible vegetation Vs thrombus Stable Bioprothetic Aoric valve apparratus Recommendation: consider to evaluate with MARIA LUISA to assess for infective Endocarditis Ordering Physician: Jamilah Liriano Performed By: Coni Eaton RDCS Physical Exam Const General Appearance: lethargic HEENT normocephalic and head/scalp atraumatic Eyes conjunctivae normal and no scleral icterus Neck supple General: trachea midline Resp normal respiratory effort Effort and Inspection: able to speak in complete sentences Auscultation: diminished lung sounds; Negative for rales, rhonchi or wheezes Cardio regular rate, regular rhythm, S1 normal heart sound, S2 normal heart sound and peripheral pulses 2+ throughout GI normal to inspection, nondistended, normoactive bowel sounds, soft to palpation and non-tender Extremity normal capillary refill General Extremity: edema bilateral (2+) lower extremity and no tenderness to palpation of joints or extremities Skin General Skin Exam: no breakdown and turgor normal Lesions: no lesions Rashes: no rashes Neuro no focal motor deficits and no sensory deficits noted Motor Exam: general weakness Charges/Coding Visit Charges Inpatient E&M: 55357 Subs Hosp L2
[2021-04-09] MEDS: Ceftriaxone 1 GM/50 ML BAG IV (09:33)
[2021-04-09] MEDS: busPIRone 5 MG Tablet PO ×2 (09:34→19:46)
[2021-04-09] MEDS: Multivitamins,Therapeutic Tablet 1 TABLET PO (09:34)
[2021-04-09] MEDS: Ferrous Sulfate 325 MG Tablet PO (09:34)
[2021-04-09] MEDS: Calcium Carbonate 500 MG Tablet PO (09:34)
[2021-04-09] MEDS: Paroxetine 20 MG Tablet PO (09:35)
[2021-04-09] MEDS: Menthol/Lanolin/Calamine/Znox 113 GM Tube 1 APPLIC TOPICAL (09:35)
--- NOTE | 2021-04-09 10:09 | PN.HOSP_ITS ---
Subjective Subjective Patient seen and examined. She has no complaints this morning and feels well. Review of systems is otherwise negative. She has remained hemodynamically stable. Objective Data Objective Data Vital Signs: Vital Signs Temp Pulse Resp BP Pulse Ox 97.4 F L 70 18 126/66 H 92 04/09/21 09:32 04/09/21 09:32 04/09/21 09:32 04/09/21 09:32 04/09/21 09:32 Oxygen Flow Rate (L/min) 2 Oxygen Delivery Method Nasal Cannula Weight: 159 lb 6.307 oz Body Mass Index (BMI) 23.1 Intake & Output: Intake and Output for Last 24 Hours 04/07/21 04/08/21 04/09/21 23:59 23:59 23:59 Intake Total 2049 2624.35 / 2624.35 1433.75 / 1433.75 Output Total Balance 2049 2599.35 / 2599.35 1433.75 / 1433.75 Lab / Micro Data Result Diagrams: 04/09/21 06:34 04/09/21 06:34 Labs: Laboratory Results - last 24 hr 04/07/21 10:01: Urine Opiates Screen POSITIVE H, Urine Methadone Screen NEG ATIVE, Ur Barbiturates Screen NEGATIVE, Ur Phencyclidine Scrn NEGATIVE, Ur Amphetamines Screen NEGATIVE, U Methamphetamin-MDMA NEGATIVE, U Benzodiazepines Scrn NEGATIVE, Urine Cocaine Screen NEGATIVE, U Cannabinoids Screen NEGATIVE 04/09/21 06:34: WBC 16.7 H, RBC 4.42, Hgb 13.4, Hct 44.7, MCV 101.1 H D, MCH 30.3, MCHC 30.0 L, RDW Std Deviation 50.0 H, RDW Coeff of Bert 13.3, Plt Count 148 L, MPV 10.6, Immature Gran % (Auto) 0.600, Neut % (Auto) 86.0 H, Lymph % (Auto) 7.0 L, [place] % (Auto) 6.2, Eos % (Auto) 0.0, Baso % (Auto) 0.2, Absolute Neuts (auto) 14.4 H, Absolute Lymphs (auto) 1.18, Nucleated RBC % 0 04/09/21 06:34: Sodium 143, Potassium 3.8, Chloride 110 H, Carbon Dioxide 29.0, Anion Gap 4 L, BUN 31 H, Creatinine 0.78, Estim Creat Clear Calc 51.58, Est GFR (MDRD) Af Amer 93, Est GFR (MDRD) Non-Af 76, BUN/Creatinine Ratio 39.6 H, Glucose 94, Calcium 8.8 Micro: Microbiology 04/07/21 16:13 Blood Culture (Wb) - Left Wrist Blood Culture - Final GPC Poss Enterococcus sp 04/07/21 16:50 Urine, Catheterized Urine Culture - Final Presumptive E. coli 04/07/21 16:10 Blood Culture (Wb) - Anticubital Right Bacteria Detection (PCR) - Final Enterococcus faecalis 04/07/21 16:10 Blood Culture (Wb) - Anticubital Right Blood Culture - Preliminary Enterococcus faecalis 04/07/21 16:10 Nasal Secretion SARS-CoV-2 Antigen (Rapid) - Final Radiography Diagnostic Testing: Radiology Impression Echocardiogram 04/08/21 10:45 Interpretation Summary The estimated ejection fraction is 55-60 %. Echogenic mass attached to pacer leads,possible vegetation Vs thrombus Stable Bioprothetic Aoric valve apparratus Recommendation: consider to evaluate with MARIA LUISA to assess for infective Endocarditis Ordering Physician: Jamilah Liriano Performed By: Coni Eaton RDCS Physical Exam Const alert, oriented x3 and no apparent distress Exam Limitations: no limitations HEENT head/scalp atraumatic and moist oral mucous membranes Head and Scalp: normocephalic Eyes PERRL, EOMs intact bilaterally and conjunctivae normal Neck no lymphadenopathy Resp normal respiratory effort, no retractions and no use of accessory muscles Cardio regular rate, regular rhythm, S1 normal heart sound, S2 normal heart sound and no murmurs GI normal to inspection, nondistended, normoactive bowel sounds, soft to palpation, non-tender and non-distended Extremity normal to inspection, full ROM and no clubbing, cyanosis or edema Peripheral Pulses: Yes pulses 2+ throughout Skin no rashes or lesions noted Neuro oriented x3, CN's II-XII intact bilaterally and moves all extremities Sensorium / Orientation: awake, alert and oriented to time Psych affect normal Assessment & Plan Assessment/Plan (1) UTI (urinary tract infection): (2) Septic shock: PLAN: #Septic shock due to UTI * shock has resolved. She is now off levophed. * on IV ceftriaxone and vancomycin * critical care on board. * blood and urine cultures pending * #ENEDINA: resolved. Cr is down to 0.78 today. #Elevated troponin * troponin trended downwards from 31 to 304 and 288. * has no chest pain; may be due to demand ischemia from septic shock and decreased clearance from ENEDINA * 2D echo: EF of 55 to 60% with echogenic mass attached pacer leads possible vegetation versus thrombus in the stable bioprosthetic aortic valve apparatus. * Will consult cardiology and ID. Patient will need MARIA LUISA. * #?Endocarditis * 2D echo findings as above and showed an echogenic mass attached to the pacer leads with possible vegetation versus thrombus in the stable bioprosthetic aortic valve apparatus * Consult ID and cardiology * Will order MARIA LUISA * #Debility due to septic shock * PT/OT on board. Fall precautions. * #Hyperlipidemia: on statin #Atrial fibrillation: On Xarelto. Beta-shahla on hold on account of Septic shock #History of COPD: Not in exacerbation. On breathing treatments bronchodilators. #History of heart failure: Not in exacerbation. Lasix on hold due to septic shock #Depression and anxiety: * On mirtazapine and paroxetine as well as trazodone which were held on admission due to altered mental status at that time. DVT prophylaxis: lovenox renally dosed Charges/Coding Visit Charges Inpatient E&M: 36561 Subs Hosp L3
[2021-04-09] MEDS: Acetaminophen 325 MG Tablet 650 MG PO ×2 (16:24→23:04)
[2021-04-09] MEDS: Rivaroxaban 20 MG Tablet PO (16:24)
[2021-04-09] MEDS: MELATONIN 3 MG TABLET PO (19:46)
[2021-04-09] MEDS: Atorvastatin Calcium 10 MG Tablet PO (19:47)
[2021-04-09 21:46] LABS: Vancomycin, Trough Level 19.9 ug/mL (5.0-15.0)
--- NOTE | 2021-04-09 22:03 | PCM.RX.CS ---
Consult Pharmacy has been consulted to manage selected antiobiotic: Vancomycin Type of Consult: Follow-up Suspected Infection: Other Prior Doses of Antibiotics Received/Current Regimen: Medications Vancomycin HCl 750 mg/ Sodium (Chloride) 265 mls @ 250 mls/hr IV Q12H HIRAM Last Admin: 04/09/21 21:50 Dose: 250 mls/hr Labs: Sodium 143 mmol/L (136-145) 04/09/21 06:34 Potassium 3.8 mmol/L (3.5-5.1) 04/09/21 06:34 Chloride 110 mmol/L (98-107) H 04/09/21 06:34 Carbon Dioxide 29.0 mmol/L (21.0-32.0) 04/09/21 06:34 Anion Gap 4 (5-15) L 04/09/21 06:34 BUN 31 mg/dL (7-18) H 04/09/21 06:34 Creatinine 0.78 mg/dL (0.55-1.02) 04/09/21 06:34 Est GFR (MDRD) Af Amer 93 mL/min (>60) 04/09/21 06:34 Est GFR (MDRD) Non-Af 76 mL/min (>60) 04/09/21 06:34 BUN/Creatinine Ratio 39.6 RATIO (10-20) H 04/09/21 06:34 Glucose 94 mg/dL (74-106) 04/09/21 06:34 Vancomycin Trough 19.9 ug/mL (5.0-15.0) H 04/09/21 21:15 Microbiology: Microbiology 04/07/21 16:13 Blood Culture (Wb) - Left Wrist Blood Culture - Final GPC Poss Enterococcus sp 04/07/21 16:50 Urine, Catheterized Urine Culture - Final Presumptive E. coli 04/07/21 16:10 Blood Culture (Wb) - Anticubital Right Bacteria Detection (PCR) - Final Enterococcus faecalis 04/07/21 16:10 Blood Culture (Wb) - Anticubital Right Blood Culture - Preliminary Enterococcus faecalis 04/07/21 16:10 Nasal Secretion SARS-CoV-2 Antigen (Rapid) - Final Weight used for dosin.3 kg Estimated Creatinine Clearance: 52 Goal Trough: 15-20 mcg/mL Pharmacy Plan for Drug Dosing: Vancomycin trough level was 19.9, within the 15-20 target range. Current dose of 750mg q12h will be continued, but since on the high side of the range, another trough will be drawn in four doses. Pharmacy Service will continue to monitor and adjust dosing as required. Follow-Up Labs: Trough Vancomycin Labs to be done on [date and time ordered]: 04/11/21 @1882
[2021-04-10] VITALS (12 sets, daily range): BP systolic 117–139; BP diastolic 67–79; PULSE 69–77; RESP 16–24; TEMP 36.6–37.1; O2SAT 94–98
[2021-04-10] MEDS: Ipratropium/Albuterol Sulfate 3 ML AMPUL.NEB INHALATION ×2 (03:17→23:45)
[2021-04-10] MEDS: Potassium Chloride Oral Tablet 20 MEQ PO (06:30)
[2021-04-10 07:09] LABS: Absolute Lymphocyte Count 0.75 X10^3/uL (0.83-4.51); Absolute Neutrophil Count 9.4 X10^3/uL (2.0-7.7); Basophil# 0.03 X10^3/uL; Basophil% 0.3 % (0-1); Eosinophil# 0.01 X10^3/uL; Eosinophils% 0.1 % (0-5); Hematocrit 40.5 % (37-47); Hemoglobin 12.5 g/dL (12.0-15.0); Lymphocyte # 0.75 X10^3/ul (0.83-4.51); Lymphocyte % 6.8 % (19-41); Mean Corp Hgb Conc 30.9 g/dL (32-36); Mean Corpuscular Hgb 30.1 pg (27.0-32.0); Mean Corpuscular Volume 97.6 fL (81-99); Mean Platelet Vol. 9.8 fl (6.2-12.0); Monocyte# 0.86 X10^3/uL; Monocyte% 7.7 % (0-10); NRBC Flagged by Analyzer 0 % (0-5); Neutrophil # 9.39 X10^3/uL (2.7-7.7); Neutrophil % 84.5 % (47-70); Platelet Count 145 K/mm3 (150-450); RBC Distribution Width CV 13.4 % (11.6-14.6); RBC Distribution Width SD 47.9 fl (35.1-43.9); Red Blood Count 4.15 M/mm3 (4.2-5.4); White Blood Count 11.1 K/mm3 (4.4-11.0)
[2021-04-10 07:31] LABS: Anion Gap 5 (5-15); BUN 18 mg/dL (7-18); BUN/Creat Ratio 28.7 RATIO (10-20); Calcium,Total 8.7 mg/dL (8.5-10.1); Chloride 110 mmol/L (98-107); Creatinine, Serum 0.63 mg/dL (0.55-1.02); EST Glomerular Filtration Rate 99 mL/min (>60); Est Glom Filt Rate - Afr Amer 119 mL/min (>60); Estimated Creatinine Clearance 51.58 ml/min; Glucose 83 mg/dL (74-106); Magnesium 2.3 mg/dL (1.6-2.6); Potassium 3.7 mmol/L (3.5-5.1); Sodium Level 145 mmol/L (136-145)
[2021-04-10] MEDS: busPIRone 5 MG Tablet PO ×2 (09:00→22:07)
[2021-04-10] MEDS: Multivitamins,Therapeutic Tablet 1 TABLET PO (09:00)
[2021-04-10] MEDS: Ferrous Sulfate 325 MG Tablet PO (09:00)
[2021-04-10] MEDS: Calcium Carbonate 500 MG Tablet PO (09:00)
[2021-04-10] MEDS: Paroxetine 20 MG Tablet PO (09:00)
[2021-04-10] MEDS: Menthol/Lanolin/Calamine/Znox 113 GM Tube 1 APPLIC TOPICAL ×2 (09:00→22:08)
--- NOTE | 2021-04-10 09:23 | PN.HOSP_ITS ---
Subjective Subjective Patient seen in the neck. She had no active complaints today and had an uneventful night. Review of systems otherwise negative. She has remained hemodynamically stable. Repeat blood cultures are positive for gram-positive diplococci. She is on vancomycin and Zosyn. Objective Data Objective Data Vital Signs: Vital Signs Temp Pulse Resp BP Pulse Ox 98.0 F 70 18 133/70 H 97 04/10/21 09:00 04/10/21 09:00 04/10/21 09:00 04/10/21 09:00 04/10/21 09:00 Oxygen Flow Rate (L/min) 3 Oxygen Delivery Method Nasal Cannula Weight: 160 lb 0.889 oz Body Mass Index (BMI) 23.1 Intake & Output: Intake and Output for Last 24 Hours 04/08/21 04/09/21 04/10/21 23:59 23:59 23:59 Intake Total 2624.35 / 2624.35 2947.92 / 2947.92 50 / 50 Output Total / Balance 2599.35 / 2599.35 2947.92 / 2947.92 50 / 50 Lab / Micro Data Result Diagrams: 04/10/21 06:42 04/10/21 06:42 Labs: Laboratory Results - last 24 hr 04/09/21 14:06: COVID-19 (MAUREEN) Not Detected 04/09/21 21:15: Vancomycin Trough 19.9 H 04/10/21 06:42: WBC 11.1 H, RBC 4.15 L, Hgb 12.5, Hct 40.5, MCV 97.6, MCH 30.1, MCHC 30.9 L, RDW Std Deviation 47.9 H, RDW Coeff of Betr 13.4, Plt Count 145 L, MPV 9.8, Immature Gran % (Auto) 0.600, Neut % (Auto) 84.5 H, Lymph % (Auto) 6.8 L, [place] % (Auto) 7.7, Eos % (Auto) 0.1, Baso % (Auto) 0.3, Absolute Neuts (auto) 9.4 H, Absolute Lymphs (auto) 0.75 L, Nucleated RBC % 0 04/10/21 06:42: Sodium 145, Potassium 3.7, Chloride 110 H, Carbon Dioxide 30.0, Anion Gap 5, BUN 18, Creatinine 0.63, Estim Creat Clear Calc 51.58, Est GFR (MDRD) Af Amer 119, Est GFR (MDRD) Non-Af 99, BUN/Creatinine Ratio 28.7 H, Glucose 83, Calcium 8.7 04/10/21 06:42: Magnesium 2.3 Micro: Microbiology 04/07/21 16:10 Blood Culture (Wb) - Anticubital Right Bacteria Detection (PCR) - Final Enterococcus faecalis 04/07/21 16:10 Blood Culture (Wb) - Anticubital Right Blood Culture - Final Enterococcus faecalis 04/09/21 13:35 Blood Culture (Wb) - Right Hand Blood Culture - Preliminary 04/07/21 16:13 Blood Culture (Wb) - Left Wrist Blood Culture - Final GPC Poss Enterococcus sp 04/07/21 16:50 Urine, Catheterized Urine Culture - Final Presumptive E. coli 04/07/21 16:10 Nasal Secretion SARS-CoV-2 Antigen (Rapid) - Final Physical Exam Const alert, oriented x3 and no apparent distress Exam Limitations: no limitations HEENT head/scalp atraumatic and moist oral mucous membranes Head and Scalp: normocephalic Eyes PERRL, EOMs intact bilaterally and conjunctivae normal Neck no lymphadenopathy Resp normal respiratory effort, no retractions and no use of accessory muscles Cardio regular rate, regular rhythm, S1 normal heart sound and S2 normal heart sound Cardio Narrative: grade 2-3 systolic murmur at the aortic valve region. GI normal to inspection, nondistended, normoactive bowel sounds, soft to palpation, non-tender and non-distended Extremity normal to inspection, full ROM and no clubbing, cyanosis or edema Peripheral Pulses: Yes pulses 2+ throughout Skin no rashes or lesions noted Neuro oriented x3, CN's II-XII intact bilaterally and moves all extremities Sensorium / Orientation: awake, alert and oriented to time Psych affect normal Assessment & Plan Assessment/Plan (1) UTI (urinary tract infection): (2) Septic shock: PLAN: #Septic shock due to UTI * shock has resolved. She is now off levophed. * now on IV vancomycin and zosyn * blood cultures positive for Enterococcus fecalis; repeat blood cultures again positive for gram positive cocci, speciation pending * 2D echo showed an echogenic mass attached to the pacer leads with possible vegetation vs thrombus on bioprosthetic aortic valve * ID and cardiology consulted * for MARIA LUISA tomorrow * * #ENEDINA: resolved. #Elevated troponin * troponin trended downwards from 31 to 304 and 288. * has no chest pain; may be due to demand ischemia from septic shock and decreased clearance from ENEDINA * 2D echo: EF of 55 to 60% with echogenic mass attached pacer leads possible vegetation versus thrombus in the stable bioprosthetic aortic valve apparatus. * no need for any further workup for elevated troponin as it was likely due to septic shock and decreased clearance from ENEDINA as above. * #?Endocarditis * 2D echo findings as above and showed an echogenic mass attached to the pacer leads with possible vegetation versus thrombus in the stable bioprosthetic aortic valve apparatus * Consult ID and cardiology * MARIA LUISA ordered; covid test ordered to screen patient prior to MARIA LUISA. * #Debility due to septic shock * PT/OT on board. Fall precautions. * #Hyperlipidemia: on statin #Atrial fibrillation: On Xarelto. Beta-shahla on hold on account of Septic shock #History of COPD: Not in exacerbation. On breathing treatments bronchodilators. #History of heart failure: Not in exacerbation. Lasix on hold due to septic shock #Depression and anxiety: * On mirtazapine and paroxetine as well as trazodone which were held on admission due to altered mental status at that time. DVT prophylaxis:on xarelto Charges/Coding Visit Charges Inpatient E&M: 33317 Subs Hosp L2
--- NOTE | 2021-04-10 13:34 | CON.PCM.CA_ITS ---
Assessment & Plan Assessment/Plan (1) UTI (urinary tract infection): (2) Acute metabolic encephalopathy: (3) Sepsis: (4) Septic shock: (5) Status post placement of cardiac pacemaker: PLAN: 75-year-old patient admitted through the ER with generalized weakness and confusion. With a clinical diagnosis of sepsis and UTI. Septic shock with hypotension, treated in the intensive care unit with IV antibiotic She had a cardiac history with a history of bioprosthetic aortic valve and a pacemaker. 2D echocardiogram showed thickness of the pacemaker leads with possible vegetation versus thrombus Also noted mild elevation of high sensitive troponin I which is likely secondary to sepsis patient has no active symptoms of chest pain and EKG findings revealed paced electronic ventricular is Cardiac care plan and recommendations; 1. Agree with the plan of evaluation for infective endocarditis based on the blood culture and the echocardiographic finding. 2. We will check sed rate. Patient currently on antibiotic treatment and ID consultation 3. Further cardiac evaluation by MARIA LUISA to better assess the aortic valve bioprosthesis and the pacemaker leads 4. Patient has a chronic atrial fibrillation and currently on anticoagulation. Prior echocardiogram LV function preserved and patient has chronic diastolic heart failure, with hypertension 5. Reference Investigator Dr. Rivas will resume care on Sunday HPI Consult Data Date of Consult: 04/10/21 HPI Narrative Reason for Consultation: Evaluate for infective endocarditis HPI Narrative: PRISCA BRANHAM, is a 75 F who presents [facility] Medical History Anxiety Anxiety Anxiety and depression Atrial fibrillation Chronic atrial fibrillation Chronic pain syndrome Congestive heart failure (CHF) COPD (chronic obstructive pulmonary disease) COPD (chronic obstructive pulmonary disease) COPD exacerbation Depression Depression Diastolic CHF History of pacemaker HLD (hyperlipidemia) HTN (hypertension) Hypertension Nicotine abuse Pacemaker Pneumonia Smoker Wheezing Home Medications atorvastatin 10 mg PO QHS 04/27/16 [History Last Taken 03/22/21 22:00] rivaroxaban 20 mg PO QHS 04/27/16 [History Last Taken 03/22/21 22:00] calcium carbonate 600 mg PO DAILY 11/02/17 [History Last Taken 03/22/21 09:00] ipratropium-albuterol 3 ml INHALATION Q4HWA.RT PRN ampul.neb 11/07/17 [Rx Last Taken Unknown] allopurinol 100 mg PO QODAY 03/22/21 [History Last Taken 03/21/21 09:00] buspirone 5 mg PO BID 03/22/21 [History Last Taken 03/22/21 22:00] ferrous sulfate 325 mg PO DAILY@0800 03/22/21 [History Last Taken 03/22/21 09:00] paroxetine HCl 20 mg PO DAILY 03/22/21 [History Last Taken 03/22/21 09:00] sotalol 120 mg PO BID 03/22/21 [History Last Taken 03/22/21 09:00] amlodipine 10 mg PO DAILY 04/07/21 [History Last Taken Unknown] ergocalciferol (vitamin D2) [Vitamin D2] 50,000 unit PO QWEEK 04/07/21 [History Last Taken Unknown] furosemide 40 mg PO DAILY 04/07/21 [History Last Taken Unknown] gabapentin 300 mg PO QHS 04/07/21 [History Last Taken Unknown] mirtazapine 15 mg PO QHS 04/07/21 [History Last Taken Unknown] multivitamin [Daily Multi-Vitamin] 1 tab PO DAILY 04/07/21 [History Last Taken Unknown] tizanidine 4 mg PO Q8H PRN 04/07/21 [History Last Taken Unknown] trazodone 150 mg PO QHS 04/07/21 [History Last Taken Unknown] Allergy/AdvReac Type Severity Reaction Status Date / Time No Known Allergies Allergy Verified 11/02/17 14:34 Family History Other CVA (cerebral vascular accident) Surgical History History of aortic valve replacement Social History Smoking Status: Current every day smoker tobacco type: cigarettes Physical Exam Narrative No symptoms reported, mildly confused Cardiac examination S1-S2 is irregular no murmur no systolic or diastolic murmur, normal auscultation of aortic bioprosthetic sounds Chest examination clear to auscultation bilateral examination lower extremity no clubbing no cyanosis no lower extremity edema Risk Stratification Risk Stratification Applicable: No Objective Data Vital Signs: Vital Signs Temp Pulse Resp BP Pulse Ox 98.0 F 70 18 133/70 H 97 04/10/21 09:00 04/10/21 09:00 04/10/21 09:00 04/10/21 09:00 04/10/21 09:00 Oxygen Flow Rate (L/min) 3 Oxygen Delivery Method Nasal Cannula Weight: 160 lb 0.889 oz Body Mass Index (BMI) 23.1 Intake & Output: Intake and Output for Last 24 Hours 04/08/21 04/09/21 04/10/21 23:59 23:59 23:59 Intake Total 2624.35 / 2624.35 2947.92 / 2947.92 100 / 100 Output Total Balance 2599.35 / 2599.35 2947.92 / 2947.92 100 / 100 Lab / Micro Data Result Diagrams: 04/10/21 06:42 04/10/21 06:42 Labs: Laboratory Results - last 24 hr 04/09/21 14:06: COVID-19 (MAUREEN) Not Detected 04/09/21 21:15: Vancomycin Trough 19.9 H 04/10/21 06:42: WBC 11.1 H, RBC 4.15 L, Hgb 12.5, Hct 40.5, MCV 97.6, MCH 30.1, MCHC 30.9 L, RDW Std Deviation 47.9 H, RDW Coeff of Bert 13.4, Plt Count 145 L, MPV 9.8, Immature Gran % (Auto) 0.600, Neut % (Auto) 84.5 H, Lymph % (Auto) 6.8 L, [place] % (Auto) 7.7, Eos % (Auto) 0.1, Baso % (Auto) 0.3, Absolute Neuts (auto) 9.4 H, Absolute Lymphs (auto) 0.75 L, Nucleated RBC % 0 04/10/21 06:42: Sodium 145, Potassium 3.7, Chloride 110 H, Carbon Dioxide 30.0, Anion Gap 5, BUN 18, Creatinine 0.63, Estim Creat Clear Calc 51.58, Est GFR (MDRD) Af Amer 119, Est GFR (MDRD) Non-Af 99, BUN/Creatinine Ratio 28.7 H, Glucose 83, Calcium 8.7 04/10/21 06:42: Magnesium 2.3 Micro: Microbiology 04/09/21 10:15 Nasal Secretion SARS-CoV-2 Antigen (Rapid) - Final 04/09/21 13:30 Blood Culture (Wb) - Left Hand Blood Culture - Preliminary 04/07/21 16:10 Blood Culture (Wb) - Anticubital Right Bacteria Detection (PCR) - Final Enterococcus faecalis 04/07/21 16:10 Blood Culture (Wb) - Anticubital Right Blood Culture - Final Enterococcus faecalis 04/09/21 13:35 Blood Culture (Wb) - Right Hand Blood Culture - Preliminary Cardiology Labs/Tests 04/10/21 06:42: WBC 11.1 H, RBC 4.15 L, Hgb 12.5, Hct 40.5, MCV 97.6, MCH 30.1, MCHC 30.9 L, Plt Count 145 L, MPV 9.8, Immature Gran % (Auto) 0.600, Neut % (Auto) 84.5 H, Lymph % (Auto) 6.8 L, [place] % (Auto) 7.7, Eos % (Auto) 0.1, Baso % (Auto) 0.3, Absolute Neuts (auto) 9.4 H, Nucleated RBC % 0 04/10/21 06:42: Sodium 145, Potassium 3.7, Chloride 110 H, Carbon Dioxide 30.0, Anion Gap 5, BUN 18, Creatinine 0.63, Est GFR (MDRD) Af Amer 119, Est GFR (MDRD) Non-Af 99, BUN/Creatinine Ratio 28.7 H, Glucose 83, Calcium 8.7 04/10/21 06:42: Magnesium 2.3 Rhythm: Paced electronic ventricular rhythm EKG: Paced electronic ventricular rhythm
[2021-04-10 14:13] LABS: Erythrocyte Sedimentation Rate 36 mm/hr (0-30)
[2021-04-10] MEDS: Rivaroxaban 20 MG Tablet PO (17:20)
[2021-04-10] MEDS: Senna/Docusate Sodium 1 Tablet 2 TABLET PO (17:20)
[2021-04-10] MEDS: Acetaminophen 325 MG Tablet 650 MG PO (17:21)
[2021-04-10] MEDS: Atorvastatin Calcium 10 MG Tablet PO (22:07)
[2021-04-10] MEDS: MELATONIN 3 MG TABLET PO (22:11)
[2021-04-10] MEDS: 0.9% Saline Lock 10 ML Syringe IV (22:13)
[2021-04-11] VITALS (14 sets, daily range): BP systolic 126–138; BP diastolic 56–76; PULSE 69–89; RESP 16–18; TEMP 36.6–36.9; O2SAT 95–98; BMI 23.1
[2021-04-11 07:31] LABS: Absolute Lymphocyte Count 0.74 X10^3/uL (0.83-4.51); Absolute Neutrophil Count 10.2 X10^3/uL (2.0-7.7); Basophil# 0.03 X10^3/uL; Basophil% 0.3 % (0-1); Eosinophil# 0.02 X10^3/uL; Eosinophils% 0.2 % (0-5); Hematocrit 40.4 % (37-47); Hemoglobin 12.4 g/dL (12.0-15.0); Lymphocyte # 0.74 X10^3/ul (0.83-4.51); Lymphocyte % 6.2 % (19-41); Mean Corp Hgb Conc 30.7 g/dL (32-36); Mean Corpuscular Hgb 29.7 pg (27.0-32.0); Mean Corpuscular Volume 96.9 fL (81-99); Mean Platelet Vol. 10.2 fl (6.2-12.0); Monocyte# 0.88 X10^3/uL; Monocyte% 7.4 % (0-10); NRBC Flagged by Analyzer 0 % (0-5); Neutrophil # 10.18 X10^3/uL (2.7-7.7); Platelet Count 149 K/mm3 (150-450); RBC Distribution Width CV 13.2 % (11.6-14.6); Red Blood Count 4.17 M/mm3 (4.2-5.4)
[2021-04-11 07:57] LABS: Anion Gap 5 (5-15); BUN 11 mg/dL (7-18); BUN/Creat Ratio 21.9 RATIO (10-20); Calcium,Total 8.4 mg/dL (8.5-10.1); Chloride 111 mmol/L (98-107); EST Glomerular Filtration Rate 127 mL/min (>60); Est Glom Filt Rate - Afr Amer 154 mL/min (>60); Estimated Creatinine Clearance 51.58 ml/min; Glucose 85 mg/dL (74-106); Potassium 3.6 mmol/L (3.5-5.1); Sodium Level 143 mmol/L (136-145)
--- NOTE | 2021-04-11 08:02 | PCM.PN.CARD ---
Subjective Subjective Patient seen and evaluated. Appears to be stable. Objective Data Vital Signs: Vital Signs Temp Pulse Resp BP Pulse Ox 98.4 F 69 18 126/68 H 95 04/11/21 03:37 04/11/21 07:00 04/11/21 03:37 04/11/21 03:37 04/11/21 03:39 Oxygen Flow Rate (L/min) 2 Oxygen Delivery Method Nasal Cannula Weight: 160 lb 0.889 oz Body Mass Index (BMI) 23.1 Intake & Output: Intake and Output for Last 24 Hours 04/09/21 04/10/21 04/11/21 23:59 23:59 23:59 Intake Total 2947.92 / 2947.92 1180 / 1180 50 / 50 Output Total 350 / 350 300 / 300 Balance 2947.92 / 2947.92 830 / 830 -250 / -250 Lab / Micro Data Result Diagrams: 04/11/21 06:44 04/11/21 06:44 Labs: Laboratory Results - last 24 hr 04/10/21 06:42: ESR 36 H 04/11/21 06:44: WBC 12.0 H, RBC 4.17 L, Hgb 12.4, Hct 40.4, MCV 96.9, MCH 29.7, MCHC 30.7 L, RDW Std Deviation 47.0 H, RDW Coeff of Bert 13.2, Plt Count 149 L, MPV 10.2, Immature Gran % (Auto) 0.900, Neut % (Auto) 85.0 H, Lymph % (Auto) 6.2 L, [place] % (Auto) 7.4, Eos % (Auto) 0.2, Baso % (Auto) 0.3, Absolute Neuts (auto) 10.2 H, Absolute Lymphs (auto) 0.74 L, Nucleated RBC % 0 04/11/21 06:44: Sodium 143, Potassium 3.6, Chloride 111 H, Carbon Dioxide 27.0, Anion Gap 5, BUN 11, Creatinine 0.50 L, Estim Creat Clear Calc 51.58, Est GFR (MDRD) Af Amer 154, Est GFR (MDRD) Non-Af 127, BUN/Creatinine Ratio 21.9 H, Glucose 85, Calcium 8.4 L Micro: Microbiology 04/09/21 13:35 Blood Culture (Wb) - Right Hand Blood Culture - Final GPC Poss Enterococcus sp 04/09/21 13:30 Blood Culture (Wb) - Left Hand Blood Culture - Preliminary GPC Poss Enterococcus sp 04/09/21 10:15 Nasal Secretion SARS-CoV-2 Antigen (Rapid) - Final 04/07/21 16:10 Blood Culture (Wb) - Anticubital Right Bacteria Detection (PCR) - Final Enterococcus faecalis 04/07/21 16:10 Blood Culture (Wb) - Anticubital Right Blood Culture - Final Enterococcus faecalis Cardiology Labs/Tests 04/11/21 06:44: WBC 12.0 H, RBC 4.17 L, Hgb 12.4, Hct 40.4, MCV 96.9, MCH 29.7, MCHC 30.7 L, Plt Count 149 L, MPV 10.2, Immature Gran % (Auto) 0.900, Neut % (Auto) 85.0 H, Lymph % (Auto) 6.2 L, [place] % (Auto) 7.4, Eos % (Auto) 0.2, Baso % (Auto) 0.3, Absolute Neuts (auto) 10.2 H, Nucleated RBC % 0 04/11/21 06:44: Sodium 143, Potassium 3.6, Chloride 111 H, Carbon Dioxide 27.0, Anion Gap 5, BUN 11, Creatinine 0.50 L, Est GFR (MDRD) Af Amer 154, Est GFR (MDRD) Non-Af 127, BUN/Creatinine Ratio 21.9 H, Glucose 85, Calcium 8.4 L Rhythm: EKG: ECHO: Stress Test: Cardiac Cath: PCI: CT Surgery: Holter monitor: EPS: PPM: CXR: Chest CT Scan: Physical Exam Const alert, oriented x3 and no apparent distress General Appearance: cooperative HEENT hearing grossly normal bilaterally Head and Scalp: atraumatic Eyes EOMs intact bilaterally Neck General: normal visual inspection Chest inspection of chest normal and palpation of chest normal Resp normal respiratory effort Auscultation: clear to auscultation bilaterally Cardio regular rate, regular rhythm, S1 normal heart sound and S2 normal heart sound Jugular Venous Distention: JVD Heart Sounds: murmur GI normal to inspection, nondistended, normoactive bowel sounds Extremity normal capillary refill and no pedal edema Peripheral Pulses: Yes pulses 2+ throughout and femoral pulses present Skin no rashes or lesions noted Neuro oriented x3 and CN's II-XII intact bilaterally Psych Appearance: grossly normal and appropriate Assessment & Plan Assessment/Plan (1) Status post aortic valve replacement with bioprosthetic valve: PLAN: The patient is status post aortic valve replacement with a bioprosthetic valve. This was well imaged on the echocardiogram and appears to be functioning well. No vegetation is noted on this valve. (2) Status post placement of cardiac pacemaker: PLAN: Patient is status post pacemaker placement. Pacemaker leads are very well visualized and there is no evidence of vegetation or thrombus. The echocardiogram was reviewed thoroughly. (3) Sepsis: PLAN: Patient had a history of sepsis. The echocardiogram demonstrates a calcified mitral annulus with a mobile calcified lesion unlikely to be vegetation or thrombus. At this point in time I DO NOT think that the patient needs to undergo a transesophageal echocardiogram. (4) Chronic atrial fibrillation: PLAN: Patient has a history of chronic atrial fibrillation on anticoagulation. We will continue the same. No changes will be made. Thank you for allowing me to participate in the care of your patient. Please don't hesitate to call if any issues arise.
[2021-04-11] MEDS: busPIRone 5 MG Tablet PO ×2 (09:39→22:01)
[2021-04-11] MEDS: Paroxetine 20 MG Tablet PO (09:39)
[2021-04-11] MEDS: Ferrous Sulfate 325 MG Tablet PO (09:39)
[2021-04-11] MEDS: Calcium Carbonate 500 MG Tablet PO (09:39)
[2021-04-11] MEDS: Menthol/Lanolin/Calamine/Znox 113 GM Tube 1 APPLIC TOPICAL ×2 (09:39→22:02)
[2021-04-11] MEDS: Multivitamins,Therapeutic Tablet 1 TABLET PO (09:39)
[2021-04-11 10:22] LABS: Vancomycin, Trough Level 17.6 ug/mL (5.0-15.0)
--- NOTE | 2021-04-11 10:40 | PN.HOSP_ITS ---
Subjective Subjective Patient seen and examined. She had no active complaints today and felt well. Review of systems otherwise negative. She has remained hemodynamically stable. Objective Data Objective Data Vital Signs: Vital Signs Temp Pulse Resp BP Pulse Ox 97.8 F 71 16 127/69 H 97 04/11/21 08:40 04/11/21 08:40 04/11/21 08:40 04/11/21 08:40 04/11/21 08:40 Oxygen Flow Rate (L/min) 3 Oxygen Delivery Method Nasal Cannula Weight: 160 lb 0.889 oz Body Mass Index (BMI) 23.1 Intake & Output: Intake and Output for Last 24 Hours 04/09/21 04/10/21 04/11/21 23:59 23:59 23:59 Intake Total 2947.92 / 2947.92 1180 / 1180 100 / 100 Output Total 350 / 350 300 / 300 Balance 2947.92 / 2947.92 830 / 830 -200 / -200 Lab / Micro Data Result Diagrams: 04/11/21 06:44 04/11/21 06:44 Labs: Laboratory Results - last 24 hr 04/10/21 06:42: ESR 36 H 04/11/21 06:44: WBC 12.0 H, RBC 4.17 L, Hgb 12.4, Hct 40.4, MCV 96.9, MCH 29.7, MCHC 30.7 L, RDW Std Deviation 47.0 H, RDW Coeff of Bert 13.2, Plt Count 149 L, MPV 10.2, Immature Gran % (Auto) 0.900, Neut % (Auto) 85.0 H, Lymph % (Auto) 6.2 L, [place] % (Auto) 7.4, Eos % (Auto) 0.2, Baso % (Auto) 0.3, Absolute Neuts (auto) 10.2 H, Absolute Lymphs (auto) 0.74 L, Nucleated RBC % 0 04/11/21 06:44: Sodium 143, Potassium 3.6, Chloride 111 H, Carbon Dioxide 27.0, Anion Gap 5, BUN 11, Creatinine 0.50 L, Estim Creat Clear Calc 51.58, Est GFR (MDRD) Af Amer 154, Est GFR (MDRD) Non-Af 127, BUN/Creatinine Ratio 21.9 H, Glucose 85, Calcium 8.4 L 04/11/21 09:32: Vancomycin Trough 17.6 H Micro: Microbiology 04/09/21 13:35 Blood Culture (Wb) - Right Hand Blood Culture - Final GPC Poss Enterococcus sp 04/09/21 13:30 Blood Culture (Wb) - Left Hand Blood Culture - Preliminary GPC Poss Enterococcus sp 04/09/21 10:15 Nasal Secretion SARS-CoV-2 Antigen (Rapid) - Final 04/07/21 16:10 Blood Culture (Wb) - Anticubital Right Bacteria Detection (PCR) - Final Enterococcus faecalis 04/07/21 16:10 Blood Culture (Wb) - Anticubital Right Blood Culture - Final Enterococcus faecalis 04/07/21 16:13 Blood Culture (Wb) - Left Wrist Blood Culture - Final GPC Poss Enterococcus sp 04/07/21 16:50 Urine, Catheterized Urine Culture - Final Presumptive E. coli 04/07/21 16:10 Nasal Secretion SARS-CoV-2 Antigen (Rapid) - Final Physical Exam Const alert, oriented x3 and no apparent distress Exam Limitations: no limitations HEENT head/scalp atraumatic and moist oral mucous membranes Head and Scalp: normocephalic Eyes PERRL, EOMs intact bilaterally and conjunctivae normal Neck no lymphadenopathy Resp normal respiratory effort, no retractions and no use of accessory muscles Cardio regular rate, regular rhythm, S1 normal heart sound and S2 normal heart sound Cardio Narrative: grade 2-3 systolic murmur at the aortic valve region. GI normal to inspection, nondistended, normoactive bowel sounds, soft to palpation, non-tender and non-distended Extremity normal to inspection, full ROM and no clubbing, cyanosis or edema Peripheral Pulses: Yes pulses 2+ throughout Skin no rashes or lesions noted Neuro oriented x3, CN's II-XII intact bilaterally and moves all extremities Sensorium / Orientation: awake, alert and oriented to time Psych affect normal Assessment & Plan Assessment/Plan (1) UTI (urinary tract infection): (2) Septic shock: PLAN: #Septic shock due to UTI * shock has resolved. She is now off levophed. * now on IV vancomycin and zosyn * blood cultures positive for Enterococcus fecalis; repeat blood cultures again positive for gram positive cocci, speciation pending * 2D echo was initially read as an echogenic mass attached to the pacer leads with possible vegetation vs thrombus on bioprosthetic aortic valve; re evaluation of 2D echo by investigator operator today evidence read as calcified mitral annulus with a mobile calcified leaks and unlikely to be a vegetation or thrombus. Cardiology therefore does not think the patient needs a MARIA LUISA. * ID consulted due to positive blood cultures. * * * #ENEDINA: resolved. #Elevated troponin * troponin trended downwards from 31 to 304 and 288. * has no chest pain; may be due to demand ischemia from septic shock and decreased clearance from ENEDINA * 2D echo: EF of 55 to 60% with echogenic mass attached pacer leads possible vegetation versus thrombus in the stable bioprosthetic aortic valve apparatus. * no need for any further workup for elevated troponin as it was likely due to septic shock and decreased clearance from ENEDINA as above. * #Debility due to septic shock * PT/OT on board. Fall precautions. * #Hyperlipidemia: on statin #Atrial fibrillation: On Xarelto. Beta-shahla on hold on account of Septic jose ck #History of COPD: Not in exacerbation. On breathing treatments bronchodilators. #History of heart failure: Not in exacerbation. Lasix on hold due to septic shock #Depression and anxiety: * On mirtazapine and paroxetine as well as trazodone which were held on admission due to altered mental status at that time. DVT prophylaxis:on xarelto Charges/Coding Visit Charges Inpatient E&M: 08067 Subs Hosp L2
--- NOTE | 2021-04-11 12:42 | PCM.RX.CS ---
Consult Pharmacy has been consulted to manage selected antiobiotic: Vancomycin Type of Consult: Follow-up Prior Doses of Antibiotics Received/Current Regimen: Currently on 750mg iv q12h. Labs: Sodium 143 mmol/L (136-145) 04/11/21 06:44 Potassium 3.6 mmol/L (3.5-5.1) 04/11/21 06:44 Chloride 111 mmol/L (98-107) H 04/11/21 06:44 Carbon Dioxide 27.0 mmol/L (21.0-32.0) 04/11/21 06:44 Anion Gap 5 (5-15) 04/11/21 06:44 BUN 11 mg/dL (7-18) 04/11/21 06:44 Creatinine 0.50 mg/dL (0.55-1.02) L 04/11/21 06:44 Est GFR (MDRD) Af Amer 154 mL/min (>60) 04/11/21 06:44 Est GFR (MDRD) Non-Af 127 mL/min (>60) 04/11/21 06:44 BUN/Creatinine Ratio 21.9 RATIO (10-20) H 04/11/21 06:44 Glucose 85 mg/dL (74-106) 04/11/21 06:44 Vancomycin Trough 17.6 ug/mL (5.0-15.0) H 04/11/21 09:32 Microbiology: Microbiology 04/09/21 13:35 Blood Culture (Wb) - Right Hand Blood Culture - Final GPC Poss Enterococcus sp 04/09/21 13:30 Blood Culture (Wb) - Left Hand Blood Culture - Preliminary GPC Poss Enterococcus sp 04/09/21 10:15 Nasal Secretion SARS-CoV-2 Antigen (Rapid) - Final 04/07/21 16:10 Blood Culture (Wb) - Anticubital Right Bacteria Detection (PCR) - Final Enterococcus faecalis 04/07/21 16:10 Blood Culture (Wb) - Anticubital Right Blood Culture - Final Enterococcus faecalis 04/07/21 16:13 Blood Culture (Wb) - Left Wrist Blood Culture - Final GPC Poss Enterococcus sp 04/07/21 16:50 Urine, Catheterized Urine Culture - Final Presumptive E. coli 04/07/21 16:10 Nasal Secretion SARS-CoV-2 Antigen (Rapid) - Final Weight used for dosin.6 kg Estimated Creatinine Clearance: 70ml/min Goal Trough: 15-20 mcg/mL Pharmacy Plan for Drug Dosing: Trough today was 17.6 (~11.5 hrs post dose) and in goal range of 15-20mcg/ml. Calculated CrCl is ~70ml/min. Will continue same dose and frequency. Another trough level ordered for 04.13.21. Pharmacy Service will continue to monitor and adjust dosing as required. Follow-Up Labs: Trough Vancomycin - 04.13.21@0930 before 1000 dose
--- NOTE | 2021-04-11 13:24 | CON.PCM.ID_ITS ---
Assessment & Plan Assessment/Plan (1) UTI (urinary tract infection): (2) Status post placement of cardiac pacemaker: (3) Status post aortic valve replacement with bioprosthetic valve: (4) Septic shock: PLAN: enterococcal bacteremia and ecoli uti - improved. Out of icu. TTE showed possible mitral calcified lesion. Will narrow abx to amp/ceftriaxone for empiric enterococcus endocarditis coverage. With prosthetic valve and pacer in place, would recommend MARIA LUISA even if no involvement seen on TTE. Has had covid v accine 2 or 3 doses. Will follow, thank you HPI Consult Data Date of Consult: 04/11/21 HPI Narrative HPI Narrative: PRISCA BRANHAM, is a 75 F who presented with septic shock, admitted 04/07 to icu on vanc/zosyn. C/o several days not feeling well, fatigue prior to that. No fever, no n/v/d, no dysuria, no cough or SOB, no joint pain, no abd pain. Found to have ecoli in ucx and enterococcus in Bcxs. TTE done, seen by cardiology. Feeling ok today. No recent pacer procedures, no issues at the pocket. Full ROS performed and neg except as noted above. [facility] Medical History Anxiety Anxiety Anxiety and depression Atrial fibrillation Chronic atrial fibrillation Chronic pain syndrome Congestive heart failure (CHF) COPD (chronic obstructive pulmonary disease) COPD (chronic obstructive pulmonary disease) COPD exacerbation Depression Depression Diastolic CHF History of pacemaker HLD (hyperlipidemia) HTN (hypertension) Hypertension Nicotine abuse Pacemaker Pneumonia Smoker Wheezing Home Medications atorvastatin 10 mg PO QHS 04/27/16 [History Last Taken 03/22/21 22:00] rivaroxaban 20 mg PO QHS 04/27/16 [History Last Taken 03/22/21 22:00] calcium carbonate 600 mg PO DAILY 11/02/17 [History Last Taken 03/22/21 09:00] ipratropium-albuterol 3 ml INHALATION Q4HWA.RT PRN ampul.neb 11/07/17 [Rx Last Taken Unknown] allopurinol 100 mg PO QODAY 03/22/21 [History Last Taken 03/21/21 09:00] buspirone 5 mg PO BID 03/22/21 [History Last Taken 03/22/21 22:00] ferrous sulfate 325 mg PO DAILY@0800 03/22/21 [History Last Taken 03/22/21 09:00] paroxetine HCl 20 mg PO DAILY 03/22/21 [History Last Taken 03/22/21 09:00] sotalol 120 mg PO BID 03/22/21 [History Last Taken 03/22/21 09:00] amlodipine 10 mg PO DAILY 04/07/21 [History Last Taken Unknown] ergocalciferol (vitamin D2) [Vitamin D2] 50,000 unit PO QWEEK 04/07/21 [History Last Taken Unknown] furosemide 40 mg PO DAILY 04/07/21 [History Last Taken Unknown] gabapentin 300 mg PO QHS 04/07/21 [History Last Taken Unknown] mirtazapine 15 mg PO QHS 04/07/21 [History Last Taken Unknown] multivitamin [Daily Multi-Vitamin] 1 tab PO DAILY 04/07/21 [History Last Taken Unknown] tizanidine 4 mg PO Q8H PRN 04/07/21 [History Last Taken Unknown] trazodone 150 mg PO QHS 04/07/21 [History Last Taken Unknown] Allergy/AdvReac Type Severity Reaction Status Date / Time No Known Allergies Allergy Verified 11/02/17 14:34 Family History Other CVA (cerebral vascular accident) Surgical History History of aortic valve replacement Social History Smoking Status: Current every day smoker tobacco type: cigarettes Physical Exam Const alert and oriented x3 General Appearance: cooperative Exam Limitations: no limitations HEENT normocephalic and head/scalp atraumatic Eyes PERRL and EOMs intact bilaterally Neck supple and No nodes Resp normal air movement and clear to auscultation bilaterally Cardio regular rate and regular rhythm GI normal to inspection, nondistended, normoactive bowel sounds Extremity no clubbing, cyanosis or edema Extremity Narrative: No joint or spine tenderness. Skin no rashes or lesions noted Skin Narrative: no inflammation/drainage over L chest pacer. No splinter hemorrhages on hands or feet. Neuro CN's II-XII intact bilaterally Lab / Micro Data Result Diagrams: 04/11/21 06:44 04/11/21 06:44 Labs: Laboratory Results - last 24 hr 04/10/21 06:42: ESR 36 H 04/11/21 06:44: WBC 12.0 H, RBC 4.17 L, Hgb 12.4, Hct 40.4, MCV 96.9, MCH 29.7, MCHC 30.7 L, RDW Std Deviation 47.0 H, RDW Coeff of Bert 13.2, Plt Count 149 L, MPV 10.2, Immature Gran % (Auto) 0.900, Neut % (Auto) 85.0 H, Lymph % (Auto) 6.2 L, [place] % (Auto) 7.4, Eos % (Auto) 0.2, Baso % (Auto) 0.3, Absolute Neuts (auto) 10.2 H, Absolute Lymphs (auto) 0.74 L, Nucleated RBC % 0 04/11/21 06:44: Sodium 143, Potassium 3.6, Chloride 111 H, Carbon Dioxide 27.0, Anion Gap 5, BUN 11, Creatinine 0.50 L, Estim Creat Clear Calc 51.58, Est GFR (M DRD) Af Amer 154, Est GFR (MDRD) Non-Af 127, BUN/Creatinine Ratio 21.9 H, Glu cose 85, Calcium 8.4 L 04/11/21 09:32: Vancomycin Trough 17.6 H Micro: Microbiology 04/09/21 13:35 Blood Culture (Wb) - Right Hand Blood Culture - Final GPC Poss Enterococcus sp 04/09/21 13:30 Blood Culture (Wb) - Left Hand Blood Culture - Preliminary GPC Poss Enterococcus sp 04/09/21 10:15 Nasal Secretion SARS-CoV-2 Antigen (Rapid) - Final
[2021-04-11] MEDS: Rivaroxaban 20 MG Tablet PO (17:44)
[2021-04-11] MEDS: MELATONIN 3 MG TABLET PO (22:00)
[2021-04-11] MEDS: Atorvastatin Calcium 10 MG Tablet PO (22:01)
[2021-04-11] MEDS: Ipratropium/Albuterol Sulfate 3 ML AMPUL.NEB INHALATION (22:46)
[2021-04-12] VITALS (12 sets, daily range): BP systolic 105–160; BP diastolic 58–91; PULSE 69–93; RESP 14–28; TEMP 36.6–36.8; O2SAT 90–98; BMI 23.1
--- NOTE | 2021-04-12 05:55 | ECHOTEE_ITS ---
Reason For Study: Emboli Medication MARIA LUISA probe 6VT-D (SN [id number]) passed with minimal difficulty. No complications were noted. Cetacaine Topical Haworth given X3 orally. Versed 4 mg given slow IVP. Fentanyl 100 mcg given slow IVP. Performed a rapid injection of agitated mix of 9 cc saline and 1cc air to assess for atrial septal defect. Left Ventricle Normal LV size. Left ventricular systolic function is normal. The estimated ejection fraction is 60 %. No regional wall motion abnormalities noted. Right Ventricle Normal RV size. ICD or pacer leads identified within the right ventricle. Normal systolic function. Atria Bubble contrast study negative for right to left interatrial shunt. Intact atrial septum. The left atrium is moderately enlarged. There is moderate sponatenous contrast in the left atrium. ICD or pacer leads identified within the right atrium. Mitral Valve There is moderate mitral annular calcification. Moderate (2+) eccentric mitral valve insufficiency. Tricuspid Valve Normal tricuspid valve. Mild to moderate (1-2+) tricuspid valve insufficiency. Aortic Valve Stable appearing bioprosthetic aortic valve apparatus. Pulmonic Valve Normal pulmonic valve. Mild (1+) pulmonic valve insufficiency. Vessels Normal aortic root. Mild atherosclerosis of the aortic arch. The pulmonary artery is normal size. Pericardium No pericardial effusion. ECHO/Echo Transesophageal (MARIA LUISA) Interpretation Summary Normal LV size. Left ventricular systolic function is normal. The estimated ejection fraction is 60 %. There is moderate mitral annular calcification. Stable appearing bioprosthetic aortic valve apparatus. No thrombus or vegetation seen on any valve leaflets are the pacemaker wires Ordering Physician: Jamilah Liriano Performed By: Coni Eaton RDCS
[2021-04-12 06:08] LABS: Absolute Lymphocyte Count 1.04 X10^3/uL (0.83-4.51); Absolute Neutrophil Count 11.5 X10^3/uL (2.0-7.7); Basophil# 0.05 X10^3/uL; Basophil% 0.4 % (0-1); Eosinophil# 0.02 X10^3/uL; Eosinophils% 0.1 % (0-5); Hematocrit 35.8 % (37-47); Hemoglobin 11.5 g/dL (12.0-15.0); Lymphocyte # 1.04 X10^3/ul (0.83-4.51); Lymphocyte % 7.6 % (19-41); Mean Corp Hgb Conc 32.1 g/dL (32-36); Mean Corpuscular Hgb 30.7 pg (27.0-32.0); Mean Corpuscular Volume 95.7 fL (81-99); Mean Platelet Vol. 9.8 fl (6.2-12.0); Monocyte# 1.06 X10^3/uL; Monocyte% 7.7 % (0-10); NRBC Flagged by Analyzer 0 % (0-5); Neutrophil # 11.49 X10^3/uL (2.7-7.7); Neutrophil % 83.5 % (47-70); Platelet Count 184 K/mm3 (150-450); RBC Distribution Width CV 13.4 % (11.6-14.6); RBC Distribution Width SD 47.3 fl (35.1-43.9); Red Blood Count 3.74 M/mm3 (4.2-5.4); White Blood Count 13.8 K/mm3 (4.4-11.0)
[2021-04-12] MEDS: Ipratropium/Albuterol Sulfate 3 ML AMPUL.NEB INHALATION ×2 (06:25→22:47)
[2021-04-12 06:39] LABS: Anion Gap 5 (5-15); BUN 8 mg/dL (7-18); BUN/Creat Ratio 17.9 RATIO (10-20); Calcium,Total 8.5 mg/dL (8.5-10.1); Chloride 109 mmol/L (98-107); Creatinine, Serum 0.45 mg/dL (0.55-1.02); EST Glomerular Filtration Rate 146 mL/min (>60); Est Glom Filt Rate - Afr Amer 177 mL/min (>60); Estimated Creatinine Clearance 51.58 ml/min; Glucose 94 mg/dL (74-106); Potassium 3.3 mmol/L (3.5-5.1); Sodium Level 140 mmol/L (136-145)
--- NOTE | 2021-04-12 09:36 | CASEMGMT ---
Pt was recently set up with [facility]. CASS to follow for discharge plan. Tan MURRIETA CM
[2021-04-12] MEDS: Potassium Chloride Oral Tablet 20 MEQ 40 MEQ PO (09:46)
[2021-04-12] MEDS: Menthol/Lanolin/Calamine/Znox 113 GM Tube 1 APPLIC TOPICAL ×2 (09:46→21:27)
[2021-04-12] MEDS: Multivitamins,Therapeutic Tablet 1 TABLET PO (09:46)
[2021-04-12] MEDS: Calcium Carbonate 500 MG Tablet PO (09:46)
[2021-04-12] MEDS: Ferrous Sulfate 325 MG Tablet PO (09:46)
[2021-04-12] MEDS: Paroxetine 20 MG Tablet PO (09:46)
[2021-04-12] MEDS: busPIRone 5 MG Tablet PO ×2 (10:23→21:27)
--- NOTE | 2021-04-12 13:36 | PN.HOSP_ITS ---
Subjective Subjective Patient seen and examined. She had no active complaints today and felt well. Review of systems otherwise negative. She had MARIA LUISA this morning which was negative for any evidence of vegetation. Objective Data Objective Data Vital Signs: Vital Signs Temp Pulse Resp BP Pulse Ox 97.9 F 69 16 105/64 94 04/12/21 09:35 04/12/21 09:35 04/12/21 09:35 04/12/21 09:35 04/12/21 09:35 Oxygen Flow Rate (L/min) 3 Oxygen Delivery Method Nasal Cannula Weight: 160 lb 0.889 oz Body Mass Index (BMI) 23.1 Intake & Output: Intake and Output for Last 24 Hours 04/10/21 04/11/21 04/12/21 23:59 23:59 23:59 Intake Total 1180 / 1180 1515 / 1515 590 / 590 Output Total 350 / 350 300 / 300 200 / 200 Balance 830 / 830 1215 / 1215 390 / 390 Lab / Micro Data Result Diagrams: 04/12/21 05:43 04/12/21 05:43 Labs: Laboratory Results - last 24 hr 04/12/21 05:43: WBC 13.8 H, RBC 3.74 L, Hgb 11.5 L, Hct 35.8 L, MCV 95.7, MCH 30.7, MCHC 32.1, RDW Std Deviation 47.3 H, RDW Coeff of Bert 13.4, Plt Count 184, MPV 9.8, Immature Gran % (Auto) 0.700, Neut % (Auto) 83.5 H, Lymph % (Auto) 7.6 L, [place] % (Auto) 7.7, Eos % (Auto) 0.1, Baso % (Auto) 0.4, Absolute Neuts (auto) 11.5 H, Absolute Lymphs (auto) 1.04, Nucleated RBC % 0 04/12/21 05:43: Sodium 140, Potassium 3.3 L, Chloride 109 H, Carbon Dioxide 26.0, Anion Gap 5, BUN 8, Creatinine 0.45 L, Estim Creat Clear Calc 51.58, Est GFR (MDRD) Af Amer 177, Est GFR (MDRD) Non-Af 146, BUN/Creatinine Ratio 17.9, Glucose 94, Calcium 8.5 Micro: Microbiology 04/09/21 13:35 Blood Culture (Wb) - Right Hand Blood Culture - Final GPC Poss Enterococcus sp 04/09/21 13:30 Blood Culture (Wb) - Left Hand Blood Culture - Preliminary GPC Poss Enterococcus sp 04/09/21 10:15 Nasal Secretion SARS-CoV-2 Antigen (Rapid) - Final 04/07/21 16:10 Blood Culture (Wb) - Anticubital Right Bacteria Detection (PCR) - Final Enterococcus faecalis 04/07/21 16:10 Blood Culture (Wb) - Anticubital Right Blood Culture - Final Enterococcus faecalis 04/07/21 16:13 Blood Culture (Wb) - Left Wrist Blood Culture - Final GPC Poss Enterococcus sp 04/07/21 16:50 Urine, Catheterized Urine Culture - Final Presumptive E. coli 04/07/21 16:10 Nasal Secretion SARS-CoV-2 Antigen (Rapid) - Final Radiography Diagnostic Testing: Radiology Impression Transesophageal Echocardiogram 04/12/21 05:55 Interpretation Summary Normal LV size. Left ventricular systolic function is normal. The estimated ejection fraction is 60 %. There is moderate mitral annular calcification. Stable appearing bioprosthetic aortic valve apparatus. No thrombus or vegetation seen on any valve leaflets are the pacemaker wires Ordering Physician: Jamilah Liriano Performed By: Coni Eaton RDCS Physical Exam Const alert, oriented x3 and no apparent distress Exam Limitations: no limitations HEENT head/scalp atraumatic and moist oral mucous membranes Head and Scalp: normocephalic Eyes PERRL, EOMs intact bilaterally and conjunctivae normal Neck no lymphadenopathy Resp normal respiratory effort, no retractions and no use of accessory muscles Cardio regular rate, regular rhythm, S1 normal heart sound and S2 normal heart sound Cardio Narrative: grade 2-3 systolic murmur at the aortic valve region. GI normal to inspection, nondistended, normoactive bowel sounds, soft to palpation, non-tender and non-distended Extremity normal to inspection, full ROM and no clubbing, cyanosis or edema Peripheral Pulses: Yes pulses 2+ throughout Skin no rashes or lesions noted Neuro oriented x3, CN's II-XII intact bilaterally and moves all extremities Sensorium / Orientation: awake, alert and oriented to time Psych affect normal Assessment & Plan Assessment/Plan (1) UTI (urinary tract infection): (2) Septic shock: PLAN: # UTI * initially had septic shock which has now resolved. She is now off levophed. * blood cultures positive for Enterococcus fecalis; repeat blood cultures again positive for gram positive cocci, speciation pending * 2D echo was initially read as an echogenic mass attached to the pacer leads with possible vegetation vs thrombus on bioprosthetic aortic valve; re evaluation of 2D echo by voice pathologist today evidence read as calcified mitral annulus with a mobile calcified leaks and unlikely to be a vegetation or thrombus. Cardiology therefore does not think the patient needs a MARIA LUISA. * ID on board; antibiotics changed to ampicillin and ceftriaxone. * MARIA LUISA negative for any evidence of vegetation on the aortic valve or pacer lead. * #ENEDINA: resolved. #Elevated troponin * troponin trended downwards from 31 to 304 and 288. * has no chest pain; may be due to demand ischemia from septic shock and decreased clearance from ENEDINA * 2D echo: EF of 55 to 60% with echogenic mass attached pacer leads possible vegetation versus thrombus in the stable bioprosthetic aortic valve apparatus. * no need for any further workup for elevated troponin as it was likely due to septic shock and decreased clearance from ENEDINA as above. * #Debility due to general medical condition * PT/OT on board. Fall precautions. * #Hyperlipidemia: on statin #Atrial fibrillation: On Xarelto. Beta-shahla on hold on account of Septic shock #History of COPD: Not in exacerbation. On breathing treatments bronchodilators. #History of heart failure: Not in exacerbation. Lasix on hold due to septic shock #Depression and anxiety: * On mirtazapine and paroxetine as well as trazodone which were held on admission due to altered mental status at that time. DVT prophylaxis:on xarelto Disposition: anticipate discharge within the next 24-48 hours. Charges/Coding Visit Charges Inpatient E&M: 57771 Subs Hosp L2
--- NOTE | 2021-04-12 16:00 | CASEMGMT ---
This RN CM to room to discuss discharge plan with pt. Pt states plan is to go home but unsure about pt need for IV antibx and pt did not do great with therapy, only 7ft and mod assistx1. Pt states does not have anyone to assist with IV antibx, if needed. This RN CM provided list of SNF providers including quality and resource use data and consistent with the patient?s preferred geographic region, medical needs, and insurance network. CM to follow for ID note and with pt. SStaten RN CM
[2021-04-12] MEDS: Rivaroxaban 20 MG Tablet PO (17:14)
[2021-04-12] MEDS: 0.9% Saline Lock 10 ML Syringe IV (21:25)
[2021-04-12] MEDS: MELATONIN 3 MG TABLET PO (21:27)
[2021-04-12] MEDS: Gabapentin 300 MG Capsule PO (21:27)
[2021-04-12] MEDS: Atorvastatin Calcium 10 MG Tablet PO (21:29)
[2021-04-13] VITALS (16 sets, daily range): BP systolic 114–154; BP diastolic 55–95; PULSE 69–110; RESP 18–20; TEMP 36.4–36.9; O2SAT 84–98
[2021-04-13 05:58] LABS: Absolute Lymphocyte Count 0.73 X10^3/uL (0.83-4.51); Absolute Neutrophil Count 11.2 X10^3/uL (2.0-7.7); Basophil# 0.04 X10^3/uL; Basophil% 0.3 % (0-1); Eosinophil# 0.05 X10^3/uL; Eosinophils% 0.4 % (0-5); Hematocrit 35.7 % (37-47); Hemoglobin 11.1 g/dL (12.0-15.0); Lymphocyte # 0.73 X10^3/ul (0.83-4.51); Lymphocyte % 5.6 % (19-41); Mean Corp Hgb Conc 31.1 g/dL (32-36); Mean Corpuscular Hgb 29.4 pg (27.0-32.0); Mean Corpuscular Volume 94.4 fL (81-99); Mean Platelet Vol. 9.8 fl (6.2-12.0); Monocyte% 7.6 % (0-10); NRBC Flagged by Analyzer 0 % (0-5); Neutrophil # 11.17 X10^3/uL (2.7-7.7); Neutrophil % 85.3 % (47-70); Platelet Count 186 K/mm3 (150-450); RBC Distribution Width CV 13.7 % (11.6-14.6); RBC Distribution Width SD 46.5 fl (35.1-43.9); Red Blood Count 3.78 M/mm3 (4.2-5.4); White Blood Count 13.1 K/mm3 (4.4-11.0)
[2021-04-13] MEDS: Acetaminophen 325 MG Tablet 650 MG PO (06:15)
[2021-04-13 06:36] LABS: Anion Gap 5 (5-15); BUN 7 mg/dL (7-18); BUN/Creat Ratio 15.2 RATIO (10-20); Calcium,Total 8.3 mg/dL (8.5-10.1); Chloride 110 mmol/L (98-107); Creatinine, Serum 0.46 mg/dL (0.55-1.02); EST Glomerular Filtration Rate 141 mL/min (>60); Est Glom Filt Rate - Afr Amer 171 mL/min (>60); Estimated Creatinine Clearance 51.58 ml/min; Glucose 99 mg/dL (74-106); Potassium 3.8 mmol/L (3.5-5.1); Sodium Level 143 mmol/L (136-145)
[2021-04-13] MEDS: Ipratropium/Albuterol Sulfate 3 ML AMPUL.NEB INHALATION (07:19)
[2021-04-13] MEDS: Paroxetine 20 MG Tablet PO (08:29)
[2021-04-13] MEDS: Multivitamins,Therapeutic Tablet 1 TABLET PO (08:29)
[2021-04-13] MEDS: Menthol/Lanolin/Calamine/Znox 113 GM Tube 1 APPLIC TOPICAL ×2 (08:29→20:09)
[2021-04-13] MEDS: Calcium Carbonate 500 MG Tablet PO (08:29)
[2021-04-13] MEDS: 0.9% Saline Lock 10 ML Syringe IV (08:29)
[2021-04-13] MEDS: Ferrous Sulfate 325 MG Tablet PO (08:29)
[2021-04-13] MEDS: busPIRone 5 MG Tablet PO ×2 (08:29→19:57)
[2021-04-13 09:54] LABS: Vancomycin, Trough Level 7.4 ug/mL (5.0-15.0)
--- NOTE | 2021-04-13 13:36 | PN.HOSP_ITS ---
Subjective Subjective Patient seen and examined. She had no active complaints. She is on 3L of oxygen. She has remained stable otherwise. Objective Data Objective Data Vital Signs: Vital Signs Temp Pulse Resp BP Pulse Ox 97.5 F L 69 18 122/55 H 97 04/13/21 09:30 04/13/21 11:00 04/13/21 09:30 04/13/21 09:30 04/13/21 09:30 Oxygen Flow Rate (L/min) 3 Oxygen Delivery Method Nasal Cannula Weight: 163 lb 9.328 oz Body Mass Index (BMI) 23.1 Intake & Output: Intake and Output for Last 24 Hours 04/11/21 04/12/21 04/13/21 23:59 23:59 23:59 Intake Total 1515 / 1515 1306.50 / 1306.50 531.25 / 531.25 Output Total 300 / 300 250 / 250 Balance 1215 / 1215 1056.50 / 1056.50 531.25 / 531.25 Lab / Micro Data Result Diagrams: 04/13/21 05:25 04/13/21 05:25 Labs: Laboratory Results - last 24 hr 04/13/21 05:25: WBC 13.1 H, RBC 3.78 L, Hgb 11.1 L, Hct 35.7 L, MCV 94.4, MCH 29.4, MCHC 31.1 L, RDW Std Deviation 46.5 H, RDW Coeff of Bert 13.7, Plt Count 186, MPV 9.8, Immature Gran % (Auto) 0.800, Neut % (Auto) 85.3 H, Lymph % (Auto) 5.6 L, Bill[place] % (Auto) 7.6, Eos % (Auto) 0.4, Baso % (Auto) 0.3, Absolute Neuts (auto) 11.2 H, Absolute Lymphs (auto) 0.73 L, Nucleated RBC % 0 04/13/21 05:25: Sodium 143, Potassium 3.8, Chloride 110 H, Carbon Dioxide 28.0, Anion Gap 5, BUN 7, Creatinine 0.46 L, Estim Creat Clear Calc 51.58, Est GFR ( MDRD) Af Amer 171, Est GFR (MDRD) Non-Af 141, BUN/Creatinine Ratio 15.2, Glucose 99, Calcium 8.3 L 04/13/21 09:28: Vancomycin Trough 7.4 Micro: Microbiology 04/09/21 13:35 Blood Culture (Wb) - Right Hand Blood Culture - Final GPC Poss Enterococcus sp 04/09/21 13:30 Blood Culture (Wb) - Left Hand Blood Culture - Preliminary GPC Poss Enterococcus sp 04/09/21 10:15 Nasal Secretion SARS-CoV-2 Antigen (Rapid) - Final 04/07/21 16:10 Blood Culture (Wb) - Anticubital Right Bacteria Detection (PCR) - Final Enterococcus faecalis 04/07/21 16:10 Blood Culture (Wb) - Anticubital Right Blood Culture - Final Enterococcus faecalis 04/07/21 16:13 Blood Culture (Wb) - Left Wrist Blood Culture - Final GPC Poss Enterococcus sp 04/07/21 16:50 Urine, Catheterized Urine Culture - Final Presumptive E. coli 04/07/21 16:10 Nasal Secretion SARS-CoV-2 Antigen (Rapid) - Final Physical Exam Const alert, oriented x3 and no apparent distress Exam Limitations: no limitations HEENT head/scalp atraumatic and moist oral mucous membranes Eyes PERRL, EOMs intact bilaterally and conjunctivae normal Neck no lymphadenopathy Resp normal respiratory effort, no retractions and no use of accessory muscles Resp Narrative: on 3L of oxygen Cardio regular rate, regular rhythm, S1 normal heart sound and S2 normal heart sound Cardio Narrative: grade 2-3 systolic murmur at the aortic valve region. GI normal to inspection, nondistended, normoactive bowel sounds, soft to palpation, non-tender and non-distended Extremity normal to inspection, full ROM and no clubbing, cyanosis or edema Peripheral Pulses: Yes pulses 2+ throughout Skin no rashes or lesions noted Neuro oriented x3, CN's II-XII intact bilaterally and moves all extremities Sensorium / Orientation: awake, alert and oriented to time Psych affect normal Assessment & Plan Assessment/Plan (1) UTI (urinary tract infection): (2) Septic shock: PLAN: # UTI * initially had septic shock which has now resolved. She is now off levophed. * blood cultures positive for Enterococcus fecalis; repeat blood cultures again positive for Enterococcus * 2D echo was initially read as an echogenic mass attached to the pacer leads with possible vegetation vs thrombus on bioprosthetic aortic valve; re evaluation of 2D echo by bridge operator today evidence read as calcified mitral annulus with a mobile calcified leaks and unlikely to be a vegetation or thrombus. Cardiology therefore does not think the patient needs a MARIA LUISA. * ID on board; antibiotics changed to ampicillin and ceftriaxone. * MARIA LUISA negative for any evidence of vegetation on the aortic valve or pacer lead. * discussed with ID today; will repeat blood cultures again to see if it is clearing. #ENEDINA: resolved. #Elevated troponin * troponin trended downwards from 31 to 304 and 288. * has no chest pain; may be due to demand ischemia from septic shock and decreased clearance from ENEDINA * 2D echo: EF of 55 to 60% with echogenic mass attached pacer leads possible vegetation versus thrombus in the stable bioprosthetic aortic valve apparatus. * no need for any further workup for elevated troponin as it was likely due to s eptic shock and decreased clearance from ENEDINA as above. * #Debility due to general medical condition * PT/OT on board. Fall precautions. * #Hyperlipidemia: on statin #Atrial fibrillation: On Xarelto. Beta-shahla on hold on account of Septic shock HR has been fairly well controlled. #History of COPD: Not in exacerbation. On breathing treatments bronchodilators. #History of heart failure: Not in exacerbation. Lasix on hold due to septic shockm which has now resolved. #Depression and anxiety: * On mirtazapine and paroxetine as well as trazodone * DVT prophylaxis:on xarelto Charges/Coding Visit Charges Inpatient E&M: 06920 Subs Hosp L2
--- NOTE | 2021-04-13 14:54 | CASEMGMT ---
SW was given patient's [facility] [place] [facility] choices. RITA met with patient and asked if she would like SW to call her son to help decide where she will go. Patient was in the hospital earlier this month and patient had SW talk to her son Guevara regarding which SNF. Patient said she would like RITA to call her son Guevara. SW called Guevara and left him a voice mail. Barbara MORA
--- NOTE | 2021-04-13 15:32 | CASEMGMT ---
RITA received a return call from patient's son Guevara. RITA explained therapy is recommending senior care facility again. RITA went over therapy notes with Guevara. SW also let him know it is possible patient may need IV antibiotics at discharge. Guevara agreed with longterm. Guevara said the first choice would be [place] and second choice would be [facility]. RITA told him RITA will work on referral. RITA faxed referral to [facility]. RITA also called [facility] and spoke with Kinga letting her know SW is faxing a referral. [facility] may not have beds until Sunday. RITA is unsure of how long patient will need to be here so RITA may send a referral to [facility] as well. Barbara Newsome TONG SETTER MORGAN
[2021-04-13] MEDS: LORazepam 1 MG Tablet PO ×2 (16:07→22:22)
[2021-04-13] MEDS: Rivaroxaban 20 MG Tablet PO (16:07)
[2021-04-13] MEDS: Mirtazapine 15 MG Tablet PO (19:56)
[2021-04-13] MEDS: Atorvastatin Calcium 10 MG Tablet PO (19:57)
[2021-04-13] MEDS: traZODone 100 MG Tablet 150 MG PO (19:57)
[2021-04-13] MEDS: Gabapentin 300 MG Capsule PO (19:57)
[2021-04-13] MEDS: MELATONIN 3 MG TABLET PO (19:58)
--- NOTE | 2021-04-13 20:11 | NURSING ---
HS MEDS GIVEN EARLY PER PT'S REQUEST. PT C/O EXTREME ANXIETY. REPORTS SHE GETS THIS WAY EVERY NIGHT .
[2021-04-14] VITALS (36 sets, daily range): BP systolic 57–124; BP diastolic 47–100; PULSE 69–125; RESP 16–36; TEMP 36.4–37.5; O2SAT 54–100
[2021-04-14 08:47] LABS: Absolute Lymphocyte Count 0.84 X10^3/uL (0.83-4.51); Absolute Neutrophil Count 8.3 X10^3/uL (2.0-7.7); Basophil# 0.03 X10^3/uL; Basophil% 0.3 % (0-1); Eosinophil# 0.02 X10^3/uL; Eosinophils% 0.2 % (0-5); Hematocrit 36.7 % (37-47); Hemoglobin 11.5 g/dL (12.0-15.0); Lymphocyte # 0.84 X10^3/ul (0.83-4.51); Lymphocyte % 8.3 % (19-41); Mean Corp Hgb Conc 31.3 g/dL (32-36); Mean Corpuscular Hgb 30.1 pg (27.0-32.0); Mean Corpuscular Volume 96.1 fL (81-99); Mean Platelet Vol. 9.8 fl (6.2-12.0); Monocyte# 0.82 X10^3/uL; Monocyte% 8.1 % (0-10); NRBC Flagged by Analyzer 0 % (0-5); Neutrophil # 8.34 X10^3/uL (2.7-7.7); Neutrophil % 82.2 % (47-70); Platelet Count 182 K/mm3 (150-450); RBC Distribution Width CV 13.9 % (11.6-14.6); RBC Distribution Width SD 48.8 fl (35.1-43.9); Red Blood Count 3.82 M/mm3 (4.2-5.4); White Blood Count 10.1 K/mm3 (4.4-11.0)
[2021-04-14 09:23] LABS: Anion Gap 6 (5-15); BUN 10 mg/dL (7-18); BUN/Creat Ratio 15.7 RATIO (10-20); Calcium,Total 8.5 mg/dL (8.5-10.1); Chloride 112 mmol/L (98-107); Creatinine, Serum 0.64 mg/dL (0.55-1.02); EST Glomerular Filtration Rate 97 mL/min (>60); Est Glom Filt Rate - Afr Amer 117 mL/min (>60); Estimated Creatinine Clearance 51.58 ml/min; Glucose 107 mg/dL (74-106); Potassium 3.7 mmol/L (3.5-5.1); Sodium Level 146 mmol/L (136-145)
--- NOTE | 2021-04-14 10:11 | CASEMGMT ---
RITA did fax a referral to [facility] this am. RITA also called [facility] regarding referral. Await response. Barbara Newsome FERTILIZER LOADER MORGAN
[2021-04-14] MEDS: Multivitamins,Therapeutic Tablet 1 TABLET PO (10:18)
[2021-04-14] MEDS: Paroxetine 20 MG Tablet PO (10:18)
[2021-04-14] MEDS: Allopurinol 100 MG Tablet PO (10:19)
[2021-04-14] MEDS: Sotalol Hydrochloride 80 MG Tablet 120 MG PO (10:19)
[2021-04-14] MEDS: Ferrous Sulfate 325 MG Tablet PO (10:19)
[2021-04-14] MEDS: busPIRone 5 MG Tablet PO ×2 (10:19→22:52)
[2021-04-14] MEDS: Menthol/Lanolin/Calamine/Znox 113 GM Tube 1 APPLIC TOPICAL ×2 (10:21→23:44)
[2021-04-14] MEDS: Calcium Carbonate 500 MG Tablet PO (10:32)
[2021-04-14 11:41] LABS: Magnesium 2.4 mg/dL (1.6-2.6)
--- NOTE | 2021-04-14 13:09 | PN.CC_ITS ---
Assessment & Plan Assessment/Plan (1) Acute respiratory failure: PLAN: RECOMMENDATIONS: 1. Wean FiO2 and PEEP for saturations greater than 90%. 2. Obtain and send sputum for culture. 3. Continue antimicrobials per ID recommendations. 4. Amiodarone per cardiology along with magnesium and potassium repletion. 5. Continue Xarelto. 6. Start appropriate GI prophylaxis. 7. Check CMP, magnesium, Phos and troponin. IMPRESSIONS: 1. Acute hypoxemic respiratory failure status post cardiac arrest The patient was previously admitted to the hospital with septic shock, which has resolved with antimicrobial therapy. She was previously requiring 3 L/min of oxygen. On the afternoon of April 14, the patient sustained a V. fib cardiac arrest, which required ACLS to achieve ROSC. The patient was intubated as a consequence of the aforementioned. Recommend continuing the previously initiated antimicrobials. Will obtain and send sputum for culture. Arterial blood gas will be obtained. She will be continued on assist control mode of mechanical ventilation. FiO2 and PEEP will be weaned as tolerated to maintain saturations at or above 90%. Cardiology is following to assist with medical management. Prior echocardiogram was largely unrevealing. 2. Septic shock Although the patient was initially admitted to the hospital with septic shock, requiring transient use of vasopressors, she has remained hemodynamically stable. She remains on antimicrobials per ID recommendations to address her enterococcal bacteremia and E. coli urinary tract infection. 3. Atrial fibrillation/history of COPD/hyperlipidemia/depression/anxiety Complicates care, management, recovery and prognosis. Continue home medications as indicated. TIME: 47 minutes of critical care time, inclusive of procedures, was spent addressing the patient's acute hypoxemic respiratory failure status post cardiac arrest, septic shock, review of all data and collaboration with the care team. Subjective Subjective Responded to CODE BLUE on PCU. The patient was found unresponsive with agonal respirations. She was noted to be in ventricular fibrillation. ACLS was initiated. Rapid defibrillation occurred at 200 J. The patient received epinephrine with subsequent organization in her rhythm to PEA. She received 1 additional round of epinephrine, after which time, ROSC was achieved. The patient was intubated by myself during the code. Intubation Indication: Respiratory failure Consent was obtained from: Done emergently in the setting of cardiac arrest The patient was placed in the appropriate sniffing position. The patient had continuous cardiac as well as pulse oximetry monitoring during the procedure. No procedural sedation was administered. Direct laryngoscopy was then performed using a number 4 MAC blade, which revealed a grade 1 view. A 7.5 mm endotracheal tube was visualized advancing between the cords to the level of 23 cm at the lip. The stylette was then removed and discarded. Tube placement was confirmed by fogging in the tube along with equal and bilateral breath sounds. Colorimetric change was visualized on the CO2 meter. The cuff was then inflated and the tube secured using a commercially available device. The patient had been previously seen by Dr. Samson after she presented to the ICU with septic shock felt to be secondary to urinary tract infection. The patient was transiently on vasopressor support. She was transferred out of the ICU on April 09. The patient was evaluated by infectious diseases after she was identified as having an enterococcal bacteremia and E. coli urinary tract infection. She did undergo a transthoracic echocardiogram which revealed a stable appearing bioprosthetic aortic valve without any thrombus or vegetation. The patient was last noted to be stable on 3 L/min of oxygen. She is currently documented to be overall net +12.4 L for the hospitalization. Following stabilization post cardiac arrest, the patient was transferred to the medical intensive care unit. Objective Data Objective Data The patient's most recent lab work, culture data and imaging studies have all been personally reviewed. Transesophageal echocardiogram from April 12 demonstrated normal LV size and function with an ejection fraction of 60%. There was a stable appearing bioprosthetic aortic valve without any thrombus or vegetations seen on any of the valve leaflets or pacemaker wires. Blood cultures dated April 09 were positive for Enterococcus. Vital Signs: Vital Signs Temp Pulse Resp BP Pulse Ox 97.5 F L 117 H 18 124/100 H 96 04/14/21 10:10 04/14/21 12:36 04/14/21 10:10 04/14/21 12:36 04/14/21 10:10 Oxygen Flow Rate (L/min) 3.5 Oxygen Delivery Method Nasal Cannula Weight: 72.4 kg Body Mass Index (BMI) 23.1 Intake & Output: Intake and Output for Last 24 Hours 04/12/21 04/13/21 04/14/21 23:59 23:59 23:59 Intake Total 1306.50 / 1306.50 1121.25 / 1221.25 690 / 690 Output Total 250 / 250 100 / 100 Balance 1056.50 / 1056.50 1121.25 / 1121. 590 / 590 Lab / Micro Data Attestation: I reviewed the patient's lab results. Result Diagrams: 04/14/21 08:35 04/14/21 08:35 Labs: Laboratory Results - last 24 hr 04/14/21 08:35: WBC 10.1, RBC 3.82 L, Hgb 11.5 L, Hct 36.7 L, MCV 96.1, MCH 30.1, MCHC 31.3 L, RDW Std Deviation 48.8 H, RDW Coeff of Bert 13.9, Plt Count 182, MPV 9.8, Immature Gran % (Auto) 0.900, Neut % (Auto) 82.2 H, Lymph % (Auto) 8.3 L, [place] % (Auto) 8.1, Eos % (Auto) 0.2, Baso % (Auto) 0.3, Absolute Neuts (auto) 8.3 H, Absolute Lymphs (auto) 0.84, Nucleated RBC % 0 04/14/21 08:35: Sodium 146 H, Potassium 3.7, Chloride 112 H, Carbon Dioxide 28 .0, Anion Gap 6, BUN 10, Creatinine 0.64, Estim Creat Clear Calc 51.58, Est GFR (MDRD) Af Amer 117, Est GFR (MDRD) Non-Af 97, BUN/Creatinine Ratio 15.7, Glucose 107 H, Calcium 8.5 04/14/21 08:35: Magnesium 2.4 Micro: Microbiology 04/09/21 13:35 Blood Culture (Wb) - Right Hand Blood Culture - Final GPC Poss Enterococcus sp 04/09/21 13:30 Blood Culture (Wb) - Left Hand Blood Culture - Preliminary GPC Poss Enterococcus sp 04/09/21 10:15 Nasal Secretion SARS-CoV-2 Antigen (Rapid) - Final 04/07/21 16:10 Blood Culture (Wb) - Anticubital Right Bacteria Detection (PCR) - Final Enterococcus faecalis 04/07/21 16:10 Blood Culture (Wb) - Anticubital Right Blood Culture - Final Enterococcus faecalis 04/07/21 16:13 Blood Culture (Wb) - Left Wrist Blood Culture - Final GPC Poss Enterococcus sp 04/07/21 16:50 Urine, Catheterized Urine Culture - Final Presumptive E. coli 04/07/21 16:10 Nasal Secretion SARS-CoV-2 Antigen (Rapid) - Final Physical Exam Const no apparent distress General Appearance: frail, intubated and patient mechanically ventilated HEENT normocephalic and head/scalp atraumatic Mouth: endotracheal tube in place and OG tube in place Eyes PERRL Neck supple General: trachea midline Resp Auscultation: diminished lung sounds Cardio Cardio Narrative: Paced rhythm Rate: tachycardic Rhythm: abnormal rhythm Heart Sounds: murmur GI normal to inspection, nondistended, normoactive bowel sounds Extremity no clubbing, cyanosis or edema Skin no rashes or lesions noted Neuro Sensorium / Orientation: sedated on vent Charges/Coding Procedures Hospitalists Procedures: 88821 Critial Care 1st Hr
--- NOTE | 2021-04-14 13:09 | CASEMGMT ---
Annetta Ash was called. RITA called patient's son Guevara and left him a voice mail asking him to call PCU right away. RITA also called patient's other son Gio and left him a message, but he called right back. RITA let Gio know that patient is not doing well and he needs to come to the hospital. He asked what happened and RITA told him that she had stopped breathing and they are working on her right now. He is on his way in. Gio called PCU back again and was very upset and wants to know what is going on with patient. An RN that was participating in patient's care spoke with him and explained what was happening. Barbara MORA
--- NOTE | 2021-04-14 13:10 | RAD_ITS ---
STUDY: X-RAY CHEST REASON FOR EXAM: Female, 75 years old. ETT and OG placement TECHNIQUE: AP COMPARISON: 04/07/2021. FINDINGS: Two lead cardiac conduction device is seen via the left subclavian vein with lead tips projecting over the right atrium and right ventricle, respectively. Sternal wires and aortic valve replacement. Endotracheal tube present with tip terminating 3.5 cm above the servando. Esophagogastric tube extends the left upper abdomen. Patchy interstitial and groundglass opacities noted bilaterally, new. Small bilateral pleural effusions. There is mild cardiac enlargement. Mitral valve calcifications. Normal mediastinum and jessica. There is prominence of the pulmonary hilar arteries and peripheral pulmonary arteries, consistent with congestive heart failure (CHF). There is atherosclerotic calcification of the aortic arch with tortuosity. No acute bony process. There is no demonstrated abnormality of the visualized soft tissue structures of the upper abdomen. RAD/Chest 1 View (Portable) IMPRESSION: Endotracheal and esophagogastric tubes, as above. Vascular congestion with pulmonary edema and small effusions. Electronically Signed: Marvin Wright MD (Brooks) at 13:44 EST , Service support ,
--- NOTE | 2021-04-14 13:11 | NURSING ---
Report given to ICU nurse Fatimah. Pt transferred to ICU.
--- NOTE | 2021-04-14 13:17 | NURSING ---
amio 150 ivp additional amio 150mg total 300 mg per K boss
--- NOTE | 2021-04-14 13:26 | PN.CARD_ITS ---
Subjective Subjective The patient [facility]. Apparently went into V. fib and needed to be resuscitated and intubated and sent to the intensive care unit. Cardiology was reconsulted. I saw her in the ICU and she was having recurrent episodes of VT and VF. Objective Data Vital Signs: Vital Signs Temp Pulse Resp BP Pulse Ox 97.5 F L 117 H 18 124/100 H 96 04/14/21 10:10 04/14/21 12:36 04/14/21 10:10 04/14/21 12:36 04/14/21 10:10 Oxygen Flow Rate (L/min) 3.5 Oxygen Delivery Method Nasal Cannula Weight: 159 lb 9.835 oz Body Mass Index (BMI) 23.1 Intake & Output: Intake and Output for Last 24 Hours 04/12/21 04/13/21 04/14/21 23:59 23:59 23:59 Intake Total 1306.50 / 1306.50 1121.25 / 1221.25 690 / 690 Output Total 250 / 250 100 / 100 Balance 1056.50 / 1056.50 1121.25 / 1121.25 590 / 590 Lab / Micro Data Result Diagrams: 04/14/21 08:35 04/14/21 08:35 Labs: Laboratory Results - last 24 hr 04/14/21 08:35: WBC 10.1, RBC 3.82 L, Hgb 11.5 L, Hct 36.7 L, MCV 96.1, MCH 30.1, MCHC 31.3 L, RDW Std Deviation 48.8 H, RDW Coeff of Bert 13.9, Plt Count 182, MPV 9.8, Immature Gran % (Auto) 0.900, Neut % (Auto) 82.2 H, Lymph % (Auto) 8.3 L, [place] % (Auto) 8.1, Eos % (Auto) 0.2, Baso % (Auto) 0.3, Absolute Neuts (auto) 8.3 H, Absolute Lymphs (auto) 0.84, Nucleated RBC % 0 04/14/21 08:35: Sodium 146 H, Potassium 3.7, Chloride 112 H, Carbon Dioxide 28.0 , Anion Gap 6, BUN 10, Creatinine 0.64, Estim Creat Clear Calc 51.58, Est GFR (MDRD) Af Amer 117, Est GFR (MDRD) Non-Af 97, BUN/Creatinine Ratio 15.7, Glucose 107 H, Calcium 8.5 04/14/21 08:35: Magnesium 2.4 Cardiology Labs/Tests 04/14/21 08:35: WBC 10.1, RBC 3.82 L, Hgb 11.5 L, Hct 36.7 L, MCV 96.1, MCH 30 .1, MCHC 31.3 L, Plt Count 182, MPV 9.8, Immature Gran % (Auto) 0.900, Neut % (Auto) 82.2 H, Lymph % (Auto) 8.3 L, [place] % (Auto) 8.1, Eos % (Auto) 0.2, Baso % (Auto) 0.3, Absolute Neuts (auto) 8.3 H, Nucleated RBC % 0 04/14/21 08:35: Sodium 146 H, Potassium 3.7, Chloride 112 H, Carbon Dioxide 28.0, Anion Gap 6, BUN 10, Creatinine 0.64, Est GFR (MDRD) Af Amer 117, Est GFR (MDRD) Non-Af 97, BUN/Creatinine Ratio 15.7, Glucose 107 H, Calcium 8.5 04/14/21 08:35: Magnesium 2.4 Rhythm: EKG: ECHO: Stress Test: Cardiac Cath: PCI: CT Surgery: Holter monitor: EPS: PPM: CXR: Chest CT Scan: Physical Exam Const Orientation / Consciousness: disoriented HEENT hearing grossly normal bilaterally Head and Scalp: atraumatic Eyes EOMs intact bilaterally Neck General: normal visual inspection Chest inspection of chest normal and palpation of chest normal Resp normal respiratory effort Auscultation: clear to auscultation bilaterally Cardio regular rate, regular rhythm, S1 normal heart sound and S2 normal heart sound Jugular Venous Distention: JVD GI normal to inspection, nondistended, normoactive bowel sounds Extremity normal capillary refill and no pedal edema Peripheral Pulses: Yes pulses 2+ throughout and femoral pulses present Skin no rashes or lesions noted Neuro oriented x3 and CN's II-XII intact bilaterally Psych Appearance: grossly normal and appropriate Assessment & Plan Assessment/Plan (1) Status post aortic valve replacement with bioprosthetic valve: PLAN: The patient is status post aortic valve replacement with a bioprosthetic valve. This was well imaged on the echocardiogram and appears to be functioning well. No vegetation is noted on this valve. (2) Status post placement of cardiac pacemaker: PLAN: Patient is status post pacemaker placement. Pacemaker leads are very well visualized and there is no evidence of vegetation or thrombus. The echocardiogram was reviewed thoroughly. (3) Sepsis: PLAN: Patient had a history of sepsis. The echocardiogram demonstrates a calcified mitral annulus with a mobile calcified lesion unlikely to be vegetatio n or thrombus. At this point in time I DO NOT think that the patient needs to undergo a transesophageal echocardiogram. (4) Chronic atrial fibrillation: PLAN: Patient has a history of chronic atrial fibrillation on anticoagulation. We will continue the same. Patient is currently on Xarelto. This can be discontinued 48 hours prior to coronary angiogram. We will also discontinue the sotalol since she is on the amiodarone. (5) Ventricular arrhythmia: PLAN: Patient apparently went into a V. fib arrest. Patient was noted to be having recurrent episodes of ventricular tachycardia and ventricular fibrillation. Have recommended patient be bolused with 2 g of intravenous magnesium * Bolused with 300 mg of intravenous amiodarone and then started on a drip 1 mg/min followed by 0.5 mg/min * Her ejection fraction was noted to be normal previously * Would recommend patient. Ruled out for an acute coronary event. * Replace potassium to a level over 4 * Will eventually likely need her coronary anatomy evaluated before discharge. * Above discussed with entertainment reporter and hospitalist.
--- NOTE | 2021-04-14 13:35 | CHAPLAIN ---
Type of Pastoral Visit ___ Initial Visit ___ Follow-up Visit ___ On-call Visit ___ General Patient Visit ___ Spiritual Assessment ___ Family Conference ___ Bereavement ___ Rapid Response _x__ Code Blue ___ Other (describe below) Pastoral Care Referral From ___ Patient ___ Family ___ Nurse ___ Physician ___ Frog Catcher ___ Sizing Machine And Drier Operator _x__ Other (describe below) Sacrament/Intervention ___ Active listening ___ Anointing ___ Sabianism ___ Bereavement ___ Communion ___ Maribel exploration ___ ___ Life review ___ Prayer ___ Reconciliation ___ Sacrament of Sick _x__ Supportive presence ___ Wedding ___ Other (describe below) Pastoral Comments responded to code blue; medical team working on patient; no family is present; SW called son of patient; remained on site and accompanied move to ICU; waited for family to come and they have not yet
[2021-04-14 13:55] LABS: Allen Test Positive; Base Excess 2 mmol/L (-2 to +2); Blood Gas Specimen Type ART; FI02 75; Mode AC; O2 Delivery Device ET Tube; PEEP 8; PO2 49 mmHG (75-100); RR 16; SITE L Radial; SO2 80 % (95-99); Total Carbon Dioxide 30 mmol/L; Vt 350; pCO2 54.9 mmHg (35-45); pH 7.32 (7.35-7.45)
[2021-04-14 14:09] LABS: ALB/GLOB Ratio 0.4 RATIO (0.9-2.4); AST(SGOT) 229 U/L (15-37); Alanine Aminotransfer ALT/SGPT 88 U/L (13-56); Albumin, Serum 1.7 g/dL (3.2-5.0); Alkaline Phosphatase 146 U/L (45-117); Anion Gap 4 (5-15); BUN 11 mg/dL (7-18); BUN/Creat Ratio 13.9 RATIO (10-20); Calcium,Total 8.1 mg/dL (8.5-10.1); Chloride 111 mmol/L (98-107); Creatinine, Serum 0.79 mg/dL (0.55-1.02); EST Glomerular Filtration Rate 76 mL/min (>60); Est Glom Filt Rate - Afr Amer 91 mL/min (>60); Estimated Creatinine Clearance 51.58 ml/min; Globulin 4.2 g/dL (2.2-4.2); Glucose 134 mg/dL (74-106); Magnesium 2.8 mg/dL (1.6-2.6); Phosphorus 4.4 mg/dL (2.5-4.9); Protein, Total 5.9 g/dL (6.4-8.2); Sodium Level 146 mmol/L (136-145); Troponin-I HS 1702 pg/mL (3.0-54.0)
--- NOTE | 2021-04-14 14:22 | ECHOL_ITS ---
Procedure This was a limited 2D transthoracic echocardiogram. Exam performed portable in ICU/CCU. Left Ventricle Image quality 6 out of 10. Valvular details may be self optimally evaluated. Patient appears to be in atrial fibrillation? There is moderate left ventricular systolic dysfunction. Visually estimated left ventricular ejection fraction is about 35 to 40%. Abnormal wall motion involving the mid and distal septum and left ventricular apex. The interventricular septum may be paradoxic in motion. Left ventricular cavity is mildly dilated. There is mild concentric left ventricular hypertrophy. There is severe biatrial enlargement. Left atrial diameter is 5.2 cm and left atrial volume index is 64 mL/m?? There is significant right atrial and right ventricular dilatation and right ventricular systolic dysfunction. The aortic valve is reported to be bioprosthetic. There is significant thickening of the left and noncoronary cusps. Despite that, the valve seems to open reasonably well, if there is aortic stenosis I would say it is not severe or critical. Hemodynamics across the aortic valve were not obtained. There is dense mitral annular calcification. There is not appear to be mitral stenosis. Linear echodensities are seen traversing the right atrium and right ventricle consistent with pacemaker/ICD leads. The leads appear normal. The tricuspid valve is structurally normal, there is tricuspid annular dilatation and at least moderate with] 2+] tricuspid regurgitation. RV systolic pressure is estimated to be about 25 mmHg. There is inferior vena caval plethoric. There is left pleural effusion The left ventricular free wall is a very shaggy appearance. Compared to her most recent echo report from 1230 04/08/2021, there are significant changes: LV systolic function was then reported to be normal, now there is moderate LV systolic dysfunction, there are regional wall motion abnormalities primarily affecting the septum and the left ventricular apex, there is now severe right atrial and right ventricular dilatation and right ventricular systolic dysfunction, mitral annular calcification is unchanged, PA pressure was then estimated to be 42 mmHg and now it is 25 mmHg, probably because of RV systolic dysfunction. Left pleural effusion was not documented on the previous study. In addition to an interim coronary event, would consider pulmonary embolism in the differential diagnosis. MMode/2D Measurements & Calculations LVIDd: 3.8 cm IVSd: 1.5 cm LAV(MOD-bp): 119.5 ml LVIDs: 2.7 cm LVPWd: 1.3 cm LAV(MOD-bp) Indexed: 63.8 ml/m2 RVDd: 3.8 cm FS: 28.0 % LAV(MOD-sp2): 112.8 ml LAV(MOD-sp4): 117.8 ml LA A4 area: 31.5 cm2 LA dimension(2D): 5.2 cm RA A4 area: 22.0 cm2 Doppler Measurements & Calculations TR max angel: 238.4 cm/sec TR max P.7 mmHg ECHO/Echo, Limited Study Interpretation Summary Image quality 6 out of 10. Valvular details may be self optimally evaluated. Patient appears to be in atrial fibrillation? There is moderate left ventricular systolic dysfunction. Visually estimated lef t ventricular ejection fraction is about 35 to 40%. Abnormal wall motion involving severe hypokinesis of the mid and distal septum and left ventricular apex and apical inferior wall. The interventricular septum may be paradoxic in motion. Left ventricular cavity is mildly dilated. There is mild concentric left ventricular hypertrophy. There is severe biatrial enlargement. Left atrial diameter is 5.2 cm and left atrial volume index is 64 mL/m?? There is significant right atrial and right ventricular dilatation and right ve ntricular systolic dysfunction. The aortic valve is reported to be bioprosthetic. There is significant thickeni ng of the left and noncoronary cusps. Despite that, the valve seems to open reasonably well, if th ere is aortic stenosis I would say it is not severe or critical. Hemodynamics across the aort ic valve were not obtained. There is dense mitral annular calcification. There is not appear to be mitral stenosis. Linear echodensities are seen traversing the right atrium and right ventricle c onsistent with pacemaker/ICD leads. The leads appear normal. The tricuspid valve is structurally normal, there is tricuspid annular dilatati on and at least moderate (2+] tricuspid regurgitation. RV systolic pressure is estimated to be about 25 mmHg. There is inferior vena caval plethora. There is left pleural effusion The left ventricular free wall is a very shaggy appearance. Compared to her most recent echo report from 04/11/21, there are significant ch anges: LV systolic function was then reported to be normal, now there is moderate LV s ystolic dysfunction, there are regional wall motion abnormalities primarily affecting the septum and the left ventricular apex, there is now right atrial and right ventricular dilatation and right vent ricular systolic dysfunction, mitral annular calcification is unchanged, PA pressure was then es timated to be 42 mmHg and now it is 25 mmHg, probably because of RV systolic dysfunction. Left pleural effusion was not documented on the previous study.IVC plethora is now noted. In addition to an interim coronary event, would consider pulmonary embolism in the differential diagnosis. Ordering Physician: Jamilah Liriano Referring Physician: CARDIAC ARREST Performed By: Michelle Worthy, ZEV, RVT
[2021-04-14] MEDS: Potassium Chloride IVPB 10 MEQ 100 MEQ IV BOLUS ×4 (14:24→19:04)
--- NOTE | 2021-04-14 15:22 | CASEMGMT ---
RITA notified Colleen at [facility] that patient will not be coming today. SW explained patient is now on a ventilator. SW will be in touch when patient improves. Barbara MORA
--- NOTE | 2021-04-14 15:30 | CHAPLAIN ---
Type of Pastoral Visit ___ Initial Visit _x__ Follow-up Visit ___ On-call Visit ___ General Patient Visit ___ Spiritual Assessment _x__ Family Conference ___ Bereavement ___ Rapid Response ___ Code Blue ___ Other (describe below) Pastoral Care Referral From ___ Patient _x__ Family _x__ Nurse ___ Physician ___ Encoding Machine Operator ___ Line Decorator ___ Other (describe below) Sacrament/Intervention _x__ Active listening ___ Anointing ___ Muslim ___ Bereavement ___ Communion ___ Maribel exploration ___ ___ Life review _x__ Prayer ___ Reconciliation ___ Sacrament of Sick _x__ Supportive presence ___ Wedding ___ Other (describe below) Pastoral Comments met with son and grandson in patient room as they are making decisions about future care for the patient; family is open to spiritual care support and prayer for guidance; pt was active in mosque during her earlier years but is not currently;
--- NOTE | 2021-04-14 15:35 | PN.HOSP_ITS ---
Subjective Subjective Patient seeen and examined. She was alert and communicative this morning and had no complaints. However later in the day, PENNY HANEY was called after patient went into V. fib and then cardiac arrest. Patient had had a short beat run of V. fib at the end the day and her magnesium and potassium were checked and were found to be normal limits. Shortly afterwards she went into V. fib and cardiac arrest. She was successfully resuscitated via ACLS protocol and transferred emergently to the ICU. Objective Data Objective Data Vital Signs: Vital Signs Temp Pulse Resp BP Pulse Ox 97.5 F L 93 24 H 57/47 L 96 04/14/21 10:10 04/14/21 14:33 04/14/21 14:33 04/14/21 14:33 04/14/21 10:10 Oxygen Flow Rate (L/min) 3.5 Oxygen Delivery Method Nasal Cannula Weight: 159 lb 9.835 oz Body Mass Index (BMI) 23.1 Intake & Output: Intake and Output for Last 24 Hours 04/12/21 04/13/21 04/14/21 23:59 23:59 23:59 Intake Total 1306.50 / 1306.50 1121.25 / 1221.25 794.25 / 794.25 Output Total 250 / 250 100 / 100 Balance 1056.50 / 1056.50 1121.25 / 1121.25 694.25 / 694.25 Lab / Micro Data Result Diagrams: 04/14/21 08:35 04/14/21 13:25 Labs: Laboratory Results - last 24 hr 04/14/21 08:35: WBC 10.1, RBC 3.82 L, Hgb 11.5 L, Hct 36.7 L, MCV 96.1, MCH 30.1, MCHC 31.3 L, RDW Std Deviation 48.8 H, RDW Coeff of Bert 13.9, Plt Count 182, MPV 9.8, Immature Gran % (Auto) 0.900, Neut % (Auto) 82.2 H, Lymph % (Auto) 8.3 L, [place] % (Auto) 8.1, Eos % (Auto) 0.2, Baso % (Auto) 0.3, Absolute Neuts (auto) 8.3 H, Absolute Lymphs (auto) 0.84, Nucleated RBC % 0 04/14/21 08:35: Sodium 146 H, Potassium 3.7, Chloride 112 H, Carbon Dioxide 28.0, Anion Gap 6, BUN 10, Creatinine 0.64, Estim Creat Clear Calc 51.58, Est GFR (MDRD) Af Amer 117, Est GFR (MDRD) Non-Af 97, BUN/Creatinine Ratio 15.7, Glucose 107 H, Calcium 8.5 04/14/21 08:35: Magnesium 2.4 04/14/21 13:25: Sodium 146 H, Potassium 4.0, Chloride 111 H, Carbon Dioxide 31.0, Anion Gap 4 L, BUN 11, Creatinine 0.79, Estim Creat Clear Calc 51.58, Est GFR (MDRD) Af Amer 91, Est GFR (MDRD) Non-Af 76, BUN/Creatinine Ratio 13.9, Glucose 134 H, Calcium 8.1 L, Phosphorus 4.4, Magnesium 2.8 H, Total Bilirubin 0.30, AST 229 H, ALT 88 H, Alkaline Phosphatase 146 H, Troponin I High Sens 1702 H*, Total Protein 5.9 L, Albumin 1.7 L, Globulin 4.2, Albumin/Globulin Ratio 0.4 L Micro: Microbiology 04/09/21 13:30 Blood Culture (Wb) - Left Hand Blood Culture - Final GPC Poss Enterococcus sp 04/09/21 13:35 Blood Culture (Wb) - Right Hand Blood Culture - Final GPC Poss Enterococcus sp 04/09/21 10:15 Nasal Secretion SARS-CoV-2 Antigen (Rapid) - Final 04/07/21 16:10 Blood Culture (Wb) - Anticubital Right Bacteria Detection (PC R) - Final Enterococcus faecalis 04/07/21 16:10 Blood Culture (Wb) - Anticubital Right Blood Culture - Final Enterococcus faecalis 04/07/21 16:13 Blood Culture (Wb) - Left Wrist Blood Culture - Final GPC Poss Enterococcus sp 04/07/21 16:50 Urine, Catheterized Urine Culture - Final Presumptive E. coli 04/07/21 16:10 Nasal Secretion SARS-CoV-2 Antigen (Rapid) - Final ABG Data ABG results: ABG 04/14/21 13:48 Specimen Type ART Sample Site L Radial pH 7.32 L Bicarbonate Actual 28.0 H Total CO2 30 Base Excess 2 O2 Saturation 80 L O2 % 75 ABG pCO2 54.9 H ABG pO2 49 L Jesus Test Positive Respiration Rate 16 O2 Delivery Device ET Tube Vent Mode AC Tidal Volume 350 POC PEEP 8 Radiography Diagnostic Testing: Radiology Impression Chest X-Ray 04/14/21 13:10 IMPRESSION: Endotracheal and esophagogastric tubes, as above. Vascular congestion with pulmonary edema and small effusions. Electronically Signed: Mravin Wright MD (Brooks) at 13:44 EST , Service support , Physical Exam Narrative Physical exam: General: Well-nourished, well-developed. Head: Normocephalic, atraumatic, no tenderness Eyes: PERRLA, EOMI ENT, no trauma, dry mucous membranes, no rhinorrhea Neck: Nontender, full range of motion, no spinal tenderness, deformities, step- off CVS: Regular rate and rhythm. S1-S2 present. No murmur, gallop or rub. Respiratory : Mild focal wheezes. Chest wall nontender. Abdomen: Soft, nontender, nondistended, normal bowel sounds, no masses : Deferred Back: Nontender, no CVA tenderness, no midline spinal tenderness, deformities, step-offs Extremities: Nontender full range of motion, no trauma Skin: Normal color, no trauma, abrasions Neuro: Alert. Patient knows where she is. She knows the year but does not know the months or the day. Cranial nerves II through XII grossly intact. Psychiatry: Normal mood. Normal affect. Not depressed. Not anxious. Const alert, oriented x3 and no apparent distress Constitutional Narrative: intubated, sedated. RASS score is -4 Exam Limitations: altered mental status HEENT head/scalp atraumatic and moist oral mucous membranes Head and Scalp: normocephalic Eyes EOMs intact bilaterally and conjunctivae normal Neck no lymphadenopathy Resp normal respiratory effort, no retractions and no use of accessory muscles Resp Narrative: diminished breath sounds bibasally, no wheezes or crackles. Intubated and sedated. Cardio regular rate, regular rhythm, S1 normal heart sound, S2 normal heart sound and no murmurs Cardio Narrative: grade 2-3 systolic murmur at the aortic valve region. GI normal to inspection, nondistended, normoactive bowel sounds, soft to palpation, non-tender and non-distended Extremity normal to inspection and no clubbing, cyanosis or edema Peripheral Pulses: Yes pulses 2+ throughout Skin no rashes or lesions noted Neuro oriented x3, CN's II-XII intact bilaterally and moves all extremities Neuro Narrative: intubated, sedated, RASS score is -4 Sensorium / Orientation: awake, alert and oriented to time Psych affect normal Assessment & Plan Assessment/Plan (1) Ventricular arrhythmia: (2) Cardiac arrest: (3) UTI (urinary tract infection): (4) Septic shock: PLAN: #Cardiac arrest due to ventricular fibrillation * patient went into ventricular fibrillation and cardiac arrest today * she was successfully resuscitated via ACLS and emergently transferred to ICU * cardiology and critical care on board * started on amiodarone drip per cardiology * limited echo ordered per cardiology. * #Ventricular fibrillation: as above. #Shock * possibly due to cardiogenic shock. went into vfib after cardiac arrrest * started on levophed drip. * limited echo ordered. * titrate to maintain MAP >65 * #Acute hypoxic respiratory failure due to cardiac arrest from ventricular fibrillation * Patient currently intubated and sedated. * Titrate oxygen to maintain saturation above 90%. Breathing treatments bronchodilators. * critical care on board * # UTI * blood cultures positive for Enterococcus fecalis; repeat blood cultures again positive for Enterococcus * 2D echo was initially read as an echogenic mass attached to the pacer leads wi th possible vegetation vs thrombus on bioprosthetic aortic valve; re evaluation of 2D echo by overnight babysitter today evidence read as calcified mitral annulus with a mobile calcified leaks and unlikely to be a vegetation or thrombus. Cardiology therefore does not think the patient needs a MARIA LUISA. * ID on board; antibiotics changed to ampicillin and ceftriaxone. * MARIA LUISA negative for any evidence of vegetation on the aortic valve or pacer lead. * repeat blood cultures pending #ENEDINA: resolved. #Elevated troponin * troponin trended downwards from 31 to 304 and 288. * has no chest pain; may be due to demand ischemia from septic shock and decreased clearance from ENEDIAN * 2D echo: EF of 55 to 60% with echogenic mass attached pacer leads possible vegetation versus thrombus in the stable bioprosthetic aortic valve apparatus. * now had cardiac arrest as above. management as above * #Debility due to general medical condition * PT/OT on board. Fall precautions. * #Hyperlipidemia: on statin #Atrial fibrillation: On Xarelto. hold xarelto tomorrow in preparation for cardiac cath on Sunday, per cardiology #History of COPD: Not in exacerbation. On breathing treatments bronchodilators. #History of heart failure: Not in exacerbation. Lasix on hold as she is back on levophed. #Depression and anxiety: * On mirtazapine and paroxetine as well as trazodone * DVT prophylaxis:on xarelto Code status: * I met with patient's 3 sons to discuss CODE STATUS. * Her sons felt that patient did not want to live like this on a ventilator and so requested that if she went into cardiac arrest again, resuscitation not to be attempted. * the interim, they would want all current treatment modalities to continue * I advised family that this would entail changing code status to DNRCCA with intubation. They were agreeable. * Total face to face time discussion about code status: 17 mins Charges/Coding Visit Charges Inpatient E&M: 46481 Subs Hosp L3 Procedures Hospitalists Procedures: 71028 Critial Care Addl 30 Min
--- NOTE | 2021-04-14 20:30 | RAD_ITS ---
STUDY: X-RAY CHEST REASON FOR EXAM: Female, 75 years old. for picc placement TECHNIQUE: Single AP portable view of the chest. COMPARISON: April 14, 2021 FINDINGS: 1. Stable endotracheal and feeding tubes 2. Stable left chest cardiac device and leads 3. Mild cardiomegaly unchanged 4. No change in diffuse pulmonary vascular congestion due to chronic CHF 5. Moderate pulmonary edema is present over the right mid to lower lung field which was not seen on the prior study possibly due to layering/shifting pleural effusion or worsening disease 6. Mild streaky interstitial edema is present in the left lung 7. Small bilateral pleural effusions reidentified, right greater than left 8. Stable osseous structures 9. New right side PICC line tip terminates in the right atrium There is no demonstrated abnormality of the visualized soft tissue structures of the upper abdomen. RAD/Chest 1 View (Portable) IMPRESSION: Worsening right lung disease either due to shifting pleural fluid or worsening pulmonary edema or consolidation Electronically Signed: Curt Hurst MD at 22:34 EST , Service support ,
--- NOTE | 2021-04-14 20:38 | NURSING ---
1900: fentanyl running at 75mcg/hr when this nurse came on with 50cc left in bag, no active order
--- NOTE | 2021-04-14 21:30 | RAD_ITS ---
STUDY: X-RAY CHEST REASON FOR EXAM: Female, 75 years old. reverify picc placement TECHNIQUE: Single AP portable view of the chest. COMPARISON: April 14, 2021 at 8:32 PM FINDINGS: Follow-up film at 9:23 PM Slight retraction of the right side PICC line with the tip just above the right atrium. Otherwise no interval changes Refer to previous dictation: 1. Stable endotracheal and feeding tubes 2. Stable left chest cardiac device and leads 3. Mild cardiomegaly unchanged 4. No change in diffuse pulmonary vascular congestion due to chronic CHF 5. Moderate pulmonary edema is present over the right mid to lower lung field which was not seen on the prior study possibly due to layering/shifting pleural effusion or worsening disease 6. Mild streaky interstitial edema is present in the left lung 7. Small bilateral pleural effusions reidentified, right greater than left 8. Stable osseous structures RAD/Chest 1 View (Portable) IMPRESSION: Slight retraction of the right side PICC line with the tip just above the right atrium. Otherwise no interval changes Electronically Signed: Curt Hurst MD at 22:43 EST , Service support ,
[2021-04-14] MEDS: Mirtazapine 15 MG Tablet PO (22:52)
[2021-04-14] MEDS: Gabapentin 300 MG Capsule PO (22:52)
[2021-04-14] MEDS: Atorvastatin Calcium 10 MG Tablet PO (22:52)
[2021-04-14] MEDS: Chlorhexidine 15 ML PO (22:52)
[2021-04-14] MEDS: traZODone 100 MG Tablet 150 MG PO (22:52)
[2021-04-14 23:11] LABS: CPK Total, Creatine Kinase 110 U/L (26-192); Triglycerides 66 mg/dL
[2021-04-15] VITALS (13 sets, daily range): BP systolic 70–95; BP diastolic 55–66; PULSE 81–103; RESP 16; TEMP 37.7; O2SAT 95–99
[2021-04-15 03:38] LABS: Absolute Lymphocyte Count 1.26 X10^3/uL (0.83-4.51); Absolute Neutrophil Count 15.2 X10^3/uL (2.0-7.7); Basophil# 0.04 X10^3/uL; Basophil% 0.2 % (0-1); Hematocrit 32.8 % (37-47); Hemoglobin 9.8 g/dL (12.0-15.0); Lymphocyte # 1.26 X10^3/ul (0.83-4.51); Lymphocyte % 7.1 % (19-41); Mean Corp Hgb Conc 29.9 g/dL (32-36); Mean Corpuscular Hgb 29.7 pg (27.0-32.0); Mean Corpuscular Volume 99.4 fL (81-99); Mean Platelet Vol. 10.1 fl (6.2-12.0); Monocyte# 0.93 X10^3/uL; Monocyte% 5.2 % (0-10); NRBC Flagged by Analyzer 0 % (0-5); Neutrophil # 15.18 X10^3/uL (2.7-7.7); Neutrophil % 85.8 % (47-70); Platelet Count 222 K/mm3 (150-450); RBC Distribution Width CV 14.1 % (11.6-14.6); RBC Distribution Width SD 51.7 fl (35.1-43.9); White Blood Count 17.7 K/mm3 (4.4-11.0)
[2021-04-15 03:55] LABS: Anion Gap 7 (5-15); BUN 17 mg/dL (7-18); BUN/Creat Ratio 17.7 RATIO (10-20); Calcium,Total 7.1 mg/dL (8.5-10.1); Chloride 116 mmol/L (98-107); Creatinine, Serum 0.96 mg/dL (0.55-1.02); EST Glomerular Filtration Rate 60 mL/min (>60); Est Glom Filt Rate - Afr Amer 73 mL/min (>60); Estimated Creatinine Clearance 53.73 ml/min; Glucose 100 mg/dL (74-106); Potassium 4.1 mmol/L (3.5-5.1); Sodium Level 147 mmol/L (136-145)
--- NOTE | 2021-04-15 04:05 | NURSING ---
LEFT MESSAGES FOR [facility] AND [facility] TO UPDATE THEM ON PT'S CHANGE OF STATUS. PHONE NUMBER WE HAVE FOR GO IS OUT OF SERVICE.
--- NOTE | 2021-04-15 05:34 | NURSING ---
0400: pt alarm vfib on the monitor. thready pulse palpable, pt unresponsive 0414: asystole, no pulse palpable, no heart sounds auscultated. 2 RNs verified.
--- NOTE | 2021-04-15 10:28 | EXP.PCM_ITS ---
Preliminary Cause of Preliminary Cause of Preliminary Cause of : Acute cardiopulmonary arrest due to ventricular fibrillation Principle Diagnosis Problem List: Active and Suspected Problems (Updated 04/14/21 @ 15:[address] Jamilah Liriano MD) Cardiac arrest (Acute) Ventricular arrhythmia (Acute) Acute respiratory failure (Acute) Chronic atrial fibrillation (Acute) UTI (urinary tract infection) (Acute) Acute metabolic encephalopathy (Acute) Sepsis (Acute) Infectious encephalopathy (Acute) Septic shock (Acute) Hospital Course Patient is a 75-year-old female with a past medical history as outlined including chronic A. fib with pacemaker and chronic diastolic heart failure who was admitted through the ED with a complaint of confusion. She was admitted on 04/07/2021. Patient had been noted to be confused and when her home health nurse visited, patient was noted to have low blood pressure and she was also noted to have slurred speech. She could not give much of a history when she arrived so history was mainly taken from her son Guevara. On admission, she was found to be septic and was thought to be due to UTI. Patient did not respond to fluids so was diagnosed with septic shock. She was admitted to the ICU and managed for septic shock due to UTI. She was started on IV ceftriaxone. Patient was also noted to have elevated high- sensitivity troponin which was thought to be due to demand ischemia and poor clearance from sepsis and ENEDINA. 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 Infectious diseases was consulted. Patient had a MARIA LUISA which showed no evidence of vegetation or thrombus on the valves. Blood cultures grew Enterococcus faecalis and repeat blood cultures were still growing Enterococcus faecalis. Antibiotics were subsequently changed to ampicillin and ceftriaxone per infectious disease consults. Patient was eventually transferred out of the ICU and was doing better initially. Hospital course was however complicated by development of ventricular fibrillation which resulted in a cardiac arrest on 04/14/2021. SHe was emergently intubated and transferred to the ICU where she was started on amiodarone drip. Cardiology was on board. CODE STATUS was discussed with family who at that point stated that they wanted patient to be DNR CCA with intubation. Patient developed V. fib again overnight and went into cardiac arrest again. Based on family's wishes, she was not resuscitated as CODE STATUS had been changed to DNR CCA with intubation. Patient at 4:14 AM on 04/15/2021. Cause of is asystole due to acute cardiopulmonary arrest due to ventricular fibrillation. Visit Charges Inpatient E&M: 27451 Disch Hosp
--- NOTE | 2021-04-18 13:58 | CASEMGMT ---
Social Work Spoke with patient's vocational childcare teacher from [facility] [employer] ([phone]), Tory Ascencio. Tory requesting update and confirmation of patient's passing, reporting that learned from patient's aid but needed confirmation on date. Confirmed date of as is needed for cessation of home based waiver services. No other services requested or indicated. -LANCE Murcia, MATERIALS AND CORROSION ENGINEER
== END 2021-04-15 09:30 | DRG 871 ==
LOC: ED 20:38 → ICU 21:11 → PCU 04-08 20:20 → ICU 04-14 12:51
PROVIDERS: Internal Medicine Critical Care Medicine; Internal Medicine Infectious Disease; Internal Medicine Interventional Cardiology; Admitting Provider Hospitalist; Emergency Provider Student in an Organized Health Care Education/Training Program; Visit Provider Student in an Organized Health Care Education/Training Program
DX: A41.81 Sepsis due to Enterococcus (principal); R65.21 Severe sepsis with septic shock; G93.41 Metabolic encephalopathy; J96.01 Acute respiratory failure with hypoxia; I50.32 Chronic diastolic (congestive) heart failure; N39.0 Urinary tract infection, site not specified; N17.9 Acute kidney failure, unspecified; I48.20 Chronic atrial fibrillation, unspecified; I47.2 Ventricular tachycardia; I49.01 Ventricular fibrillation; R57.0 Cardiogenic shock; I46.9 Cardiac arrest, cause unspecified; B96.20 Unspecified Escherichia coli [E. coli] as the cause of diseases classified elsewhere; I11.0 Hypertensive heart disease with heart failure; Z20.822 Contact with and (suspected) exposure to COVID-19; G89.4 Chronic pain syndrome; J44.9 Chronic obstructive pulmonary disease, unspecified; E86.0 Dehydration; E78.5 Hyperlipidemia, unspecified; F32.A Depression, unspecified; F41.9 Anxiety disorder, unspecified; F17.210 Nicotine dependence, cigarettes, uncomplicated; Z79.01 Long term (current) use of anticoagulants; Z79.899 Other long term (current) drug therapy; Z95.0 Presence of cardiac pacemaker; Z95.3 Presence of xenogenic heart valve; R79.1 Abnormal coagulation profile
CPT/HCPCS: 31500; 31720; 36415; 36569; 36600; 71045; 80048; 80053; 80202; 80307; 81001; 82550; 82803; 83605; 83735; 84100; 84478; 84484; 85025; 85610; 85652; 85730; 87040; 87070; 87086; 87088; 87149; 87186; 87205; 87426; 87635; 92950; 93005; 93306; 93308; 93312; 93320; 93325; 94002; 94003; 94640; 97110; 97116; 97162; 97165; 97530; 97535; 97803; 99285; J7030; J7040; J7050; U0005; A4216; J0696; J3010; U0003